=== PATIENT | male | born 1975 | race Caucasian/White ===

== ENCOUNTER → 2018-06-10 | Outpatient (CLI) | payer BC ==
[~2018-06-10] MED LIST: ACYC400T PO; CEPH500C; CITA10TA70 PO; DICL75TA2 PO; DOXY100T2 PO; DULA1.5P2 SQ; FAMO20TA5 PO; FLUO40CA PO; GLIP5TAB13 PO; HYDR-34 PO; HYDR-3820 PO; HYDR12.570 PO; IOHEXOL 350 MG/ML 100 ML (OMNIPAQUE 350) VIAL IV ONE; LIRA0.6P SQ; MELO-195 PO; METF-380 PO; METF-397 PO; METF100028 PO; NS 250 ML (IVPB) BAG IV ONE; PRD20T PO; SITA25TA PO; SULF-222; TEST200V21 IM; TRAM50TA2; TRAM50TA2 PO; VICTOZA
--- NOTE | 2018-06-10 08:26 | Diagnostic Imaging Report ---
PROCEDURE: CT neck soft tissue with contrast. TECHNIQUE: Multiple contiguous axial images were obtained through the neck after the administration of contrast. INDICATION: Swelling of the left salivary gland. No prior studies are available for comparison. There is fluid in both maxillary sinuses, greatest on the left suggestive of sinusitis. The posterior nasopharynx, oropharynx and larynx are unremarkable. No thyroid mass is seen. The parotid and submandibular glands are unremarkable. No discrete mass is seen. Posterior cervical chain is unremarkable apart from a left-sided node measuring 1.7 x 1.1 cm posterior to the left jugular vein at the level of the hyoid. Mildly prominent lymph node in the left jugulodigastric region is seen measuring 1.7 x 1.0 cm. A right jugulodigastric node measures 1.3 x 0.9 cm. There are some several small submandibular nodes bilaterally. Largest is on the right measuring 1.6 x 1.0 cm. IMPRESSION: 1. No evidence of salivary gland mass. 2. Findings suggestive of bilateral maxillary sinusitis, left greater. 3. Prominent lymph nodes in the neck bilaterally, as described and indeterminate. Followup could be obtained. Dictated by: Dictated on workstation # [id number]
== END ==
LOC: RAD 07:14
PROVIDERS: ATTEND Otolaryngology Otolaryngology/Facial Plastic Surgery
DX: R59.0 Localized enlarged lymph nodes (principal)
CPT/HCPCS: 70491

== ENCOUNTER 2018-06-22 05:38 | Outpatient (CLI) | payer BC ==
[~2018-06-22] VITALS: Ht 175.3 cm; Wt 105.2 kg
[~2018-06-22 05:38] MED LIST changes: -DULA1.5P2 SQ; -FLUO40CA PO; -GLIP5TAB13 PO; -HYDR-3820 PO; -IOHEXOL 350 MG/ML 100 ML (OMNIPAQUE 350) VIAL IV ONE; -NS 250 ML (IVPB) BAG IV ONE; -TEST200V21 IM
[2018-06-22] MEDS ORDERED: HYDR-3820 PO (15:22)
[2018-06-22] MEDS ORDERED: FLUO40CA PO (15:22)
[2018-06-22] MEDS ORDERED: DULA1.5P2 SQ (15:22)
[2018-06-22] MEDS ORDERED: GLIP5TAB13 PO (15:22)
[2018-06-22] MEDS ORDERED: TEST200V21 IM (15:22)
== END 2018-06-22 15:26 | disposition home or self-care (01) ==
LOC: PREOP 05:38
PROVIDERS: ATTEND Otolaryngology Otolaryngology/Facial Plastic Surgery
DX: Z01.818 Encounter for other preprocedural examination (principal)

== ENCOUNTER 2018-06-25 06:01 | Day surgery (SDC) | payer BC ==
[~2018-06-25] VITALS: Ht 175.3 cm; Wt 105.2 kg
[~2018-06-25 06:01] MED LIST changes: +DULA1.5P2 SQ; +FLUO40CA PO; +GLIP5TAB13 PO; +HYDR-3820 PO; +TEST200V21 IM
--- OUTSIDE RECORDS SUMMARY | 2018-06-25 06:06 | XMS REPORT ---
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 Active 276151584 Problem Controlled type 2 diabetes mellitus without complication, without long -term current use of insulin E11.9 Active 140733895 Problem Diabetes E11.9 Active 33698189 Problem Chronic osteoarthritis M19.90 Active 90311990 Problem Type 2 diabetes mellitus with complication, without long-term current use of insulin E11.8 Active 29923571 Problem Sialadenitis K11.20 Active 29952171 Problem Mood disorder F39 Active 29288451 Problem Chronic fatigue R53.82 Active 42625099 Problem Depressive disorder, not elsewhere classified F32.9 Active 13357440 Problem Hypogonadism in male E29.1 Active 18961660 ALLERGIES No Information ENCOUNTERS Encounter Location Date Diagnosis [facility] [id number], [place] [address] May, [facility] [address], [place] [address] 8052 May, [facility] [id number] [place] [address] 99105- 0756 May, Hypogonadism in male E29.1 [facility] [id number] [place] [address] 00487- 7565 18 May, 2018 Hypogonadism in male E29.1 [facility] [address], [place] [address] 5681 Apr, [facility] [id number] [place] [address] 79320- 1444 Apr, [place] [id number] [place] [address] 97678- 9380 Mar, Hypogonadism in male E29.1 [facility] [id number] [place] [address] 13571- 1166 Mar, Hypogonadism in male E29.1 [facility] [id number] [place] [address] 05127- 8111 Mar, Diabetes E11.9 and Anxiety F41.9 [facility] [id number] [place] [address] 26347- 1680 Mar, Type 2 diabetes mellitus with complication, without long- term current use of insulin E11.8 [facility] [id number] [place] [address] 66167- 9526 Feb, Insect bite (nonvenomous) of right upper arm, initial encounter S40.861A [facility] [id number] [place] [address] 85637- 1584 Feb, Insect bite (nonvenomous) of right upper arm, initial encounter S40.861A ; Local infection of the skin and subcutaneous tissue, unspecified L08.9 and Hypogonadism in male E29.1 [facility] [id number] [place] [address] 72433- 5543 January, Sialadenitis K11.20 [facility] [id number] [place] [address] 88960- 4616 January, Bronchitis J40 [facility] [id number] [place] [address] 54438- 1626 January, Hypogonadism in male E29.1 [facility] [id number] [place] [address] 28083- 3085 January, Hypogonadism in male E29.1 [facility] [id number] [place] [address] 57175- 9454 Dec, Bronchitis J40 [facility] [id number] [place] [address] 22578- 0147 28 Nov, 2017 Diabetes E11.9 and Anxiety F41.9 [facility] [address] [address]39- 2540 15 Nov, 2017 Bronchitis J40 [facility] [id number] [place] [address] 17014- 2810 14 Oct, 2017 Bronchitis J40 [facility] [address] 49302- 2905 Sep, Diabetes E11.9 ; Mood disorder F39 ; Hypogonadism in male E29.1 and Depressive disorder, not elsewhere classified F32.9 [facility] [address] 16020- 4724 Sep, Bronchitis J40 [facility] [address] 05953- 0640 Sep, Hypogonadism in male E29.1 [facility] [id number] [place] [address] 69348- 3165 Sep, [facility] [address] 94850- 9108 Sep, [facility] [id number] [place] [address] 66956- 3261 Aug, Bronchitis J40 [facility] [address] 37458- 2442 Aug, Uncontrolled type 2 diabetes mellitus without complication, without long-term current use of insulin E11.65 ; Diabetes type 2, controlled E11.9 ; Hypogonadism in male E29.1 ; Encounter for immunization Z23 and Spider bite wound, undetermined intent, initial encounter T63.304A [facility] [id number] [place] [address] 91502- 3805 Jul, Bronchitis J40 [facility] [address] 87959- 1122 Jun, Hypogonadism in male E29.1 [facility] [address] [facility] [id number], [place] [address] 9416 Jun, Hypogonadism in male E29.1 and Bronchitis J40 [facility] [address] [facility] [id number], [place] [address]- 1698 May, Bronchitis J40 [facility] [id number] [place] [address] 23427- 8352 May, Hypogonadism in male E29.1 [facility] [address] [facility] [id number], [place] [address]- 4419 May, Hypogonadism in male E29.1 [facility] [id number] [place] [address] 57253- 7296 Apr, Bronchitis J40 [facility] [id number] [place] [address] 51267- 9499 Apr, Controlled type 2 diabetes mellitus without complication, without long-term current use of insulin E11.9 [facility] [address], [place] [address]- 7547 Apr, Diabetes type 2, controlled E11.9 ; Hypogonadism in male E29.1 and Mood disorder F39 [facility] [address], [place] [address]- 8062 Apr, Hypogonadism in male E29.1 [facility] [address], [place] [address]- 7808 Apr, Bronchitis J40 [facility] [address] [facility] [id number], [place] [address]- 8290 Mar, Hypogonadism in male E29.1 [facility] [address], [place] [address]- 7802 Mar, Bronchitis J40 [facility] [address], [place] [address]- 7974 Mar, Bronchitis J40 [facility] [address] [place] [address] 00022- 7983 Feb, Spider bite, accidental or unintentional, initial encounter T63.301A [facility] [id number] [place] [address] 02845- 0276 Feb, Depressive disorder, not elsewhere classified F32.9 [facility] [id number] [place] [address] 09031- 4147 16 Feb, 2017 Diabetes E11.9 ; Mood disorder F39 and Hypogonadism in male E29.1 [facility] [id number] [place] [address] 56753- 8759 08 Feb, 2017 Bronchitis J40 [facility] [id number] [place] [address] 35626- 1663 Feb, Depressive disorder, not elsewhere classified F32.9 [facility] [id number] [place] [address] 83683- 0940 January, Depressive disorder, not elsewhere classified F32.9 [facility] [id number] [place] [address] 39507- 2187 January, Diabetes E11.9 and Mood disorder F39 [facility] [id number] [place] [address] 20052- 4723 January, Bronchitis J40 [facility] [id number] [place] [address] 46478- 6037 Dec, Bronchitis J40 [facility] [id number] [place] [address] 40159- 0008 Dec, Hypogonadism in male E29.1 [facility] [id number] [place] [address] 15395- 6966 Dec, [facility] [id number] [place] [address] 56862- 4576 Dec, Controlled type 2 diabetes mellitus without complication, without long-term current use of insulin E11.9 and Chronic fatigue R53.82 [facility] [address], [place] [address]- 5579 Nov, Bronchitis J40 [facility] [id number] [place] [address] 03674- 3302 16 Oct, 2016 Bronchitis J40 ; Controlled type 2 diabetes mellitus without complication, without long-term current use of insulin E11.9 ; Chronic fatigue R53.82 and Drug-induced erectile dysfunction N52.2 [facility] [facility] [id number] [place] [address] 62513- 0156 Oct, Diabetes E11.9 [facility] [facility] [id number] [place] [address] 95773- 0769 Sep, Pre-employment examination Z02.1 [facility] [id number] [place] [address] 77749- 6383 Sep, Diabetes E11.9 [place] [id number] [place] [address] 54254- 6672 Aug, Controlled type 2 diabetes mellitus without complication, without long-term current use of insulin E11.9 and Chronic osteoarthritis M19.90 [facility] [id number] [place] [address] 80215- 5348 Jul, [place] [id number] [place] [address] 40765- 9327 Jun, [place] [id number] [place] [address] 38924- 6858 Jun, 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 [facility] [id number] [place] [address] 20376- 6451 Jun, Encounter for immunization Z23 and Controlled type 2 diabetes mellitus without complication, without long-term current use of insulin E11.9 [facility] [id number] [place] [address] 17359- 3884 May, [facility] [id number] [place] [address] 50877- 4647 May, [facility] [address], [place] [address]- 1518 Apr, Gastritis without bleeding, unspecified chronicity, unspecified gastritis type K29.70 [facility] [address], [place] [address]- 1425 Apr, [facility] [id number] [place] [address] 06417- 4919 Mar, Diabetes type 2, controlled E11.9 [facility] [id number] [place] [address] 39339- 1550 Mar, [facility] [id number] [place] [address] 04216- 8817 Feb, [facility] [id number] [place] [address] 49104- 1002 Feb, [facility] [id number] [place] [address] 20289- 7328 January, [facility] [id number] [place] [address] 33264- 7875 Dec, Urethritis N34.2 [facility] [id number] [place] [address] 07007- 9667 Dec, [facility] [id number] [place] [address] 38454- 3470 Nov, Diabetes type 2, controlled E11.9 [facility] [address], [place] [address]- 6010 Nov, [facility] [id number] [place] [address] 32180- 1847 Nov, Diabetes type 2, controlled E11.9 [facility] [address] [place] [address] 66362- 7555 Oct, Hand pain M79.643 [facility] [address] [place] [address] 83433- 5836 Oct, Right hand pain M79.641 [facility] [id number], [place] [address]- 3755 Oct, [facility] [id number] [place] [address] 21894- 4946 Oct, [facility] [id number] [place] [address] 05449- 2245 Oct, Right carpal tunnel syndrome G56.01 [facility] [id number] [place] [address] 41860- 4903 Sep, Diabetes E11.9 [facility] [id number] [place] [address] 40637- 1651 Sep, Anxiety F41.9 ; Chronic osteoarthritis M19.90 and Health examination of defined subpopulation V70.5 [facility] [id number] [place] [address] 14533- 3045 Sep, Diabetes E11.9 [facility] [id number] [place] [address] 92242- 1453 Aug, Diabetes E11.9 ; Carpal tunnel syndrome, right G56.01 and Carpal tunnel syndrome, left upper limb G56.02 [facility] [address], [place] [address]- 4842 Jul, Diabetes mellitus 250.00 [facility] [id number] [place] [address] 81669- 9065 Jun, Diabetes mellitus 250.00 [facility] [id number] [place] [address] 60129- 4619 May, Diabetes mellitus 250.00 [facility] [id number] [place] [address] 80725- 9664 Apr, Diabetes mellitus 250.00 [facility] [id number] [place] [address] 82167- 6558 Mar, [facility] [id number] [place] [address] [place] [address]- 4993 Mar, Tooth abscess 522.5 [facility] [id number] [place] [address] 24256- 7701 Feb, [facility] [id number] [address]- 6586 January, [facility] [id number] [place] [address] 82536- 7235 January, [facility] [id number] [place] [address] 72981- 9127 January, Diabetes mellitus 250.00 [facility] [id number] [place] [address], [place] [address]- 1932 January, [facility] [id number] [place] [address] 18845- 7054 Dec, [facility] [id number] [place] [address] 53938- 2966 Dec, [facility] [address] 3786 Nov, [facility] [address] [place] [address] 05938- 1001 Nov, [facility] [address] 6377 Nov, [facility] [address] 4257 Nov, [facility] [address], [place] [address]- 7046 Oct, [facility] [address], [place] [address]- 4294 Oct, [facility] [address], [place] [address]- 3606 Sep, [facility] [address], [place] [address]- 6256 Sep, [facility] [place] [facility] [address] [id number] [place] [address]- 8797 Aug, [facility] [place] [facility] [address] [id number] [place] [address]- 0122 Aug, [facility] [place] [facility] [address] [id number] [place] [address]- 5556 Aug, [facility] [place] [facility] [address] [id number] [place] [address]- 0135 Aug, [facility] [place] [facility] [address] [id number] [place] [address]- 5481 Aug, [facility] [place] [facility] [address] [id number] [place] [address]- 7786 Aug, [facility] [place] [facility] [address] [id number] [place] [address]- 9641 Jul, [facility] [place] [facility] [address] [id number] [place] [address]- 2026 Jul, [facility] [place] [facility] [address] [id number] [place] [address]- 4523 Jun, [facility] [place] [facility] [address] [id number] [place] [address]- 7243 Jun, [facility] [place] [facility] [address] [id number] [place] [address]- 5735 May, [facility] [place] [facility] [address] [id number] [place] [address]- 3556 May, [facility] [place] [facility] [address] [id number] [place] [address]- 5557 Apr, [facility] [place] [facility] [address] [id number] [place] [address]- 2300 Apr, [facility] [place] [facility] [address] [id number] [place] [address]- 6934 Apr, [facility] [place] [facility] [address] [id number] [place] [address]- 0091 Apr, [facility] [address] [id number] [place] [address]- 7394 Apr, [facility] [place] [facility] [address] [id number] [place] [address]- 5793 Apr, [facility] [place] [facility] [address] [id number] [place] [address]- 0705 Mar, [facility] [place] [facility] [address] [id number] [place] [address]- 5362 Mar, [facility] [place] [facility] [address] [id number] [place] [address]- 9381 Feb, [facility] [place] [facility] [address] [id number] [place] [address]- 0299 Feb, [facility] [place] [facility] [address] [id number] [place] [address]- 5949 Feb, [facility] [place] [facility] [address] [id number] [place] [address]- 9468 Feb, [facility] [place] [facility] [address] [id number] [place] [address]- 6719 January, [facility] [place] [facility] [address] [id number] [place] [address]- 9760 January, [facility] [place] [facility] [address] [id number] [place] [address]- 4288 January, [facility] [place] [facility] [address] [id number] [place] [address]- 1923 January, [facility] [place] [facility] [address] [id number] [place] [address]- 9059 Dec, [facility] [place] [facility] [address] [id number] [place] [address]- 6492 Dec, [facility] [place] [facility] [address] [id number] [place] [address]- 1093 Nov, [facility] [place] [facility] [address] [id number] [place] [address]- 6271 Nov, [facility] [place] [facility] [address] [id number] [place] [address]- 5830 Oct, [facility] [place] [facility] [address] [id number] [place] [address]- 3503 Oct, [facility] [place] [facility] [address] [id number] [place] [address]- 0407 Sep, [facility] [place] [facility] [address] [id number] [place] [address]- 7980 Sep, [facility] [place] [facility] [address] [id number] [place] [address]- 6717 Aug, [facility] [place] [facility] [address] [id number] [place] [address]- 3705 Aug, [facility] [place] [facility] [address] [id number], [place] [address]- 1351 Jul, [facility] [place] [facility] [address] [id number] [place] [address]- 8056 Jul, [facility] [place] [facility] [address] [id number], [place] [address]- 6556 Jun, [facility] [place] [facility] [address] [id number], [place] [address]- 1619 Jun, [facility] [place] [facility] [address] [id number], [place] [address]- 0510 30 May, 2013 [facility] [place] [facility] [address] [id number] [place] [address]- 9764 May, [facility] [place] [facility] [address] [id number], [place] [address]- 4109 Apr, [facility] [place] [facility] [address] [id number], [place] [address]- 2546 Apr, [facility] [place] [facility] [address] [id number], [place] [address]- 1734 Feb, [facility] [address] [id number] [place] [address]- 9146 Feb, [facility] [place] [facility] [address] [id number] [place] [address]- 1386 January, [facility] [address] [id number] [place] [address]- 1672 January, [facility] [place] [facility] [address] [id number] [place] [address]- 9211 Dec, [facility] [address] [id number] [place] [address]- 7739 Nov, [facility] [place] [facility] [address] [id number] [place] [address]- 7669 Oct, [facility] [address] [id number] [place] [address]- 5704 Oct, [facility] [place] [facility] [address] [id number] [place] [address]- 2365 Sep, [facility] [address] [id number] [place] 8200 Aug, [facility] [address] [id number] [place] [address] Aug, [facility] [place] [facility] [address] [id number] [place] [address] Jul, [facility] [place] [facility] [address] [id number] [place] [address] Jul, [facility] [place] [facility] [address] [id number] [place] [address] Jun, [facility] [place] [facility] [address] [id number] [place] [address] 24 May, 2012 [facility] [place] [facility] [address] [id number] [address] 14 May, 2012 [facility] [place] [facility] [address] [id number] [place] [address] May, [facility] [place] [facility] [address] [id number] [place] [address] Apr, [facility] [place] [facility] [address] [id number] [place] [address] Apr, [facility] [place] [facility] [address] [id number] [place] [address] Apr, [facility] [place] [facility] [address] [id number] [place] [address] Mar, [facility] [place] [facility] [address] [id number] [place] [address] Mar, [facility] [place] [facility] [address] [id number] [place] [address] Feb, [facility] [place] [facility] [address] [id number] [place] [address] Feb, [facility] [place] [facility] [address] [id number] [place] [address] January, [facility] [place] [facility] [address] [id number] [place] [address] January, [facility] [place] [facility] [address] [id number] [place] [address] Dec, [facility] [place] [facility] [address] [id number] [place] [address] Dec, [facility] [place] [facility] [address] [id number] [place] [address] Nov, [facility] [place] [facility] [address] [id number] [place] [address] Nov, [facility] [place] [facility] [address] [id number] [place] [address] Oct, [facility] [place] [facility] [address] [id number], [place] [address] Oct, [facility] [address] [id number] Sep, [facility] [address] [id number] [address] Sep, [facility] [id number], [place] [address] Sep, [facility] [id number], [place] [address] Aug, [facility] [id number] [address] Aug, [facility] [id number] [address] Aug, [facility] [id number] [address] [address] Aug, [facility] [id number], [place] [address] Aug, [facility] [id number] [address] [address] Jul, [facility] [id number], [place] [address] Jul, [facility] [address] [id number] [address] Jul, [facility] [address] [id number] [address] Dec, IMMUNIZATIONS No Known Immunizations SOCIAL HISTORY Never Assessed REASON FOR VISIT Controlled Med Refill 05/24/18 PLAN OF CARE VITAL SIGNS MEDICATIONS Medication Instructions Dosage Frequency Start Date End Date Duration Status [place] 10-325 MG Orally every 6 hrs 1 tablet as needed 6h May, 28 days Active RESULTS No Results PROCEDURES No Known procedures INSTRUCTIONS MEDICATIONS ADMINISTERED No Known Medications MEDICAL (GENERAL) HISTORY Type Description Date Medical History Type 2 diabetes Medical History anxiety Medical History chronic hip pain Medical History carpal tunnel bilateral Medical History [place] Palsy Surgical History carpel tunnel-right hand 2011 Surgical History carpel tunnel-left hand 2008 Surgical History carpal tunnel - right hand 11/2015 Surgical History Torn bicep repair 01/2018 Hospitalization History ER spider bite
--- OUTSIDE RECORDS SUMMARY | 2018-06-25 06:07 | XMS REPORT ---
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 Active 749013423 Problem Controlled type 2 diabetes mellitus without complication, without long -term current use of insulin E11.9 Active 576901696 Problem Diabetes E11.9 Active 82920826 Problem Chronic osteoarthritis M19.90 Active 25983415 Problem Type 2 diabetes mellitus with complication, without long-term current use of insulin E11.8 Active 98934493 Problem Sialadenitis K11.20 Active 07408370 Problem Mood disorder F39 Active 66716315 Problem Chronic fatigue R53.82 Active 72796736 Problem Depressive disorder, not elsewhere classified F32.9 Active 59659010 Problem Hypogonadism in male E29.1 Active 20001570 ALLERGIES No Information ENCOUNTERS Encounter Location Date Diagnosis [facility] [id number] [place] [address] 50162- 4965 Apr, [facility] [id number] [place] [address] 19887- 3763 Apr, [facility] [id number] [place] [address] 36099- 1141 Mar, Hypogonadism in male E29.1 [facility] [id number] [place] [address] 89672- 3374 Mar, Hypogonadism in male E29.1 [facility] [id number] [place] [address] 08462- 7536 Mar, Diabetes E11.9 and Anxiety F41.9 [facility] [id number] [place] [address] 50232- 7760 Mar, Type 2 diabetes mellitus with complication, without long- term current use of insulin E11.8 [facility] [id number] [place] [address] 66346- 3275 Feb, Insect bite (nonvenomous) of right upper arm, initial encounter S40.861A [facility] [address] 79439- 0348 Feb, Insect bite (nonvenomous) of right upper arm, initial encounter S40.861A ; Local infection of the skin and subcutaneous tissue, unspecified L08.9 and Hypogonadism in male E29.1 [facility] [address] 09997- 2284 January, Sialadenitis K11.20 [facility] [address] 99991- 1562 January, Bronchitis J40 [facility] [address] 92518- 7812 January, Hypogonadism in male E29.1 [facility] [address] 80597- 8657 January, Hypogonadism in male E29.1 [facility] [id number] [place] [address] 51547- 7925 Dec, Bronchitis J40 [facility] [id number] [place] [address] 63504- 2278 Nov, Diabetes E11.9 and Anxiety F41.9 [facility] [address] 56733- 0512 Nov, Bronchitis J40 [facility] [address] 30222- 7463 Oct, Bronchitis J40 [facility] [address] 63533- 9650 Sep, Diabetes E11.9 ; Mood disorder F39 ; Hypogonadism in male E29.1 and Depressive disorder, not elsewhere classified F32.9 [facility] [id number] [place] [address] 01378- 2743 Sep, Bronchitis J40 [facility] [id number] [place] [address] 07420- 2384 Sep, Hypogonadism in male E29.1 [facility] [address] 36343- 4138 Sep, [facility] [address] 27634- 2733 Sep, [facility] [address] 69387- 5914 Aug, Bronchitis J40 [facility] [address] 33817- 2403 Aug, Uncontrolled type 2 diabetes mellitus without complication, without long-term current use of insulin E11.65 ; Diabetes type 2, controlled E11.9 ; Hypogonadism in male E29.1 ; Encounter for immunization Z23 and Spider bite wound, undetermined intent, initial encounter T63.304A [facility] [id number] [place] [address] 30849- 8582 Jul, Bronchitis J40 [facility] [id number] [place] [address] 99731- 9049 Jun, Hypogonadism in male E29.1 [facility] [id number] [place] [address] 34565- 9499 Jun, Hypogonadism in male E29.1 and Bronchitis J40 [facility] [id number] [place] [address] 60428- 4408 May, Bronchitis J40 [facility] [id number] [place] [address] 10905- 2925 May, Hypogonadism in male E29.1 [facility] [address] [place] [address]- 6009 May, Hypogonadism in male E29.1 [facility] [id number] [place] [address] 36064- 7484 Apr, Bronchitis J40 [facility] [address] [place] [address] 47857- 2426 Apr, Controlled type 2 diabetes mellitus without complication, without long-term current use of insulin E11.9 [facility] [id number] [place] [address] 45003- 3184 Apr, Diabetes type 2, controlled E11.9 ; Hypogonadism in male E29.1 and Mood disorder F39 [facility] [id number] [place] [address] 09569- 6858 Apr, Hypogonadism in male E29.1 [facility] [id number] [place] [address] 94999- 0148 Apr, Bronchitis J40 [facility] [id number] [place] [address] 72838- 7579 Mar, Hypogonadism in male E29.1 [facility] [id number] [place] [address] 63467- 9659 Mar, Bronchitis J40 [facility] [address] [place] [address] 31828- 0959 Mar, Bronchitis J40 [facility] [id number] [place] [address] 22365- 3570 Feb, Spider bite, accidental or unintentional, initial encounter T63.301A [facility] [id number] [place] [address] 47205- 0953 Feb, Depressive disorder, not elsewhere classified F32.9 [facility] [address] [place] [address] 81658- 4014 16 Feb, 2017 Diabetes E11.9 ; Mood disorder F39 and Hypogonadism in male E29.1 [facility] [id number] [place] [address] 93866- 1930 Feb, Bronchitis J40 [facility] [id number] [place] [address] 43963- 7445 Feb, Depressive disorder, not elsewhere classified F32.9 [facility] [id number] [place] [address] 39315- 3072 January, Depressive disorder, not elsewhere classified F32.9 [facility] [id number] [place] [address] 86969- 1780 January, Diabetes E11.9 and Mood disorder F39 [facility] [address] 94580- 1220 January, Bronchitis J40 [facility] [id number] [place] [address] 53725- 7924 Dec, Bronchitis J40 [facility] [address] 16549- 7452 Dec, Hypogonadism in male E29.1 [facility] [id number] [place] [address] 51042- 9989 Dec, [facility] [id number] [place] [address] 73496- 6175 Dec, Controlled type 2 diabetes mellitus without complication, without long-term current use of insulin E11.9 and Chronic fatigue R53.82 [facility] [id number] [place] [address] 84639- 2814 Nov, Bronchitis J40 [facility] [id number] [place] [address] 20122- 7729 Oct, Bronchitis J40 ; Controlled type 2 diabetes mellitus without complication, without long-term current use of insulin E11.9 ; Chronic fatigue R53.82 and Drug-induced erectile dysfunction N52.2 [facility] [id number] [place] [address] 66199- 4729 Oct, Diabetes E11.9 [facility] [address] [address]- 9656 Sep, Pre-employment examination Z02.1 [facility] [id number] [place] [address] 78203- 9442 Sep, Diabetes E11.9 [facility] [id number] [place] [address] 58636- 6494 Aug, Controlled type 2 diabetes mellitus without complication, without long-term current use of insulin E11.9 and Chronic osteoarthritis M19.90 [facility] [id number] [place] [address] 72023- 4191 Jul, [facility] [id number] [place] [address] 59117- 3218 Jun, [facility] [id number] [place] [address] 36469- 5722 Jun, 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 [facility] [id number] [place] [address] 65007- 9026 Jun, Encounter for immunization Z23 and Controlled type 2 diabetes mellitus without complication, without long-term current use of insulin E11.9 [facility] [address] [place] [address] 70542- 0363 May, [facility] [id number] [place] [address] 32483- 7775 May, [facility] [id number] [place] [address] 93470- 3344 Apr, Gastritis without bleeding, unspecified chronicity, unspecified gastritis type K29.70 [facility] [id number] [place] [address] 78665- 3231 Apr, [facility] [id number] [place] [address] 79753- 0019 Mar, Diabetes type 2, controlled E11.9 [facility] [address] [place] [address] 64731- 4153 Mar, [facility] [address] [address]- 1202 Feb, [facility] [id number] [place] [address] 60179- 1516 Feb, [facility] [id number] [place] [address] 93822- 1986 January, [facility] [id number] [place] [address] 14988- 5376 Dec, Urethritis N34.2 [facility] [id number] [place] [address] 25913- 6106 Dec, [facility] [id number] [place] [address] 40109- 5251 Nov, Diabetes type 2, controlled E11.9 [facility] [id number] [place] [address] 35784- 8596 Nov, [facility] [id number] [place] [address] 15967- 4021 Nov, Diabetes type 2, controlled E11.9 [facility] [address] [place] [address] 38643- 2672 Oct, Hand pain M79.643 [facility] [address] [place] [address] 58334- 7296 Oct, Right hand pain M79.641 [facility] [address] [address]- 8906 Oct, [facility] [address] [place] [address] 53435- 4404 Oct, [facility] [id number] [address]- 9938 Oct, Right carpal tunnel syndrome G56.01 [facility] [address] [place] [address] 32983- 8340 Sep, Diabetes E11.9 [facility] [id number] [place] [address] 594265- 8931 Sep, Anxiety F41.9 ; Chronic osteoarthritis M19.90 and Health examination of defined subpopulation V70.5 [facility] [id number] [place] [address] 15707- 2750 Sep, Diabetes E11.9 [facility] [id number] [place] [address] 027666- 3277 Aug, Diabetes E11.9 ; Carpal tunnel syndrome, right G56.01 and Carpal tunnel syndrome, left upper limb G56.02 [facility] [id number] [place] [address] 976239- 3956 Jul, Diabetes mellitus 250.00 [facility] [id number] [place] [address] 73783344- 4416 Jun, Diabetes mellitus 250.00 [facility] [id number] [place] [address] 77613312- 8235 May, Diabetes mellitus 250.00 [facility] [id number] [place] [address] 663119- 8892 Apr, Diabetes mellitus 250.00 [facility] [id number] [place] [address] 50291- 1216 Mar, [facility] [id number] [place] [address] 20015- 8366 Mar, Tooth abscess 522.5 [facility] [id number] [place] [address] 00096- 6736 Feb, [facility] [id number] [place] [address] 69136- 3386 January, [facility] [id number] [place] [address] 90491- 6466 January, [facility] [id number] [place] [address] 21786- 1844 January, Diabetes mellitus 250.00 [facility] [address] [id number] [place] [address]- 0556 January, [facility] [address] [id number] [place] [address]- 5325 Dec, [facility] [address] [id number] [place] [address]- 3411 Dec, [facility] [place] [facility] [address] [id number] [place] [address]- 9498 Nov, [facility] [place] [facility] [address] [id number] [place] [address]- 5503 Nov, [facility] [place] [facility] [address] [id number] [place] [address]- 6960 Nov, [facility] [address] [id number] [place] [address]- 0316 Nov, [facility] [address] [id number] [place] [address]- 8782 Oct, [facility] [address] [id number] [place] [address]- 7644 Oct, [facility] [address] [facility] [id number] [place] [address]- 6156 Sep, [facility] [address] [id number] [place] [address]- 4625 Sep, [facility] [place] [facility] [address] [facility] [id number] [place] [address]- 4408 Aug, [facility] [place] [facility] [address] [id number] [place] [address]- 2914 Aug, [facility] [place] [facility] [address] [id number] [place] [address]- 3452 Aug, [facility] [place] [facility] [address] [facility] [id number] [place] [address]- 6399 Aug, [facility] [place] [facility] [address] [id number] [place] [address]- 6044 Aug, [facility] [place] [facility] [address] [id number] [place] [address]- 1567 Aug, [facility] [place] [facility] [address] [id number] [place] [address]- 6671 Jul, [facility] [place] [facility] [address] [id number] [place] [address]- 2834 Jul, [facility] [place] [facility] [address] [id number] [place] [address]- 2258 Jun, [facility] [place] [facility] [address] [id number] [place] [address]- 8833 Jun, [facility] [place] [facility] [address] [id number] [place] [address]- 8122 May, [facility] [place] [facility] [address] [id number] [place] [address]- 3922 May, [facility] [place] [facility] [address] [id number] [place] [address]- 0867 Apr, [facility] [place] [facility] [address] [id number] [place] [address]- 0014 Apr, [facility] [place] [facility] [address] [id number] [place] [address]- 9143 Apr, [facility] [place] [facility] [address] [id number] [place] [address]- 4961 Apr, [facility] [place] [facility] [address] [id number] [place] [address]- 2019 Apr, [facility] [place] [facility] [address] [id number] [place] [address]- 7037 Apr, [facility] [place] [facility] [address] [id number] [place] [address]- 5516 Mar, [facility] [place] [facility] [address] [id number] [place] [address]- 6043 Mar, [facility] [place] [facility] [address] [id number] [place] [address]- 9644 Feb, [facility] [place] [facility] [address] [id number] [place] [address]- 8231 Feb, [facility] [place] [facility] [address] [id number] [place] [address]- 5232 Feb, [facility] [place] [facility] [address] [id number] [place] [address]- 7544 Feb, [facility] [place] [facility] [address] [id number] [place] [address]- 1333 January, [facility] [place] [facility] [address] [id number] [place] [address]- 0687 January, [facility] [place] [facility] [address] [id number] [place] [address]- 2424 January, [facility] [place] [facility] [address] [id number] [place] [address]- 0472 January, [facility] [place] [facility] [address] [id number] [place] [address]- 2375 Dec, [facility] [place] [facility] [address] [id number] [place] [address]- 9524 Dec, [facility] [place] [facility] [address] [id number] [place] [address]- 8482 Nov, [facility] [place] [facility] [address] [id number] [place] [address]- 9208 Nov, [facility] [place] [facility] [address] [id number] [place] [address]- 2453 Oct, [facility] [place] [facility] [address] [id number] [place] [address]- 9208 Oct, [facility] [place] [facility] [address] [id number] [place] [address]- 4516 Sep, [facility] [place] [facility] [address] [id number] [place] [address]- 8243 Sep, [facility] [address] [id number] [place] [address]- 5248 Aug, [facility] [place] [facility] [address] [id number] [place] [address]- 1469 Aug, [facility] [address] [id number] [place] [address]- 6638 Jul, [facility] [place] [facility] [address] [id number] [place] [address]- 7770 Jul, [facility] [place] [facility] [address] [id number] [place] [address]- 5726 Jun, [facility] [place] [facility] [address] [id number] [place] [address]- 1322 Jun, [facility] [address] [id number] [place] [address]- 9225 May, [facility] [place] [facility] [address] [id number] [place] [address]- 5889 May, [facility] [place] [facility] [address] [id number] [place] [address]- 9706 Apr, [facility] [place] [facility] [address] [id number] [place] [address]- 1960 Apr, [facility] [place] [facility] [address] [id number] [place] [address]- 1679 Feb, [facility] [place] [facility] [address] [id number] [place] [address]- 1926 Feb, [facility] [place] [facility] [address] [id number] [place] [address]- 9498 January, [facility] [place] [facility] [address] [id number] [place] [address]- 8709 January, [facility] [place] [facility] [address] [id number] [place] [address]- 1912 Dec, [facility] [place] [facility] [address] [id number] [place] [address]- 2393 Nov, [facility] [place] [facility] [address] [id number] [place] 9973 Oct, [facility] [place] [facility] [address] [id number] [place] 4489 Oct, [facility] [place] [facility] [address] [id number] [place] [address]- 4273 Sep, [facility] [place] [facility] [address] [id number] [place] 3838 Aug, [facility] [place] [facility] [address] [id number] [place] [address]- 2626 Aug, [facility] [place] [facility] [address] [id number] [place] [address]- 4672 Jul, [facility] [place] [facility] [address] [id number] [place] [address]- 0139 Jul, [facility] [place] [facility] [address] [id number] [place] [address]- 7928 Jun, [facility] [place] [facility] [address] [id number] [place] [address]- 0071 24 May, 2012 [facility] [place] [facility] [address] [id number] [place] [address]- 2082 14 May, 2012 [facility] [place] [facility] [address] [id number] [place] [address] 13 May, 2012 [facility] [place] [facility] [address] [id number] [place] [address] 28 Apr, 2012 [facility] [place] [facility] [address] [id number] [place] [address] Apr, [facility] [place] [facility] [address] [id number] [place] [address] Apr, [facility] [place] [facility] [address] [id number] [address] Mar, [facility] [address] [id number] [place] [address] Mar, [facility] [place] [facility] [address] [id number] [place] [address] Feb, [facility] [place] [facility] [address] [id number] [place] [address] Feb, [facility] [place] [facility] [address] [id number] [place] [address] January, [facility] [place] [facility] [address] [id number] [place] [address] January, [facility] [place] [facility] [address] [id number] [place] [address] Dec, [facility] [address] [facility] [id number] [place] [address] Dec, [facility] [place] [facility] [address] [id number] [place] [address] Nov, [facility] [address] [id number] [place] [address] Nov, [facility] [place] [facility] [address] [id number] [place] [address] Oct, [facility] [place] [facility] [address] [id number] [place] [address] Oct, [facility] [place] [facility] [address] [id number] [place] [address] Sep, [facility] [place] [facility] [address] [id number] [place] [address] Sep, [facility] [place] [facility] [address] [id number] [place] [address] Sep, [facility] [place] [facility] [address] [id number] [place] [address] Aug, [facility] [place] [facility] [address] [id number] [address] Aug, [facility] [address] [id number] [address] Aug, [facility] [id number] [address] Aug, [facility] [id number] [address] Aug, [facility] [id number] [address] Jul, [facility] [id number] [address] Jul, [facility] [id number] [address] Jul, [facility] [id number] [address] Dec, IMMUNIZATIONS No Known Immunizations SOCIAL HISTORY Never Assessed REASON FOR VISIT lab PLAN OF CARE VITAL SIGNS MEDICATIONS Unknown Medications RESULTS No Results PROCEDURES No Known procedures INSTRUCTIONS MEDICATIONS ADMINISTERED No Known Medications MEDICAL (GENERAL) HISTORY Type Description Date Medical History Type 2 diabetes Medical History anxiety Medical History chronic hip pain Medical History carpal tunnel bilateral Medical History [place] Palsy Surgical History carpel tunnel-right hand 2011 Surgical History carpel tunnel-left hand 2008 Surgical History carpal tunnel - right hand 11/2015 Surgical History Torn bicep repair 01/2018 Hospitalization History [facility] spider bite
--- OUTSIDE RECORDS SUMMARY | 2018-06-25 06:07 | XMS REPORT ---
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 Active 177295259 Problem Controlled type 2 diabetes mellitus without complication, without long -term current use of insulin E11.9 Active 096349958 Problem Diabetes E11.9 Active 20042146 Problem Chronic osteoarthritis M19.90 Active 74119165 Problem Type 2 diabetes mellitus with complication, without long-term current use of insulin E11.8 Active 05697257 Problem Sialadenitis K11.20 Active 57537061 Problem Mood disorder F39 Active 73400440 Problem Chronic fatigue R53.82 Active 19801744 Problem Depressive disorder, not elsewhere classified F32.9 Active 33655997 Problem Hypogonadism in male E29.1 Active 41452809 ALLERGIES No Information ENCOUNTERS Encounter Location Date Diagnosis [facility] [id number] [place] [address] 07680- 1560 Apr, [facility] [id number] [place] [address] 54189- 8212 Apr, [facility] [id number] [place] [address] 48433- 1450 Mar, Hypogonadism in male E29.1 [facility] [id number] [place] [address] 96560- 8812 Mar, Hypogonadism in male E29.1 [facility] [address] [place] [address] 61107- 5686 Mar, Diabetes E11.9 and Anxiety F41.9 [facility] [id number] [place] [address] 18016- 2506 Mar, Type 2 diabetes mellitus with complication, without long- term current use of insulin E11.8 [facility] [id number] [place] [address] 58106- 7258 Feb, Insect bite (nonvenomous) of right upper arm, initial encounter S40.861A [facility] [address] 71671- 6291 Feb, Insect bite (nonvenomous) of right upper arm, initial encounter S40.861A ; Local infection of the skin and subcutaneous tissue, unspecified L08.9 and Hypogonadism in male E29.1 [facility] [address] 31141- 3056 January, Sialadenitis K11.20 [facility] [address] 05488- 7674 January, Bronchitis J40 [facility] [address] 97847- 9186 January, Hypogonadism in male E29.1 [facility] [address] 14532- 7095 January, Hypogonadism in male E29.1 [facility] [id number] [place] [address] 48187- 1747 Dec, Bronchitis J40 [facility] [id number] [place] [address] 77244- 9076 Nov, Diabetes E11.9 and Anxiety F41.9 [facility] [address] 66456- 3087 Nov, Bronchitis J40 [facility] [address] 90422- 9011 Oct, Bronchitis J40 [facility] [address] 80975- 5346 Sep, Diabetes E11.9 ; Mood disorder F39 ; Hypogonadism in male E29.1 and Depressive disorder, not elsewhere classified F32.9 [facility] [id number] [place] [address] 23587- 6031 Sep, Bronchitis J40 [facility] [id number] [place] [address] 49317- 7407 Sep, Hypogonadism in male E29.1 [facility] [address] 53634- 4182 Sep, [facility] [address] 99916- 5923 Sep, [facility] [address] 30208- 5003 Aug, Bronchitis J40 [facility] [address] 31141- 4845 Aug, Uncontrolled type 2 diabetes mellitus without complication, without long-term current use of insulin E11.65 ; Diabetes type 2, controlled E11.9 ; Hypogonadism in male E29.1 ; Encounter for immunization Z23 and Spider bite wound, undetermined intent, initial encounter T63.304A [facility] [id number] [place] [address] 63082- 5959 Jul, Bronchitis J40 [facility] [id number] [place] [address] 04046- 2460 Jun, Hypogonadism in male E29.1 [facility] [id number] [place] [address] 99317- 7807 Jun, Hypogonadism in male E29.1 and Bronchitis J40 [facility] [id number] [place] [address] 88045- 9846 May, Bronchitis J40 [facility] [id number] [place] [address] 78717- 4186 May, Hypogonadism in male E29.1 [facility] [address] [place] [address]- 7523 May, Hypogonadism in male E29.1 [facility] [id number] [place] [address] 44271- 3459 Apr, Bronchitis J40 [facility] [address] [place] [address] 72759- 7670 Apr, Controlled type 2 diabetes mellitus without complication, without long-term current use of insulin E11.9 [facility] [id number] [place] [address] 47184- 0237 Apr, Diabetes type 2, controlled E11.9 ; Hypogonadism in male E29.1 and Mood disorder F39 [facility] [id number] [place] [address] 40380- 8611 Apr, Hypogonadism in male E29.1 [facility] [id number] [place] [address] 31400- 9894 Apr, Bronchitis J40 [facility] [id number] [place] [address] 96364- 8481 Mar, Hypogonadism in male E29.1 [facility] [id number] [place] [address] 87394- 5687 Mar, Bronchitis J40 [facility] [address] [place] [address] 89122- 1265 Mar, Bronchitis J40 [facility] [id number] [place] [address] 85051- 1252 Feb, Spider bite, accidental or unintentional, initial encounter T63.301A [facility] [id number] [place] [address] 03154- 1278 Feb, Depressive disorder, not elsewhere classified F32.9 [facility] [address] [place] [address] 81189- 7876 16 Feb, 2017 Diabetes E11.9 ; Mood disorder F39 and Hypogonadism in male E29.1 [facility] [id number] [place] [address] 87851- 9767 Feb, Bronchitis J40 [facility] [id number] [place] [address] 21145- 1238 Feb, Depressive disorder, not elsewhere classified F32.9 [facility] [id number] [place] [address] 80041- 7214 January, Depressive disorder, not elsewhere classified F32.9 [facility] [id number] [place] [address] 47620- 5919 January, Diabetes E11.9 and Mood disorder F39 [facility] [address] 22211- 3900 January, Bronchitis J40 [facility] [id number] [place] [address] 08957- 9173 Dec, Bronchitis J40 [facility] [address] 82681- 1970 Dec, Hypogonadism in male E29.1 [facility] [id number] [place] [address] 53229- 2406 Dec, [facility] [id number] [place] [address] 81433- 2835 Dec, Controlled type 2 diabetes mellitus without complication, without long-term current use of insulin E11.9 and Chronic fatigue R53.82 [facility] [id number] [place] [address] 28016- 8558 Nov, Bronchitis J40 [facility] [id number] [place] [address] 09550- 8085 Oct, Bronchitis J40 ; Controlled type 2 diabetes mellitus without complication, without long-term current use of insulin E11.9 ; Chronic fatigue R53.82 and Drug-induced erectile dysfunction N52.2 [facility] [id number] [place] [address] 50158- 0180 Oct, Diabetes E11.9 [facility] [address] [address]- 5364 Sep, Pre-employment examination Z02.1 [facility] [id number] [place] [address] 79496- 1248 Sep, Diabetes E11.9 [facility] [id number] [place] [address] 94952- 0126 Aug, Controlled type 2 diabetes mellitus without complication, without long-term current use of insulin E11.9 and Chronic osteoarthritis M19.90 [facility] [id number] [place] [address] 30202- 9765 Jul, [facility] [id number] [place] [address] 42780- 6104 Jun, [facility] [id number] [place] [address] 58926- 5578 Jun, 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 [facility] [id number] [place] [address] 38837- 0670 Jun, Encounter for immunization Z23 and Controlled type 2 diabetes mellitus without complication, without long-term current use of insulin E11.9 [facility] [address] [place] [address] 36737- 8480 May, [facility] [id number] [place] [address] 52182- 4043 May, [facility] [id number] [place] [address] 13988- 1395 Apr, Gastritis without bleeding, unspecified chronicity, unspecified gastritis type K29.70 [facility] [id number] [place] [address] 02964- 0802 Apr, [facility] [id number] [place] [address] 40085- 7280 Mar, Diabetes type 2, controlled E11.9 [facility] [address] [place] [address] 19222- 8109 Mar, [facility] [address] [address]- 4495 Feb, [facility] [id number] [place] [address] 96748- 3276 Feb, [facility] [id number] [place] [address] 54298- 8006 January, [facility] [id number] [place] [address] 58507- 3893 Dec, Urethritis N34.2 [facility] [id number] [place] [address] 80262- 4940 Dec, [facility] [id number] [place] [address] 92409- 6005 Nov, Diabetes type 2, controlled E11.9 [facility] [id number] [place] [address] 54157- 2982 Nov, [facility] [id number] [place] [address] 33668- 5772 Nov, Diabetes type 2, controlled E11.9 [facility] [address] [place] [address] 47297- 8907 Oct, Hand pain M79.643 [facility] [address] [place] [address] 55666- 6216 Oct, Right hand pain M79.641 [facility] [address] [address]- 3346 Oct, [facility] [address] [place] [address] 57508- 0494 Oct, [facility] [id number] [address]- 6307 Oct, Right carpal tunnel syndrome G56.01 [facility] [address] [place] [address] 56570- 4188 Sep, Diabetes E11.9 [facility] [id number] [place] [address] 976140- 0922 Sep, Anxiety F41.9 ; Chronic osteoarthritis M19.90 and Health examination of defined subpopulation V70.5 [facility] [id number] [place] [address] 86101- 3523 Sep, Diabetes E11.9 [facility] [id number] [place] [address] 467730- 2356 Aug, Diabetes E11.9 ; Carpal tunnel syndrome, right G56.01 and Carpal tunnel syndrome, left upper limb G56.02 [facility] [id number] [place] [address] 773998- 1756 Jul, Diabetes mellitus 250.00 [facility] [id number] [place] [address] 71419259- 8146 Jun, Diabetes mellitus 250.00 [facility] [id number] [place] [address] 80039604- 7006 May, Diabetes mellitus 250.00 [facility] [id number] [place] [address] 186334- 3240 Apr, Diabetes mellitus 250.00 [facility] [id number] [place] [address] 87764- 4376 Mar, [facility] [id number] [place] [address] 13555- 3556 Mar, Tooth abscess 522.5 [facility] [id number] [place] [address] 72408- 0796 Feb, [facility] [id number] [place] [address] 13060- 0596 January, [facility] [id number] [place] [address] 13827- 6316 January, [facility] [id number] [place] [address] 75879- 8275 January, Diabetes mellitus 250.00 [facility] [address] [id number] [place] [address]- 5644 January, [facility] [address] [id number] [place] [address]- 8442 Dec, [facility] [address] [id number] [place] [address]- 3293 Dec, [facility] [place] [facility] [address] [id number] [place] [address]- 7009 Nov, [facility] [place] [facility] [address] [id number] [place] [address]- 1514 Nov, [facility] [place] [facility] [address] [id number] [place] [address]- 9488 Nov, [facility] [address] [id number] [place] [address]- 8290 Nov, [facility] [address] [id number] [place] [address]- 3402 Oct, [facility] [address] [id number] [place] [address]- 2574 Oct, [facility] [address] [facility] [id number] [place] [address]- 5852 Sep, [facility] [address] [id number] [place] [address]- 4593 Sep, [facility] [place] [facility] [address] [facility] [id number] [place] [address]- 1865 Aug, [facility] [place] [facility] [address] [id number] [place] [address]- 4392 Aug, [facility] [place] [facility] [address] [id number] [place] [address]- 1162 Aug, [facility] [place] [facility] [address] [facility] [id number] [place] [address]- 4381 Aug, [facility] [place] [facility] [address] [id number] [place] [address]- 3799 Aug, [facility] [place] [facility] [address] [id number] [place] [address]- 3834 Aug, [facility] [place] [facility] [address] [id number] [place] [address]- 3441 Jul, [facility] [place] [facility] [address] [id number] [place] [address]- 0697 Jul, [facility] [place] [facility] [address] [id number] [place] [address]- 2654 Jun, [facility] [place] [facility] [address] [id number] [place] [address]- 5334 Jun, [facility] [place] [facility] [address] [id number] [place] [address]- 1819 May, [facility] [place] [facility] [address] [id number] [place] [address]- 3983 May, [facility] [place] [facility] [address] [id number] [place] [address]- 5760 Apr, [facility] [place] [facility] [address] [id number] [place] [address]- 2332 Apr, [facility] [place] [facility] [address] [id number] [place] [address]- 1077 Apr, [facility] [place] [facility] [address] [id number] [place] [address]- 0784 Apr, [facility] [place] [facility] [address] [id number] [place] [address]- 0633 Apr, [facility] [place] [facility] [address] [id number] [place] [address]- 8466 Apr, [facility] [place] [facility] [address] [id number] [place] [address]- 6455 Mar, [facility] [place] [facility] [address] [id number] [place] [address]- 6923 Mar, [facility] [place] [facility] [address] [id number] [place] [address]- 7721 Feb, [facility] [place] [facility] [address] [id number] [place] [address]- 6711 Feb, [facility] [place] [facility] [address] [id number] [place] [address]- 4049 Feb, [facility] [place] [facility] [address] [id number] [place] [address]- 7410 Feb, [facility] [place] [facility] [address] [id number] [place] [address]- 8564 January, [facility] [place] [facility] [address] [id number] [place] [address]- 4941 January, [facility] [place] [facility] [address] [id number] [place] [address]- 0931 January, [facility] [place] [facility] [address] [id number] [place] [address]- 7605 January, [facility] [place] [facility] [address] [id number] [place] [address]- 1483 Dec, [facility] [place] [facility] [address] [id number] [place] [address]- 0890 Dec, [facility] [place] [facility] [address] [id number] [place] [address]- 6791 Nov, [facility] [place] [facility] [address] [id number] [place] [address]- 4545 Nov, [facility] [place] [facility] [address] [id number] [place] [address]- 4808 Oct, [facility] [place] [facility] [address] [id number] [place] [address]- 6012 Oct, [facility] [place] [facility] [address] [id number] [place] [address]- 0951 Sep, [facility] [place] [facility] [address] [id number] [place] [address]- 3069 Sep, [facility] [address] [id number] [place] [address]- 4066 Aug, [facility] [place] [facility] [address] [id number] [place] [address]- 2340 Aug, [facility] [address] [id number] [place] [address]- 1596 Jul, [facility] [place] [facility] [address] [id number] [place] [address]- 8974 Jul, [facility] [place] [facility] [address] [id number] [place] [address]- 3153 Jun, [facility] [place] [facility] [address] [id number] [place] [address]- 7919 Jun, [facility] [address] [id number] [place] [address]- 0653 May, [facility] [place] [facility] [address] [id number] [place] [address]- 6023 May, [facility] [place] [facility] [address] [id number] [place] [address]- 3813 Apr, [facility] [place] [facility] [address] [id number] [place] [address]- 1144 Apr, [facility] [place] [facility] [address] [id number] [place] [address]- 2087 Feb, [facility] [place] [facility] [address] [id number] [place] [address]- 9732 Feb, [facility] [place] [facility] [address] [id number] [place] [address]- 8268 January, [facility] [place] [facility] [address] [id number] [place] [address]- 2792 January, [facility] [place] [facility] [address] [id number] [place] [address]- 7378 Dec, [facility] [place] [facility] [address] [id number] [place] [address]- 0739 Nov, [facility] [place] [facility] [address] [id number] [place] 5145 Oct, [facility] [place] [facility] [address] [id number] [place] 5953 Oct, [facility] [place] [facility] [address] [id number] [place] [address]- 5112 Sep, [facility] [place] [facility] [address] [id number] [place] 8078 Aug, [facility] [place] [facility] [address] [id number] [place] [address]- 1716 Aug, [facility] [place] [facility] [address] [id number] [place] [address]- 0054 Jul, [facility] [place] [facility] [address] [id number] [place] [address]- 8731 Jul, [facility] [place] [facility] [address] [id number] [place] [address]- 8676 Jun, [facility] [place] [facility] [address] [id number] [place] [address]- 5629 24 May, 2012 [facility] [place] [facility] [address] [id number] [place] [address]- 3199 14 May, 2012 [facility] [place] [facility] [address] [id number] [place] [address]- 3554 13 May, 2012 [facility] [place] [facility] [address] [id number] [place] [address]- 2359 28 Apr, 2012 [facility] [place] [facility] [address] [id number] [place] [address]- 7460 Apr, [facility] [place] [facility] [address] [id number] [place] [address]- 3907 Apr, [facility] [place] [facility] [address] [id number], [place] [address]- 8712 Mar, [facility] [address] [id number] [place] [address] Mar, [facility] [place] [facility] [address] [id number] [place] [address] Feb, [facility] [place] [facility] [address] [id number] [place] [address] Feb, [facility] [place] [facility] [address] [id number] [place] [address] January, [facility] [place] [facility] [address] [id number] [place] [address] January, [facility] [place] [facility] [address] [id number] [place] [address] Dec, [facility] [address] [facility] [id number] [place] [address] Dec, [facility] [place] [facility] [address] [id number] [place] [address] Nov, [facility] [address] [id number] [place] [address] Nov, [facility] [place] [facility] [address] [id number] [place] [address] Oct, [facility] [place] [facility] [address] [id number] [place] [address] Oct, [facility] [place] [facility] [address] [id number] [place] [address] Sep, [facility] [place] [facility] [address] [id number] [place] [address] Sep, [facility] [place] [facility] [address] [id number] [place] [address] Sep, [facility] [place] [facility] [address] [id number] [place] [address] Aug, [facility] [place] [facility] [address] [id number], [place] [address] Aug, [facility] [address] [id number], [place] [address] Aug, [facility] [id number], [place] [address] Aug, [facility] [id number] [address] Aug, [facility] [id number], [place] [address] Jul, [facility] [id number], [place] [address] Jul, [facility] [id number], [place] [address] Jul, [facility] [address] [id number], [place] [address] Dec, IMMUNIZATIONS No Known Immunizations SOCIAL HISTORY Never Assessed REASON FOR VISIT Controlled Med Refill 04/26 PLAN OF CARE VITAL SIGNS MEDICATIONS Medication Instructions Dosage Frequency Start Date End Date Duration Status Hollis 10-325 MG Orally every 6 hrs 1 tablet as needed 6h Apr, Active RESULTS No Results PROCEDURES No Known procedures INSTRUCTIONS MEDICATIONS ADMINISTERED No Known Medications MEDICAL (GENERAL) HISTORY Type Description Date Medical History Type 2 diabetes Medical History anxiety Medical History chronic hip pain Medical History carpal tunnel bilateral Medical History [place] Palsy Surgical History carpel tunnel-right hand 2011 Surgical History carpel tunnel-left hand 2008 Surgical History carpal tunnel - right hand 11/2015 Surgical History Torn bicep repair 01/2018 Hospitalization History ER spider bite
--- OUTSIDE RECORDS SUMMARY | 2018-06-25 06:08 | XMS REPORT ---
Author Author KASI BLANCHARD Organization [facility] Address [address] [place] [address] Care Team Providers Care Rate Clerk Passenger Name Role Phone KASI BLANCHARD Unavailable PROBLEMS Type Condition ICD9-CM Code GFN21-FE Code Onset Dates Condition Status SNOMED Code Problem Anxiety F41.9 Active 30291391 Problem Drug-induced erectile dysfunction N52.2 Active 001949250 Problem Controlled type 2 diabetes mellitus without complication, without long -term current use of insulin E11.9 Active 664220928 Problem Diabetes E11.9 Active 42795688 Problem Chronic osteoarthritis M19.90 Active 60794353 Problem Type 2 diabetes mellitus with complication, without long-term current use of insulin E11.8 Active 33845489 Problem Sialadenitis K11.20 Active 37157990 Problem Mood disorder F39 Active 16953983 Problem Chronic fatigue R53.82 Active 59441723 Problem Depressive disorder, not elsewhere classified F32.9 Active 44433587 Problem Hypogonadism in male E29.1 Active 39041512 ALLERGIES No Known Allergies ENCOUNTERS Encounter Location Date Diagnosis [place] [address], [place] [address] Apr, [facility] [address], [place] [address] Apr, [facility] [id number] [place] [address] 78455- 7008 Mar, Hypogonadism in male E29.1 [facility] [id number] [place] [address] 61033- 5522 Mar, Hypogonadism in male E29.1 [facility] [address], [place] [address] 2[address] Mar, Diabetes E11.9 and Anxiety F41.9 [facility] [id number] [place] [address] 02786- 9363 Mar, Type 2 diabetes mellitus with complication, without long- term current use of insulin E11.8 [place] [address] [id number] [place] [address] 05102- 5932 Feb, Insect bite (nonvenomous) of right upper arm, initial encounter S40.861A [place] [address] [address]- [address]67 Feb, Insect bite (nonvenomous) of right upper arm, initial encounter S40.861A ; Local infection of the skin and subcutaneous tissue, unspecified L08.9 and Hypogonadism in male E29.1 [place] [address] [address]- 3978 January, Sialadenitis K11.20 [place] [address] 64073- 2353 January, Bronchitis J40 [place] [address] [id number] [place] [address] 99931- 6044 January, Hypogonadism in male E29.1 [place] [address] [address] [id number] [place] [address] 19037- 3648 January, Hypogonadism in male E29.1 [place] [address] [place] [id number] [place] [address] 57289- 4597 Dec, Bronchitis J40 [place] [address] [address] [id number] [place] [address] 62828- 6336 Nov, Diabetes E11.9 and Anxiety F41.9 [place] [address] 51792- 7650 Nov, Bronchitis J40 [place] [address] [id number] [place] [address] 09658- 6342 Oct, Bronchitis J40 [place] [address] 15154- 9139 Sep, Diabetes E11.9 ; Mood disorder F39 ; Hypogonadism in male E29.1 and Depressive disorder, not elsewhere classified F32.9 [facility] [id number] [place] [address] 98047- 6034 Sep, Bronchitis J40 [facility] [id number] [place] [address] 30301- 6628 Sep, Hypogonadism in male E29.1 [facility] [address] 91195- 2161 Sep, [facility] [address] 23171- 1816 Sep, [facility] [address] [id number] [place] [address] 30328- 2277 Aug, Bronchitis J40 [facility] [address] 57412- 0667 Aug, Uncontrolled type 2 diabetes mellitus without complication, without long-term current use of insulin E11.65 ; Diabetes type 2, controlled E11.9 ; Hypogonadism in male E29.1 ; Encounter for immunization Z23 and Spider bite wound, undetermined intent, initial encounter T63.304A [facility] [address] [id number] [place] [address] 69795- 1459 Jul, Bronchitis J40 [facility] [address] [id number] [place] [address] 50923- 4945 Jun, Hypogonadism in male E29.1 [facility] [id number] [place] [address] 65373- 3039 Jun, Hypogonadism in male E29.1 and Bronchitis J40 [facility] [address] [id number] [place] [address] 12961- 0972 May, Bronchitis J40 [facility] [id number] [place] [address] 52404- 7643 May, Hypogonadism in male E29.1 [facility] [address] [place] [address]- 9126 May, Hypogonadism in male E29.1 [facility] [id number] [place] [address] 66834- 5059 Apr, Bronchitis J40 [facility] [id number] [place] [address] 72627- 4034 Apr, Controlled type 2 diabetes mellitus without complication, without long-term current use of insulin E11.9 [facility] [id number] [place] [address] 55846- 7039 Apr, Diabetes type 2, controlled E11.9 ; Hypogonadism in male E29.1 and Mood disorder F39 [facility] [id number] [place] [address] 14202- 1642 Apr, Hypogonadism in male E29.1 [facility] [id number] [place] [address] 36931- 9736 Apr, Bronchitis J40 [facility] [id number] [place] [address] 42235- 4474 Mar, Hypogonadism in male E29.1 [facility] [id number] [place] [address] 41041- 2690 Mar, Bronchitis J40 [facility] [id number] [place] [address] 54884- 4515 Mar, Bronchitis J40 [facility] [id number] [place] [address] 91193- 4531 Feb, Spider bite, accidental or unintentional, initial encounter T63.301A [facility] [id number] [place] [address] 06799- 4029 Feb, Depressive disorder, not elsewhere classified F32.9 [facility] [id number] [place] [address] 74888- 5695 Feb, Diabetes E11.9 ; Mood disorder F39 and Hypogonadism in male E29.1 [facility] [id number] [place] [address] 06109- 9285 Feb, Bronchitis J40 [facility] [id number] [place] [address] 39072- 6043 Feb, Depressive disorder, not elsewhere classified F32.9 [facility] [id number] [place] [address] 69384- 1068 January, Depressive disorder, not elsewhere classified F32.9 [facility] [address] [address] [id number] [place] [address] 61431- 5236 January, Diabetes E11.9 and Mood disorder F39 [place] [address] 48006- 0639 January, Bronchitis J40 [facility] [address] [place] [id number] [place] [address] 88773- 9578 Dec, Bronchitis J40 [facility] [address] 00880- 4075 Dec, Hypogonadism in male E29.1 [facility] [id number] [place] [address] 60956- 9632 Dec, [facility] [address] [place] [id number] [place] [address] 60276- 7789 Dec, Controlled type 2 diabetes mellitus without complication, without long-term current use of insulin E11.9 and Chronic fatigue R53.82 [place] [address] [place] [id number] [place] [address] 72802- 3051 Nov, Bronchitis J40 [facility] [address] [address] [id number] [place] [address] 70412- 3780 Oct, Bronchitis J40 ; Controlled type 2 diabetes mellitus without complication, without long-term current use of insulin E11.9 ; Chronic fatigue R53.82 and Drug-induced erectile dysfunction N52.2 [facility] [address] [place] [id number] [place] [address] 49281- 1358 Oct, Diabetes E11.9 [place] [address], [place] [address]- 7876 Sep, Pre-employment examination Z02.1 [place] [address] [place] [id number] [place] [address] 87887- 7352 Sep, Diabetes E11.9 [place] [address] [place] [id number] [place] [address] 00470- 9000 Aug, Controlled type 2 diabetes mellitus without complication, without long-term current use of insulin E11.9 and Chronic osteoarthritis M19.90 [place] [address] [place] [id number] [place] [address] 81695- 4671 Jul, [place] [address] [place] [id number] [place] [address] 92617- 3687 Jun, [place] [address] [place] [id number] [place] [address] 54063- 0631 Jun, 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 [place] [address] [place] [id number] [place] [address] 43093- 6863 Jun, Encounter for immunization Z23 and Controlled type 2 diabetes mellitus without complication, without long-term current use of insulin E11.9 [place] [id number] [place] [address] 73215- 9333 May, [place] [address] [place] [id number] [place] [address] 89291- 7363 May, [place] [address] [place] [id number] [place] [address] 79001- 2718 Apr, Gastritis without bleeding, unspecified chronicity, unspecified gastritis type K29.70 [place] [address] [place] [id number] [place] [address] 47904- 1986 Apr, [place] [address] [place] [id number] [place] [address] 72278- 9719 Mar, Diabetes type 2, controlled E11.9 [facility] [address] [place] [id number] [place] [address] 31189- 5717 Mar, [facility] [address], [place] [address]- 8654 Feb, [facility] [id number] [place] [address] 39117- 0175 Feb, [facility] [id number] [place] [address] 50354- 9034 January, [facility] [id number] [place] [address] 84733- 4326 Dec, Urethritis N34.2 [facility] [id number] [place] [address] 16350- 9256 Dec, [facility] [id number] [place] [address] 99313- 8605 Nov, Diabetes type 2, controlled E11.9 [facility] [id number] [place] [address] 35782- 3941 Nov, [facility] [id number] [place] [address] 01851- 0644 Nov, Diabetes type 2, controlled E11.9 [facility] [address] [place] [address] 14808- 8014 Oct, Hand pain M79.643 [facility] [address] [place] [address] 99650- 7012 Oct, Right hand pain M79.641 [facility] [address], [place] [address]- 2948 Oct, [facility] [address] [place] [address] 01978- 6600 Oct, [facility] [address], [place] [address]- 9844 Oct, Right carpal tunnel syndrome G56.01 [facility] [address] [place] [address] 84777- 9986 Sep, Diabetes E11.9 [facility] [id number] [place] [address] 49271- 5055 Sep, Anxiety F41.9 ; Chronic osteoarthritis M19.90 and Health examination of defined subpopulation V70.5 [facility] [id number] [place] [address] 69042- 2640 Sep, Diabetes E11.9 [facility] [id number] [place] [address] 74654- 0959 Aug, Diabetes E11.9 ; Carpal tunnel syndrome, right G56.01 and Carpal tunnel syndrome, left upper limb G56.02 [facility] [id number] [place] [address] 46638- 2992 Jul, Diabetes mellitus 250.00 [facility] [id number] [place] [address] 13718- 0186 Jun, Diabetes mellitus 250.00 [facility] [id number] [place] [address] 28449- 8453 May, Diabetes mellitus 250.00 [facility] [id number] [place] [address] 516796- 0023 Apr, Diabetes mellitus 250.00 [facility] [id number] [place] [address] 795758- 9023 Mar, [facility] [id number] [place] [address] 26639083- 9523 Mar, Tooth abscess 522.5 [facility] [id number] [place] [address] [id number]- 9505 Feb, [facility] [id number] [place] [address] 746609- 7624 January, [facility] [id number] [place] [address] 814215- 6576 January, [facility] [id number] [place] [address] 79312- 6422 January, Diabetes mellitus 250.00 [facility] [address] [facility] [id number] [place] [address]- 3658 January, [facility] [address] [facility] [id number] [place] [address]- 4363 Dec, [facility] [address] [facility] [id number] [place] [address]- 5902 Dec, [facility] [address] [facility] [id number] [place] [address]- 0066 Nov, [facility] [address] [id number] [place] [address]- 0534 Nov, [facility] [address] [facility] [id number] [place] [address]- 4391 Nov, [facility] [address] [place] [id number] [address]- 7829 Nov, [facility] [address] [facility] [id number] [place] [address]- 3629 Oct, [facility] [address] [facility] [id number] [place] [address]- 1687 Oct, [facility] [address] [facility] [id number] [place] [address]- 1119 Sep, [facility] [address] [facility] [id number] [place] [address]- 0390 Sep, [facility] [place] [facility] [address] [facility] [id number] [place] [address]- 7861 Aug, [facility] [place] [facility] [address] [facility] [id number] [place] [address]- 4363 Aug, [facility] [place] [facility] [address] [facility] [id number] [place] [address]- 4330 Aug, [facility] [place] [facility] [address] [facility] [id number] [place] [address]- 2757 Aug, [facility] [place] [facility] [address] [id number] [place] [address]- 7625 Aug, [facility] [place] [facility] [address] [id number] [place] [address]- 6337 Aug, [facility] [place] [facility] [address] [id number] [place] [address]- 9784 Jul, [facility] [place] [facility] [address] [id number] [place] [address]- 2566 Jul, [facility] [place] [facility] [address] [id number] [place] [address]- 5217 Jun, [facility] [place] [facility] [address] [id number] [place] [address]- 8860 Jun, [facility] [place] [facility] [address] [id number] [place] [address]- 6393 May, [facility] [place] [facility] [address] [id number] [place] [address]- 1897 May, [facility] [place] [facility] [address] [id number] [place] [address]- 6976 Apr, [facility] [place] [facility] [address] [id number] [place] [address]- 3044 Apr, [facility] [place] [facility] [address] [id number] [place] [address]- 1766 Apr, [facility] [place] [facility] [address] [id number] [place] [address]- 2032 Apr, [facility] [place] [facility] [address] [id number] [place] [address]- 3030 Apr, [facility] [place] [facility] [address] [id number] [place] [address]- 5959 Apr, [facility] [place] [facility] [address] [id number] [place] [address]- 1613 Mar, [facility] [place] [facility] [address] [id number] [place] [address]- 8550 Mar, [facility] [place] [facility] [address] [id number] [place] [address]- 9863 Feb, [facility] [place] [facility] [address] [id number] [place] [address]- 1488 Feb, [facility] [place] [facility] [address] [id number] [place] [address]- 2327 Feb, [facility] [place] [facility] [address] [id number] [place] [address]- 4596 Feb, [facility] [place] [facility] [address] [id number] [place] [address]- 7975 January, [facility] [place] [facility] [address] [id number] [place] [address]- 1212 January, [facility] [place] [facility] [address] [id number] [place] [address]- 2403 January, [facility] [place] [facility] [address] [id number] [place] [address]- 7524 January, [facility] [place] [facility] [address] [id number] [place] [address]- 6379 Dec, [facility] [place] [facility] [address] [id number] [place] [address]- 4967 Dec, [facility] [place] [facility] [address] [id number] [place] [address]- 0530 Nov, [facility] [place] [facility] [address] [id number] [place] [address]- 6185 Nov, [facility] [place] [facility] [address] [id number] [place] [address]- 4544 Oct, [facility] [place] [facility] [address] [id number] [place] [address]- 2287 Oct, [facility] [place] [facility] [address] [id number] [place] [address]- 7409 Sep, [facility] [place] [facility] [address] [id number] [place] [address]- 7857 Sep, [facility] [address] [id number] [place] [address]- 5738 Aug, [facility] [place] [facility] [address] [id number] [place] 7519 Aug, [facility] [address] [id number] [place] [address]- 6608 Jul, [facility] [place] [facility] [address] [id number] [place] [address]- 8909 Jul, [facility] [address] [id number] [place] [address]- 4781 Jun, [facility] [place] [facility] [address] [id number] [place] [address]- 3808 Jun, [facility] [address] [id number] [place] [address]- 4331 May, [facility] [address] [id number] [place] [address]- 4107 May, [facility] [place] [facility] [address] [id number] [place] [address]- 8687 Apr, [facility] [place] [facility] [address] [id number] [place] [address]- 8123 Apr, [facility] [place] [facility] [address] [id number] [place] [address]- 7444 Feb, [facility] [place] [facility] [address] [id number] [place] [address]- 4376 Feb, [facility] [place] [facility] [address] [id number] [place] [address]- 8120 January, [facility] [place] [facility] [address] [id number] [place] [address]- 2578 January, [facility] [place] [facility] [address] [id number] [place] [address]- 8372 Dec, [facility] [place] [facility] [address] [id number] [place] [address]- 2879 Nov, [facility] [place] [facility] [address] [id number] [place] [address]- 7085 Oct, [facility] [place] [facility] [address] [id number] [place] [address]- 5895 Oct, [facility] [place] [facility] [address] [id number] [place] [address]- 7824 Sep, [facility] [place] [facility] [address] [id number] [place] [address]- 0965 Aug, [facility] [place] [facility] [address] [id number] [place] [address]- 8760 Aug, [facility] [place] [facility] [address] [id number] [place] [address]- 8044 Jul, [facility] [place] [facility] [address] [id number] [place] [address]- 8995 Jul, [facility] [place] [facility] [address] [id number] [place] [address] Jun, [facility] [place] [facility] [address] [id number] [place] [address] 24 May, 2012 [facility] [place] [facility] [address] [id number] [place] [address] 14 May, 2012 [facility] [place] [facility] [address] [id number], [place] [address] 13 May, 2012 [facility] [place] [facility] [address] [id number] [place] [address] 28 Apr, 2012 [facility] [place] [facility] [address] [id number] [place] [address] Apr, [facility] [place] [facility] [address] [id number], [place] [address] Apr, [facility] [place] [facility] [address] [id number], [place] [address] Mar, [facility] [address] [id number] [place] [address] Mar, [facility] [address] [id number] [place] [address] Feb, [facility] [address] [id number] [place] [address] Feb, [facility] [address] [id number] [place] [address] January, [facility] [address] [id number] [place] [address] January, [facility] [address] [id number] [place] [address] Dec, [facility] [id number] [address] Dec, [facility] [address] [id number] [place] [address] Nov, [facility] [address] [id number] [place] [address] Nov, [facility] [address] [id number] [place] [address] Oct, [facility] [address] [id number] [place] [address] Oct, [facility] [place] [facility] [address] [id number] [place] [address] Sep, [facility] [place] [facility] [address] [id number] [place] [address] Sep, [facility] [place] [facility] [address] [id number] [place] [address] Sep, [facility] [address] [facility] [id number] [place] [address] Aug, [facility] [place] [facility] [address] [id number], [place] [address] Aug, [facility] [id number], [place] [address] Aug, [facility] [id number], [place] [address] Aug, [facility] [id number], [place] [address] Aug, [facility] [id number], [place] [address] Jul, [facility] [id number] [place] [address] Jul, [facility] [id number], [place] [address] Jul, [facility] [id number], [place] [address] Dec, IMMUNIZATIONS No Known Immunizations SOCIAL HISTORY Never Assessed REASON FOR VISIT Diabetes WB-MA, No major concerns PLAN OF CARE Activity Details Follow Up 4 Months Reason:dm2 3mo. chkup VITAL SIGNS Height 66 in 2018-03-29 Weight 230 lbs 2018-03-29 Temperature 98.1 degrees Fahrenheit 2018-03-29 Heart Rate 80 bpm 2018-03-29 Respiratory Rate 20 2018-03-29 BMI 37.12 kg/m2 2018-03-29 Blood pressure systolic 130 mmHg 2018-03-29 Blood pressure diastolic 84 mmHg 2018-03-29 MEDICATIONS Medication Instructions Dosage Frequency Start Date End Date Duration Status [place] 10-325 MG Orally every 6 hrs 1 tablet as needed 6h Mar, Active MetFORMIN HCl ER 500 mg Orally 2 times a day 2 tablets 12h Apr, Not-Taking Depo-Testosterone 100 MG/ML Intramuscular once monthly 1 ml Dec, Active Diclofenac Sodium 75 mg Orally 2 times a day 1 tablet as needed 12h 11 Nov Active GlipiZIDE 5 mg 1 tablet 12h Active Trulicity 1.5 MG/0.5ML Subcutaneous once weekly Inject 0.5mL Sep, Active Fluoxetine HCl 40 mg Orally Once a day, voucher 1st fill 1 capsule in the morning January, 30 day(s) Active Pen [place] 316" 31G X 5 MM as directed 24h January, Active Terbinafine HCl 1 % Externally Twice a day 1 application to affected area 12h Feb, Active Glucometer 1 as directed 12h Jun, Active Pepcid 20 mg Orally 2 times a day 1 tablet at bedtime 12h Apr, 30 day(s) Active RESULTS Name Result Date Reference Range A1C (IN HOUSE) 2018-03-29 A1C IN HOUSE 8.2 4.3 - 5.6 % Previous A1c 8.2 Lot [id number] Exp date 11/2019 MICROALBUMIN, URINE (IN HOUSE) 2018-03-29 MICROALBUMIN Normal Lot # [id number] Exp date 02/2019 Clarity clear Color Yellow ALB 10 CRE 200 A:C (IN HOUSE) <30 Control + Control Lot # Exp A1C (IN HOUSE) 2018-03-29 A1C IN HOUSE 8.2 4.3 - 5.6 % Previous A1c 8.2 Lot [id number] Exp date 11/2019 MICROALBUMIN, URINE (IN HOUSE) 2018-03-29 MICROALBUMIN Normal Lot # [id number] Exp date 02/2019 Clarity clear Color Yellow ALB 10 CRE 200 A:C (IN HOUSE) <30 Control + Control Lot # Exp PROCEDURES Procedure Date Ordered Result Body Site MICROALBUMIN, SEMIQUANT March 29, 2018 GLYCATED HEMOGLOBIN TEST March 29, 2018 INSTRUCTIONS MEDICATIONS ADMINISTERED No Known Medications MEDICAL (GENERAL) HISTORY Type Description Date Medical History Type 2 diabetes Medical History anxiety Medical History chronic hip pain Medical History carpal tunnel bilateral Medical History Alligator Palsy Surgical History carpel tunnel-right hand 2011 Surgical History carpel tunnel-left hand 2008 Surgical History carpal tunnel - right hand 11/2015 Surgical History Torn bicep repair 01/2018 Hospitalization History ER spider bite
--- OUTSIDE RECORDS SUMMARY | 2018-06-25 06:08 | XMS REPORT ---
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 Active 235345395 Problem Controlled type 2 diabetes mellitus without complication, without long -term current use of insulin E11.9 Active 244390362 Problem Diabetes E11.9 Active 37735929 Problem Chronic osteoarthritis M19.90 Active 09087224 Problem Type 2 diabetes mellitus with complication, without long-term current use of insulin E11.8 Active 35392316 Problem Sialadenitis K11.20 Active 83346409 Problem Mood disorder F39 Active 28407742 Problem Chronic fatigue R53.82 Active 75848826 Problem Depressive disorder, not elsewhere classified F32.9 Active 67969426 Problem Hypogonadism in male E29.1 Active 38689255 ALLERGIES No Information ENCOUNTERS Encounter Location Date Diagnosis [facility] [id number] [place] [address] 51753- 5957 Apr, [facility] [id number] [place] [address] 01350- 6061 Apr, [facility] [id number] [place] [address] 96603- 7584 Mar, Hypogonadism in male E29.1 [facility] [id number] [place] [address] 56641- 3064 Mar, Hypogonadism in male E29.1 [facility] [id number] [place] [address] 24631- 9941 Mar, Diabetes E11.9 and Anxiety F41.9 [facility] [id number] [place] [address] 40565- 0780 Mar, Type 2 diabetes mellitus with complication, without long- term current use of insulin E11.8 [facility] [id number] [place] [address] 83412- 4499 Feb, Insect bite (nonvenomous) of right upper arm, initial encounter S40.861A [facility] [address] 35241- 8274 Feb, Insect bite (nonvenomous) of right upper arm, initial encounter S40.861A ; Local infection of the skin and subcutaneous tissue, unspecified L08.9 and Hypogonadism in male E29.1 [facility] [facility] [address] 70154- 2807 January, Sialadenitis K11.20 [place] [address] 77023- 4842 January, Bronchitis J40 [place] [address] 00228- 7478 January, Hypogonadism in male E29.1 [facility] [facility] [address] 04318- 7001 January, Hypogonadism in male E29.1 [facility] [id number] [place] [address] 65051- 0708 Dec, Bronchitis J40 [facility] [id number] [place] [address] 84054- 0658 Nov, Diabetes E11.9 and Anxiety F41.9 [place] [facility] [address] 34026- 1243 Nov, Bronchitis J40 [place] [address] 03636- 2512 Oct, Bronchitis J40 [place] [address] 12240- 9801 Sep, Diabetes E11.9 ; Mood disorder F39 ; Hypogonadism in male E29.1 and Depressive disorder, not elsewhere classified F32.9 [facility] [id number] [place] [address] 03442- 9822 Sep, Bronchitis J40 [facility] [id number] [place] [address] 75650- 7614 Sep, Hypogonadism in male E29.1 [facility] [address] 40739- 6918 Sep, [facility] [address] 86707- 4508 Sep, [facility] [address] 59940- 1601 Aug, Bronchitis J40 [facility] [address] 87380- 9481 Aug, Uncontrolled type 2 diabetes mellitus without complication, without long-term current use of insulin E11.65 ; Diabetes type 2, controlled E11.9 ; Hypogonadism in male E29.1 ; Encounter for immunization Z23 and Spider bite wound, undetermined intent, initial encounter T63.304A [facility] [id number] [place] [address] 32525- 1863 Jul, Bronchitis J40 [facility] [id number] [place] [address] 03925- 2327 Jun, Hypogonadism in male E29.1 [facility] [id number] [place] [address] 87088- 0947 Jun, Hypogonadism in male E29.1 and Bronchitis J40 [facility] [id number] [place] [address] 78798- 7013 May, Bronchitis J40 [facility] [id number] [place] [address] 85617- 6128 May, Hypogonadism in male E29.1 [facility] [address] [place] [address]- 7981 May, Hypogonadism in male E29.1 [facility] [id number] [place] [address] 11077- 5499 Apr, Bronchitis J40 [facility] [id number] [place] [address] 19626- 4194 Apr, Controlled type 2 diabetes mellitus without complication, without long-term current use of insulin E11.9 [facility] [id number] [place] [address] 01849- 5749 Apr, Diabetes type 2, controlled E11.9 ; Hypogonadism in male E29.1 and Mood disorder F39 [facility] [id number] [place] [address] 28333- 7624 Apr, Hypogonadism in male E29.1 [facility] [id number] [place] [address] 64079- 8398 Apr, Bronchitis J40 [facility] [id number] [place] [address] 36959- 2275 Mar, Hypogonadism in male E29.1 [facility] [id number] [place] [address] 25662- 2658 Mar, Bronchitis J40 [facility] [id number] [place] [address] 50696- 8472 Mar, Bronchitis J40 [facility] [id number] [place] [address] 30824- 8382 Feb, Spider bite, accidental or unintentional, initial encounter T63.301A [facility] [id number] [place] [address] 66047- 5348 Feb, Depressive disorder, not elsewhere classified F32.9 [facility] [id number] [place] [address] 22630- 5483 16 Feb, 2017 Diabetes E11.9 ; Mood disorder F39 and Hypogonadism in male E29.1 [facility] [id number] [place] [address] 33113- 7883 Feb, Bronchitis J40 [facility] [id number] [place] [address] 73260- 1850 Feb, Depressive disorder, not elsewhere classified F32.9 [facility] [id number] [place] [address] 22247- 4100 January, Depressive disorder, not elsewhere classified F32.9 [facility] [id number] [place] [address] 24759- 4858 January, Diabetes E11.9 and Mood disorder F39 [facility] [facility] [address] 47097- 8423 January, Bronchitis J40 [place] [facility] [id number] [place] [address] 34288- 7309 Dec, Bronchitis J40 [facility] [address] 44436- 8216 Dec, Hypogonadism in male E29.1 [facility] [id number] [place] [address] 93512- 2337 Dec, [place] [facility] [id number] [place] [address] 66589- 7077 Dec, Controlled type 2 diabetes mellitus without complication, without long-term current use of insulin E11.9 and Chronic fatigue R53.82 [place] [id number] [place] [address] 08533- 9062 Nov, Bronchitis J40 [facility] [id number] [place] [address] 06153- 3958 Oct, Bronchitis J40 ; Controlled type 2 diabetes mellitus without complication, without long-term current use of insulin E11.9 ; Chronic fatigue R53.82 and Drug-induced erectile dysfunction N52.2 [facility] [id number] [place] [address] 68740- 2188 Oct, Diabetes E11.9 [facility] [address] [address]- 4719 Sep, Pre-employment examination Z02.1 [facility] [id number] [place] [address] 43472- 9644 Sep, Diabetes E11.9 [facility] [id number] [place] [address] 35543- 3571 Aug, Controlled type 2 diabetes mellitus without complication, without long-term current use of insulin E11.9 and Chronic osteoarthritis M19.90 [place] [facility] [id number] [place] [address] 52947- 1044 Jul, [place] [facility] [id number] [place] [address] 23370- 7422 Jun, [place] [facility] [id number] [place] [address] 04272- 3322 Jun, 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 [place] [facility] [id number] [place] [address] 86665- 5401 Jun, Encounter for immunization Z23 and Controlled type 2 diabetes mellitus without complication, without long-term current use of insulin E11.9 [place] [id number] [place] [address] 51146- 3640 May, [place] [facility] [id number] [place] [address] 17704- 7061 May, [place] [id number] [place] [address] 87293- 3152 Apr, Gastritis without bleeding, unspecified chronicity, unspecified gastritis type K29.70 [place] [facility] [id number] [place] [address] 70108- 9868 Apr, [place] [facility] [id number] [place] [address] 11469- 5317 Mar, Diabetes type 2, controlled E11.9 [facility] [id number] [place] [address] 70345- 0561 Mar, [facility] [address] [address]- 2380 Feb, [facility] [id number] [place] [address] 88029- 1216 Feb, [facility] [id number] [place] [address] 51850- 3076 January, [facility] [id number] [place] [address] 86996- 3772 Dec, Urethritis N34.2 [facility] [id number] [place] [address] 96227- 8493 Dec, [facility] [id number] [place] [address] 62456- 3405 Nov, Diabetes type 2, controlled E11.9 [facility] [id number] [place] [address] 57701- 2082 Nov, [facility] [id number] [place] [address] 36692- 0486 Nov, Diabetes type 2, controlled E11.9 [facility] [id number] [place] [address] 65310- 6442 Oct, Hand pain M79.643 [facility] [id number] [place] [address] 72923- 5436 Oct, Right hand pain M79.641 [facility] [address] [address]- 6746 Oct, [facility] [id number] [place] [address] 64865- 0740 Oct, [facility] [id number] [address]- 0447 Oct, Right carpal tunnel syndrome G56.01 [facility] [id number] [place] [address] 36810- 8367 Sep, Diabetes E11.9 [facility] [id number] [place] [address] 386642- 6492 Sep, Anxiety F41.9 ; Chronic osteoarthritis M19.90 and Health examination of defined subpopulation V70.5 [facility] [id number] [place] [address] 72244- 5503 Sep, Diabetes E11.9 [facility] [id number] [place] [address] 690212- 5194 Aug, Diabetes E11.9 ; Carpal tunnel syndrome, right G56.01 and Carpal tunnel syndrome, left upper limb G56.02 [facility] [id number] [place] [address] 327869- 5016 Jul, Diabetes mellitus 250.00 [facility] [id number] [place] [address] [id number]- 1586 Jun, Diabetes mellitus 250.00 [facility] [id number] [place] [address] 97922733- 2415 May, Diabetes mellitus 250.00 [facility] [id number] [place] [address] 355947- 2072 Apr, Diabetes mellitus 250.00 [facility] [id number] [place] [address] 83714- 4006 Mar, [facility] [id number] [place] [address] 18515- 4616 Mar, Tooth abscess 522.5 [facility] [id number] [place] [address] 39720- 7646 Feb, [facility] [id number] [place] [address] 63574- 5106 January, [facility] [id number] [place] [address] 62142- 7756 January, [facility] [id number] [place] [address] 56729- 5854 January, Diabetes mellitus 250.00 [facility] [address] [id number] [place] [address]- 0047 January, [facility] [address] [id number] [place] [address]- 2105 Dec, [facility] [address] [id number] [place] [address]- 4296 Dec, [facility] [place] [facility] [address] [id number] [place] [address]- 0216 Nov, [facility] [place] [facility] [address] [id number] [place] [address]- 9843 Nov, [facility] [place] [facility] [address] [id number] [place] [address]- 3256 Nov, [facility] [address] [id number] [place] [address]- 2362 Nov, [facility] [address] [id number] [place] [address]- 8239 Oct, [facility] [address] [id number] [place] [address]- 5061 Oct, [facility] [address] [facility] [id number] [place] [address]- 5711 Sep, [facility] [address] [id number] [place] [address]- 0897 Sep, [facility] [place] [facility] [address] [facility] [id number] [place] [address]- 4693 Aug, [facility] [place] [facility] [address] [id number] [place] [address]- 3375 Aug, [facility] [place] [facility] [address] [id number] [place] [address]- 1321 Aug, [facility] [place] [facility] [address] [facility] [id number] [place] [address]- 8866 Aug, [facility] [place] [facility] [address] [id number] [place] [address]- 7757 Aug, [facility] [place] [facility] [address] [id number] [place] [address]- 8903 Aug, [facility] [place] [facility] [address] [id number] [place] [address]- 5346 Jul, [facility] [place] [facility] [address] [id number] [place] [address]- 6672 Jul, [facility] [place] [facility] [address] [id number] [place] [address]- 4070 Jun, [facility] [place] [facility] [address] [id number] [place] [address]- 2495 Jun, [facility] [place] [facility] [address] [id number] [place] [address]- 2233 May, [facility] [place] [facility] [address] [id number] [place] [address]- 9947 May, [facility] [place] [facility] [address] [id number] [place] [address]- 4865 Apr, [facility] [place] [facility] [address] [id number] [place] [address]- 2688 Apr, [facility] [place] [facility] [address] [id number] [place] [address]- 6311 Apr, [facility] [place] [facility] [address] [id number] [place] [address]- 9469 Apr, [facility] [place] [facility] [address] [id number] [place] [address]- 9428 Apr, [facility] [place] [facility] [address] [id number] [place] [address]- 3018 Apr, [facility] [place] [facility] [address] [id number] [place] [address]- 4536 Mar, [facility] [place] [facility] [address] [id number] [place] [address]- 9032 Mar, [facility] [place] [facility] [address] [id number] [place] [address]- 5146 Feb, [facility] [place] [facility] [address] [id number] [place] [address]- 0471 Feb, [facility] [place] [facility] [address] [id number] [place] [address]- 9879 Feb, [facility] [place] [facility] [address] [id number] [place] [address]- 0814 Feb, [facility] [place] [facility] [address] [id number] [place] [address]- 2847 January, [facility] [place] [facility] [address] [id number] [place] [address]- 4117 January, [facility] [place] [facility] [address] [id number] [place] [address]- 8967 January, [facility] [place] [facility] [address] [id number] [place] [address]- 7740 January, [facility] [place] [facility] [address] [id number] [place] [address]- 8012 Dec, [facility] [place] [facility] [address] [id number] [place] [address]- 2344 Dec, [facility] [place] [facility] [address] [id number] [place] [address]- 6438 Nov, [facility] [place] [facility] [address] [id number] [place] [address]- 4039 Nov, [facility] [place] [facility] [address] [id number] [place] [address]- 8854 Oct, [facility] [place] [facility] [address] [id number] [place] [address]- 2034 Oct, [facility] [place] [facility] [address] [id number] [place] [address]- 3122 Sep, [facility] [place] [facility] [address] [id number] [place] [address]- 0712 Sep, [facility] [address] [id number] [place] [address]- 3758 Aug, [facility] [place] [facility] [address] [id number] [place] [address]- 7153 Aug, [facility] [address] [id number] [place] [address]- 7605 Jul, [facility] [place] [facility] [address] [id number] [place] [address]- 5734 Jul, [facility] [place] [facility] [address] [id number] [place] [address]- 9829 Jun, [facility] [place] [facility] [address] [id number] [place] [address]- 4695 Jun, [facility] [address] [id number] [place] [address]- 2549 May, [facility] [place] [facility] [address] [id number] [place] [address]- 6401 May, [facility] [place] [facility] [address] [id number] [place] [address]- 2909 Apr, [facility] [place] [facility] [address] [id number] [place] [address]- 5057 Apr, [facility] [place] [facility] [address] [id number] [place] [address]- 5106 Feb, [facility] [place] [facility] [address] [id number] [place] [address]- 8352 Feb, [facility] [place] [facility] [address] [id number] [place] [address]- 0569 January, [facility] [place] [facility] [address] [id number] [place] [address]- 7383 January, [facility] [place] [facility] [address] [id number] [place] [address]- 2564 Dec, [facility] [place] [facility] [address] [id number] [place] [address]- 2636 Nov, [facility] [place] [facility] [address] [id number] [place] 4531 Oct, [facility] [place] [facility] [address] [id number] [place] 3712 Oct, [facility] [place] [facility] [address] [id number] [place] [address]- 9857 Sep, [facility] [place] [facility] [address] [id number] [place] 5034 Aug, [facility] [place] [facility] [address] [id number] [place] [address]- 7975 Aug, [facility] [place] [facility] [address] [id number] [place] [address] Jul, [facility] [place] [facility] [address] [id number] [place] [address] Jul, [facility] [place] [facility] [address] [id number] [place] [address] Jun, [facility] [place] [facility] [address] [id number] [place] [address] 24 May, 2012 [facility] [place] [facility] [address] [id number] [place] [address] 14 May, 2012 [facility] [place] [facility] [address] [id number] [place] [address] 13 May, 2012 [facility] [place] [facility] [address] [id number] [place] [address] 28 Apr, 2012 [facility] [place] [facility] [address] [id number] [place] [address] Apr, [facility] [place] [facility] [address] [id number] [place] [address] Apr, [facility] [place] [facility] [address] [id number], [place] [address] Mar, [facility] [address] [id number] [place] [address] Mar, [facility] [place] [facility] [address] [id number] [place] [address] Feb, [facility] [place] [facility] [address] [id number] [place] [address] Feb, [facility] [place] [facility] [address] [id number] [place] [address] January, [facility] [place] [facility] [address] [id number] [place] [address] January, [facility] [place] [facility] [address] [id number] [place] [address] Dec, [facility] [address] [facility] [id number] [place] [address] Dec, [facility] [place] [facility] [address] [id number] [place] [address] Nov, [facility] [address] [id number] [place] [address] Nov, [facility] [place] [facility] [address] [id number] [place] [address] Oct, [facility] [place] [facility] [address] [id number] [place] [address] Oct, [facility] [place] [facility] [address] [id number] [place] [address] Sep, [facility] [place] [facility] [address] [id number] [place] [address] Sep, [facility] [place] [facility] [address] [id number] [place] [address] Sep, [facility] [place] [facility] [address] [id number] [place] [address] Aug, [facility] [place] [facility] [address] [id number], [place] [address] Aug, [facility] [address] [id number], [place] [address] Aug, [facility] [id number], [place] [address] Aug, [facility] [id number], [place] [address] Aug, [facility] [address] [id number], [place] [address] Jul, [facility] [id number], [place] [address] Jul, [facility] [id number] [place] [address] Jul, [facility] [address] [id number], [place] [address] Dec, IMMUNIZATIONS Vaccine Route Administration Date Status TESTOSTERONE (PT'S OWN) IM Intramuscular March 30, 2018 Administered SOCIAL HISTORY Never Assessed REASON FOR VISIT Testosterone injection PLAN OF CARE Activity Details Follow Up 4 Weeks Reason: VITAL SIGNS MEDICATIONS Unknown Medications RESULTS No Results PROCEDURES Procedure Date Ordered Result Body Site TESTOSTERONE (PT'S OWN) March 30, 2018 THER/PROPH/DIAG INJ, SC/IM March 30, 2018 INSTRUCTIONS MEDICATIONS ADMINISTERED No Known Medications MEDICAL (GENERAL) HISTORY Type Description Date Medical History Type 2 diabetes Medical History anxiety Medical History chronic hip pain Medical History carpal tunnel bilateral Medical History [place] Palsy Surgical History carpel tunnel-right hand 2011 Surgical History carpel tunnel-left hand 2008 Surgical History carpal tunnel - right hand 11/2015 Surgical History Torn bicep repair 01/2018 Hospitalization History ER spider bite
--- OUTSIDE RECORDS SUMMARY | 2018-06-25 06:08 | XMS REPORT ---
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 Active 085452500 Problem Controlled type 2 diabetes mellitus without complication, without long -term current use of insulin E11.9 Active 214892654 Problem Diabetes E11.9 Active 63041258 Problem Chronic osteoarthritis M19.90 Active 35528556 Problem Type 2 diabetes mellitus with complication, without long-term current use of insulin E11.8 Active 76016551 Problem Sialadenitis K11.20 Active 38498835 Problem Mood disorder F39 Active 83674966 Problem Chronic fatigue R53.82 Active 03733681 Problem Depressive disorder, not elsewhere classified F32.9 Active 22198097 Problem Hypogonadism in male E29.1 Active 53952686 ALLERGIES No Information ENCOUNTERS Encounter Location Date Diagnosis [facility] [id number] [place] [address] 18686- 7687 Apr, [facility] [id number] [place] [address] 64730- 4784 Apr, [facility] [id number] [place] [address] 91184- 5624 Mar, Hypogonadism in male E29.1 [facility] [id number] [place] [address] 30459- 1747 Mar, Hypogonadism in male E29.1 [facility] [id number] [place] [address] 90307- 5519 Mar, Diabetes E11.9 and Anxiety F41.9 [facility] [id number] [place] [address] 17579- 5302 Mar, Type 2 diabetes mellitus with complication, without long- term current use of insulin E11.8 [facility] [id number] [place] [address] 89942- 5262 Feb, Insect bite (nonvenomous) of right upper arm, initial encounter S40.861A [facility] [address] 23107- 6550 Feb, Insect bite (nonvenomous) of right upper arm, initial encounter S40.861A ; Local infection of the skin and subcutaneous tissue, unspecified L08.9 and Hypogonadism in male E29.1 [facility] [address] 48415- 8580 January, Sialadenitis K11.20 [facility] [address] 62648- 4598 January, Bronchitis J40 [place] [address] 87198- 0935 January, Hypogonadism in male E29.1 [facility] [address] 71199- 8898 January, Hypogonadism in male E29.1 [facility] [id number] [place] [address] 53491- 5691 Dec, Bronchitis J40 [facility] [id number] [place] [address] 05754- 4019 Nov, Diabetes E11.9 and Anxiety F41.9 [facility] [address] 35353- 6887 Nov, Bronchitis J40 [place] [address] 75421- 1322 Oct, Bronchitis J40 [place] [address] 85607- 5183 Sep, Diabetes E11.9 ; Mood disorder F39 ; Hypogonadism in male E29.1 and Depressive disorder, not elsewhere classified F32.9 [facility] [id number] [place] [address] 68866- 7503 Sep, Bronchitis J40 [facility] [id number] [place] [address] 10927- 1371 Sep, Hypogonadism in male E29.1 [facility] [address] 28318- 0035 Sep, [facility] [address] 08813- 5572 Sep, [facility] [address] 93103- 4835 Aug, Bronchitis J40 [facility] [address] 24641- 9549 Aug, Uncontrolled type 2 diabetes mellitus without complication, without long-term current use of insulin E11.65 ; Diabetes type 2, controlled E11.9 ; Hypogonadism in male E29.1 ; Encounter for immunization Z23 and Spider bite wound, undetermined intent, initial encounter T63.304A [facility] [id number] [place] [address] 87436- 8598 Jul, Bronchitis J40 [facility] [id number] [place] [address] 82285- 4621 Jun, Hypogonadism in male E29.1 [facility] [id number] [place] [address] 23162- 7558 Jun, Hypogonadism in male E29.1 and Bronchitis J40 [facility] [id number] [place] [address] 15210- 1337 May, Bronchitis J40 [facility] [id number] [place] [address] 09400- 0417 May, Hypogonadism in male E29.1 [facility] [address] [place] [address]- 6188 May, Hypogonadism in male E29.1 [facility] [id number] [place] [address] 42527- 6228 Apr, Bronchitis J40 [facility] [id number] [place] [address] 12890- 3093 Apr, Controlled type 2 diabetes mellitus without complication, without long-term current use of insulin E11.9 [facility] [id number] [place] [address] 39770- 4453 Apr, Diabetes type 2, controlled E11.9 ; Hypogonadism in male E29.1 and Mood disorder F39 [facility] [id number] [place] [address] 84921- 4437 Apr, Hypogonadism in male E29.1 [facility] [id number] [place] [address] 63461- 3701 Apr, Bronchitis J40 [facility] [id number] [place] [address] 33275- 3132 Mar, Hypogonadism in male E29.1 [facility] [id number] [place] [address] 22347- 7412 Mar, Bronchitis J40 [facility] [id number] [place] [address] 27038- 6605 Mar, Bronchitis J40 [facility] [id number] [place] [address] 86396- 3592 Feb, Spider bite, accidental or unintentional, initial encounter T63.301A [facility] [id number] [place] [address] 94268- 7495 Feb, Depressive disorder, not elsewhere classified F32.9 [facility] [id number] [place] [address] 33456- 3641 16 Feb, 2017 Diabetes E11.9 ; Mood disorder F39 and Hypogonadism in male E29.1 [facility] [id number] [place] [address] 24197- 0580 Feb, Bronchitis J40 [facility] [id number] [place] [address] 20458- 0088 Feb, Depressive disorder, not elsewhere classified F32.9 [facility] [id number] [place] [address] 85525- 1079 January, Depressive disorder, not elsewhere classified F32.9 [facility] [id number] [place] [address] 83087- 1615 January, Diabetes E11.9 and Mood disorder F39 [facility] [address] 92518- 9708 January, Bronchitis J40 [facility] [id number] [place] [address] 32483- 7548 Dec, Bronchitis J40 [facility] [address] 07096- 5040 Dec, Hypogonadism in male E29.1 [facility] [id number] [place] [address] 39021- 6355 Dec, [facility] [facility] [id number] [place] [address] 33827- 5419 Dec, Controlled type 2 diabetes mellitus without complication, without long-term current use of insulin E11.9 and Chronic fatigue R53.82 [facility] [place] [id number] [place] [address] 70881- 5841 Nov, Bronchitis J40 [facility] [id number] [place] [address] 38873- 6075 Oct, Bronchitis J40 ; Controlled type 2 diabetes mellitus without complication, without long-term current use of insulin E11.9 ; Chronic fatigue R53.82 and Drug-induced erectile dysfunction N52.2 [facility] [id number] [place] [address] 11219- 5634 Oct, Diabetes E11.9 [facility] [address] [address]- 9084 Sep, Pre-employment examination Z02.1 [facility] [id number] [place] [address] 81275- 3028 Sep, Diabetes E11.9 [facility] [id number] [place] [address] 64697- 3317 Aug, Controlled type 2 diabetes mellitus without complication, without long-term current use of insulin E11.9 and Chronic osteoarthritis M19.90 [facility] [id number] [place] [address] 25407- 0845 Jul, [place] [id number] [place] [address] 76555- 8092 Jun, [facility] [id number] [place] [address] 53561- 8763 Jun, 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 [facility] [id number] [place] [address] 67419- 2415 Jun, Encounter for immunization Z23 and Controlled type 2 diabetes mellitus without complication, without long-term current use of insulin E11.9 [facility] [id number] [place] [address] 65180- 5724 May, [facility] [id number] [place] [address] 42371- 2847 May, [facility] [id number] [place] [address] 55151- 8911 Apr, Gastritis without bleeding, unspecified chronicity, unspecified gastritis type K29.70 [facility] [id number] [place] [address] 70981- 1503 Apr, [facility] [id number] [place] [address] 51087- 2190 Mar, Diabetes type 2, controlled E11.9 [facility] [id number] [place] [address] 86109- 8407 Mar, [facility] [address] [address]- 7948 Feb, [facility] [id number] [place] [address] 88432- 2186 Feb, [facility] [id number] [place] [address] 12008- 2346 January, [facility] [id number] [place] [address] 65148- 2950 Dec, Urethritis N34.2 [facility] [id number] [place] [address] 07150- 3203 Dec, [facility] [id number] [place] [address] 22268- 7152 Nov, Diabetes type 2, controlled E11.9 [facility] [id number] [place] [address] 79150- 2822 Nov, [facility] [id number] [place] [address] 31731- 4526 Nov, Diabetes type 2, controlled E11.9 [facility] [id number] [place] [address] 97967- 0143 Oct, Hand pain M79.643 [facility] [id number] [place] [address] 68288- 6456 Oct, Right hand pain M79.641 [facility] [address] [address]- 0826 Oct, [facility] [id number] [place] [address] 71689- 1772 Oct, [facility] [id number] [address]- 9981 Oct, Right carpal tunnel syndrome G56.01 [facility] [id number] [place] [address] 71016- 6506 Sep, Diabetes E11.9 [facility] [id number] [place] [address] 989986- 3435 Sep, Anxiety F41.9 ; Chronic osteoarthritis M19.90 and Health examination of defined subpopulation V70.5 [facility] [id number] [place] [address] 06882- 4226 Sep, Diabetes E11.9 [facility] [id number] [place] [address] 998205- 9783 Aug, Diabetes E11.9 ; Carpal tunnel syndrome, right G56.01 and Carpal tunnel syndrome, left upper limb G56.02 [facility] [id number] [place] [address] 744066- 8446 Jul, Diabetes mellitus 250.00 [facility] [id number] [place] [address] 77150377- 3186 Jun, Diabetes mellitus 250.00 [facility] [id number] [place] [address] 00247602- 0363 May, Diabetes mellitus 250.00 [facility] [id number] [place] [address] 202407- 0959 Apr, Diabetes mellitus 250.00 [facility] [id number] [place] [address] 53759- 9636 Mar, [facility] [id number] [place] [address] 30311- 4146 Mar, Tooth abscess 522.5 [facility] [id number] [place] [address] 74443- 5156 Feb, [facility] [id number] [place] [address] 59435- 4886 January, [facility] [id number] [place] [address] 42842- 8366 January, [facility] [id number] [place] [address] 60444- 6808 January, Diabetes mellitus 250.00 [facility] [address] [id number] [place] [address]- 3573 January, [facility] [address] [id number] [place] [address]- 3769 Dec, [facility] [address] [id number] [place] [address]- 4201 Dec, [facility] [place] [facility] [address] [id number] [place] [address]- 7100 Nov, [facility] [place] [facility] [address] [id number] [place] [address]- 0493 Nov, [facility] [place] [facility] [address] [id number] [place] [address]- 1358 Nov, [facility] [address] [id number] [place] [address]- 9102 Nov, [facility] [address] [id number] [place] [address]- 2274 Oct, [facility] [address] [id number] [place] [address]- 4258 Oct, [facility] [address] [facility] [id number] [place] [address]- 6116 Sep, [facility] [address] [id number] [place] [address]- 8551 Sep, [facility] [place] [facility] [address] [facility] [id number] [place] [address]- 9557 Aug, [facility] [place] [facility] [address] [id number] [place] [address]- 3360 Aug, [facility] [place] [facility] [address] [id number] [place] [address]- 7026 Aug, [facility] [place] [facility] [address] [facility] [id number] [place] [address]- 7491 Aug, [facility] [place] [facility] [address] [id number] [place] [address]- 0958 Aug, [facility] [place] [facility] [address] [id number] [place] [address]- 2160 Aug, [facility] [place] [facility] [address] [id number] [place] [address]- 2530 Jul, [facility] [place] [facility] [address] [id number] [place] [address]- 9799 Jul, [facility] [place] [facility] [address] [id number] [place] [address]- 6434 Jun, [facility] [place] [facility] [address] [id number] [place] [address]- 5156 Jun, [facility] [place] [facility] [address] [id number] [place] [address]- 8848 May, [facility] [place] [facility] [address] [id number] [place] [address]- 8002 May, [facility] [place] [facility] [address] [id number] [place] [address]- 1610 Apr, [facility] [place] [facility] [address] [id number] [place] [address]- 9129 Apr, [facility] [place] [facility] [address] [id number] [place] [address]- 8532 Apr, [facility] [place] [facility] [address] [id number] [place] [address]- 7712 Apr, [facility] [place] [facility] [address] [id number] [place] [address]- 0349 Apr, [facility] [place] [facility] [address] [id number] [place] [address]- 2486 Apr, [facility] [place] [facility] [address] [id number] [place] [address]- 9104 Mar, [facility] [place] [facility] [address] [id number] [place] [address]- 2793 Mar, [facility] [place] [facility] [address] [id number] [place] [address]- 8088 Feb, [facility] [place] [facility] [address] [id number] [place] [address]- 0960 Feb, [facility] [place] [facility] [address] [id number] [place] [address]- 4819 Feb, [facility] [place] [facility] [address] [id number] [place] [address]- 8475 Feb, [facility] [place] [facility] [address] [id number] [place] [address]- 7377 January, [facility] [place] [facility] [address] [id number] [place] [address]- 8881 January, [facility] [place] [facility] [address] [id number] [place] [address]- 0101 January, [facility] [place] [facility] [address] [id number] [place] [address]- 1894 January, [facility] [place] [facility] [address] [id number] [place] [address]- 0245 Dec, [facility] [place] [facility] [address] [id number] [place] [address]- 3504 Dec, [facility] [place] [facility] [address] [id number] [place] [address]- 0127 Nov, [facility] [place] [facility] [address] [id number] [place] [address]- 6919 Nov, [facility] [place] [facility] [address] [id number] [place] [address]- 2500 Oct, [facility] [place] [facility] [address] [id number] [place] [address]- 9264 Oct, [facility] [place] [facility] [address] [id number] [place] [address]- 3153 Sep, [facility] [place] [facility] [address] [id number] [place] [address]- 6860 Sep, [facility] [address] [id number] [place] [address]- 6341 Aug, [facility] [place] [facility] [address] [id number] [place] [address]- 7321 Aug, [facility] [address] [id number] [place] [address]- 1178 Jul, [facility] [place] [facility] [address] [id number] [place] [address]- 8444 Jul, [facility] [place] [facility] [address] [id number] [place] [address]- 4161 Jun, [facility] [place] [facility] [address] [id number] [place] [address]- 3170 Jun, [facility] [address] [id number] [place] [address]- 2131 May, [facility] [place] [facility] [address] [id number] [place] [address]- 5744 May, [facility] [place] [facility] [address] [id number] [place] [address]- 5959 Apr, [facility] [place] [facility] [address] [id number] [place] [address]- 0923 Apr, [facility] [place] [facility] [address] [id number] [place] [address]- 0203 Feb, [facility] [place] [facility] [address] [id number] [place] [address]- 6337 Feb, [facility] [place] [facility] [address] [id number] [place] [address]- 0045 January, [facility] [place] [facility] [address] [id number] [place] [address]- 9489 January, [facility] [place] [facility] [address] [id number] [place] [address]- 4202 Dec, [facility] [place] [facility] [address] [id number] [place] [address]- 2761 Nov, [facility] [place] [facility] [address] [id number] [place] 2792 Oct, [facility] [place] [facility] [address] [id number] [place] 0403 Oct, [facility] [place] [facility] [address] [id number] [place] [address]- 6724 Sep, [facility] [place] [facility] [address] [id number] [place] 1170 Aug, [facility] [place] [facility] [address] [id number] [place] [address]- 8296 Aug, [facility] [place] [facility] [address] [id number] [place] [address]- 5352 Jul, [facility] [place] [facility] [address] [id number] [place] [address]- 9740 Jul, [facility] [place] [facility] [address] [id number] [place] [address]- 8721 Jun, [facility] [place] [facility] [address] [id number] [place] [address]- 6842 24 May, 2012 [facility] [place] [facility] [address] [id number] [place] [address]- 0095 14 May, 2012 [facility] [place] [facility] [address] [id number] [place] [address]- 8668 13 May, 2012 [facility] [place] [facility] [address] [id number] [place] [address]- 3791 28 Apr, 2012 [facility] [place] [facility] [address] [id number] [place] [address]- 1395 Apr, [facility] [place] [facility] [address] [id number] [place] [address]- 8927 Apr, [facility] [place] [facility] [address] [id number] [address]- 4229 Mar, [facility] [address] [id number] [place] [address]- 9556 Mar, [facility] [place] [facility] [address] [id number] [place] [address]- 6828 Feb, [facility] [place] [facility] [address] [id number] [place] [address]- 9071 Feb, [facility] [place] [facility] [address] [id number] [place] [address]- 2261 January, [facility] [place] [facility] [address] [id number] [place] [address]- 6732 January, [facility] [place] [facility] [address] [id number] [place] [address] Dec, [facility] [address] [facility] [id number] [place] [address] Dec, [facility] [place] [facility] [address] [id number] [place] [address] Nov, [facility] [address] [id number] [place] [address] Nov, [facility] [place] [facility] [address] [id number] [place] [address] Oct, [facility] [place] [facility] [address] [id number] [place] [address] Oct, [facility] [place] [facility] [address] [id number] [place] [address] Sep, [facility] [place] [facility] [address] [id number] [place] [address] Sep, [facility] [place] [facility] [address] [id number] [place] [address] Sep, [facility] [place] [facility] [address] [id number] [place] [address] Aug, [facility] [place] [facility] [address] [id number] [address] Aug, [facility] [address] [id number] [address] Aug, [facility] [id number] [address] Aug, [facility] [id number] [address] Aug, [facility] [address] [id number] [address] Jul, [facility] [id number] [address] Jul, [facility] [id number] [address] Jul, [facility] [address] [id number] [address] Dec, IMMUNIZATIONS No Known Immunizations SOCIAL HISTORY Never Assessed REASON FOR VISIT Lab (walk-in)--ERICA Wagner PLAN OF CARE VITAL SIGNS MEDICATIONS Unknown Medications RESULTS No Results PROCEDURES Procedure Date Ordered Result Body Site LIPID PANEL March 30, 2018 COMPREHEN METABOLIC PANEL March 30, 2018 ASSAY THYROID STIM HORMONE March 30, 2018 COMPLETE CBC W/AUTO DIFF WBC March 30, 2018 VENIPUNCT, ROUTINE* March 30, 2018 INSTRUCTIONS MEDICATIONS ADMINISTERED No Known Medications MEDICAL (GENERAL) HISTORY Type Description Date Medical History Type 2 diabetes Medical History anxiety Medical History chronic hip pain Medical History carpal tunnel bilateral Medical History [place] Palsy Surgical History carpel tunnel-right hand 2011 Surgical History carpel tunnel-left hand 2008 Surgical History carpal tunnel - right hand 11/2015 Surgical History Torn bicep repair 01/2018 Hospitalization History ER spider bite
--- OUTSIDE RECORDS SUMMARY | 2018-06-25 06:09 | XMS REPORT ---
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 Active 241254889 Problem Controlled type 2 diabetes mellitus without complication, without long -term current use of insulin E11.9 Active 444353697 Problem Diabetes E11.9 Active 33290525 Problem Chronic osteoarthritis M19.90 Active 54157088 Problem Type 2 diabetes mellitus with complication, without long-term current use of insulin E11.8 Active 26325287 Problem Sialadenitis K11.20 Active 84231803 Problem Mood disorder F39 Active 48554695 Problem Chronic fatigue R53.82 Active 77697287 Problem Depressive disorder, not elsewhere classified F32.9 Active 17646519 Problem Hypogonadism in male E29.1 Active 62898874 ALLERGIES No Known Allergies ENCOUNTERS Encounter Location Date Diagnosis [place] [id number] [place] [address] 91337- 2664 Apr, [place] [address] [place] [id number] [place] [address] 96198- 4852 Mar, Hypogonadism in male E29.1 [place] [address] [place] [id number] [place] [address] 78449- 8388 Mar, Hypogonadism in male E29.1 [place] [address] [place] [id number] [place] [address] 48511- 0590 Mar, Diabetes E11.9 and Anxiety F41.9 [place] [address] [place] [id number] [place] [address] 11506- 3654 Mar, Type 2 diabetes mellitus with complication, without long- term current use of insulin E11.8 [facility] [address] [address] 6293 22 Feb, 2018 Insect bite (nonvenomous) of right upper arm, initial encounter S40.861A [facility] [address] [place] [id number] [place] [address] 51546- 0890 07 Feb, 2018 Insect bite (nonvenomous) of right upper arm, initial encounter S40.861A ; Local infection of the skin and subcutaneous tissue, unspecified L08.9 and Hypogonadism in male E29.1 [place] [address] [place] [id number] [place] [address] 52220- 4091 January, Sialadenitis K11.20 [place] [address] [place] [id number] [place] [address] 85010- 6592 January, Bronchitis J40 [place] [address] [place] [id number] [place] [address] 81651- 4095 January, Hypogonadism in male E29.1 [place] [address] [place] [id number] [place] [address] 72641- 1380 January, Hypogonadism in male E29.1 [place] [address] [place] [id number] [place] [address] 25524- 9255 Dec, Bronchitis J40 [place] [address] [place] [id number] [place] [address] 84291- 6863 Nov, Diabetes E11.9 and Anxiety F41.9 [facility] [address] [place] [id number] [place] [address] 78591- 8103 15 Nov, 2017 Bronchitis J40 [facility] [address] [place] [id number] [place] [address] 95126- 1897 14 Oct, 2017 Bronchitis J40 [facility] [address] [place] [id number] [place] [address] 56264- 1751 Sep, Diabetes E11.9 ; Mood disorder F39 ; Hypogonadism in male E29.1 and Depressive disorder, not elsewhere classified F32.9 [place] [address] [place] [id number] [place] [address] 64928- 5631 Sep, Bronchitis J40 [facility] [address] 33946- 6882 Sep, Hypogonadism in male E29.1 [facility] [address] 49076- 0466 Sep, [facility] [address] 48545- 4018 Sep, [facility] [address] 81628- 4965 Aug, Bronchitis J40 [facility] [address] 79179- 5572 Aug, Uncontrolled type 2 diabetes mellitus without complication, without long-term current use of insulin E11.65 ; Diabetes type 2, controlled E11.9 ; Hypogonadism in male E29.1 ; Encounter for immunization Z23 and Spider bite wound, undetermined intent, initial encounter T63.304A [facility] [address] 08045- 7987 Jul, Bronchitis J40 [facility] [address] 65601- 0184 Jun, Hypogonadism in male E29.1 [facility] [address] [place] [id number] [place] [address] 94254- 0169 Jun, Hypogonadism in male E29.1 and Bronchitis J40 [facility] [address] [place] [id number] [place] [address] 26499- 9787 May, Bronchitis J40 [facility] [address] [place] [id number] [place] [address] 68008- 6555 May, Hypogonadism in male E29.1 [facility] [address] [place] [id number] [place] [address] 48090- 0633 May, Hypogonadism in male E29.1 [facility] [address] [place] [id number] [place] [address] 87893- 8419 Apr, Bronchitis J40 [facility] [address] [place] [id number] [place] [address] 82627- 8787 Apr, Controlled type 2 diabetes mellitus without complication, without long-term current use of insulin E11.9 [facility] [address] [place] [id number] [place] [address] 81126- 4989 Apr, Diabetes type 2, controlled E11.9 ; Hypogonadism in male E29.1 and Mood disorder F39 [facility] [address] [place] [id number] [place] [address] 32746- 1877 Apr, Hypogonadism in male E29.1 [facility] [address] [place] [id number] [place] [address] 60961- 7147 Apr, Bronchitis J40 [facility] [address] 67103- 1240 Mar, Hypogonadism in male E29.1 [facility] [address] [place] [id number] [place] [address] 24325- 3639 Mar, Bronchitis J40 [facility] [address] [place] [id number] [place] [address] 51733- 4702 Mar, Bronchitis J40 [facility] [address] [place] [id number] [place] [address] 34005- 7600 Feb, Spider bite, accidental or unintentional, initial encounter T63.301A [facility] [address] [place] [id number] [place] [address] 39611- 3885 Feb, Depressive disorder, not elsewhere classified F32.9 [facility] [address] [place] [id number] [place] [address] 74565- 0010 Feb, Diabetes E11.9 ; Mood disorder F39 and Hypogonadism in male E29.1 [facility] [address] [place] [id number] [place] [address] 10744- 3540 Feb, Bronchitis J40 [facility] [address] [place] [id number] [place] [address] 35452- 8730 Feb, Depressive disorder, not elsewhere classified F32.9 [facility] [address] [place] [id number] [place] [address] 62251- 7190 January, Depressive disorder, not elsewhere classified F32.9 [facility] [address] [place] [id number] [place] [address] 12424- 8424 January, Diabetes E11.9 and Mood disorder F39 [facility] [address] [place] [id number] [place] [address] 47959- 2691 January, Bronchitis J40 [place] [address] 45985- 0012 Dec, Bronchitis J40 [place] [address] [place] [id number] [place] [address] 42164- 2051 Dec, Hypogonadism in male E29.1 [place] [address] [place] [id number] [place] [address] 50842- 7561 Dec, [facility] [address] [place] [id number] [place] [address] 36342- 0652 Dec, Controlled type 2 diabetes mellitus without complication, without long-term current use of insulin E11.9 and Chronic fatigue R53.82 [place] [address] [place] [id number] [place] [address] 06925- 0987 Nov, Bronchitis J40 [place] [address] [place] [id number] [place] [address] 07313- 0784 Oct, Bronchitis J40 ; Controlled type 2 diabetes mellitus without complication, without long-term current use of insulin E11.9 ; Chronic fatigue R53.82 and Drug-induced erectile dysfunction N52.2 [place] [address] [place] [id number] [place] [address] 07476- 5570 Oct, Diabetes E11.9 [place] [address] [place] [id number] [place] [address] 49350- 0028 Sep, Pre-employment examination Z02.1 [facility] [address], [place] [address]- 6729 Sep, Diabetes E11.9 [facility] [address] [place] [id number] [place] [address] 05953- 7558 Aug, Controlled type 2 diabetes mellitus without complication, without long-term current use of insulin E11.9 and Chronic osteoarthritis M19.90 [facility] [address] [place] [id number] [place] [address] 58566- 5023 Jul, [facility] [address] [place] [id number] [place] [address] 35173- 8350 Jun, [place] [address] [place] [id number] [place] [address] 18148- 0932 Jun, 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 [place] [address] [place] [id number] [place] [address] 48732- 9239 Jun, Encounter for immunization Z23 and Controlled type 2 diabetes mellitus without complication, without long-term current use of insulin E11.9 [facility] [address] [place] [address] 76639- 3329 May, [place] [address] [place] [id number] [place] [address] 33421- 5541 May, [facility] [address] [place] [address] 99529- 5107 Apr, Gastritis without bleeding, unspecified chronicity, unspecified gastritis type K29.70 [facility] [address] [place] [id number] [address]- 6716 Apr, [facility] [address] [place] [id number] [place] [address] 68582- 5598 Mar, Diabetes type 2, controlled E11.9 [facility] [address] [place] [address] 34233- 9165 Mar, [facility] [address] [place] [id number] [place] [address] 53381- 2746 Feb, [facility] [address] [address]- 1296 Feb, [facility] [address] [place] [id number] [place] [address] 80031- 9342 January, [facility] [address] [place] [id number] [place] [address] 28068- 0837 Dec, Urethritis N34.2 [facility] [address] [place] [id number] [place] [address] 30415- 7358 15 Dec, 2015 [facility] [address] [place] [id number] [place] [address] 14839- 6428 Nov, Diabetes type 2, controlled E11.9 [facility] [address] [place] [id number] [place] [address] 78089- 0351 Nov, [facility] [address] [place] [id number] [place] [address] 26557- 9031 Nov, Diabetes type 2, controlled E11.9 [facility] [address] [place] [id number] [place] [address] 13875- 1044 Oct, Hand pain M79.643 [facility] [address] [place] [id number] [place] [address] 77978- 0438 Oct, Right hand pain M79.641 [facility] [address] [place] [address] 17381- 3244 Oct, [facility] [address] [place] [address] 46575- 4420 Oct, [facility] [address] [place] [id number] [place] [address] 02053- 5743 04 Oct, 2015 Right carpal tunnel syndrome G56.01 [facility] [address] [place] [address] 46375- 8800 Sep, Diabetes E11.9 [facility] [address] [place] [id number] [place] [address] 33398- 3609 Sep, Anxiety F41.9 ; Chronic osteoarthritis M19.90 and Health examination of defined subpopulation V70.5 [facility] [address] [place] [id number] [place] [address] 77973- 5130 Sep, Diabetes E11.9 [facility] [address] [place] [id number] [place] [address] 48263- 6605 Aug, Diabetes E11.9 ; Carpal tunnel syndrome, right G56.01 and Carpal tunnel syndrome, left upper limb G56.02 [facility] [address] [place] [id number] [place] [address] 00940- 8361 Jul, Diabetes mellitus 250.00 [facility] [address] [place] [id number] [place] [address] 651328- 9815 Jun, Diabetes mellitus 250.00 [facility] [address] [place] [id number] [place] [address] 11931- 5860 May, Diabetes mellitus 250.00 [facility] [address] [place] [id number] [place] [address] 96946- 0841 Apr, Diabetes mellitus 250.00 [facility] [address] [place] [id number] [place] [address] 02117- 4719 Mar, [facility] [address] [place] [id number] [place] [address] 43434883- 3945 Mar, Tooth abscess 522.5 [facility] [address] [place] [id number] [place] [address] 59108- 6890 Feb, [facility] [address] [place] [id number] [place] [address] 34351- 3112 January, [facility] [address] [place] [id number] [place] [address] 704671- 8223 January, [facility] [address] [place] [id number] [place] [address] 890593- 9893 January, Diabetes mellitus 250.00 [facility] [address] [place] [id number] [place] [address] 80776- 7479 January, [facility] [place] [facility] [address] [id number] [place] [address]- 6390 Dec, [facility] [place] [facility] [address] [id number] [place] [address]- 4782 Dec, [facility] [place] [facility] [address] [id number] [place] [address]- 1681 Nov, [facility] [place] [facility] [address] [id number] [place] [address]- 2139 Nov, [facility] [place] [facility] [address] [id number] [place] [address]- 8718 Nov, [facility] [place] [facility] [address] [id number] [place] [address]- 3832 Nov, [facility] [place] [facility] [address] [facility] [id number] [place] [address]- 2883 Oct, [facility] [place] [facility] [address] [id number] [place] [address]- 1040 Oct, [facility] [place] [facility] [address] [id number] [place] [address]- 5781 Sep, [facility] [place] [facility] [address] [facility] [id number] [place] [address]- 4514 Sep, [facility] [place] [facility] [address] [id number] [place] [address]- 1400 Aug, [facility] [place] [facility] [address] [id number] [place] [address]- 2960 Aug, [facility] [place] [facility] [address] [id number] [place] [address]- 0585 Aug, [facility] [place] [facility] [address] [id number] [place] [address]- 7587 Aug, [facility] [place] [facility] [address] [facility] [id number] [place] [address]- 7464 Aug, [facility] [place] [facility] [address] [id number] [place] [address]- 3225 Aug, [facility] [place] [facility] [address] [id number] [place] [address]- 0898 Jul, [facility] [place] [facility] [address] [id number] [place] [address]- 7966 Jul, [facility] [place] [facility] [address] [id number] [place] [address]- 8768 Jun, [facility] [place] [facility] [address] [id number] [place] [address]- 8836 Jun, [facility] [place] [facility] [address] [id number] [place] [address]- 8824 May, [facility] [place] [facility] [address] [id number] [place] [address]- 9505 May, [facility] [place] [facility] [address] [id number] [place] [address]- 0790 Apr, [facility] [place] [facility] [address] [id number] [place] [address]- 4276 Apr, [facility] [place] [facility] [address] [id number] [place] [address]- 4321 Apr, [facility] [place] [facility] [address] [id number] [place] [address]- 1024 Apr, [facility] [place] [facility] [address] [id number] [place] [address]- 6201 Apr, [facility] [place] [facility] [address] [id number] [place] [address]- 7259 Apr, [facility] [place] [facility] [address] [id number] [place] [address]- 9445 Mar, [facility] [place] [facility] [address] [id number] [place] 1451 Mar, [facility] [place] [facility] [address] [id number] [place] [address]- 6821 Feb, [facility] [place] [facility] [address] [id number] [place] [address]- 9230 Feb, [facility] [place] [facility] [address] [id number] [place] [address]- 4842 Feb, [facility] [place] [facility] [address] [id number] [place] [address]- 8298 Feb, [facility] [place] [facility] [address] [id number] [place] [address]- 2265 January, [facility] [place] [facility] [address] [id number] [place] [address]- 1841 January, [facility] [place] [facility] [address] [id number] [place] [address]- 7728 January, [facility] [place] [facility] [address] [id number] [place] [address]- 1985 January, [facility] [place] [facility] [address] [id number] [place] [address]- 7740 Dec, [facility] [place] [facility] [address] [id number] [place] [address]- 6608 Dec, [facility] [place] [facility] [address] [id number] [place] [address]- 1589 Nov, [facility] [place] [facility] [address] [id number] [place] [address]- 4434 Nov, [facility] [place] [facility] [address] [id number], [place] [address]- 3812 Oct, [facility] [place] [facility] [address] [id number] [place] [address]- 4964 Oct, [facility] [place] [facility] [address] [id number] [place] [address]- 2049 Sep, [facility] [place] [facility] [address] [id number] [place] [address]- 8697 Sep, [facility] [place] [facility] [address] [id number] [place] [address]- 6281 Aug, [facility] [address] [id number] [place] [address]- 0798 Aug, [facility] [place] [facility] [address] [id number] [place] [address]- 6398 Jul, [facility] [address] [id number] [place] [address]- 5241 Jul, [facility] [place] [facility] [address] [id number] [place] [address]- 4582 Jun, [facility] [address] [id number] [place] [address]- 6400 Jun, [facility] [place] [facility] [address] [id number] [place] [address]- 5724 May, [facility] [address] [id number] [place] [address]- 0243 May, [facility] [address] [id number] [place] [address]- 3062 Apr, [facility] [place] [facility] [address] [id number] [place] [address]- 9696 Apr, [facility] [address] [id number] [place] [address]- 2207 Feb, [facility] [place] [facility] [address] [id number] [place] [address]- 2293 Feb, [facility] [place] [facility] [address] [id number] [place] [address]- 2620 January, [facility] [place] [facility] [address] [id number] [place] [address]- 7657 January, [facility] [place] [facility] [address] [id number] [place] [address]- 2282 Dec, [facility] [place] [facility] [address] [id number] [place] [address]- 1991 Nov, [facility] [place] [facility] [address] [id number] [place] [address]- 9779 Oct, [facility] [place] [facility] [address] [id number] [place] [address]- 9665 Oct, [facility] [place] [facility] [address] [id number] [place] [address]- 8326 Sep, [facility] [place] [facility] [address] [id number] [place] [address]- 5817 Aug, [facility] [place] [facility] [address] [id number] [place] [address]- 4059 Aug, [facility] [place] [facility] [address] [id number] [place] [address]- 4333 Jul, [facility] [place] [facility] [address] [id number] [place] [address]- 1910 Jul, [facility] [place] [facility] [address] [id number] [place] [address]- 4248 Jun, [facility] [place] [facility] [address] [id number] [place] [address]- 2998 24 May, 2012 [facility] [place] [facility] [address] [id number] [place] [address]- 2531 14 May, 2012 [facility] [place] [facility] [address] [id number] [place] [address]- 5755 May, [facility] [place] [facility] [address] [id number], [place] [address]- 7894 Apr, [facility] [place] [facility] [address] [id number] [place] [address] Apr, [facility] [place] [facility] [address] [id number] [place] [address] [address] Apr, [facility] [place] [facility] [address] [id number], [place] [address] Mar, [facility] [place] [facility] [address] [id number], [place] [address] Mar, [facility] [address] [id number] [place] [address] Feb, [facility] [place] [facility] [address] [id number] [place] [address] Feb, [facility] [address] [id number] [place] [address] January, [facility] [address] [id number] [place] [address] January, [facility] [address] [id number] [place] [address] Dec, [facility] [address] [id number] [place] [address] Dec, [facility] [address] [id number] [address] Nov, [facility] [place] [facility] [address] [id number] [place] [address] Nov, [facility] [address] [facility] [id number] [place] [address] Oct, [facility] [address] [facility] [id number] [place] [address] Oct, [facility] [address] [facility] [id number] [place] [address] Sep, [facility] [place] [facility] [address] [id number] [place] [address] Sep, [facility] [place] [facility] [address] [id number] [place] [address] Sep, [facility] [place] [facility] [address] [id number] [place] [address] Aug, [facility] [place] [facility] [address] [facility] [id number] [place] [address] Aug, [facility] [place] [facility] [address] [id number] [address] Aug, [facility] [address] [id number] [address] Aug, [facility] [id number], [place] [address] Aug, [facility] [address] [id number], [place] [address] Jul, [facility] [address] [facility] [id number], [place] [address] Jul, [facility] [id number] [address] Jul, [facility] [address] [id number], [place] [address] Dec, IMMUNIZATIONS Vaccine Route Administration Date Status TESTOSTERONE (PT'S OWN) IM Intramuscular February 25, 2018 Administered SOCIAL HISTORY Never Assessed REASON FOR VISIT Bite(spider) located on the right forearm since yesterday 02/24/18 WB-MA, PT wants his testosterone inj PLAN OF CARE VITAL SIGNS Height 66 in 2018-02-25 Weight 230 lbs 2018-02-25 Temperature 99 degrees Fahrenheit 2018-02-25 Heart Rate 88 bpm 2018-02-25 Respiratory Rate 20 2018-02-25 BMI 37.12 kg/m2 2018-02-25 Blood pressure systolic 128 mmHg 2018-02-25 Blood pressure diastolic 78 mmHg 2018-02-25 MEDICATIONS Medication Instructions Dosage Frequency Start Date End Date Duration Status Terbinafine HCl 1 % Externally Twice a day 1 application to affected area Feb, Active Enloe 10-325 MG Orally every 6 hrs 1 tablet as needed Feb, Feb, 14 days Active Pepcid 20 mg Orally 2 times a day 1 tablet at bedtime 12h Apr, 30 day(s) Active Glucometer 1 as directed h Jun, Active Depo-Testosterone 100 MG/ML Intramuscular once monthly 1 ml Dec, Active Augmentin 875-125 MG Orally every 12 hrs 1 tablet Feb,Feb 10 day(s) Active Diclofenac Sodium 75 mg Orally 2 times a day 1 tablet as needed 12h 11 Nov Active GlipiZIDE 5 mg 1 tablet 12h Active Fluoxetine HCl 40 mg Orally Once a day, voucher 1st fill 1 capsule in the morning January, 30 day(s) Active Pen Hernshaw 3/16" 31G X 5 MM as directed 24h January, Active Trulicity 1.5 MG/0.5ML Subcutaneous once weekly Inject 0.5mL Sep, Active MetFORMIN HCl ER 500 mg Orally 2 times a day 2 tablets 12h 15 Apr, 2016 Not-Taking RESULTS No Results PROCEDURES Procedure Date Ordered Result Body Site TESTOSTERONE (PT'S OWN) February 25, 2018 THER/PROPH/DIAG INJ, SC/IM February 25, 2018 INSTRUCTIONS MEDICATIONS ADMINISTERED No Known Medications MEDICAL (GENERAL) HISTORY Type Description Date Medical History Type 2 diabetes Medical History anxiety Medical History chronic hip pain Medical History carpal tunnel bilateral Medical History Universal Palsy Surgical History carpel tunnel-right hand 2011 Surgical History carpel tunnel-left hand 2008 Surgical History carpal tunnel - right hand 11/2015 Surgical History Torn bicep repair 01/2018 Hospitalization History ER spider bite
--- OUTSIDE RECORDS SUMMARY | 2018-06-25 06:09 | XMS REPORT ---
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 Active 925404462 Problem Controlled type 2 diabetes mellitus without complication, without long -term current use of insulin E11.9 Active 247697001 Problem Diabetes E11.9 Active 92511379 Problem Chronic osteoarthritis M19.90 Active 44773494 Problem Type 2 diabetes mellitus with complication, without long-term current use of insulin E11.8 Active 05669675 Problem Sialadenitis K11.20 Active 61256698 Problem Mood disorder F39 Active 49412357 Problem Chronic fatigue R53.82 Active 07348127 Problem Depressive disorder, not elsewhere classified F32.9 Active 45872290 Problem Hypogonadism in male E29.1 Active 93845766 ALLERGIES No Information ENCOUNTERS Encounter Location Date Diagnosis [place] [id number] [place] [address] 20302- 7847 Apr, [place] [address] [place] [id number] [place] [address] 06184- 5095 Mar, Hypogonadism in male E29.1 [facility] [address] [place] [id number] [place] [address] 34322- 3510 Mar, Hypogonadism in male E29.1 [place] [address] [place] [id number] [place] [address] 08681- 9429 Mar, Diabetes E11.9 and Anxiety F41.9 [place] [address], [place] [address] 7861 Mar, Type 2 diabetes mellitus with complication, without long- term current use of insulin E11.8 [facility] [address] [address] 9993 Feb, Insect bite (nonvenomous) of right upper arm, initial encounter S40.861A [facility] [address] [place] [address] [id number] [place] [address] 27861- 0313 07 Feb, 2018 Insect bite (nonvenomous) of right upper arm, initial encounter S40.861A ; Local infection of the skin and subcutaneous tissue, unspecified L08.9 and Hypogonadism in male E29.1 [place] [address] [place] [id number] [place] [address] 60189- 0114 January, Sialadenitis K11.20 [place] [address] [place] [id number] [place] [address] 13389- 7592 January, Bronchitis J40 [place] [address] [place] [id number] [place] [address] 84686- 6775 January, Hypogonadism in male E29.1 [place] [address] [place] [id number] [place] [address] 27793- 2730 January, Hypogonadism in male E29.1 [place] [address] [place] [id number] [place] [address] 52724- 4422 Dec, Bronchitis J40 [place] [address] [place] [id number] [place] [address] 39919- 3017 Nov, Diabetes E11.9 and Anxiety F41.9 [facility] [address] [place] [id number] [place] [address] 97930- 8550 15 Nov, 2017 Bronchitis J40 [facility] [address] [place] [id number] [place] [address] 80100- 4889 14 Oct, 2017 Bronchitis J40 [facility] [address] [place] [id number] [place] [address] 43726- 4478 Sep, Diabetes E11.9 ; Mood disorder F39 ; Hypogonadism in male E29.1 and Depressive disorder, not elsewhere classified F32.9 [place] [address] [place] [id number] [place] [address] 16927- 1535 Sep, Bronchitis J40 [facility] [address] 56261- 6866 Sep, Hypogonadism in male E29.1 [facility] [address] 89144- 5293 Sep, [facility] [address] 24301- 6088 Sep, [facility] [address] 97758- 8182 Aug, Bronchitis J40 [facility] [address] 32017- 1201 Aug, Uncontrolled type 2 diabetes mellitus without complication, without long-term current use of insulin E11.65 ; Diabetes type 2, controlled E11.9 ; Hypogonadism in male E29.1 ; Encounter for immunization Z23 and Spider bite wound, undetermined intent, initial encounter T63.304A [facility] [address] 30776- 0222 Jul, Bronchitis J40 [facility] [address] 14760- 2472 Jun, Hypogonadism in male E29.1 [facility] [address] 87979- 4365 Jun, Hypogonadism in male E29.1 and Bronchitis J40 [facility] [address] [place] [id number] [place] [address] 91617- 5795 May, Bronchitis J40 [facility] [address] [place] [id number] [place] [address] 70432- 5197 May, Hypogonadism in male E29.1 [facility] [address] [place] [id number] [place] [address] 09944- 6875 May, Hypogonadism in male E29.1 [facility] [address] [place] [id number] [place] [address] 20785- 0585 Apr, Bronchitis J40 [facility] [address] [place] [address] [id number] [place] [address] 64409- 0635 Apr, Controlled type 2 diabetes mellitus without complication, without long-term current use of insulin E11.9 [facility] [address] [place] [id number] [place] [address] 44589- 1275 Apr, Diabetes type 2, controlled E11.9 ; Hypogonadism in male E29.1 and Mood disorder F39 [facility] [address] [place] [id number] [place] [address] 26055- 6437 Apr, Hypogonadism in male E29.1 [facility] [address] [place] [id number] [place] [address] 31827- 4200 Apr, Bronchitis J40 [facility] [address] [place] [id number] [place] [address] 08996- 5238 Mar, Hypogonadism in male E29.1 [facility] [address] [place] [id number] [place] [address] 04537- 6598 Mar, Bronchitis J40 [facility] [address] [place] [id number] [place] [address] 69448- 6699 Mar, Bronchitis J40 [facility] [address] [place] [address] [id number] [place] [address] 94102- 5698 Feb, Spider bite, accidental or unintentional, initial encounter T63.301A [facility] [address] [place] [id number] [place] [address] 87251- 7899 Feb, Depressive disorder, not elsewhere classified F32.9 [facility] [address] [place] [id number] [place] [address] 19198- 3814 Feb, Diabetes E11.9 ; Mood disorder F39 and Hypogonadism in male E29.1 [facility] [address] [place] [id number] [place] [address] 54716- 7732 Feb, Bronchitis J40 [facility] [address] [place] [id number] [place] [address] 77596- 6265 Feb, Depressive disorder, not elsewhere classified F32.9 [facility] [address] [place] [id number] [place] [address] 71177- 5139 January, Depressive disorder, not elsewhere classified F32.9 [facility] [address] [place] [id number] [place] [address] 30557- 2009 January, Diabetes E11.9 and Mood disorder F39 [place] [address] [place] [id number] [place] [address] 63130- 5519 January, Bronchitis J40 [place] [address] 46678- 4474 Dec, Bronchitis J40 [place] [address] [place] [id number] [place] [address] 03318- 9181 Dec, Hypogonadism in male E29.1 [place] [address] [place] [id number] [place] [address] 75487- 1615 Dec, [facility] [address] [place] [id number] [place] [address] 62870- 3313 Dec, Controlled type 2 diabetes mellitus without complication, without long-term current use of insulin E11.9 and Chronic fatigue R53.82 [place] [address] [place] [id number] [place] [address] 97190- 2745 Nov, Bronchitis J40 [place] [address] [place] [id number] [place] [address] 70432- 5840 Oct, Bronchitis J40 ; Controlled type 2 diabetes mellitus without complication, without long-term current use of insulin E11.9 ; Chronic fatigue R53.82 and Drug-induced erectile dysfunction N52.2 [place] [address] [place] [id number] [place] [address] 99752- 5032 Oct, Diabetes E11.9 [place] [address] [place] [id number] [place] [address] 07265- 0837 Sep, Pre-employment examination Z02.1 [facility] [address], [place] [address]- 7177 Sep, Diabetes E11.9 [facility] [address] [place] [id number] [place] [address] 57126- 7406 Aug, Controlled type 2 diabetes mellitus without complication, without long-term current use of insulin E11.9 and Chronic osteoarthritis M19.90 [facility] [address] [place] [id number] [place] [address] 66865- 7923 Jul, [facility] [address] [place] [id number] [place] [address] 23638- 6115 Jun, [place] [address] [place] [id number] [place] [address] 39332- 5175 Jun, 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 [place] [address] [place] [id number] [place] [address] 83010- 6454 Jun, Encounter for immunization Z23 and Controlled type 2 diabetes mellitus without complication, without long-term current use of insulin E11.9 [facility] [address], [place] [address]- 0113 May, [place] [address] [place] [id number] [place] [address] 74214- 8786 May, [facility] [address], [place] [address]- 1563 Apr, Gastritis without bleeding, unspecified chronicity, unspecified gastritis type K29.70 [facility] [address], [place] [address]- 5853 Apr, [facility] [address] [place] [id number] [place] [address] 12560- 4364 Mar, Diabetes type 2, controlled E11.9 [facility] [address], [place] [address]- 3851 Mar, [facility] [address] [place] [id number] [place] [address] 26063- 9913 Feb, [facility] [address], [place] [address]- 5877 Feb, [facility] [address] [place] [id number] [place] [address] 33444- 8080 January, [facility] [address] [place] [id number] [place] [address] 71311- 6792 Dec, Urethritis N34.2 [facility] [address] [place] [id number] [place] [address] 01274- 3775 Dec, [facility] [address] [place] [id number] [place] [address] 70301- 1324 Nov, Diabetes type 2, controlled E11.9 [facility] [address] [place] [id number] [place] [address] 09751- 8246 Nov, [facility] [address] [place] [id number] [place] [address] 88077- 0258 Nov, Diabetes type 2, controlled E11.9 [facility] [address] [place] [address] 25753- 1579 Oct, Hand pain M79.643 [facility] [address] [place] [id number] [place] [address] 39087- 4487 Oct, Right hand pain M79.641 [facility] [address] [place] [address] 39945- 8080 Oct, [facility] [address], [place] [address]- 2815 Oct, [facility] [address] [place] [address] 58676- 0464 Oct, Right carpal tunnel syndrome G56.01 [facility] [address], [place] [address]- 6902 Sep, Diabetes E11.9 [facility] [address] [place] [id number] [place] [address] 32432- 6095 Sep, Anxiety F41.9 ; Chronic osteoarthritis M19.90 and Health examination of defined subpopulation V70.5 [facility] [address] [place] [id number] [place] [address] 16769- 0292 Sep, Diabetes E11.9 [facility] [address] [place] [id number] [place] [address] 51067- 3796 Aug, Diabetes E11.9 ; Carpal tunnel syndrome, right G56.01 and Carpal tunnel syndrome, left upper limb G56.02 [facility] [address] [place] [id number] [place] [address] 64733- 9224 Jul, Diabetes mellitus 250.00 [facility] [address] [place] [id number] [place] [address] 41054- 7897 Jun, Diabetes mellitus 250.00 [facility] [address] [place] [id number] [place] [address] 10492- 4272 May, Diabetes mellitus 250.00 [facility] [address] [place] [id number] [place] [address] 30480- 3505 Apr, Diabetes mellitus 250.00 [facility] [address] [place] [id number] [place] [address] 10133- 9495 Mar, [facility] [address] [place] [id number] [place] [address] 69306- 0765 Mar, Tooth abscess 522.5 [facility] [address] [place] [id number] [place] [address] 11444- 7668 Feb, [facility] [address] [place] [id number] [place] [address] 22098- 3687 January, [facility] [address] [place] [id number] [place] [address] 901029- 6004 January, [facility] [address] [place] [id number] [place] [address] 233395- 7403 January, Diabetes mellitus 250.00 [facility] [address] [place] [id number] [place] [address] 08022- 0130 January, [facility] [place] [facility] [address] [id number] [place] [address]- 9924 Dec, [facility] [place] [facility] [address] [id number] [place] [address]- 8650 Dec, [facility] [place] [facility] [address] [id number] [place] [address]- 9488 Nov, [facility] [place] [facility] [address] [id number] [place] [address]- 7316 Nov, [facility] [place] [facility] [address] [id number] [place] [address]- 6046 Nov, [facility] [place] [facility] [address] [id number] [place] [address]- 7943 Nov, [facility] [place] [facility] [address] [id number] [place] [address]- 0892 Oct, [facility] [place] [facility] [address] [id number] [place] [address]- 0557 Oct, [facility] [place] [facility] [address] [id number] [place] [address]- 2712 Sep, [facility] [place] [facility] [address] [id number] [place] [address]- 5997 Sep, [facility] [place] [facility] [address] [id number] [place] [address]- 9130 Aug, [facility] [place] [facility] [address] [id number] [place] [address]- 3074 Aug, [facility] [place] [facility] [address] [id number] [place] 1330 Aug, [facility] [place] [facility] [address] [id number] [place] 9715 Aug, [facility] [place] [facility] [address] [id number] [place] [address]- 7247 Aug, [facility] [place] [facility] [address] [id number] [place] [address]- 3821 Aug, [facility] [place] [facility] [address] [id number] [place] [address]- 3145 Jul, [facility] [place] [facility] [address] [id number] [place] [address]- 1707 Jul, [facility] [place] [facility] [address] [id number] [place] [address]- 6611 Jun, [facility] [place] [facility] [address] [id number] [place] [address]- 9651 Jun, [facility] [place] [facility] [address] [id number] [place] [address]- 0367 May, [facility] [place] [facility] [address] [id number] [place] [address]- 5280 May, [facility] [place] [facility] [address] [id number] [place] [address]- 5327 Apr, [facility] [place] [facility] [address] [id number] [place] [address]- 0914 Apr, [facility] [place] [facility] [address] [id number] [place] [address]- 3980 Apr, [facility] [place] [facility] [address] [id number] [place] [address]- 4539 Apr, [facility] [place] [facility] [address] [id number] [place] [address]- 0110 Apr, [facility] [place] [facility] [address] [id number] [place] [address]- 5270 Apr, [facility] [place] [facility] [address] [id number] [place] 9548 Mar, [facility] [place] [facility] [address] [id number] [place] 4072 Mar, [facility] [place] [facility] [address] [id number] [place] [address]- 4414 Feb, [facility] [place] [facility] [address] [id number] [place] [address]- 3238 Feb, [facility] [place] [facility] [address] [id number] [place] [address]- 6834 Feb, [facility] [place] [facility] [address] [id number] [place] [address]- 2107 Feb, [facility] [place] [facility] [address] [id number] [place] [address]- 0959 January, [facility] [place] [facility] [address] [id number] [place] [address]- 9441 January, [facility] [place] [facility] [address] [id number] [place] [address]- 3913 January, [facility] [place] [facility] [address] [id number] [place] [address]- 8416 January, [facility] [place] [facility] [address] [id number] [place] [address]- 7157 Dec, [facility] [place] [facility] [address] [id number] [place] [address]- 9833 Dec, [facility] [place] [facility] [address] [id number] [place] [address]- 5803 Nov, [facility] [place] [facility] [address] [id number] [place] [address]- 2965 Nov, [facility] [place] [facility] [address] [id number] [place] [address]- 4639 Oct, [facility] [place] [facility] [address] [id number] [place] [address]- 8901 Oct, [facility] [place] [facility] [address] [id number] [place] [address]- 2824 Sep, [facility] [place] [facility] [address] [id number] [place] [address]- 3921 Sep, [facility] [place] [facility] [address] [id number] [place] [address]- 0109 Aug, [facility] [address] [id number] [place] [address]- 6662 Aug, [facility] [place] [facility] [address] [id number] [place] [address]- 5556 Jul, [facility] [address] [id number] [place] [address]- 4419 Jul, [facility] [place] [facility] [address] [id number] [place] [address]- 5495 Jun, [facility] [address] [id number] [place] [address]- 2965 Jun, [facility] [place] [facility] [address] [id number] [place] [address]- 3010 May, [facility] [address] [id number] [place] [address]- 6325 May, [facility] [place] [facility] [address] [id number] [place] [address]- 1504 Apr, [facility] [place] [facility] [address] [id number] [place] [address]- 4781 Apr, [facility] [place] [facility] [address] [facility] [id number] [place] [address]- 5388 Feb, [facility] [place] [facility] [address] [id number] [place] [address]- 6211 Feb, [facility] [place] [facility] [address] [id number] [place] [address] 2544 January, [facility] [place] [facility] [address] [id number] [place] [address]- 8482 January, [facility] [place] [facility] [address] [id number] [place] [address]- 9065 Dec, [facility] [place] [facility] [address] [id number] [address]- 4817 Nov, [facility] [place] [facility] [address] [id number] [place] [address]- 9407 Oct, [facility] [place] [facility] [address] [id number] [place] 5294 Oct, [facility] [place] [facility] [address] [id number] [place] [address]- 1813 Sep, [facility] [place] [facility] [address] [id number] [place] [address]- 7522 Aug, [facility] [place] [facility] [address] [id number] [place] 9727 Aug, [facility] [place] [facility] [address] [id number] [place] [address]- 3462 Jul, [facility] [place] [facility] [address] [id number] [place] [address]- 8252 Jul, [facility] [place] [facility] [address] [id number] [place] [address]- 6071 Jun, [facility] [place] [facility] [address] [id number] [place] [address]- 8462 24 May, 2012 [facility] [place] [facility] [address] [id number] [place] [address]- 3603 May, [facility] [place] [facility] [address] [id number] [place] [address]- 6528 May, [facility] [place] [facility] [address] [id number] [place] [address] Apr, [facility] [place] [facility] [address] [id number] [place] [address] Apr, [facility] [place] [facility] [address] [id number] [place] [address] Apr, [facility] [place] [facility] [address] [id number] [place] [address] Mar, [facility] [place] [facility] [address] [id number], [place] [address] Mar, [facility] [address] [id number] [place] [address] Feb, [facility] [place] [facility] [address] [id number] [place] [address] Feb, [facility] [address] [facility] [id number] [place] [address] January, [facility] [address] [id number] [place] [address] January, [facility] [address] [id number] [place] [address] Dec, [facility] [address] [id number] [place] [address] Dec, [facility] [address] [id number] [place] [address] Nov, [facility] [place] [facility] [address] [id number] [place] [address] Nov, [facility] [address] [id number] [place] [address] Oct, [facility] [address] [facility] [id number] [place] [address] Oct, [facility] [address] [facility] [id number] [place] [address] Sep, [facility] [place] [facility] [address] [id number] [place] [address] Sep, [facility] [place] [facility] [address] [id number] [place] [address] Sep, [facility] [place] [facility] [address] [id number] [place] [address] [address] Aug, [facility] [place] [facility] [address] [facility] [id number] [place] [address] Aug, [facility] [place] [facility] [address] [facility] [id number], [place] [address] Aug, [facility] [address] [id number], [place] [address] Aug, [facility] [address] [id number], [place] [address] Aug, [facility] [address] [id number], [place] [address] Jul, [facility] [address] [id number], [place] [address] Jul, [facility] [address] [id number], [place] [address] Jul, [facility] [address] [facility] [id number], [place] [address] Dec, IMMUNIZATIONS No Known Immunizations SOCIAL HISTORY Never Assessed REASON FOR VISIT Medication refill request PLAN OF CARE VITAL SIGNS MEDICATIONS Medication Instructions Dosage Frequency Start Date End Date Duration Status [place] 10-325 MG Orally every 6 hrs 1 tablet as needed 6h Feb, 14 days Active RESULTS No Results PROCEDURES No Known procedures INSTRUCTIONS MEDICATIONS ADMINISTERED No Known Medications MEDICAL (GENERAL) HISTORY Type Description Date Medical History Type 2 diabetes Medical History anxiety Medical History chronic hip pain Medical History carpal tunnel bilateral Medical History [place] Palsy Surgical History carpel tunnel-right hand 2011 Surgical History carpel tunnel-left hand 2008 Surgical History carpal tunnel - right hand 11/2015 Surgical History Torn bicep repair 01/2018 Hospitalization History ER spider bite
--- OUTSIDE RECORDS SUMMARY | 2018-06-25 06:10 | XMS REPORT ---
Author Author PUNEET MCGEE [facility] Address [address] [place] [address] Care Team Providers Care Systems Integration Analyst Name Role Phone PUNEET MCGEE Unavailable PROBLEMS Type Condition ICD9-CM Code CBA11-YG Code Onset Dates Condition Status SNOMED Code Problem Anxiety F41.9 Active 00655269 Problem Drug-induced erectile dysfunction N52.2 Active 582319865 Problem Controlled type 2 diabetes mellitus without complication, without long -term current use of insulin E11.9 Active 822202022 Problem Diabetes E11.9 Active 97975322 Problem Chronic osteoarthritis M19.90 Active 35079912 Problem Type 2 diabetes mellitus with complication, without long-term current use of insulin E11.8 Active 51469118 Problem Sialadenitis K11.20 Active 67653198 Problem Mood disorder F39 Active 01830737 Problem Chronic fatigue R53.82 Active 87237273 Problem Depressive disorder, not elsewhere classified F32.9 Active 52928443 Problem Hypogonadism in male E29.1 Active 27947946 ALLERGIES No Known Allergies ENCOUNTERS Encounter Location Date Diagnosis [place] [id number], [place] [address] Apr, [place] [id number] [place] [address] 54635- 1213 Mar, Hypogonadism in male E29.1 [facility] [place] [address], [place] [address] Mar, Hypogonadism in male E29.1 [place] [id number], [place] [address] Mar, Diabetes E11.9 and Anxiety F41.9 [facility] [place] [address], [place] [address] Mar, Type 2 diabetes mellitus with complication, without long- term current use of insulin E11.8 [facility] [place] [address], [place] [address] Feb, Insect bite (nonvenomous) of right upper arm, initial encounter S40.861A [facility] [place] [address] [place] [id number] [place] [address] 40602- 2038 07 Feb, 2018 Insect bite (nonvenomous) of right upper arm, initial encounter S40.861A ; Local infection of the skin and subcutaneous tissue, unspecified L08.9 and Hypogonadism in male E29.1 [place] [address] [place] [id number] [place] [address] 14878- 8512 January, Sialadenitis K11.20 [place] [address] [place] [id number] [place] [address] 38043- 1634 January, Bronchitis J40 [place] [address] [place] [id number] [place] [address] 20553- 1553 January, Hypogonadism in male E29.1 [place] [address] [place] [id number] [place] [address] 30773- 6414 January, Hypogonadism in male E29.1 [place] [address] [place] [id number] [place] [address] 10843- 5229 Dec, Bronchitis J40 [facility] [place] [id number] [place] [address] 32361- 6559 Nov, Diabetes E11.9 and Anxiety F41.9 [facility] [place] [address] [id number] [place] [address] 68039- 254 Nov, Bronchitis J40 [facility] [place] [address] [place] [id number] [place] [address] 43396- 2352 14 Oct, 2017 Bronchitis J40 [facility] [place] [address] [id number] [place] [address] 51775- 0425 Sep, Diabetes E11.9 ; Mood disorder F39 ; Hypogonadism in male E29.1 and Depressive disorder, not elsewhere classified F32.9 [facility] [place] [address], [place] [address] 52[address] Sep, Bronchitis J40 [facility] [place] [address] [id number] [place] [address] 81545- 7615 Sep, Hypogonadism in male E29.1 [facility] [place] [address] [id number] [place] [address] 77910- 0638 Sep, [facility] [place] [address] [id number] [place] [address] 90172- 1145 Sep, [facility] [place] [id number] [place] [address] 80939- 4352 Aug, Bronchitis J40 [facility] [place] [address] [place] [address] [id number] [place] [address] 97518- 0056 Aug, Uncontrolled type 2 diabetes mellitus without complication, without long-term current use of insulin E11.65 ; Diabetes type 2, controlled E11.9 ; Hypogonadism in male E29.1 ; Encounter for immunization Z23 and Spider bite wound, undetermined intent, initial encounter T63.304A [facility] [place] [address] [id number] [place] [address] 82434- 8004 Jul, Bronchitis J40 [facility] [place] [address] [id number] [place] [address] 98797- 9512 Jun, Hypogonadism in male E29.1 [facility] [place] [id number] [place] [address] 26257- 6900 Jun, Hypogonadism in male E29.1 and Bronchitis J40 [facility] [place] [id number] [place] [address] 09545- 4283 May, Bronchitis J40 [facility] [place] [id number] [place] [address] 69364- 7206 May, Hypogonadism in male E29.1 [facility] [place] [address], [place] [address]- 0260 May, Hypogonadism in male E29.1 [facility] [place] [id number] [place] [address] 85630- 0861 Apr, Bronchitis J40 [facility] [place] [address] [place] [address] [id number] [place] [address] 50877- 7326 Apr, Controlled type 2 diabetes mellitus without complication, without long-term current use of insulin E11.9 [facility] [place] [address] [place] [id number] [place] [address] 81589- 3528 Apr, Diabetes type 2, controlled E11.9 ; Hypogonadism in male E29.1 and Mood disorder F39 [facility] [place] [address] [place] [address] [id number] [place] [address] 55965- 2936 Apr, Hypogonadism in male E29.1 [facility] [place] [id number] [place] [address] 59958- 9859 Apr, Bronchitis J40 [facility] [place] [id number] [place] [address] 64304- 7292 Mar, Hypogonadism in male E29.1 [facility] [place] [address] [id number] [place] [address] 16036- 5704 Mar, Bronchitis J40 [facility] [place] [address] [id number] [place] [address] 44765- 7675 Mar, Bronchitis J40 [facility] [place] [address] [place] [address] [id number] [place] [address] 87664- 1780 Feb, Spider bite, accidental or unintentional, initial encounter T63.301A [facility] [place] [address] [place] [id number] [place] [address] 01686- 1278 Feb, Depressive disorder, not elsewhere classified F32.9 [facility] [place] [address] [place] [id number] [place] [address] 97151- 7281 Feb, Diabetes E11.9 ; Mood disorder F39 and Hypogonadism in male E29.1 [facility] [place] [address] [place] [address] [id number] [place] [address] 40446- 1094 Feb, Bronchitis J40 [facility] [place] [id number] [place] [address] 67562- 1388 Feb, Depressive disorder, not elsewhere classified F32.9 [facility] [place] [address] [place] [id number] [place] [address] 64668- 7202 January, Depressive disorder, not elsewhere classified F32.9 [facility] [place] [address] [place] [id number] [place] [address] 15899- 1846 January, Diabetes E11.9 and Mood disorder F39 [facility] [place] [address] [place] [id number] [place] [address] 30475- 0621 January, Bronchitis J40 [facility] [place] [address] 89969- 9984 Dec, Bronchitis J40 [facility] [place] [address] [place] [id number] [place] [address] 83929- 4756 Dec, Hypogonadism in male E29.1 [facility] [place] [address] [place] [address] [id number] [place] [address] 12867- 5700 Dec, [facility] [place] [address] [place] [address] [id number] [place] [address] 01079- 0164 Dec, Controlled type 2 diabetes mellitus without complication, without long-term current use of insulin E11.9 and Chronic fatigue R53.82 [place] [address] [place] [id number] [place] [address] 17126- 0254 Nov, Bronchitis J40 [facility] [place] [address] [place] [id number] [place] [address] 22065- 1378 Oct, Bronchitis J40 ; Controlled type 2 diabetes mellitus without complication, without long-term current use of insulin E11.9 ; Chronic fatigue R53.82 and Drug-induced erectile dysfunction N52.2 [facility] [place] [address] [place] [id number] [place] [address] 47625- 4457 Oct, Diabetes E11.9 [place] [address] [place] [id number] [place] [address] 42085- 3119 Sep, Pre-employment examination Z02.1 [facility] [place] [address] [place] [address] [id number] [place] [address] 35904- 2557 Sep, Diabetes E11.9 [facility] [place] [address] [place] [address] [id number] [place] [address] 54025- 0556 Aug, Controlled type 2 diabetes mellitus without complication, without long-term current use of insulin E11.9 and Chronic osteoarthritis M19.90 [facility] [place] [address] [place] [address] [id number] [place] [address] 25088- 5525 Jul, [facility] [place] [address] [place] [address] [id number] [place] [address] 95478- 5401 Jun, [place] [address] [place] [id number] [place] [address] 18909- 2489 Jun, 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 [place] [address] [place] [id number] [place] [address] 74654- 4174 Jun, Encounter for immunization Z23 and Controlled type 2 diabetes mellitus without complication, without long-term current use of insulin E11.9 [facility] [place] [address] [place] [address] [id number] [place] [address] 05278- 2815 May, [facility] [place] [address] [place] [id number] [place] [address] 78790- 3347 May, [facility] [place] [address] [place] [id number] [place] [address] 76589- 2024 Apr, Gastritis without bleeding, unspecified chronicity, unspecified gastritis type K29.70 [facility] [place] [address] [place] [id number] [place] [address] 97786- 3967 Apr, [facility] [place] [address] [place] [id number] [place] [address] 93892- 7049 Mar, Diabetes type 2, controlled E11.9 [facility] [place] [address] [place] [address] [id number] [place] [address] 61016- 9636 Mar, [facility] [place] [address] [place] [id number] [place] [address] 91513- 8536 Feb, [facility] [place] [address], [place] [address]- 8510 Feb, [facility] [place] [address], [place] [address]- 8561 January, [facility] [place] [address], [place] [address]- 9497 Dec, Urethritis N34.2 [facility] [place] [address] [place] [address] [id number] [place] [address] 04471- 0002 Dec, [facility] [place] [address] [place] [address] 43763- 3036 Nov, Diabetes type 2, controlled E11.9 [facility] [place] [address] [place] [address] 92821- 9959 Nov, [facility] [place] [address] [id number] [place] [address] 90349- 5030 Nov, Diabetes type 2, controlled E11.9 [facility] [place] [address] [place] [address] 60540- 0763 Oct, Hand pain M79.643 [facility] [place] [address], [place] [address]- 2099 Oct, Right hand pain M79.641 [facility] [place] [address], [place] [address]- 7829 Oct, [facility] [place] [address], [place] [address]- 3416 18 Oct, 2015 [facility] [place] [address] [place] [address] 51815- 9000 Oct, Right carpal tunnel syndrome G56.01 [facility] [place] [address], [place] [address]- 1492 Sep, Diabetes E11.9 [facility] [place] [address] [place] [address] 56560- 2291 Sep, Anxiety F41.9 ; Chronic osteoarthritis M19.90 and Health examination of defined subpopulation V70.5 [facility] [place] [address] [place] [id number] [place] [address] 64130- 7327 Sep, Diabetes E11.9 [facility] [place] [address] [place] [address] [id number] [place] [address] 090640- 8514 Aug, Diabetes E11.9 ; Carpal tunnel syndrome, right G56.01 and Carpal tunnel syndrome, left upper limb G56.02 [facility] [place] [address] [id number] [place] [address] 75619- 0555 Jul, Diabetes mellitus 250.00 [facility] [place] [address] [place] [address] [id number] [place] [address] 20934- 7445 Jun, Diabetes mellitus 250.00 [facility] [place] [id number] [place] [address] 30838- 0864 May, Diabetes mellitus 250.00 [facility] [place] [address] [id number] [place] [address] 85672- 5014 Apr, Diabetes mellitus 250.00 [facility] [place] [id number] [place] [address] 64253- 2121 Mar, [facility] [place] [id number] [place] [address] 42543- 7730 Mar, Tooth abscess 522.5 [facility] [place] [address] [id number] [place] [address] 86781- 5473 Feb, [facility] [place] [id number] [place] [address] 718917- 1832 January, [facility] [place] [id number] [place] [address] [id number]- 1467 January, [facility] [place] [id number] [place] [address] 348324- 4942 January, Diabetes mellitus 250.00 [facility] [place] [id number] [place] [address] [place] [address]- 1171 January, [facility] [place] [facility] [address] [id number] [place] [address]- 0091 14 Dec, 2014 [facility] [place] [facility] [address] [id number] [place] [address]- 2683 Dec, [facility] [place] [facility] [address] [id number] [place] [address]- 5131 30 Nov, 2014 [facility] [place] [facility] [address] [id number] [place] [address]- 4241 Nov, [facility] [place] [facility] [address] [id number] [place] [address]- 3007 Nov, [facility] [place] [facility] [address] [id number] [place] [address]- 6324 Nov, [facility] [place] [facility] [address] [id number] [place] [address]- 2005 Oct, [facility] [place] [facility] [address] [id number] [place] [address]- 8962 Oct, [facility] [place] [facility] [address] [id number] [place] [address]- 4193 Sep, [facility] [place] [facility] [address] [id number] [place] [address]- 4644 Sep, [facility] [place] [facility] [address] [id number] [place] [address]- 8442 Aug, [facility] [place] [facility] [address] [id number] [place] [address]- 3018 Aug, [facility] [place] [facility] [address] [id number] [place] 1565 Aug, [facility] [place] [facility] [address] [id number] [place] [address]- 9273 Aug, [facility] [place] [facility] [address] [id number] [place] [address]- 6520 Aug, [facility] [place] [facility] [address] [id number] [place] [address]- 3999 Aug, [facility] [place] [facility] [address] [id number] [place] [address]- 3276 Jul, [facility] [place] [facility] [address] [id number] [place] [address]- 3118 Jul, [facility] [place] [facility] [address] [id number] [place] [address]- 4180 Jun, [facility] [place] [facility] [address] [id number] [place] [address]- 5918 Jun, [facility] [place] [facility] [address] [id number] [place] [address]- 8415 May, [facility] [place] [facility] [address] [id number] [place] [address]- 2070 May, [facility] [place] [facility] [address] [id number] [place] [address]- 8124 Apr, [facility] [place] [facility] [address] [id number] [place] [address]- 2882 Apr, [facility] [place] [facility] [address] [id number] [place] [address]- 3508 Apr, [facility] [place] [facility] [address] [id number] [place] [address]- 8098 Apr, [facility] [place] [facility] [address] [id number] [place] [address]- 9035 Apr, [facility] [place] [facility] [address] [id number] [place] [address]- 0231 Apr, [facility] [place] [facility] [address] [id number] [place] [address]- 5885 Mar, [facility] [place] [facility] [address] [id number] [place] [address]- 4063 Mar, [facility] [place] [facility] [address] [id number] [place] [address]- 2123 Feb, [facility] [place] [facility] [address] [id number] [place] [address]- 3671 Feb, [facility] [place] [facility] [address] [id number] [place] [address]- 4935 Feb, [facility] [place] [facility] [address] [id number] [place] [address]- 3377 Feb, [facility] [place] [facility] [address] [id number] [place] [address]- 3431 January, [facility] [place] [facility] [address] [id number] [place] [address]- 4518 January, [facility] [place] [facility] [address] [id number] [place] [address]- 7620 January, [facility] [place] [facility] [address] [id number] [place] [address]- 0981 January, [facility] [place] [facility] [address] [id number] [place] [address]- 1072 Dec, [facility] [place] [facility] [address] [id number] [place] [address] Dec, [facility] [place] [facility] [address] [id number] [place] [address] Nov, [facility] [place] [facility] [address] [id number] [place] [address] Nov, [facility] [place] [facility] [address] [id number] [place] [address] Oct, [facility] [place] [facility] [address] [id number] [place] [address] Oct, [facility] [place] [facility] [address] [id number] [place] [address] Sep, [facility] [place] [facility] [address] [id number] [place] [address] Sep, [facility] [place] [facility] [address] [id number] [place] [address] Aug, [facility] [address] [id number] [place] [address] Aug, [facility] [address] [id number] [place] [address] Jul, [facility] [address] [id number] [place] [address] Jul, [facility] [address] [id number] [place] [address] Jun, [facility] [address] [id number] [place] [address] Jun, [facility] [address] [id number] [place] [address] May, [facility] [address] [id number] [place] [address] May, [facility] [address] [id number] [place] [address] Apr, [facility] [address] [id number] [place] [address] Apr, [facility] [address] [id number] [place] [address] Feb, [facility] [address] [id number] [place] [address] Feb, [facility] [address] [id number] [place] [address] January, [facility] [place] [facility] [address] [id number] [place] [address] January, [facility] [address] [id number] [place] [address] Dec, [facility] [address] [id number] [place] [address] Nov, [facility] [address] [id number] [place] [address] Oct, [facility] [place] [facility] [address] [id number] [place] [address] Oct, [facility] [place] [facility] [address] [id number] [place] [address] Sep, [facility] [place] [facility] [address] [id number] [place] [address] Aug, [facility] [place] [facility] [address] [id number] [place] [address] Aug, [facility] [place] [facility] [address] [id number] [place] [address] Jul, [facility] [place] [facility] [address] [id number] [place] [address] Jul, [facility] [place] [facility] [address] [id number] [place] [address] Jun, [facility] [place] [facility] [address] [id number] [place] [address] 24 May, 2012 [facility] [place] [facility] [address] [id number] [place] [address] 14 May, 2012 [facility] [place] [facility] [address] [id number], [place] [address] May, [facility] [place] [facility] [address] [id number], [place] [address] Apr, [facility] [place] [facility] [address] [id number] [place] [address] Apr, [facility] [place] [facility] [address] [id number] [place] [address] Apr, [facility] [place] [facility] [address] [id number] [place] [address] Mar, [facility] [place] [facility] [address] [id number] [place] [address] Mar, [facility] [address] [id number] [place] [address] Feb, [facility] [place] [facility] [address] [id number] [place] [address] Feb, [facility] [place] [facility] [address] [id number] [place] [address] January, [facility] [place] [facility] [address] [id number] [place] [address] January, [facility] [place] [facility] [address] [id number] [place] [address] Dec, [facility] [place] [facility] [address] [id number] [place] [address] Dec, [facility] [address] [id number] [place] [address] Nov, [facility] [place] [facility] [address] [id number] [place] [address] Nov, [facility] [place] [facility] [address] [id number] [place] [address] Oct, [facility] [address] [id number] [place] [address] Oct, [facility] [place] [facility] [address] [id number] [place] [address] Sep, [facility] [place] [facility] [address] [id number] [place] [address] Sep, [facility] [place] [facility] [address] [id number] [place] [address] Sep, [facility] [place] [facility] [address] [id number] [place] [address] Aug, [facility] [place] [facility] [address] [id number] [place] [address] Aug, [facility] [place] [address] [facility] [id number] [address] Aug, [facility] [place] [id number] [address] Aug, [facility] [place] [id number], [place] [address] Aug, [facility] [place] [id number], [place] [address] Jul, [facility] [place] [id number], [place] [address] Jul, [facility] [place] [id number], [place] [address] Jul, [facility] [place] [id number] [address] Dec, IMMUNIZATIONS No Known Immunizations SOCIAL HISTORY Never Assessed REASON FOR VISIT Pain (acute), left swollen salivary gland for the past couple of days [facility] PLAN OF CARE Activity Details Follow Up prn Reason: VITAL SIGNS Height 66 in 2018-02-02 Weight 233 lbs 2018-02-02 Temperature 97.9 degrees Fahrenheit 2018-02-02 Heart Rate 90 bpm 2018-02-02 Respiratory Rate 20 2018-02-02 BMI 37.60 kg/m2 2018-02-02 Blood pressure systolic 142 mmHg 2018-02-02 Blood pressure diastolic 78 mmHg 2018-02-02 MEDICATIONS Medication Instructions Dosage Frequency Start Date End Date Duration Status Fluoxetine HCl 40 mg Orally Once a day, voucher 1st fill 1 capsule in the morning January, 30 day(s) Active MetFORMIN HCl ER 500 mg Orally 2 times a day 2 tablets 12h Apr, Not-Taking [place] 12/04" 31G X 5 MM as directed 24h January, Active Amoxicillin 500 mg Orally 3 times a day 1 capsule 8h January, January, 07 days Active Glucometer 1 as directed 12h Jun, Active Pepcid 20 mg Orally 2 times a day 1 tablet at bedtime 12h Apr, 30 day(s) Active GlipiZIDE 5 mg 1 tablet 12h Active Trulicity 1.5 MG/0.5ML Subcutaneous once weekly Inject 0.5mL Sep, Active Diclofenac Sodium 75 mg Orally 2 times a day 1 tablet as needed 12h Nov Active Depo-Testosterone 200 MG/ML Intramuscular once monthly 0.5 ml Dec, Active [place] 10-325 MG Orally every 6 hrs 1 tablet as needed 6h January, 28 days Active RESULTS No Results PROCEDURES No Known procedures INSTRUCTIONS MEDICATIONS ADMINISTERED No Known Medications MEDICAL (GENERAL) HISTORY Type Description Date Medical History Type 2 diabetes Medical History anxiety Medical History chronic hip pain Medical History carpal tunnel bilateral Medical History [place] Palsy Surgical History carpel tunnel-right hand 2011 Surgical History carpel tunnel-left hand 2008 Surgical History carpal tunnel - right hand 11/2015 Surgical History Torn bicep repair 01/2018 Hospitalization History ER spider bite
--- OUTSIDE RECORDS SUMMARY | 2018-06-25 06:10 | XMS REPORT ---
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 Active 102280214 Problem Controlled type 2 diabetes mellitus without complication, without long -term current use of insulin E11.9 Active 968980712 Problem Diabetes E11.9 Active 03179485 Problem Chronic osteoarthritis M19.90 Active 98382376 Problem Type 2 diabetes mellitus with complication, without long-term current use of insulin E11.8 Active 46280052 Problem Sialadenitis K11.20 Active 90914346 Problem Mood disorder F39 Active 56886847 Problem Chronic fatigue R53.82 Active 97134053 Problem Depressive disorder, not elsewhere classified F32.9 Active 12195359 Problem Hypogonadism in male E29.1 Active 10896761 ALLERGIES No Information ENCOUNTERS Encounter Location Date Diagnosis [place] [id number] [place] [address] 83347- 2778 Apr, [place] [id number] [place] [address] 39784- 2271 Mar, Hypogonadism in male E29.1 [facility] [id number] [place] [address] 11315- 4062 Mar, Hypogonadism in male E29.1 [place] [id number] [place] [address] 95390- 3724 Mar, Diabetes E11.9 and Anxiety F41.9 [facility] [address], [place] [address] 3107 Mar, Type 2 diabetes mellitus with complication, without long- term current use of insulin E11.8 [facility] [address] [address] 4887 Feb, Insect bite (nonvenomous) of right upper arm, initial encounter S40.861A [facility] [id number] [place] [address] 51209- 1998 07 Feb, 2018 Insect bite (nonvenomous) of right upper arm, initial encounter S40.861A ; Local infection of the skin and subcutaneous tissue, unspecified L08.9 and Hypogonadism in male E29.1 [place] [id number] [place] [address] 25989- 4470 January, Sialadenitis K11.20 [place] [id number] [place] [address] 91350- 3724 January, Bronchitis J40 [place] [id number] [place] [address] 63672- 8331 January, Hypogonadism in male E29.1 [place] [id number] [place] [address] 23196- 1802 January, Hypogonadism in male E29.1 [place] [id number] [place] [address] 50454- 6235 Dec, Bronchitis J40 [place] [id number] [place] [address] 26851- 6045 Nov, Diabetes E11.9 and Anxiety F41.9 [facility] [id number] [place] [address] 95598- 3653 15 Nov, 2017 Bronchitis J40 [facility] [id number] [place] [address] 92257- 9620 14 Oct, 2017 Bronchitis J40 [facility] [id number] [place] [address] 59197- 1624 Sep, Diabetes E11.9 ; Mood disorder F39 ; Hypogonadism in male E29.1 and Depressive disorder, not elsewhere classified F32.9 [place] [id number] [place] [address] 85484- 6721 Sep, Bronchitis J40 [facility] [address] 71204- 3417 Sep, Hypogonadism in male E29.1 [facility] [address] 04735- 3876 Sep, [facility] [address] 65621- 4951 Sep, [facility] [address] 21409- 0432 Aug, Bronchitis J40 [facility] [address] 60910- 8084 Aug, Uncontrolled type 2 diabetes mellitus without complication, without long-term current use of insulin E11.65 ; Diabetes type 2, controlled E11.9 ; Hypogonadism in male E29.1 ; Encounter for immunization Z23 and Spider bite wound, undetermined intent, initial encounter T63.304A [facility] [address] 29315- 3881 Jul, Bronchitis J40 [facility] [address] 03532- 3131 Jun, Hypogonadism in male E29.1 [facility] [address] 66446- 2811 Jun, Hypogonadism in male E29.1 and Bronchitis J40 [facility] [id number] [place] [address] 76230- 5134 May, Bronchitis J40 [facility] [id number] [place] [address] 27100- 9775 May, Hypogonadism in male E29.1 [facility] [id number] [place] [address] 05686- 9538 May, Hypogonadism in male E29.1 [facility] [id number] [place] [address] 55725- 5665 Apr, Bronchitis J40 [facility] [id number] [place] [address] 17287- 4992 Apr, Controlled type 2 diabetes mellitus without complication, without long-term current use of insulin E11.9 [facility] [id number] [place] [address] 13105- 1621 Apr, Diabetes type 2, controlled E11.9 ; Hypogonadism in male E29.1 and Mood disorder F39 [facility] [id number] [place] [address] 45439- 8042 Apr, Hypogonadism in male E29.1 [facility] [id number] [place] [address] 56507- 8922 Apr, Bronchitis J40 [facility] [id number] [place] [address] 27894- 2498 Mar, Hypogonadism in male E29.1 [facility] [id number] [place] [address] 90673- 6249 Mar, Bronchitis J40 [facility] [id number] [place] [address] 67557- 0597 Mar, Bronchitis J40 [facility] [id number] [place] [address] 49108- 7766 Feb, Spider bite, accidental or unintentional, initial encounter T63.301A [facility] [id number] [place] [address] 93850- 0610 Feb, Depressive disorder, not elsewhere classified F32.9 [facility] [id number] [place] [address] 85796- 9302 Feb, Diabetes E11.9 ; Mood disorder F39 and Hypogonadism in male E29.1 [facility] [id number] [place] [address] 40097- 6144 Feb, Bronchitis J40 [facility] [id number] [place] [address] 56650- 6599 Feb, Depressive disorder, not elsewhere classified F32.9 [facility] [id number] [place] [address] 92443- 2594 January, Depressive disorder, not elsewhere classified F32.9 [facility] [id number] [place] [address] 56085- 7773 January, Diabetes E11.9 and Mood disorder F39 [place] [id number] [place] [address] 50035- 9480 January, Bronchitis J40 [place] [address] 89213- 3257 Dec, Bronchitis J40 [place] [id number] [place] [address] 37488- 8006 Dec, Hypogonadism in male E29.1 [place] [id number] [place] [address] 28689- 3665 Dec, [facility] [id number] [place] [address] 10822- 5314 Dec, Controlled type 2 diabetes mellitus without complication, without long-term current use of insulin E11.9 and Chronic fatigue R53.82 [place] [id number] [place] [address] 85806- 5242 Nov, Bronchitis J40 [place] [id number] [place] [address] 85645- 9542 Oct, Bronchitis J40 ; Controlled type 2 diabetes mellitus without complication, without long-term current use of insulin E11.9 ; Chronic fatigue R53.82 and Drug-induced erectile dysfunction N52.2 [place] [id number] [place] [address] 69999- 6918 Oct, Diabetes E11.9 [place] [id number] [place] [address] 37835- 4649 Sep, Pre-employment examination Z02.1 [facility] [address] [address]- 0115 Sep, Diabetes E11.9 [facility] [id number] [place] [address] 63503- 2706 Aug, Controlled type 2 diabetes mellitus without complication, without long-term current use of insulin E11.9 and Chronic osteoarthritis M19.90 [facility] [id number] [place] [address] 66587- 2518 Jul, [facility] [id number] [place] [address] 41758- 5709 Jun, [place] [id number] [place] [address] 42673- 7872 Jun, 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 [place] [id number] [place] [address] 65163- 0696 Jun, Encounter for immunization Z23 and Controlled type 2 diabetes mellitus without complication, without long-term current use of insulin E11.9 [facility] [address] [address]- 4792 May, [place] [id number] [place] [address] 43139- 4412 May, [facility] [address], [place] [address]- 3199 Apr, Gastritis without bleeding, unspecified chronicity, unspecified gastritis type K29.70 [facility] [address], [place] [address]- 5162 Apr, [facility] [id number] [place] [address] 08182- 2658 Mar, Diabetes type 2, controlled E11.9 [facility] [address], [place] [address]- 3203 Mar, [facility] [id number] [place] [address] 58114- 5348 Feb, [facility] [address] [address]- 5772 Feb, [facility] [id number] [place] [address] 06932- 0666 January, [facility] [id number] [place] [address] 70359- 9614 Dec, Urethritis N34.2 [facility] [id number] [place] [address] 11916- 1071 Dec, [facility] [id number] [place] [address] 10864- 8666 Nov, Diabetes type 2, controlled E11.9 [facility] [id number] [place] [address] 46797- 4548 Nov, [facility] [id number] [place] [address] 97891- 6938 Nov, Diabetes type 2, controlled E11.9 [facility] [address] [place] [address] 19175- 5189 Oct, Hand pain M79.643 [facility] [id number] [place] [address] 27992- 6096 Oct, Right hand pain M79.641 [facility] [address] [place] [address] 47174- 0756 Oct, [facility] [address] [address]- 7025 Oct, [facility] [id number] [place] [address] 57051- 2953 Oct, Right carpal tunnel syndrome G56.01 [facility] [address] [address]- 9620 Sep, Diabetes E11.9 [facility] [id number] [place] [address] 94877- 8577 Sep, Anxiety F41.9 ; Chronic osteoarthritis M19.90 and Health examination of defined subpopulation V70.5 [facility] [id number] [place] [address] 63198- 0417 Sep, Diabetes E11.9 [facility] [id number] [place] [address] 78702- 1798 Aug, Diabetes E11.9 ; Carpal tunnel syndrome, right G56.01 and Carpal tunnel syndrome, left upper limb G56.02 [facility] [address] [id number] [place] [address] 27323- 9184 Jul, Diabetes mellitus 250.00 [facility] [id number] [place] [address] 49967- 9561 Jun, Diabetes mellitus 250.00 [facility] [id number] [place] [address] 62212- 5606 May, Diabetes mellitus 250.00 [facility] [id number] [place] [address] 96085- 0675 Apr, Diabetes mellitus 250.00 [facility] [id number] [place] [address] 70577- 2058 Mar, [facility] [id number] [place] [address] 27768- 4937 Mar, Tooth abscess 522.5 [facility] [id number] [place] [address] 11539- 3844 Feb, [facility] [id number] [place] [address] 97577- 3467 January, [facility] [id number] [place] [address] 947249- 3292 January, [facility] [id number] [place] [address] 707503- 8349 January, Diabetes mellitus 250.00 [facility] [id number] [place] [address] 92673- 0103 January, [facility] [place] [facility] [address] [id number] [place] [address]- 4283 Dec, [facility] [place] [facility] [address] [id number] [place] [address]- 0014 Dec, [facility] [place] [facility] [address] [id number] [place] [address]- 6904 Nov, [facility] [place] [facility] [address] [id number] [place] [address]- 7621 Nov, [facility] [place] [facility] [address] [id number] [place] [address]- 5103 Nov, [facility] [place] [facility] [address] [id number] [place] [address]- 7042 Nov, [facility] [place] [facility] [address] [id number] [place] [address]- 3806 Oct, [facility] [place] [facility] [address] [id number] [place] [address]- 6396 Oct, [facility] [place] [facility] [address] [id number] [place] [address]- 3295 Sep, [facility] [place] [facility] [address] [id number] [place] [address]- 2847 Sep, [facility] [place] [facility] [address] [id number] [place] [address]- 1535 Aug, [facility] [place] [facility] [address] [id number] [place] [address]- 6342 Aug, [facility] [place] [facility] [address] [id number] [place] 7506 Aug, [facility] [place] [facility] [address] [id number] [place] 9314 Aug, [facility] [place] [facility] [address] [id number] [place] [address]- 4610 Aug, [facility] [place] [facility] [address] [id number] [place] [address]- 1666 Aug, [facility] [place] [facility] [address] [id number] [place] [address]- 0240 Jul, [facility] [place] [facility] [address] [id number] [place] [address]- 7663 Jul, [facility] [place] [facility] [address] [id number] [place] [address]- 5147 Jun, [facility] [place] [facility] [address] [id number] [place] [address]- 6391 Jun, [facility] [place] [facility] [address] [id number] [place] [address]- 5086 May, [facility] [place] [facility] [address] [id number] [place] [address]- 0895 May, [facility] [place] [facility] [address] [id number] [place] [address]- 7489 Apr, [facility] [place] [facility] [address] [id number] [place] [address]- 1472 Apr, [facility] [place] [facility] [address] [id number] [place] [address]- 1667 Apr, [facility] [place] [facility] [address] [id number] [place] [address]- 2018 Apr, [facility] [place] [facility] [address] [id number] [place] [address]- 2380 Apr, [facility] [place] [facility] [address] [id number] [place] [address]- 8728 Apr, [facility] [place] [facility] [address] [id number] [place] 0492 Mar, [facility] [place] [facility] [address] [id number] [place] 3625 Mar, [facility] [place] [facility] [address] [id number] [place] [address]- 0022 Feb, [facility] [place] [facility] [address] [id number] [place] [address]- 6542 Feb, [facility] [place] [facility] [address] [id number] [place] [address]- 6896 Feb, [facility] [place] [facility] [address] [id number] [place] [address]- 8447 Feb, [facility] [place] [facility] [address] [id number] [place] [address]- 3455 January, [facility] [place] [facility] [address] [id number] [place] [address]- 9644 January, [facility] [place] [facility] [address] [id number] [place] [address]- 3996 January, [facility] [place] [facility] [address] [id number] [place] [address]- 8837 January, [facility] [place] [facility] [address] [id number] [place] [address]- 5391 Dec, [facility] [place] [facility] [address] [id number] [place] [address]- 0916 Dec, [facility] [place] [facility] [address] [id number] [place] [address]- 9422 Nov, [facility] [place] [facility] [address] [id number] [place] [address]- 1097 Nov, [facility] [place] [facility] [address] [id number] [place] [address]- 4443 Oct, [facility] [place] [facility] [address] [id number] [place] [address]- 8515 Oct, [facility] [place] [facility] [address] [id number] [place] [address]- 3525 Sep, [facility] [place] [facility] [address] [id number] [place] [address]- 5422 Sep, [facility] [place] [facility] [address] [id number] [place] [address]- 5110 Aug, [facility] [address] [id number] [place] [address]- 8828 Aug, [facility] [place] [facility] [address] [id number] [place] [address]- 1003 Jul, [facility] [address] [id number] [place] [address]- 9581 Jul, [facility] [place] [facility] [address] [id number] [place] [address]- 9140 Jun, [facility] [address] [id number] [place] [address]- 9594 Jun, [facility] [place] [facility] [address] [id number] [place] [address]- 0308 May, [facility] [address] [id number] [place] [address]- 3294 May, [facility] [place] [facility] [address] [id number] [place] [address]- 5030 Apr, [facility] [place] [facility] [address] [id number] [place] [address]- 7595 Apr, [facility] [place] [facility] [address] [facility] [id number] [place] [address]- 2285 Feb, [facility] [place] [facility] [address] [id number] [place] [address]- 7206 Feb, [facility] [place] [facility] [address] [id number] [place] [address] 2540 January, [facility] [place] [facility] [address] [id number] [place] [address]- 1647 January, [facility] [place] [facility] [address] [id number] [place] [address]- 8303 Dec, [facility] [place] [facility] [address] [id number] [address]- 8432 Nov, [facility] [place] [facility] [address] [id number] [place] [address]- 2292 Oct, [facility] [place] [facility] [address] [id number] [place] 7272 Oct, [facility] [place] [facility] [address] [id number] [place] [address]- 9268 Sep, [facility] [place] [facility] [address] [id number] [place] [address]- 7806 Aug, [facility] [place] [facility] [address] [id number] [place] 4349 Aug, [facility] [place] [facility] [address] [id number] [place] [address]- 1996 Jul, [facility] [place] [facility] [address] [id number] [place] [address]- 2262 Jul, [facility] [place] [facility] [address] [id number] [place] [address]- 3155 Jun, [facility] [place] [facility] [address] [id number] [place] [address]- 5418 24 May, 2012 [facility] [place] [facility] [address] [id number] [place] [address]- 8919 May, [facility] [place] [facility] [address] [id number] [place] [address]- 1179 May, [facility] [place] [facility] [address] [id number] [place] [address]- 7498 Apr, [facility] [place] [facility] [address] [id number] [place] [address] Apr, [facility] [place] [facility] [address] [id number] [place] [address] Apr, [facility] [place] [facility] [address] [id number] [place] [address] Mar, [facility] [place] [facility] [address] [id number] [address] Mar, [facility] [address] [id number] [place] [address] Feb, [facility] [place] [facility] [address] [id number] [place] [address] Feb, [facility] [address] [facility] [id number] [place] [address] January, [facility] [address] [id number] [place] [address] January, [facility] [address] [id number] [place] [address] Dec, [facility] [address] [id number] [place] [address] Dec, [facility] [address] [id number] [place] [address] Nov, [facility] [place] [facility] [address] [id number] [place] [address] Nov, [facility] [address] [id number] [place] [address] Oct, [facility] [address] [facility] [id number] [place] [address] Oct, [facility] [address] [facility] [id number] [place] [address] Sep, [facility] [place] [facility] [address] [id number] [place] [address] Sep, [facility] [place] [facility] [address] [id number] [place] [address] Sep, [facility] [place] [facility] [address] [id number] [id number] [address] Aug, [facility] [place] [facility] [address] [facility] [id number] [place] [address] Aug, [facility] [place] [facility] [address] [facility] [id number] [address] Aug, [facility] [address] [id number] [address] Aug, [facility] [address] [id number] [address] Aug, [facility] [address] [id number] [address] Jul, [facility] [address] [id number] [address] Jul, [facility] [address] [id number], [place] [address] Jul, [facility] [address] [facility] [id number], [place] [address] Dec, IMMUNIZATIONS Vaccine Route Administration Date Status TESTOSTERONE 200 MG/1 ML (UP TO 100 MG) IM Intramuscular January 20, 2018 Administered SOCIAL HISTORY Never Assessed REASON FOR VISIT Testosterone injection WB-MA PLAN OF CARE Activity Details Follow Up 4 Weeks Reason: VITAL SIGNS MEDICATIONS Unknown Medications RESULTS No Results PROCEDURES Procedure Date Ordered Result Body Site INJ TESTOSTERONE CYPIONATE 1 MG 100 units January 20, 2018 THER/PROPH/DIAG INJ, SC/IM January 20, 2018 INSTRUCTIONS MEDICATIONS ADMINISTERED No Known Medications MEDICAL (GENERAL) HISTORY Type Description Date Medical History Type 2 diabetes Medical History anxiety Medical History chronic hip pain Medical History carpal tunnel bilateral Medical History [place] Palsy Surgical History carpel tunnel-right hand 2011 Surgical History carpel tunnel-left hand 2008 Surgical History carpal tunnel - right hand 11/2015 Surgical History Torn bicep repair 01/2018 Hospitalization History ER spider bite
--- OUTSIDE RECORDS SUMMARY | 2018-06-25 06:11 | XMS REPORT ---
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 Active 828325984 Problem Controlled type 2 diabetes mellitus without complication, without long -term current use of insulin E11.9 Active 028789570 Problem Diabetes E11.9 Active 59722840 Problem Chronic osteoarthritis M19.90 Active 42006138 Problem Type 2 diabetes mellitus with complication, without long-term current use of insulin E11.8 Active 33765544 Problem Sialadenitis K11.20 Active 82477064 Problem Mood disorder F39 Active 25689635 Problem Chronic fatigue R53.82 Active 85266770 Problem Depressive disorder, not elsewhere classified F32.9 Active 49286636 Problem Hypogonadism in male E29.1 Active 94276613 ALLERGIES No Information ENCOUNTERS Encounter Location Date Diagnosis [place] [id number] [place] [address] 61037- 8430 Apr, [place] [address] [place] [id number] [place] [address] 83160- 0942 Mar, Hypogonadism in male E29.1 [place] [id number] [place] [id number] [place] [address] 83015- 7848 Mar, Hypogonadism in male E29.1 [place] [address] [place] [id number] [place] [address] 25959- 1330 Mar, Diabetes E11.9 and Anxiety F41.9 [facility] [address] [address] 3979 Mar, Type 2 diabetes mellitus with complication, without long- term current use of insulin E11.8 [facility] [address] [address] 6016 Feb, Insect bite (nonvenomous) of right upper arm, initial encounter S40.861A [facility] [address] [place] [id number] [place] [address] 58290- 7807 07 Feb, 2018 Insect bite (nonvenomous) of right upper arm, initial encounter S40.861A ; Local infection of the skin and subcutaneous tissue, unspecified L08.9 and Hypogonadism in male E29.1 [place] [address] [place] [id number] [place] [address] 14047- 9983 January, Sialadenitis K11.20 [place] [address] [place] [id number] [place] [address] 05245- 2411 January, Bronchitis J40 [place] [address] [place] [id number] [place] [address] 64863- 9120 January, Hypogonadism in male E29.1 [place] [address] [place] [id number] [place] [address] 66997- 7580 January, Hypogonadism in male E29.1 [place] [address] [place] [id number] [place] [address] 04154- 3204 Dec, Bronchitis J40 [place] [address] [place] [id number] [place] [address] 32661- 9960 Nov, Diabetes E11.9 and Anxiety F41.9 [facility] [address] [place] [id number] [place] [address] 99519- 3985 15 Nov, 2017 Bronchitis J40 [facility] [address] [place] [id number] [place] [address] 10890- 5669 14 Oct, 2017 Bronchitis J40 [facility] [address] [place] [id number] [place] [address] 85371- 8033 Sep, Diabetes E11.9 ; Mood disorder F39 ; Hypogonadism in male E29.1 and Depressive disorder, not elsewhere classified F32.9 [place] [address] [place] [id number] [place] [address] 74645- 4684 Sep, Bronchitis J40 [facility] [address] 03643- 2561 Sep, Hypogonadism in male E29.1 [facility] [address] 00842- 5475 Sep, [facility] [address] 77175- 2107 Sep, [facility] [address] 71835- 3336 Aug, Bronchitis J40 [facility] [address] 52895- 9052 Aug, Uncontrolled type 2 diabetes mellitus without complication, without long-term current use of insulin E11.65 ; Diabetes type 2, controlled E11.9 ; Hypogonadism in male E29.1 ; Encounter for immunization Z23 and Spider bite wound, undetermined intent, initial encounter T63.304A [facility] [address] 66421- 9566 Jul, Bronchitis J40 [facility] [address] 71670- 7790 Jun, Hypogonadism in male E29.1 [facility] [address] 03193- 1170 Jun, Hypogonadism in male E29.1 and Bronchitis J40 [facility] [address] [place] [id number] [place] [address] 60821- 4341 May, Bronchitis J40 [facility] [address] [place] [id number] [place] [address] 32284- 1177 May, Hypogonadism in male E29.1 [facility] [address] [place] [id number] [place] [address] 95805- 4067 May, Hypogonadism in male E29.1 [facility] [address] [place] [id number] [place] [address] 38540- 8859 Apr, Bronchitis J40 [facility] [address] [place] [id number] [place] [address] 28203- 2576 Apr, Controlled type 2 diabetes mellitus without complication, without long-term current use of insulin E11.9 [facility] [address] [place] [id number] [place] [address] 18547- 8291 Apr, Diabetes type 2, controlled E11.9 ; Hypogonadism in male E29.1 and Mood disorder F39 [facility] [address] [place] [id number] [place] [address] 51246- 1732 Apr, Hypogonadism in male E29.1 [facility] [address] [place] [id number] [place] [address] 51643- 1182 Apr, Bronchitis J40 [facility] [address] [place] [id number] [place] [address] 14165- 7534 Mar, Hypogonadism in male E29.1 [facility] [address] [place] [id number] [place] [address] 46471- 3534 Mar, Bronchitis J40 [facility] [address] [place] [id number] [place] [address] 60080- 2551 Mar, Bronchitis J40 [facility] [address] [place] [id number] [place] [address] 18912- 1748 Feb, Spider bite, accidental or unintentional, initial encounter T63.301A [facility] [address] [place] [id number] [place] [address] 03969- 9085 Feb, Depressive disorder, not elsewhere classified F32.9 [facility] [address] [place] [id number] [place] [address] 89193- 0827 Feb, Diabetes E11.9 ; Mood disorder F39 and Hypogonadism in male E29.1 [facility] [address] [place] [id number] [place] [address] 79379- 1061 Feb, Bronchitis J40 [facility] [address] [place] [id number] [place] [address] 17854- 4605 Feb, Depressive disorder, not elsewhere classified F32.9 [facility] [address] [place] [id number] [place] [address] 49252- 5094 January, Depressive disorder, not elsewhere classified F32.9 [facility] [address] [place] [id number] [place] [address] 73224- 1568 January, Diabetes E11.9 and Mood disorder F39 [place] [address] [place] [id number] [place] [address] 25934- 7994 January, Bronchitis J40 [place] [address] 55564- 7694 Dec, Bronchitis J40 [place] [address] [place] [id number] [place] [address] 76388- 8065 Dec, Hypogonadism in male E29.1 [place] [address] [place] [id number] [place] [address] 05782- 2344 Dec, [facility] [address] [place] [id number] [place] [address] 49684- 0998 Dec, Controlled type 2 diabetes mellitus without complication, without long-term current use of insulin E11.9 and Chronic fatigue R53.82 [place] [address] [place] [id number] [place] [address] 28202- 2201 Nov, Bronchitis J40 [place] [address] [place] [id number] [place] [address] 02644- 8079 Oct, Bronchitis J40 ; Controlled type 2 diabetes mellitus without complication, without long-term current use of insulin E11.9 ; Chronic fatigue R53.82 and Drug-induced erectile dysfunction N52.2 [place] [address] [place] [id number] [place] [address] 67493- 5412 Oct, Diabetes E11.9 [place] [address] [place] [id number] [place] [address] 76839- 5405 Sep, Pre-employment examination Z02.1 [facility] [address] [address]- 5093 Sep, Diabetes E11.9 [facility] [address] [place] [id number] [place] [address] 51262- 6516 Aug, Controlled type 2 diabetes mellitus without complication, without long-term current use of insulin E11.9 and Chronic osteoarthritis M19.90 [facility] [address] [place] [id number] [place] [address] 41289- 5764 Jul, [facility] [address] [place] [id number] [place] [address] 55309- 3205 Jun, [place] [address] [place] [id number] [place] [address] 77414- 6349 Jun, 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 [place] [address] [place] [id number] [place] [address] 15731- 0263 Jun, Encounter for immunization Z23 and Controlled type 2 diabetes mellitus without complication, without long-term current use of insulin E11.9 [facility] [address] [address]- 6429 May, [place] [address] [place] [id number] [place] [address] 31994- 9874 May, [facility] [address], [place] [address]- 9821 Apr, Gastritis without bleeding, unspecified chronicity, unspecified gastritis type K29.70 [facility] [address] [address]- 1740 Apr, [facility] [address] [place] [id number] [place] [address] 04920- 0244 Mar, Diabetes type 2, controlled E11.9 [facility] [address], [place] [address]- 4077 Mar, [facility] [address] [place] [id number] [place] [address] 27174- 1593 Feb, [facility] [address], [place] [address]- 9034 Feb, [facility] [address] [place] [id number] [place] [address] 89133- 4559 January, [facility] [address] [place] [id number] [place] [address] 48883- 7870 Dec, Urethritis N34.2 [facility] [address] [place] [id number] [place] [address] 80377- 7273 Dec, [facility] [address] [place] [id number] [place] [address] 67020- 1840 Nov, Diabetes type 2, controlled E11.9 [facility] [address] [place] [id number] [place] [address] 28928- 8206 Nov, [facility] [address] [place] [id number] [place] [address] 85764- 8416 Nov, Diabetes type 2, controlled E11.9 [facility] [id number] [place] [address] 44451- 7660 Oct, Hand pain M79.643 [facility] [address] [place] [id number] [place] [address] 33856- 6162 Oct, Right hand pain M79.641 [facility] [id number] [place] [address] 34233- 3501 Oct, [facility] [address] [address]- 5175 Oct, [facility] [id number] [place] [address] 69623- 2117 Oct, Right carpal tunnel syndrome G56.01 [facility] [address] [address]- 8127 Sep, Diabetes E11.9 [facility] [address] [place] [id number] [place] [address] 64654- 9643 Sep, Anxiety F41.9 ; Chronic osteoarthritis M19.90 and Health examination of defined subpopulation V70.5 [facility] [address] [place] [id number] [place] [address] 65552- 7322 Sep, Diabetes E11.9 [facility] [address] [place] [id number] [place] [address] 58522- 4430 Aug, Diabetes E11.9 ; Carpal tunnel syndrome, right G56.01 and Carpal tunnel syndrome, left upper limb G56.02 [facility] [address] [place] [id number] [place] [address] 33551- 9006 Jul, Diabetes mellitus 250.00 [facility] [address] [place] [id number] [place] [address] 66501- 9193 Jun, Diabetes mellitus 250.00 [facility] [address] [place] [id number] [place] [address] 87505- 6838 May, Diabetes mellitus 250.00 [facility] [address] [place] [id number] [place] [address] 90826- 1973 Apr, Diabetes mellitus 250.00 [facility] [address] [place] [id number] [place] [address] 97685- 9490 Mar, [facility] [address] [place] [id number] [place] [address] 80116- 5183 Mar, Tooth abscess 522.5 [facility] [address] [place] [id number] [place] [address] 10240- 7542 Feb, [facility] [address] [place] [id number] [place] [address] 73898- 5648 January, [facility] [address] [place] [id number] [place] [address] 469563- 7227 January, [facility] [address] [place] [id number] [place] [address] 984260- 7812 January, Diabetes mellitus 250.00 [facility] [address] [place] [id number] [place] [address] 07596- 4996 January, [facility] [place] [facility] [address] [id number] [place] [address]- 2806 Dec, [facility] [place] [facility] [address] [id number] [place] [address]- 4638 Dec, [facility] [place] [facility] [address] [id number] [place] [address]- 9422 Nov, [facility] [place] [facility] [address] [id number] [place] [address]- 7650 Nov, [facility] [place] [facility] [address] [id number] [place] [address]- 5760 Nov, [facility] [place] [facility] [address] [id number] [place] [address]- 3692 Nov, [facility] [place] [facility] [address] [id number] [place] [address]- 8266 Oct, [facility] [place] [facility] [address] [id number] [place] [address]- 5544 Oct, [facility] [place] [facility] [address] [id number] [place] [address]- 8080 Sep, [facility] [place] [facility] [address] [id number] [place] [address]- 9664 Sep, [facility] [place] [facility] [address] [id number] [place] [address]- 4883 Aug, [facility] [place] [facility] [address] [id number] [place] [address]- 4589 Aug, [facility] [place] [facility] [address] [id number] [place] 7925 Aug, [facility] [place] [facility] [address] [id number] [place] 3475 Aug, [facility] [place] [facility] [address] [id number] [place] [address]- 6698 Aug, [facility] [place] [facility] [address] [id number] [place] [address]- 6997 Aug, [facility] [place] [facility] [address] [id number] [place] [address]- 3178 Jul, [facility] [place] [facility] [address] [id number] [place] [address]- 7960 Jul, [facility] [place] [facility] [address] [id number] [place] [address]- 9248 Jun, [facility] [place] [facility] [address] [id number] [place] [address]- 5442 Jun, [facility] [place] [facility] [address] [id number] [place] [address]- 0289 May, [facility] [place] [facility] [address] [id number] [place] [address]- 8705 May, [facility] [place] [facility] [address] [id number] [place] [address]- 5287 Apr, [facility] [place] [facility] [address] [id number] [place] [address]- 0305 Apr, [facility] [place] [facility] [address] [id number] [place] [address]- 6127 Apr, [facility] [place] [facility] [address] [id number] [place] [address]- 9666 Apr, [facility] [place] [facility] [address] [id number] [place] [address]- 5156 Apr, [facility] [place] [facility] [address] [id number] [place] [address]- 3810 Apr, [facility] [place] [facility] [address] [id number] [place] 8145 Mar, [facility] [place] [facility] [address] [id number] [place] 0683 Mar, [facility] [place] [facility] [address] [id number] [place] [address]- 6307 Feb, [facility] [place] [facility] [address] [id number] [place] [address]- 9125 Feb, [facility] [place] [facility] [address] [id number] [place] [address]- 6753 Feb, [facility] [place] [facility] [address] [id number] [place] [address]- 6908 Feb, [facility] [place] [facility] [address] [id number] [place] [address]- 6944 January, [facility] [place] [facility] [address] [id number] [place] [address]- 8315 January, [facility] [place] [facility] [address] [id number] [place] [address]- 1009 January, [facility] [place] [facility] [address] [id number] [place] [address]- 0140 January, [facility] [place] [facility] [address] [id number] [place] [address]- 7399 Dec, [facility] [place] [facility] [address] [id number] [place] [address]- 7352 Dec, [facility] [place] [facility] [address] [id number] [place] [address]- 3372 Nov, [facility] [place] [facility] [address] [id number] [place] [address]- 0928 Nov, [facility] [place] [facility] [address] [id number] [place] [address]- 4550 Oct, [facility] [place] [facility] [address] [id number] [place] [address]- 6310 Oct, [facility] [place] [facility] [address] [id number] [place] [address]- 0622 Sep, [facility] [place] [facility] [address] [id number] [place] [address]- 5923 Sep, [facility] [place] [facility] [address] [id number] [place] [address]- 3829 Aug, [facility] [address] [id number] [place] [address]- 2836 Aug, [facility] [place] [facility] [address] [id number] [place] [address]- 7921 Jul, [facility] [address] [id number] [place] [address]- 3441 Jul, [facility] [place] [facility] [address] [id number] [place] [address]- 0565 Jun, [facility] [address] [id number] [place] [address]- 6251 Jun, [facility] [place] [facility] [address] [id number] [place] [address]- 2782 May, [facility] [address] [id number] [place] [address]- 4308 May, [facility] [place] [facility] [address] [id number] [place] [address]- 1209 Apr, [facility] [place] [facility] [address] [id number] [place] [address]- 3605 Apr, [facility] [place] [facility] [address] [facility] [id number] [place] [address]- 1695 Feb, [facility] [place] [facility] [address] [id number] [place] [address]- 5610 Feb, [facility] [place] [facility] [address] [id number] [place] [address] 2548 January, [facility] [place] [facility] [address] [id number] [place] [address]- 6870 January, [facility] [place] [facility] [address] [id number] [place] [address]- 8319 Dec, [facility] [place] [facility] [address] [id number], [place] [address]- 4346 Nov, [facility] [place] [facility] [address] [id number] [place] [address]- 7126 Oct, [facility] [place] [facility] [address] [id number] [place] 2262 Oct, [facility] [place] [facility] [address] [id number] [place] [address]- 7286 Sep, [facility] [place] [facility] [address] [id number] [place] [address]- 5513 Aug, [facility] [place] [facility] [address] [id number] [place] 3754 Aug, [facility] [place] [facility] [address] [id number] [place] [address]- 3849 Jul, [facility] [place] [facility] [address] [id number] [place] [address]- 9292 Jul, [facility] [place] [facility] [address] [id number] [place] [address]- 9322 Jun, [facility] [place] [facility] [address] [id number] [place] [address]- 0796 24 May, 2012 [facility] [place] [facility] [address] [id number] [place] [address]- 6048 May, [facility] [place] [facility] [address] [id number] [place] [address]- 0753 May, [facility] [place] [facility] [address] [id number] [place] [address]- 8128 Apr, [facility] [place] [facility] [address] [id number] [place] [address]- 9494 Apr, [facility] [place] [facility] [address] [id number] [place] [address]- 0886 Apr, [facility] [place] [facility] [address] [id number] [place] [address]- 1556 Mar, [facility] [place] [facility] [address] [id number], [place] [address]- 0236 Mar, [facility] [address] [id number] [place] [address]- 0062 Feb, [facility] [place] [facility] [address] [id number] [place] [address]- 2348 Feb, [facility] [address] [facility] [id number] [place] [address] January, [facility] [address] [id number] [place] [address] January, [facility] [address] [id number] [place] [address] Dec, [facility] [address] [id number] [place] [address] Dec, [facility] [address] [id number] [place] [address] Nov, [facility] [place] [facility] [address] [id number] [place] [address] Nov, [facility] [address] [id number] [place] [address] Oct, [facility] [address] [facility] [id number] [place] [address] Oct, [facility] [address] [facility] [id number] [place] [address] Sep, [facility] [place] [facility] [address] [id number] [place] [address] Sep, [facility] [place] [facility] [address] [id number] [place] [address] Sep, [facility] [place] [facility] [address] [id number] [id number] [address] Aug, [facility] [place] [facility] [address] [facility] [id number] [place] [address] Aug, [facility] [place] [facility] [address] [facility] [id number], [place] [address] Aug, [facility] [address] [id number], [place] [address] Aug, [facility] [address] [facility] [id number], [place] [address] Aug, [facility] [address] [id number], [place] [address] Jul, [facility] [address] [id number], [place] [address] Jul, [facility] [address] [id number], [place] [address] Jul, [facility] [address] [facility] [id number], [place] [address] Dec, IMMUNIZATIONS No Known Immunizations SOCIAL HISTORY Never Assessed REASON FOR VISIT Controlled Med Refill PLAN OF CARE VITAL SIGNS MEDICATIONS Medication Instructions Dosage Frequency Start Date End Date Duration Status Depo-Testosterone 200 MG/ML Intramuscular once monthly 0.5 ml Dec, Active RESULTS No Results PROCEDURES No Known procedures INSTRUCTIONS MEDICATIONS ADMINISTERED No Known Medications MEDICAL (GENERAL) HISTORY Type Description Date Medical History Type 2 diabetes Medical History anxiety Medical History chronic hip pain Medical History carpal tunnel bilateral Medical History Criders Palsy Surgical History carpel tunnel-right hand 2011 Surgical History carpel tunnel-left hand 2008 Surgical History carpal tunnel - right hand 11/2015 Surgical History Torn bicep repair 01/2018 Hospitalization History ER spider bite
--- OUTSIDE RECORDS SUMMARY | 2018-06-25 06:11 | XMS REPORT ---
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 Active 541421057 Problem Controlled type 2 diabetes mellitus without complication, without long -term current use of insulin E11.9 Active 727775200 Problem Diabetes E11.9 Active 68240320 Problem Chronic osteoarthritis M19.90 Active 86710973 Problem Type 2 diabetes mellitus with complication, without long-term current use of insulin E11.8 Active 80147890 Problem Sialadenitis K11.20 Active 00259431 Problem Mood disorder F39 Active 63618949 Problem Chronic fatigue R53.82 Active 16542254 Problem Depressive disorder, not elsewhere classified F32.9 Active 50186532 Problem Hypogonadism in male E29.1 Active 91010039 ALLERGIES No Information ENCOUNTERS Encounter Location Date Diagnosis [place] [id number] [place] [address] 95787- 1656 Apr, [place] [address] [place] [id number] [place] [address] 69603- 4129 Mar, Hypogonadism in male E29.1 [facility] [address] [place] [id number] [place] [address] 97209- 4613 Mar, Hypogonadism in male E29.1 [place] [address] [place] [id number] [place] [address] 67614- 7196 Mar, Diabetes E11.9 and Anxiety F41.9 [place] [address] [address] 0670 Mar, Type 2 diabetes mellitus with complication, without long- term current use of insulin E11.8 [facility] [address] [address] 9657 Feb, Insect bite (nonvenomous) of right upper arm, initial encounter S40.861A [facility] [address] [place] [place] [id number] [place] [address] 69246- 3108 07 Feb, 2018 Insect bite (nonvenomous) of right upper arm, initial encounter S40.861A ; Local infection of the skin and subcutaneous tissue, unspecified L08.9 and Hypogonadism in male E29.1 [place] [address] [place] [id number] [place] [address] 12273- 8728 January, Sialadenitis K11.20 [place] [address] [place] [id number] [place] [address] 81730- 7667 January, Bronchitis J40 [place] [address] [place] [id number] [place] [address] 26142- 9040 January, Hypogonadism in male E29.1 [place] [address] [place] [id number] [place] [address] 40010- 8150 January, Hypogonadism in male E29.1 [place] [address] [place] [id number] [place] [address] 01412- 0062 Dec, Bronchitis J40 [place] [address] [place] [id number] [place] [address] 07194- 1943 Nov, Diabetes E11.9 and Anxiety F41.9 [facility] [address] [place] [id number] [place] [address] 89344- 8762 15 Nov, 2017 Bronchitis J40 [facility] [address] [place] [id number] [place] [address] 83394- 6916 14 Oct, 2017 Bronchitis J40 [facility] [address] [place] [id number] [place] [address] 15453- 0477 Sep, Diabetes E11.9 ; Mood disorder F39 ; Hypogonadism in male E29.1 and Depressive disorder, not elsewhere classified F32.9 [place] [address] [place] [id number] [place] [address] 25735- 2920 Sep, Bronchitis J40 [facility] [address] 89983- 4583 Sep, Hypogonadism in male E29.1 [facility] [address] 56259- 6996 Sep, [facility] [address] 59843- 3178 Sep, [facility] [address] 51628- 0609 Aug, Bronchitis J40 [facility] [address] 69099- 6819 Aug, Uncontrolled type 2 diabetes mellitus without complication, without long-term current use of insulin E11.65 ; Diabetes type 2, controlled E11.9 ; Hypogonadism in male E29.1 ; Encounter for immunization Z23 and Spider bite wound, undetermined intent, initial encounter T63.304A [facility] [address] 09019- 4847 Jul, Bronchitis J40 [facility] [address] 86596- 6446 Jun, Hypogonadism in male E29.1 [facility] [address] 72105- 3522 Jun, Hypogonadism in male E29.1 and Bronchitis J40 [facility] [address] [place] [id number] [place] [address] 98798- 0326 May, Bronchitis J40 [facility] [address] [id number] [place] [address] 18553- 9575 May, Hypogonadism in male E29.1 [facility] [address] [id number] [place] [address] 28008- 9767 May, Hypogonadism in male E29.1 [facility] [address] [place] [place] [id number] [place] [address] 00396- 8742 Apr, Bronchitis J40 [facility] [address] [id number] [place] [address] 48363- 6600 Apr, Controlled type 2 diabetes mellitus without complication, without long-term current use of insulin E11.9 [facility] [address] [place] [id number] [place] [address] 75192- 9805 Apr, Diabetes type 2, controlled E11.9 ; Hypogonadism in male E29.1 and Mood disorder F39 [facility] [address] [place] [id number] [place] [address] 35626- 8523 Apr, Hypogonadism in male E29.1 [facility] [address] [place] [id number] [place] [address] 57461- 2675 Apr, Bronchitis J40 [facility] [address] [place] [id number] [place] [address] 07713- 0932 Mar, Hypogonadism in male E29.1 [facility] [address] [place] [id number] [place] [address] 78182- 9140 Mar, Bronchitis J40 [facility] [address] [place] [id number] [place] [address] 26560- 7656 Mar, Bronchitis J40 [facility] [address] [place] [id number] [place] [address] 44917- 4827 Feb, Spider bite, accidental or unintentional, initial encounter T63.301A [facility] [address] [place] [id number] [place] [address] 96986- 0712 Feb, Depressive disorder, not elsewhere classified F32.9 [facility] [address] [place] [id number] [place] [address] 71075- 3841 Feb, Diabetes E11.9 ; Mood disorder F39 and Hypogonadism in male E29.1 [facility] [address] [place] [id number] [place] [address] 87457- 9648 Feb, Bronchitis J40 [facility] [address] [id number] [place] [address] 65074- 0561 Feb, Depressive disorder, not elsewhere classified F32.9 [facility] [address] [place] [id number] [place] [address] 39610- 2515 January, Depressive disorder, not elsewhere classified F32.9 [facility] [address] [place] [id number] [place] [address] 09716- 7613 January, Diabetes E11.9 and Mood disorder F39 [place] [address] [place] [id number] [place] [address] 13832- 0623 January, Bronchitis J40 [place] [address] 75086- 4056 Dec, Bronchitis J40 [place] [address] [place] [id number] [place] [address] 91470- 4485 Dec, Hypogonadism in male E29.1 [place] [address] [place] [id number] [place] [address] 85620- 1435 Dec, [facility] [address] [place] [id number] [place] [address] 81558- 4292 Dec, Controlled type 2 diabetes mellitus without complication, without long-term current use of insulin E11.9 and Chronic fatigue R53.82 [place] [address] [place] [id number] [place] [address] 13518- 2142 Nov, Bronchitis J40 [place] [address] [place] [id number] [place] [address] 73893- 6268 Oct, Bronchitis J40 ; Controlled type 2 diabetes mellitus without complication, without long-term current use of insulin E11.9 ; Chronic fatigue R53.82 and Drug-induced erectile dysfunction N52.2 [place] [address] [place] [id number] [place] [address] 20053- 0573 Oct, Diabetes E11.9 [place] [address] [place] [id number] [place] [address] 71210- 9317 Sep, Pre-employment examination Z02.1 [facility] [address] [address]- 7962 Sep, Diabetes E11.9 [facility] [address] [place] [id number] [place] [address] 24235- 6396 Aug, Controlled type 2 diabetes mellitus without complication, without long-term current use of insulin E11.9 and Chronic osteoarthritis M19.90 [facility] [address] [place] [id number] [place] [address] 86245- 9409 Jul, [facility] [address] [place] [id number] [place] [address] 56395- 9857 Jun, [place] [address] [place] [id number] [place] [address] 74038- 2018 Jun, 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 [place] [address] [place] [id number] [place] [address] 52324- 8596 Jun, Encounter for immunization Z23 and Controlled type 2 diabetes mellitus without complication, without long-term current use of insulin E11.9 [facility] [address] [address]- 2232 May, [place] [address] [place] [id number] [place] [address] 03177- 5559 May, [facility] [address] [address]- 0844 Apr, Gastritis without bleeding, unspecified chronicity, unspecified gastritis type K29.70 [facility] [address] [address]- 4012 Apr, [facility] [address] [place] [id number] [place] [address] 98773- 1534 Mar, Diabetes type 2, controlled E11.9 [facility] [address] [address]- 0022 Mar, [facility] [address] [place] [id number] [place] [address] 60896- 9867 Feb, [facility] [address] [address]- 8588 Feb, [facility] [address] [place] [id number] [place] [address] 63028- 4638 January, [facility] [address] [place] [id number] [place] [address] 44935- 5638 Dec, Urethritis N34.2 [facility] [address] [place] [id number] [place] [address] 99906- 7423 Dec, [facility] [address] [place] [id number] [place] [address] 72252- 0725 Nov, Diabetes type 2, controlled E11.9 [facility] [address] [place] [id number] [place] [address] 31105- 7434 Nov, [facility] [address] [place] [id number] [place] [address] 96905- 4361 Nov, Diabetes type 2, controlled E11.9 [facility] [address] [place] [address] 81178- 1640 Oct, Hand pain M79.643 [facility] [address] [place] [id number] [place] [address] 18469- 2440 Oct, Right hand pain M79.641 [facility] [address] [place] [address] 43134- 2078 Oct, [facility] [address] [address]- 9937 Oct, [facility] [address] [place] [address] 07678- 8354 Oct, Right carpal tunnel syndrome G56.01 [facility] [address] [address]- 0271 Sep, Diabetes E11.9 [facility] [address] [place] [id number] [place] [address] 02174- 9875 Sep, Anxiety F41.9 ; Chronic osteoarthritis M19.90 and Health examination of defined subpopulation V70.5 [facility] [address] [place] [id number] [place] [address] 92275- 0979 Sep, Diabetes E11.9 [facility] [address] [place] [id number] [place] [address] 95121- 3513 Aug, Diabetes E11.9 ; Carpal tunnel syndrome, right G56.01 and Carpal tunnel syndrome, left upper limb G56.02 [facility] [address] [place] [id number] [place] [address] 60410- 6598 Jul, Diabetes mellitus 250.00 [facility] [address] [place] [id number] [place] [address] 06783- 3170 Jun, Diabetes mellitus 250.00 [facility] [address] [place] [id number] [place] [address] 75936- 6507 May, Diabetes mellitus 250.00 [facility] [address] [place] [id number] [place] [address] 92347- 4949 Apr, Diabetes mellitus 250.00 [facility] [address] [place] [id number] [place] [address] 20544- 7669 Mar, [facility] [address] [place] [id number] [place] [address] 78720- 0865 Mar, Tooth abscess 522.5 [facility] [address] [place] [id number] [place] [address] 24098- 7145 Feb, [facility] [address] [place] [id number] [place] [address] 66658- 1849 January, [facility] [address] [place] [id number] [place] [address] 461482- 0893 January, [facility] [address] [place] [id number] [place] [address] 529054- 2834 January, Diabetes mellitus 250.00 [facility] [address] [place] [id number] [place] [address] 77585- 4437 January, [facility] [place] [facility] [address] [id number] [place] [address]- 1750 Dec, [facility] [place] [facility] [address] [id number] [place] [address]- 8220 Dec, [facility] [place] [facility] [address] [id number] [place] [address]- 0391 Nov, [facility] [place] [facility] [address] [id number] [place] [address]- 1664 Nov, [facility] [place] [facility] [address] [id number] [place] [address]- 0298 Nov, [facility] [place] [facility] [address] [id number] [place] [address]- 9832 Nov, [facility] [place] [facility] [address] [id number] [place] [address]- 8563 Oct, [facility] [place] [facility] [address] [id number] [place] [address]- 4425 Oct, [facility] [place] [facility] [address] [id number] [place] [address]- 3561 Sep, [facility] [place] [facility] [address] [id number] [place] [address]- 6130 Sep, [facility] [place] [facility] [address] [id number] [place] [address]- 1466 Aug, [facility] [place] [facility] [address] [id number] [place] [address]- 0667 Aug, [facility] [place] [facility] [address] [id number] [place] 4229 Aug, [facility] [place] [facility] [address] [id number] [place] 1386 Aug, [facility] [place] [facility] [address] [id number] [place] [address]- 7866 Aug, [facility] [place] [facility] [address] [id number] [place] [address]- 7943 Aug, [facility] [place] [facility] [address] [id number] [place] [address]- 9341 Jul, [facility] [place] [facility] [address] [id number] [place] [address]- 2423 Jul, [facility] [place] [facility] [address] [id number] [place] [address]- 8417 Jun, [facility] [place] [facility] [address] [id number] [place] [address]- 3073 Jun, [facility] [place] [facility] [address] [id number] [place] [address]- 1215 May, [facility] [place] [facility] [address] [id number] [place] [address]- 6556 May, [facility] [place] [facility] [address] [id number] [place] [address]- 7692 Apr, [facility] [place] [facility] [address] [id number] [place] [address]- 9984 Apr, [facility] [place] [facility] [address] [id number] [place] [address]- 7561 Apr, [facility] [place] [facility] [address] [id number] [place] [address]- 8139 Apr, [facility] [place] [facility] [address] [id number] [place] [address]- 5138 Apr, [facility] [place] [facility] [address] [id number] [place] [address]- 7767 Apr, [facility] [place] [facility] [address] [id number] [place] 5966 Mar, [facility] [place] [facility] [address] [id number] [place] 2577 Mar, [facility] [place] [facility] [address] [id number] [place] [address]- 8489 Feb, [facility] [place] [facility] [address] [id number] [place] [address]- 2932 Feb, [facility] [place] [facility] [address] [id number] [place] [address]- 2067 Feb, [facility] [place] [facility] [address] [id number] [place] [address]- 8055 Feb, [facility] [place] [facility] [address] [id number] [place] [address]- 8961 January, [facility] [place] [facility] [address] [id number] [place] [address]- 1207 January, [facility] [place] [facility] [address] [id number] [place] [address]- 8779 January, [facility] [place] [facility] [address] [id number] [place] [address]- 9568 January, [facility] [place] [facility] [address] [id number] [place] [address]- 4034 Dec, [facility] [place] [facility] [address] [id number] [place] [address]- 0282 Dec, [facility] [place] [facility] [address] [id number] [place] [address]- 7111 Nov, [facility] [place] [facility] [address] [id number] [place] [address]- 5786 Nov, [facility] [place] [facility] [address] [id number] [place] [address]- 4097 Oct, [facility] [place] [facility] [address] [id number] [place] [address]- 9721 Oct, [facility] [place] [facility] [address] [id number] [place] [address]- 4792 Sep, [facility] [place] [facility] [address] [id number] [place] [address]- 9798 Sep, [facility] [place] [facility] [address] [id number] [place] [address]- 0518 Aug, [facility] [address] [id number] [place] [address]- 4251 Aug, [facility] [place] [facility] [address] [id number] [place] [address]- 6361 Jul, [facility] [address] [id number] [place] [address]- 0127 Jul, [facility] [place] [facility] [address] [id number] [place] [address]- 3817 Jun, [facility] [address] [id number] [place] [address]- 1434 Jun, [facility] [place] [facility] [address] [id number] [place] [address]- 9874 May, [facility] [address] [id number] [place] [address]- 6144 May, [facility] [place] [facility] [address] [id number] [place] [address]- 1993 Apr, [facility] [place] [facility] [address] [id number] [place] [address]- 1110 Apr, [facility] [place] [facility] [address] [facility] [id number] [place] [address]- 6867 Feb, [facility] [place] [facility] [address] [id number] [place] [address]- 6783 Feb, [facility] [place] [facility] [address] [id number] [place] [address] 2540 January, [facility] [place] [facility] [address] [id number] [place] [address]- 1746 January, [facility] [place] [facility] [address] [id number] [place] [address]- 7489 Dec, [facility] [place] [facility] [address] [id number] [address]- 3843 Nov, [facility] [place] [facility] [address] [id number] [place] [address]- 7866 Oct, [facility] [place] [facility] [address] [id number] [place] 9747 Oct, [facility] [place] [facility] [address] [id number] [place] [address]- 6157 Sep, [facility] [place] [facility] [address] [id number] [place] [address]- 4882 Aug, [facility] [place] [facility] [address] [id number] [place] 3288 Aug, [facility] [place] [facility] [address] [id number] [place] [address]- 5283 Jul, [facility] [place] [facility] [address] [id number] [place] [address]- 3645 Jul, [facility] [place] [facility] [address] [id number] [place] [address]- 9551 Jun, [facility] [place] [facility] [address] [id number] [place] [address]- 7819 24 May, 2012 [facility] [place] [facility] [address] [id number] [place] [address]- 9206 May, [facility] [place] [facility] [address] [id number] [place] [address]- 6832 May, [facility] [place] [facility] [address] [id number] [place] [address] Apr, [facility] [place] [facility] [address] [id number] [place] [address] Apr, [facility] [place] [facility] [address] [id number] [place] [address] Apr, [facility] [place] [facility] [address] [id number] [place] [address] Mar, [facility] [place] [facility] [address] [id number] [place] [address] Mar, [facility] [address] [id number] [place] [address] Feb, [facility] [place] [facility] [address] [id number] [place] [address] Feb, [facility] [address] [facility] [id number] [place] [address] January, [facility] [address] [id number] [place] [address] January, [facility] [address] [id number] [place] [address] Dec, [facility] [address] [id number] [place] [address] Dec, [facility] [address] [id number] [place] [address] Nov, [facility] [place] [facility] [address] [id number] [place] [address] Nov, [facility] [address] [id number] [place] [address] Oct, [facility] [address] [facility] [id number] [place] [address] Oct, [facility] [address] [facility] [id number] [place] [address] Sep, [facility] [place] [facility] [address] [id number] [place] [address] Sep, [facility] [place] [facility] [address] [id number] [place] [address] Sep, [facility] [place] [facility] [address] [id number] [place] Aug, [facility] [place] [facility] [address] [facility] [id number] [place] [address] Aug, [facility] [place] [facility] [address] [facility] [id number] [place] [address] Aug, [facility] [address] [id number] [address] Aug, [facility] [address] [id number] [address] Aug, [facility] [address] [id number] [address] Jul, [facility] [address] [id number] [address] Jul, [facility] [address] [id number] [address] Jul, [facility] [address] [facility] [id number] [place] [address] Dec, IMMUNIZATIONS No Known Immunizations SOCIAL HISTORY Never Assessed REASON FOR VISIT Controlled Med Refill 01/28/18 PLAN OF CARE VITAL SIGNS MEDICATIONS Medication Instructions Dosage Frequency Start Date End Date Duration Status [place] 10-325 MG Orally every 6 hrs 1 tablet as needed 6h January, 28 days Active RESULTS No Results PROCEDURES No Known procedures INSTRUCTIONS MEDICATIONS ADMINISTERED No Known Medications MEDICAL (GENERAL) HISTORY Type Description Date Medical History Type 2 diabetes Medical History anxiety Medical History chronic hip pain Medical History carpal tunnel bilateral Medical History [place] Palsy Surgical History carpel tunnel-right hand 2011 Surgical History carpel tunnel-left hand 2008 Surgical History carpal tunnel - right hand 11/2015 Surgical History Torn bicep repair 01/2018 Hospitalization History ER spider bite
--- OUTSIDE RECORDS SUMMARY | 2018-06-25 06:12 | XMS REPORT ---
Author Author KASI BLANCHARD Organization 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 Active 534998941 Problem Controlled type 2 diabetes mellitus without complication, without long -term current use of insulin E11.9 Active 522788465 Problem Diabetes E11.9 Active 72818778 Problem Chronic osteoarthritis M19.90 Active 67679681 Problem Type 2 diabetes mellitus with complication, without long-term current use of insulin E11.8 Active 10775503 Problem Sialadenitis K11.20 Active 62158378 Problem Mood disorder F39 Active 33172466 Problem Chronic fatigue R53.82 Active 80449032 Problem Depressive disorder, not elsewhere classified F32.9 Active 06238773 Problem Hypogonadism in male E29.1 Active 75982238 ALLERGIES No Information ENCOUNTERS Encounter Location Date Diagnosis [place] [id number] [place] [address] 61174- 7967 Mar, Hypogonadism in male E29.1 [place] [id number] [place] [address] 81322- 8835 Mar, Hypogonadism in male E29.1 [place] [address] [place] [address] 23586- 2752 Mar, Diabetes E11.9 and Anxiety F41.9 [place] [address] [place] [address] 40036- 1324 Mar, Type 2 diabetes mellitus with complication, without long- term current use of insulin E11.8 [place] [address] [place] [address] 03835- 1319 Feb, Insect bite (nonvenomous) of right upper arm, initial encounter S40.861A [place] [address] 63360- 4857 Feb, Insect bite (nonvenomous) of right upper arm, initial encounter S40.861A ; Local infection of the skin and subcutaneous tissue, unspecified L08.9 and Hypogonadism in male E29.1 [place] [address] 92884- 2996 January, Sialadenitis K11.20 [place] [address] 41194- 0491 January, Bronchitis J40 [place] [address] 49429- 3007 January, Hypogonadism in male E29.1 [place] [address] 75725- 3858 January, Hypogonadism in male E29.1 [place] [address] [place] [id number] [place] [address] 59677- 2296 Dec, Bronchitis J40 [place] [address] [place] [id number] [place] [address] 21467- 8136 Nov, Diabetes E11.9 and Anxiety F41.9 [place] [address] [place] [id number] [place] [address] 62658- 2730 Nov, Bronchitis J40 [facility] [address] [place] [id number] [place] [address] 31013- 3529 Oct, Bronchitis J40 [facility] [address] [place] [id number] [place] [address] 20584- 9737 Sep, Diabetes E11.9 ; Mood disorder F39 ; Hypogonadism in male E29.1 and Depressive disorder, not elsewhere classified F32.9 [facility] [address] [place] [id number] [place] [address] 35252- 9599 Sep, Bronchitis J40 [facility] [address] [place] [id number] [place] [address] 45773- 3591 Sep, Hypogonadism in male E29.1 [facility] [address] [place] [id number] [place] [address] 32252- 3533 Sep, [facility] [address] [place] [id number] [place] [address] 05077- 0511 Sep, [facility] [address] 31436- 9547 Aug, Bronchitis J40 [facility] [address] 26951- 1342 Aug, Uncontrolled type 2 diabetes mellitus without complication, without long-term current use of insulin E11.65 ; Diabetes type 2, controlled E11.9 ; Hypogonadism in male E29.1 ; Encounter for immunization Z23 and Spider bite wound, undetermined intent, initial encounter T63.304A [facility] [address] 02686- 9356 Jul, Bron[address] J40 [facility] [address] 85556- 1825 Jun, Hypogonadism in male E29.1 [facility] [address] [place] [id number] [place] [address] 74471- 8184 Jun, Hypogonadism in male E29.[address] [facility] [address] [place] [id number] [place] [address] 39275- 1421 May, Bronchitis J40 [facility] [address] [place] [id number] [place] [address] 11917- 0932 May, Hypogonadism in male E29.1 [facility] [address] 47522- 1473 May, Hypogonadism in male E29.1 [facility] [address] [place] [id number] [place] [address] 12672- 5876 Apr, Bronchitis J40 [place] [address] [address]- 1344 Apr, Controlled type 2 diabetes mellitus without complication, without long-term current use of insulin E11.9 [facility] [address] [place] [address] 62476- 6194 Apr, Diabetes type 2, controlled E11.9 ; Hypogonadism in male E29.1 and Mood disorder F39 [facility] [address] [place] [id number] [place] [address] 04539- 5860 Apr, Hypogonadism in male E29.1 [facility] [address] [place] [id number] [place] [address] 48896- 9863 Apr, Bronchitis J40 [facility] [address] [place] [id number] [place] [address] 01153- 9397 Mar, Hypogonadism in male E29.1 [facility] [address] [place] [id number] [place] [address] 00572- 0592 Mar, Bronchitis J40 [facility] [address] [place] [id number] [place] [address] 68560- 6409 Mar, Bronchitis J40 [facility] [address] [place] [id number] [place] [address] 25763- 2567 Feb, Spider bite, accidental or unintentional, initial encounter T63.301A [facility] [address] [place] [address] 72534- 7064 Feb, Depressive disorder, not elsewhere classified F32.9 [facility] [address] [place] [address] 60665- 9759 Feb, Diabetes E11.9 ; Mood disorder F39 and Hypogonadism in male E29.1 [facility] [address] [place] [id number] [place] [address] 12752- 7429 Feb, Bronchitis J40 [facility] [address] [place] [address] 01245- 8328 Feb, Depressive disorder, not elsewhere classified F32.9 [facility] [address] [place] [id number] [place] [address] 05570- 6358 January, Depressive disorder, not elsewhere classified F32.9 [facility] [address] [place] [id number] [place] [address] 32088- 6321 January, Diabetes E11.[address] Mood disorder [address]39 [facility] [address] [place] [id number] [place] [address] 18205- 3264 January, Bronchitis J40 [facility] [address] [place] [id number] [place] [address] 73997- 0645 Dec, Bronchitis J40 [facility] [address] 48600- 2098 Dec, Hypogonadism in male E29.1 [place] [address] [place] [id number] [place] [address] 46241- 5799 Dec, [place] [address] [place] [id number] [place] [address] 98862- 4555 Dec, Controlled type 2 diabetes mellitus without complication, without long-term current use of insulin E11.9 and Chronic fatigue R53.82 [place] [address] [place] [id number] [place] [address] 01046- 4785 Nov, Bronchitis J40 [facility] [address] [place] [id number] [place] [address] 54521- 7273 Oct, Bronchitis J40 ; Controlled type 2 diabetes mellitus without complication, without long-term current use of insulin E11.9 ; Chronic fatigue R53.82 and Drug-induced erectile dysfunction N52.2 [place] [address] [place] [id number] [place] [address] 57250- 0224 Oct, Diabetes E11.9 [place] [address] [place] [id number] [place] [address] 29096- 0401 Sep, Pre-employment examination Z02.1 [place] [address] [place] [id number] [place] [address] 14353- 8304 Sep, Diabetes E11.9 [facility] [address] [place] [address] 75025- 4452 Aug, Controlled type 2 diabetes mellitus without complication, without long-term current use of insulin E11.9 and Chronic osteoarthritis M19.90 [facility] [address] [place] [id number] [place] [address] 67264- 8404 Jul, [facility] [address] [place] [id number] [place] [address] 78510- 1191 Jun, 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 [address] [place] [id number] [place] [address] 76644- 6781 May, [place] [address] [place] [id number] [place] [address] 48373- 9445 Apr, Gastritis without bleeding, unspecified chronicity, unspecified gastritis type K29.70 [place] [address] [place] [id number] [place] [address] 35232- 8327 Apr, [place] [address] [place] [id number] [place] [address] 15473- 4978 Mar, Diabetes type 2, controlled E11.9 [facility] [address] [place] [id number] [place] [address] 303147- 1489 Mar, [facility] [address] [place] [id number] [place] [address] 36364- 8419 Feb, [place] [address] [place] [id number] [place] [address] 32309- 9294 Feb, [facility] [address] [place] [id number] [place] [address] 61360- 6817 January, [facility] [address] [place] [id number] [place] [address] 77899- 2382 Dec, Urethritis N34.2 [facility] [address] [place] [id number] [place] [address] 12302- 0639 Dec, [facility] [address] [place] [id number] [place] [address] 19348- 9249 Nov, Diabetes type 2, controlled E11.9 [facility] [address] [place] [id number] [place] [address] 10163- 4618 Nov, [facility] [address] [place] [id number] [place] [address] 32578- 8236 Nov, Diabetes type 2, controlled E11.9 [facility] [address] [place] [id number] [place] [address] 58898- 9978 Oct, Hand pain M79.643 [facility] [address] [place] [id number] [place] [address] 71838- 1402 Oct, Right hand pain M79.641 [facility] [address] [place] [id number] [place] [address] 41612- 6745 Oct, [facility] [address] [place] [id number] [place] [address] 70441- 3857 Oct, [facility] [address] [place] [id number] [place] [address] 66341- 9969 Oct, Right carpal tunnel syndrome G56.01 [facility] [address] [place] [id number] [place] [address] 10943- 2519 Sep, Diabetes E11.9 [facility] [address] [place] [id number] [place] [address] 23895- 3394 Sep, Anxiety F41.9 ; Chronic osteoarthritis M19.90 and Health examination of defined subpopulation V70.5 [facility] [address] [place] [id number] [place] [address] 44720- 3907 Sep, Diabetes E11.9 [facility] [address] [place] [id number] [place] [address] 313147- 8760 Aug, Diabetes E11.9 ; Carpal tunnel syndrome, right G56.01 and Carpal tunnel syndrome, left upper limb G56.02 [facility] [address] [place] [id number] [place] [address] 062761- 0015 Jul, Diabetes mellitus 250.00 [facility] [address] [place] [id number] [place] [address] 42464- 0819 Jun, Diabetes mellitus 250.00 [facility] [address] [place] [id number] [place] [address] 668008- 7860 May, Diabetes mellitus 250.00 [facility] [address] [place] [id number] [place] [address] 45946- 9031 Apr, Diabetes mellitus 250.00 [facility] [address] [place] [id number] [place] [address] 97327- 1211 Mar, [facility] [address] [place] [id number] [place] [address] [id number]- 0061 Mar, Tooth abscess 522.5 [facility] [address] [place] [id number] [place] [address] 12775- 4259 Feb, [facility] [address] [place] [id number] [place] [address] [phone]- 4655 January, [facility] [address] [place] [id number] [place] [address] 13002600- 8152 January, [facility] [address] [place] [id number] [place] [address] 098293- 7114 January, Diabetes mellitus 250.00 [facility] [address] [place] [id number] [place] [address] 927120- 1284 January, [facility] [address] [place] [id number] [place] [address] 35401- 2353 14 Dec, 2014 [facility] [place] [facility] [address] [id number] [place] [address]- 5968 Dec, [facility] [place] [facility] [address] [id number] [place] [address]- 9026 Nov, [facility] [place] [facility] [address] [id number] [place] [address]- 9146 Nov, [facility] [place] [facility] [address] [id number] [place] [address]- 8596 Nov, [facility] [place] [facility] [address] [id number] [place] [address]- 1245 Nov, [facility] [place] [facility] [address] [id number] [place] [address]- 5019 Oct, [facility] [place] [facility] [address] [id number] [place] [address]- 8761 Oct, [facility] [place] [facility] [address] [id number] [place] [address]- 7849 Sep, [facility] [place] [facility] [address] [id number] [place] [address]- 3652 Sep, [facility] [place] [facility] [address] [id number] [place] [address]- 5416 Aug, [facility] [place] [facility] [address] [id number] [place] [address]- 3346 Aug, [facility] [place] [facility] [address] [id number] [place] [address]- 4950 Aug, [facility] [place] [facility] [address] [id number] [place] [address]- 8920 Aug, [facility] [place] [facility] [address] [id number] [place] [address]- 4964 Aug, [facility] [place] [facility] [address] [id number] [place] [address]- 0636 Aug, [facility] [place] [facility] [address] [id number] [place] [address]- 7118 Jul, [facility] [place] [facility] [address] [id number] [place] [address]- 9386 Jul, [facility] [place] [facility] [address] [id number] [place] [address]- 4628 Jun, [facility] [place] [facility] [address] [id number] [place] [address]- 4455 Jun, [facility] [place] [facility] [address] [id number] [place] [address]- 2833 May, [facility] [place] [facility] [address] [id number] [place] [address]- 0322 May, [facility] [place] [facility] [address] [id number] [place] [address]- 8409 Apr, [facility] [place] [facility] [address] [id number] [place] [address]- 5868 Apr, [facility] [place] [facility] [address] [id number] [place] [address]- 7518 Apr, [facility] [place] [facility] [address] [id number] [place] [address]- 1893 Apr, [facility] [place] [facility] [address] [id number] [place] [address]- 5658 Apr, [facility] [place] [facility] [address] [id number] [place] [address]- 6006 Apr, [facility] [place] [facility] [address] [id number] [place] [address]- 7614 Mar, [facility] [place] [facility] [address] [id number] [place] [address]- 7923 Mar, [facility] [place] [facility] [address] [id number] [place] [address]- 9964 Feb, [facility] [place] [facility] [address] [id number] [place] [address]- 6585 Feb, [facility] [place] [facility] [address] [id number] [place] [address]- 6627 Feb, [facility] [place] [facility] [address] [id number] [place] [address]- 4641 Feb, [facility] [place] [facility] [address] [id number] [place] [address]- 0008 January, [facility] [place] [facility] [address] [id number] [place] [address]- 6929 January, [facility] [place] [facility] [address] [id number] [place] [address]- 4086 January, [facility] [place] [facility] [address] [id number] [place] [address]- 2020 January, [facility] [place] [facility] [address] [id number] [place] [address]- 4700 Dec, [facility] [place] [facility] [address] [id number] [place] [address]- 6249 Dec, [facility] [place] [facility] [address] [id number] [place] [address]- 7574 Nov, [facility] [place] [facility] [address] [id number] [place] [address]- 1745 Nov, [facility] [place] [facility] [address] [id number] [place] [address]- 7628 Oct, [facility] [place] [facility] [address] [id number] [place] [address]- 0227 Oct, [facility] [place] [facility] [address] [id number] [place] [address]- 9249 Sep, [facility] [place] [facility] [address] [id number] [place] [address]- 7700 Sep, [facility] [place] [facility] [address] [id number] [place] [address]- 2517 Aug, [facility] [place] [facility] [address] [id number] [place] [address]- 3133 Aug, [facility] [address] [id number] [place] [address]- 2247 Jul, [facility] [place] [facility] [address] [id number] [place] [address] 2546 Jul, [facility] [address] [id number] [place] [address] 2546 Jun, [facility] [place] [facility] [address] [id number] [place] [address]- 8396 Jun, [facility] [address] [id number] [place] [address]- 5518 May, [facility] [place] [facility] [address] [id number] [place] [address]- 2546 May, [facility] [address] [id number] [place] [address]- 2651 Apr, [facility] [place] [facility] [address] [id number] [place] [address]- 3698 Apr, [facility] [place] [facility] [address] [id number] [place] [address]- 8707 Feb, [facility] [place] [facility] [address] [facility] [id number] [place] [address]- 2130 Feb, [facility] [place] [facility] [address] [id number] [place] [address] 2546 January, [facility] [place] [facility] [address] [id number] [place] [address] January, [facility] [place] [facility] [address] [id number] [place] [address] Dec, [facility] [place] [facility] [address] [id number] [place] [address] Nov, [facility] [place] [facility] [address] [id number] [place] [address] Oct, [facility] [place] [facility] [address] [id number] [place] [address] Oct, [facility] [place] [facility] [address] [id number] [place] [address] Sep, [facility] [place] [facility] [address] [id number] [place] [address] Aug, [facility] [place] [facility] [address] [id number] [place] [address] Aug, [facility] [place] [facility] [address] [id number] [place] [address] Jul, [facility] [place] [facility] [address] [id number] [place] [address] Jul, [facility] [place] [facility] [address] [id number] [place] [address] Jun, [facility] [place] [facility] [address] [id number] [place] [address] May, [facility] [place] [facility] [address] [id number] [place] [address] May, [facility] [place] [facility] [address] [id number] [place] [address] May, [facility] [place] [facility] [address] [id number] [place] [address] Apr, [facility] [place] [facility] [address] [id number] [place] [address] Apr, [facility] [place] [facility] [address] [id number] [place] [address] Apr, [facility] [place] [facility] [address] [id number] [place] [address] Mar, [facility] [place] [facility] [address] [id number] [place] [address] Mar, [facility] [place] [facility] [address] [id number] [place] [address] Feb, [facility] [address] [id number] [place] [address] Feb, [facility] [place] [facility] [address] [id number] [place] [address] January, [facility] [address] [facility] [id number] [place] [address] January, [facility] [place] [facility] [address] [id number] [place] [address] Dec, [facility] [address] [id number] [place] [address] Dec, [facility] [address] [id number] [place] [address] Nov, [facility] [id number] [place] [address] Nov, [facility] [place] [facility] [address] [facility] [id number] [place] [address] Oct, [facility] [address] [id number] [place] [address] Oct, [facility] [address] [facility] [id number] [place] [address] Sep, [facility] [address] [facility] [id number] [place] [address] Sep, [facility] [place] [facility] [address] [facility] [id number] [place] [address] Sep, [facility] [place] [facility] [address] [id number] [place] [address] Aug, [facility] [place] [facility] [address] [facility] [id number] [place] [address] Aug, [facility] [place] [facility] [address] [id number] [place] [address] Aug, [facility] [place] [facility] [address] [facility] [id number] [place] [address] Aug, [facility] [address] [facility] [id number] [place] [address] Aug, [facility] [address] [id number] [address] Jul, [facility] [address] [facility] [id number] [place] [address] Jul, [facility] [address] [id number] [place] [address] Jul, [facility] [address] [facility] [id number] [place] [address] Dec, IMMUNIZATIONS No Known Immunizations SOCIAL HISTORY Never Assessed REASON FOR VISIT Controlled Med Refill PLAN OF CARE VITAL SIGNS MEDICATIONS Medication Instructions Dosage Frequency Start Date End Date Duration Status [place] 10-325 MG Orally every 6 hrs 1 tablet as needed 6h Nov, 28 days Active RESULTS No Results PROCEDURES No Known procedures INSTRUCTIONS MEDICATIONS ADMINISTERED No Known Medications MEDICAL (GENERAL) HISTORY Type Description Date Medical History Type 2 diabetes Medical History anxiety Medical History chronic hip pain Medical History carpal tunnel bilateral Medical History [place] Palsy Surgical History carpel tunnel-right hand 2011 Surgical History carpel tunnel-left hand 2008 Surgical History carpal tunnel - right hand 11/2015 Surgical History Torn bicep repair 01/2018 Hospitalization History ER spider bite
--- OUTSIDE RECORDS SUMMARY | 2018-06-25 06:12 | XMS REPORT ---
Author Author KASI BLANCHARD Organization [facility] Address [address] [place] [address] Care Team Providers Care Piercing Specialist Name Role Phone KASI BLANCHARD Unavailable PROBLEMS Type Condition ICD9-CM Code [id number] Code Onset Dates Condition Status SNOMED Code Problem Anxiety F41.9 Active 03739917 Problem Drug-induced erectile dysfunction N52.2 Active 597179208 Problem Controlled type 2 diabetes mellitus without complication, without long -term current use of insulin E11.9 Active 180431483 Problem Diabetes E11.9 Active 05563089 Problem Chronic osteoarthritis M19.90 Active 94505285 Problem Type 2 diabetes mellitus with complication, without long-term current use of insulin E11.8 Active 13275535 Problem Sialadenitis K11.20 Active 20360977 Problem Mood disorder F39 Active 68496595 Problem Chronic fatigue R53.82 Active 79034089 Problem Depressive disorder, not elsewhere classified F32.9 Active 15058625 Problem Hypogonadism in male E29.1 Active 77180447 ALLERGIES No Known Allergies ENCOUNTERS Encounter Location Date Diagnosis [place] [id number] [place] [address] 02825- 7144 Mar, Hypogonadism in male E29.1 [place] [id number] [place] [address] 58278- 4597 Mar, Hypogonadism in male E29.1 [place] [id number] [place] [address] 98337- 7570 Mar, Diabetes E11.9 and Anxiety F41.9 [place] [id number] [place] [address] 31867- 1152 Mar, Type 2 diabetes mellitus with complication, without long- term current use of insulin E11.8 [place] [id number] [place] [address] 33144- 2122 Feb, Insect bite (nonvenomous) of right upper arm, initial encounter S40.861A [place] [address] 53513- 1901 Feb, Insect bite (nonvenomous) of right upper arm, initial encounter S40.861A ; Local infection of the skin and subcutaneous tissue, unspecified L08.9 and Hypogonadism in male E29.1 [place] [address] 13924- 9267 January, Sialadenitis K11.20 [place] [address] 84121- 9591 January, Bronchitis J40 [place] [address] 71157- 5073 January, Hypogonadism in male E29.1 [place] [address] 93469- 3611 January, Hypogonadism in male E29.1 [place] [address] [place] [id number] [place] [address] 15625- 9781 Dec, Bronchitis J40 [place] [address] [place] [id number] [place] [address] 12020- 6836 Nov, Diabetes E11.9 and Anxiety F41.9 [place] [address] [place] [id number] [place] [address] 21948- 8762 Nov, Bronchitis J40 [place] [address] [place] [id number] [place] [address] 31119- 4101 Oct, Bronchitis J40 [facility] [address] 80507- 1768 Sep, Diabetes E11.9 ; Mood disorder F39 ; Hypogonadism in male E29.1 and Depressive disorder, not elsewhere classified F32.9 [facility] [address] [place] [id number] [place] [address] 09921- 3747 Sep, Bronchitis J40 [facility] [address] [place] [id number] [place] [address] 19658- 3240 Sep, Hypogonadism in male E29.1 [facility] [address] [place] [id number] [place] [address] 14098- 4368 Sep, [facility] [address] [place] [id number] [place] [address] 57331- 3535 Sep, [facility] [address] 78801- 1493 Aug, Bronchitis J40 [facility] [address] [place] [id number] [place] [address] 85868- 0871 Aug, Uncontrolled type 2 diabetes mellitus without complication, without long-term current use of insulin E11.65 ; Diabetes type 2, controlled E11.9 ; Hypogonadism in male E29.1 ; Encounter for immunization Z23 and Spider bite wound, undetermined intent, initial encounter T63.304A [facility] [address] [place] [id number] [place] [address] 46807- 1548 Jul, Bronchitis J40 [facility] [address] [place] [id number] [place] [address] 40163- 9515 Jun, Hypogonadism in male E29.1 [facility] [address] [place] [id number] [place] [address] 48588- 3040 Jun, Hypogonadism in male E29.1 and Bronchitis J40 [facility] [address] [place] [id number] [place] [address] 31078- 6389 May, Bronchitis J40 [facility] [address] [place] [id number] [place] [address] 53974- 2714 May, Hypogonadism in male E29.1 [facility] [address] [place] [id number] [place] [address] 89502- 4616 May, Hypogonadism in male E29.1 [facility] [address] [place] [id number] [place] [address] 35314- 5074 Apr, Bronchitis J40 [facility] [address] [place] [address] 93443- 2018 Apr, Controlled type 2 diabetes mellitus without complication, without long-term current use of insulin E11.9 [facility] [address] [place] [id number] [place] [address] 73818- 1918 Apr, Diabetes type 2, controlled E11.9 ; Hypogonadism in male E29.1 and Mood disorder F39 [facility] [address] [place] [id number] [place] [address] 94428- 9920 Apr, Hypogonadism in male E29.1 [facility] [address] [place] [id number] [place] [address] 18380- 1945 Apr, Bronchitis J40 [facility] [address] [place] [id number] [place] [address] 65426- 4570 Mar, Hypogonadism in male E29.1 [facility] [address] [place] [id number] [place] [address] 28230- 7240 Mar, Bronchitis J40 [facility] [address] [place] [id number] [place] [address] 33201- 3650 Mar, Bronchitis J40 [facility] [address] [place] [id number] [place] [address] 17415- 0379 Feb, Spider bite, accidental or unintentional, initial encounter T63.301A [facility] [address] [place] [id number] [place] [address] 32620- 4217 Feb, Depressive disorder, not elsewhere classified F32.9 [facility] [address] [place] [address] 23831- 4374 Feb, Diabetes E11.9 ; Mood disorder F39 and Hypogonadism in male E29.1 [facility] [address] [place] [id number] [place] [address] 82305- 9089 Feb, Bronchitis J40 [facility] [address] [place] [id number] [place] [address] 73025- 9915 Feb, Depressive disorder, not elsewhere classified F32.9 [facility] [address] [place] [id number] [place] [address] 52734- 6896 January, Depressive disorder, not elsewhere classified F32.9 [facility] [address] [place] [id number] [place] [address] 10051- 8078 January, Diabetes E11.9 and Mood disorder F39 [facility] [address] [place] [id number] [place] [address] 23764- 1633 January, Bronchitis J40 [facility] [address] [place] [id number] [place] [address] 78565- 8093 Dec, Bronchitis J40 [facility] [address] 89645- 0575 Dec, Hypogonadism in male E29.1 [place] [address] [place] [id number] [place] [address] 81134- 6192 Dec, [facility] [address] [place] [id number] [place] [address] 12342- 9224 Dec, Controlled type 2 diabetes mellitus without complication, without long-term current use of insulin E11.9 and Chronic fatigue R53.82 [place] [address] [place] [id number] [place] [address] 68084- 4730 Nov, Bronchitis J40 [facility] [address] [place] [id number] [place] [address] 69393- 4802 Oct, Bronchitis J40 ; Controlled type 2 diabetes mellitus without complication, without long-term current use of insulin E11.9 ; Chronic fatigue R53.82 and Drug-induced erectile dysfunction N52.2 [place] [address] [place] [id number] [place] [address] 13907- 9436 Oct, Diabetes E11.9 [place] [address] [place] [id number] [place] [address] 68415- 9495 Sep, Pre-employment examination Z02.1 [place] [address] [place] [id number] [place] [address] 54761- 7341 Sep, Diabetes E11.9 [facility] [address] [place] [address] 70907- 9936 Aug, Controlled type 2 diabetes mellitus without complication, without long-term current use of insulin E11.9 and Chronic osteoarthritis M19.90 [facility] [address] [place] [id number] [place] [address] 26274- 7701 Jul, [facility] [address] [place] [id number] [place] [address] 47500- 1682 Jun, [facility] [address] [place] [id number] [place] [address] 79646- 1032 Jun, 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 [place] [address] [place] [id number] [place] [address] 39522- 4023 Jun, Encounter for immunization Z23 and Controlled type 2 diabetes mellitus without complication, without long-term current use of insulin E11.9 [facility] [address] [place] [id number] [place] [address] 20550- 7057 May, [facility] [address] [place] [id number] [place] [address] 09560- 6434 May, [place] [address] [place] [id number] [place] [address] 14199- 9619 Apr, Gastritis without bleeding, unspecified chronicity, unspecified gastritis type K29.70 [place] [address] [place] [id number] [place] [address] 77091- 5245 Apr, [facility] [address] [place] [id number] [place] [address] 66607- 9363 Mar, Diabetes type 2, controlled E11.9 [facility] [address] [place] [id number] [place] [address] 11528- 9594 Mar, [facility] [address] [place] [id number] [place] [address] 12417- 1256 Feb, [facility] [address] [place] [id number] [place] [address] 03325- 8030 Feb, [facility] [address] [place] [id number] [place] [address] 84327- 1427 January, [facility] [address] [place] [id number] [place] [address] 92888- 0683 Dec, Urethritis N34.2 [facility] [address] [place] [id number] [place] [address] 96699- 0294 Dec, [facility] [address] [place] [id number] [place] [address] 60334- 6413 Nov, Diabetes type 2, controlled E11.9 [facility] [address] [place] [id number] [place] [address] 29162- 1638 Nov, [facility] [address] [place] [id number] [place] [address] 21964- 9956 Nov, Diabetes type 2, controlled E11.9 [facility] [address] [place] [id number] [place] [address] 68899- 6687 Oct, Hand pain M79.643 [facility] [address] [place] [id number] [place] [address] 81311- 8940 23 Oct, 2015 Right hand pain M79.641 [facility] [address] [place] [id number] [place] [address] 31840- 4807 Oct, [facility] [address] [place] [id number] [place] [address] 07180- 0609 Oct, [facility] [address] [place] [id number] [place] [address] 77086- 5244 Oct, Right carpal tunnel syndrome G56.01 [facility] [address] [place] [id number] [place] [address] 67303- 4420 Sep, Diabetes E11.9 [facility] [address] [place] [id number] [place] [address] 20773- 3401 Sep, Anxiety F41.9 ; Chronic osteoarthritis M19.90 and Health examination of defined subpopulation V70.5 [facility] [address] [place] [id number] [place] [address] 37849- 3166 Sep, Diabetes E11.9 [facility] [address] [place] [id number] [place] [address] 002841- 6704 Aug, Diabetes E11.9 ; Carpal tunnel syndrome, right G56.01 and Carpal tunnel syndrome, left upper limb G56.02 [facility] [address] [place] [id number] [place] [address] 27816- 9659 Jul, Diabetes mellitus 250.00 [facility] [address] [place] [id number] [place] [address] 391438- 3556 Jun, Diabetes mellitus 250.00 [facility] [address] [place] [id number] [place] [address] 235300- 7744 May, Diabetes mellitus 250.00 [facility] [address] [place] [id number] [place] [address] 03696- 3035 Apr, Diabetes mellitus 250.00 [facility] [address] [place] [id number] [place] [address] 74140- 1907 Mar, [facility] [address] [place] [id number] [place] [address] 33099- 8000 Mar, Tooth abscess 522.5 [facility] [address] [place] [id number] [place] [address] 66360- 2874 Feb, [facility] [address] [place] [id number] [place] [address] 51450- 1178 January, [facility] [address] [place] [id number] [place] [address] 84803- 3555 January, [facility] [address] [place] [id number] [place] [address] 812735- 8596 January, Diabetes mellitus 250.00 [facility] [address] [place] [id number] [place] [address] 985138- 7770 January, [facility] [address] [place] [id number] [place] [address] 64540- 5698 14 Dec, 2014 [facility] [place] [facility] [address] [id number] [place] [address]- 7755 Dec, [facility] [place] [facility] [address] [id number] [place] [address]- 3306 Nov, [facility] [place] [facility] [address] [facility] [id number] [place] [address]- 6841 Nov, [facility] [place] [facility] [address] [id number] [place] [address]- 3999 Nov, [facility] [place] [facility] [address] [id number] [place] [address]- 3649 Nov, [facility] [place] [facility] [address] [facility] [id number] [place] [address]- 3349 Oct, [facility] [place] [facility] [address] [facility] [id number] [place] [address]- 8242 Oct, [facility] [place] [facility] [address] [facility] [id number] [place] [address]- 4255 Sep, [facility] [place] [facility] [address] [facility] [id number] [place] [address]- 8330 Sep, [facility] [place] [facility] [address] [facility] [id number] [place] [address]- 1427 Aug, [facility] [place] [facility] [address] [id number] [place] [address]- 6769 Aug, [facility] [place] [facility] [address] [id number] [place] [address]- 3366 Aug, [facility] [place] [facility] [address] [id number] [place] 4370 Aug, [facility] [place] [facility] [address] [facility] [id number] [place] [address]- 4361 Aug, [facility] [place] [facility] [address] [facility] [id number] [place] [address]- 0120 Aug, [facility] [place] [facility] [address] [id number] [place] [address]- 8222 Jul, [facility] [place] [facility] [address] [id number] [place] [address]- 5662 Jul, [facility] [place] [facility] [address] [id number] [place] [address]- 8921 Jun, [facility] [place] [facility] [address] [id number] [place] [address]- 8346 Jun, [facility] [place] [facility] [address] [id number] [place] [address]- 0890 May, [facility] [place] [facility] [address] [id number] [place] [address]- 4260 May, [facility] [place] [facility] [address] [id number] [place] [address]- 8053 Apr, [facility] [place] [facility] [address] [id number] [place] [address]- 2806 Apr, [facility] [place] [facility] [address] [id number] [place] [address]- 9237 Apr, [facility] [place] [facility] [address] [id number] [place] [address]- 9951 Apr, [facility] [place] [facility] [address] [id number] [place] [address]- 6658 Apr, [facility] [place] [facility] [address] [id number] [place] [address]- 8186 Apr, [facility] [place] [facility] [address] [id number] [place] [address]- 3672 Mar, [facility] [place] [facility] [address] [id number] [place] [address]- 1310 Mar, [facility] [place] [facility] [address] [id number] [place] [address]- 0715 Feb, [facility] [place] [facility] [address] [id number] [place] [address]- 5600 Feb, [facility] [place] [facility] [address] [id number] [place] [address]- 1990 Feb, [facility] [place] [facility] [address] [id number] [place] [address]- 5373 Feb, [facility] [place] [facility] [address] [id number] [place] [address]- 2214 January, [facility] [place] [facility] [address] [id number] [place] [address]- 6200 January, [facility] [place] [facility] [address] [id number] [place] [address]- 8794 January, [facility] [place] [facility] [address] [id number] [place] [address]- 9969 January, [facility] [place] [facility] [address] [id number] [place] [address]- 5638 Dec, [facility] [place] [facility] [address] [id number] [place] [address]- 4189 Dec, [facility] [place] [facility] [address] [id number] [place] [address]- 1400 Nov, [facility] [place] [facility] [address] [id number] [place] [address]- 1363 Nov, [facility] [place] [facility] [address] [id number] [place] [address]- 4278 Oct, [facility] [place] [facility] [address] [id number] [place] [address]- 8933 Oct, [facility] [place] [facility] [address] [id number] [place] [address]- 0012 Sep, [facility] [place] [facility] [address] [id number] [place] [address]- 4952 Sep, [facility] [place] [facility] [address] [id number] [place] [address]- 6045 Aug, [facility] [place] [facility] [address] [id number] [place] [address]- 2059 Aug, [facility] [address] [id number] [place] [address]- 9439 Jul, [facility] [place] [facility] [address] [id number] [place] [address] 2549 Jul, [facility] [address] [id number] [place] [address]- 9556 Jun, [facility] [place] [facility] [address] [id number] [place] [address]- 9498 Jun, [facility] [address] [id number] [place] [address]- 2973 May, [facility] [place] [facility] [address] [id number] [place] [address] 2546 May, [facility] [address] [id number] [place] [address]- 4894 Apr, [facility] [address] [id number] [place] [address]- 7450 Apr, [facility] [place] [facility] [address] [id number] [place] [address]- 7014 Feb, [facility] [address] [id number] [place] [address]- 9725 Feb, [facility] [place] [facility] [address] [id number] [place] [address]- 4556 January, [facility] [place] [facility] [address] [id number] [place] [address] 2542 January, [facility] [place] [facility] [address] [id number] [place] [address]- 3795 Dec, [facility] [place] [facility] [address] [id number] [place] [address]- 2546 Nov, [facility] [place] [facility] [address] [id number] [place] [address]- 2624 Oct, [facility] [place] [facility] [address] [id number] [place] [address]- 6273 Oct, [facility] [place] [facility] [address] [id number] [place] [address]- 3414 Sep, [facility] [place] [facility] [address] [id number] [place] [address]- 0276 Aug, [facility] [place] [facility] [address] [id number] [place] [address]- 8206 Aug, [facility] [place] [facility] [address] [id number] [place] [address]- 1587 Jul, [facility] [place] [facility] [address] [id number] [place] [address] Jul, [facility] [place] [facility] [address] [id number] [place] [address] Jun, [facility] [place] [facility] [address] [id number] [place] [address] 24 May, 2012 [facility] [place] [facility] [address] [id number] [place] [address] 14 May, 2012 [facility] [place] [facility] [address] [id number] [place] [address] May, [facility] [place] [facility] [address] [id number] [place] [address] Apr, [facility] [place] [facility] [address] [id number] [place] [address] Apr, [facility] [place] [facility] [address] [id number] [place] [address] Apr, [facility] [place] [facility] [address] [id number] [place] [address] Mar, [facility] [place] [facility] [address] [id number] [place] [address] Mar, [facility] [place] [facility] [address] [id number] [place] [address] Feb, [facility] [address] [id number] [place] [address] Feb, [facility] [address] [id number] [place] [address] January, [facility] [address] [facility] [id number] [place] [address] January, [facility] [address] [id number] [place] [address] Dec, [facility] [address] [id number] [place] [address] Dec, [facility] [address] [id number] [place] [address] Nov, [facility] [address] [id number] [place] [address] Nov, [facility] [place] [facility] [address] [id number] [place] [address] Oct, [facility] [address] [facility] [id number] [place] [address] Oct, [facility] [address] [facility] [id number] [place] [address] Sep, [facility] [address] [facility] [id number] [place] [address] Sep, [facility] [place] [facility] [address] [facility] [id number] [place] [address] Sep, [facility] [address] [id number] [place] [address] Aug, [facility] [place] [facility] [address] [id number] [place] [address] Aug, [facility] [address] [id number] [place] [address] Aug, [facility] [place] [facility] [address] [facility] [id number] [place] [address] Aug, [facility] [address] [id number] [address] Aug, [facility] [id number] [address] Jul, [facility] [id number] [address] [address] Jul, [facility] [address] [id number] [address] Jul, [facility] [id number] [address] Dec, IMMUNIZATIONS No Known Immunizations SOCIAL HISTORY Never Assessed REASON FOR VISIT Pain Mgmt/DM----DBennettRN PLAN OF CARE VITAL SIGNS Height 66 in 2017-12-16 Weight 225 lbs 2017-12-16 Temperature 98.1 degrees Fahrenheit 2017-12-16 Heart Rate 80 bpm 2017-12-16 Respiratory Rate 20 2017-12-16 BMI 36.31 kg/m2 2017-12-16 Blood pressure systolic 134 mmHg 2017-12-16 Blood pressure diastolic 88 mmHg 2017-12-16 MEDICATIONS Medication Instructions Dosage Frequency Start Date End Date Duration Status MetFORMIN HCl ER 500 mg Orally 2 times a day 2 tablets 12h Apr, Active Pepcid 20 mg Orally 2 times a day 1 tablet at bedtime 12h Apr, 30 day(s) Active Glucometer 1 as directed 12h Jun, Active Depo-Testosterone 200 MG/ML Intramuscular once monthly 0.5 ml Dec, Active Diclofenac Sodium 75 mg Orally 2 times a day 1 tablet as needed 12h Nov Active Fluoxetine HCl 40 mg Orally Once a day, voucher 1st fill 1 capsule in the morning January, 30 day(s) Active GlipiZIDE 5 mg 1 tablet 12h Active Pen [place] 3/16" 31G X 5 MM as directed 24h 29 Jan, 2015 Active Trulicity 1.5 MG/0.5ML Subcutaneous once weekly Inject 0.5mL Sep, Active [place] 10-325 MG Orally every 6 hrs 1 tablet as needed 6h Nov, 28 days Active RESULTS Name Result Date Reference Range A1C (IN HOUSE) 2017-12-16 A1C IN HOUSE 8.2 4.3 - 5.6 % Previous A1c 11.0 Lot [id number] Exp date 08/09 PROCEDURES Procedure Date Ordered Result Body Site GLYCATED HEMOGLOBIN TEST December 16, 2017 INSTRUCTIONS MEDICATIONS ADMINISTERED No Known Medications MEDICAL (GENERAL) HISTORY Type Description Date Medical History Type 2 diabetes Medical History anxiety Medical History chronic hip pain Medical History carpal tunnel bilateral Medical History [place] Palsy Surgical History carpel tunnel-right hand 2011 Surgical History carpel tunnel-left hand 2008 Surgical History carpal tunnel - right hand 11/2015 Surgical History Torn bicep repair 01/2018 Hospitalization History ER spider bite
--- OUTSIDE RECORDS SUMMARY | 2018-06-25 06:13 | XMS REPORT ---
Author Author KASI BLANCHARD Organization [facility] Address [address] [place] [address] Care Team Providers Care Disbursement Clerk Name Role Phone KASI BLANCHARD Unavailable PROBLEMS Type Condition ICD9-CM Code WQF47-TC Code Onset Dates Condition Status SNOMED Code Problem Controlled type 2 diabetes mellitus without complication, without long -term current use of insulin E11.9 Active 683260378 Problem Chronic fatigue R53.82 Active 47506963 Problem Drug-induced erectile dysfunction N52.2 Active 136767222 Problem Diabetes E11.9 Active 13377230 Problem Anxiety F41.9 Active 88345688 Problem Chronic osteoarthritis M19.90 Active 57095922 Problem Sialadenitis K11.20 Active 31691231 Problem Uncontrolled type 2 diabetes mellitus without complication, without long-term current use of insulin E11.65 Active 239796025 Problem Hypogonadism in male E29.1 Active 46043206 Problem Mood disorder F39 Active 44037913 Problem Diabetes type 2, controlled E11.9 Active 441860718 Problem Depressive disorder, not elsewhere classified F32.9 Active 27874758 ALLERGIES No Information ENCOUNTERS Encounter Location Date Diagnosis [place] [id number] [place] [address] 32190- 8907 Mar, [facility] [id number] [place] [address] 30623- 1179 Feb, Insect bite (nonvenomous) of right upper arm, initial encounter S40.861A [facility] [id number] [place] [address] 38692- 0089 Feb, Insect bite (nonvenomous) of right upper arm, initial encounter S40.861A ; Local infection of the skin and subcutaneous tissue, unspecified L08.9 and Hypogonadism in male E29.1 [place] [address] [place] [id number] [place] [address] 56463- 8280 January, Sialadenitis K11.20 [facility] [id number] [place] [address] 70846- 5653 January, Bronchitis J40 [facility] [id number] [place] [address] 83722- 2336 January, Hypogonadism in male E29.1 [facility] [id number] [place] [address] 84731- 7917 January, Hypogonadism in male E29.1 [facility] [id number] [place] [address] 14654- 7126 Dec, Bronchitis J40 [facility] [id number] [place] [address] 14032- 2204 Nov, Diabetes E11.9 and Anxiety F41.9 [facility] [id number] [place] [address] 80851- 5150 Nov, Bronchitis J40 [facility] [id number] [place] [address] 43156- 8095 Oct, Bronchitis J40 [facility] [id number] [place] [address] 13346- 4816 Sep, Diabetes E11.9 ; Mood disorder F39 ; Hypogonadism in male E29.1 and Depressive disorder, not elsewhere classified F32.9 [facility] [id number] [place] [address] 46791- 9284 Sep, Bronchitis J40 [facility] [id number] [place] [address] 18095- 2176 Sep, Hypogonadism in male E29.1 [facility] [id number] [place] [address] 66809- 4272 Sep, [facility] [id number] [place] [address] 14649- 5391 Sep, [facility] [id number] [place] [address] 51432- 8088 Aug, Bronchitis J40 [facility] [id number] [place] [address] 84043- 4956 Aug, Uncontrolled type 2 diabetes mellitus without complication, without long-term current use of insulin E11.65 ; Diabetes type 2, controlled E11.9 ; Hypogonadism in male E29.1 ; Encounter for immunization Z23 and Spider bite wound, undetermined intent, initial encounter T63.304A [facility] [address] 50335- 8687 Jul, Bronchitis J40 [facility] [address] [place] [address] [id number] [place] [address] 61418- 7772 Jun, Hypogonadism in male E29.1 [place] [id number] [place] [address] 70230- 8342 Jun, Hypogonadism in male E29.1 and Bronchitis J40 [facility] [address] [address] [id number] [place] [address] 24938- 1934 May, Bronchitis J40 [facility] [id number] [place] [address] 97513- 5480 May, Hypogonadism in male E29.1 [facility] [id number] [place] [address] 65891- 9009 May, Hypogonadism in male E29.1 [facility] [address] [place] [address] [id number] [place] [address] 14990- 7359 Apr, Bronchitis J40 [facility] [address] [id number] [place] [address] 49283- 5294 Apr, Controlled type 2 diabetes mellitus without complication, without long-term current use of insulin E11.9 [facility] [address] [place] [id number] [place] [address] 12559- 9277 Apr, Diabetes type 2, controlled E11.9 ; Hypogonadism in male E29.1 and Mood disorder F39 [facility] [id number] [place] [address] 19992- 5233 Apr, Hypogonadism in male E29.1 [facility] [id number] [place] [address] 78344- 7980 Apr, Bronchitis J40 [facility] [id number] [place] [address] 75059- 3829 Mar, Hypogonadism in male E29.1 [facility] [address] 21374- 9628 Mar, Bronchitis J40 [facility] [address] 81791- 9653 Mar, Bronchitis J40 [facility] [address] [place] [address] [id number] [place] [address] 44458- 1501 Feb, Spider bite, accidental or unintentional, initial encounter T63.301A [facility] [address] 28764- 3898 Feb, Depressive disorder, not elsewhere classified F32.9 [facility] [address] [place] [address] [id number] [place] [address] 03267- 6958 Feb, Diabetes E11.9 ; Mood disorder F39 and Hypogonadism in male E29.1 [facility] [address] [place] [address] [id number] [place] [address] 04104- 6782 Feb, Bronchitis J40 [facility] [address] [id number] [place] [address] 13435- 9091 Feb, Depressive disorder, not elsewhere classified F32.9 [facility] [address] [place] [address] [id number] [place] [address] 46418- 3499 January, Depressive disorder, not elsewhere classified F32.9 [facility] [id number] [place] [address] 87315- 2440 January, Diabetes E11.9 and Mood disorder F39 [facility] [id number] [place] [address] 64070- 4960 January, Bronchitis J40 [facility] [id number] [place] [address] 45095- 1511 Dec, Bronchitis J40 [facility] [address] [id number] [place] [address] 93107- 3395 Dec, Hypogonadism in male E29.1 [facility] [address] [place] [id number] [place] [address] 88372- 3970 Dec, [facility] [address] [place] [address] [id number] [place] [address] 78444- 0164 Dec, Controlled type 2 diabetes mellitus without complication, without long-term current use of insulin E11.9 and Chronic fatigue R53.82 [facility] [address] [place] [id number] [place] [address] 43447- 3731 Nov, Bronchitis J40 [facility] [address] [place] [id number] [place] [address] 35328- 2791 Oct, Bronchitis J40 ; Controlled type 2 diabetes mellitus without complication, without long-term current use of insulin E11.9 ; Chronic fatigue R53.82 and Drug-induced erectile dysfunction N52.2 [place] [address] [place] [address] [id number] [place] [address] 23931- 1831 Oct, Diabetes E11.9 [facility] [address] [place] [id number] [place] [address] 07458- 1647 Sep, Pre-employment examination Z02.1 [facility] [address] [place] [id number] [place] [address] 90564- 5799 Sep, Diabetes E11.9 [facility] [address] [place] [address] [id number] [place] [address] 93195- 9146 Aug, Controlled type 2 diabetes mellitus without complication, without long-term current use of insulin E11.9 and Chronic osteoarthritis M19.90 [facility] [address] [place] [id number] [place] [address] 80671- 0181 Jul, [facility] [address] [place] [id number] [place] [address] 34330- 7911 Jun, [facility] [address] [place] [address] 61314- 2120 Jun, 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 [facility] [address] [place] [id number] [place] [address] 60570- 4167 07 Jun, 2016 Encounter for immunization Z23 and Controlled type 2 diabetes mellitus without complication, without long-term current use of insulin E11.9 [facility] [address] [place] [address] [id number] [place] [address] 93898- 6369 May, [facility] [address] [place] [id number] [place] [address] 75172- 4548 May, [facility] [address] [place] [id number] [place] [address] 49301- 3500 Apr, Gastritis without bleeding, unspecified chronicity, unspecified gastritis type K29.70 [facility] [address] [place] [id number] [place] [address] 87350- 3502 Apr, [facility] [address] [place] [id number] [place] [address] 20898- 7967 Mar, Diabetes type 2, controlled E11.9 [facility] [address] [place] [address] [id number] [place] [address] 15833- 4372 Mar, [facility] [address] [place] [address] [id number] [place] [address] 64460- 2540 Feb, [facility] [address] [place] [address] [id number] [place] [address] 93879- 3303 Feb, [facility] [address] [place] [address] [id number] [place] [address] 97902- 1610 January, [facility] [address] [place] [address] [id number] [place] [address] 26948- 2959 Dec, Urethritis N34.2 [facility] [address] [place] [id number] [place] [address] 73470- 0165 Dec, [facility] [address] [place] [address]- 7965 Nov, Diabetes type 2, controlled E11.9 [facility] [address] [place] [id number] [place] [address] 86720- 8787 Nov, [facility] [address] [address] [id number] [place] [address] 23312- 2305 Nov, Diabetes type 2, controlled E11.9 [facility] [address] [place] [address] [id number] [place] [address] 87341- 6555 Oct, Hand pain M79.643 [facility] [address] [place] [id number] [place] [address] 30340- 4220 Oct, Right hand pain M79.641 [facility] [address] [place] [id number] [place] [address] 11333- 0813 Oct, [facility] [address] [place] [id number] [place] [address] 56741- 8819 Oct, [facility] [address] [place] [id number] [place] [address] 84849- 0286 Oct, Right carpal tunnel syndrome G56.01 [facility] [address] [place] [id number] [place] [address] 52140- 9843 Sep, Diabetes E11.9 [facility] [address] [place] [id number] [place] [address] 83813- 5944 Sep, Anxiety F41.9 ; Chronic osteoarthritis M19.90 and Health examination of defined subpopulation V70.5 [facility] [address] [place] [address] 78116- 9943 Sep, Diabetes E11.9 [facility] [address] [place] [id number] [place] [address] 26626- 4824 Aug, Diabetes E11.9 ; Carpal tunnel syndrome, right G56.01 and Carpal tunnel syndrome, left upper limb G56.02 [facility] [address] [place] [id number] [place] [address] 01981- 7029 Jul, Diabetes mellitus 250.00 [facility] [address] [address]- 1695 Jun, Diabetes mellitus 250.00 [facility] [address] [place] [address] 89316- 6646 May, Diabetes mellitus 250.00 [facility] [address] [place] [address] 62332- 9916 Apr, Diabetes mellitus 250.00 [facility] [address] [place] [id number] [place] [address] 78435 2546 Mar, [facility] [address] [place] [address] [id number] [place] [address] 14239- 0236 Mar, Tooth abscess 522.5 [facility] [address] [place] [address] [id number] [place] [address] 01391- 5676 Feb, [facility] [address] [place] [id number] [place] [address] 98172- 0766 January, [facility] [address] [address]- 5383 January, [facility] [address] [place] [address] [id number] [place] [address] 26948- 6476 January, Diabetes mellitus 250.00 [facility] [address] [address]- 1226 January, [facility] [address] [address]- 5856 Dec, [facility] [address] [address]- 2546 Dec, [facility] [id number] [address]- 2546 Nov, [facility] [address] [address]- 1096 Nov, [facility] [id number] [place] [address] 77977- 7625 Nov, [facility] [place] [facility] [address] [id number] [place] [address]- 0647 Nov, [facility] [place] [facility] [address] [id number] [place] [address]- 4672 Oct, [facility] [place] [facility] [address] [facility] [id number] [place] [address]- 3106 Oct, [facility] [place] [facility] [address] [facility] [id number] [place] [address]- 8629 Sep, [facility] [place] [facility] [address] [id number] [place] 6357 Sep, [facility] [place] [facility] [address] [facility] [id number] [place] [address]- 0730 Aug, [facility] [place] [facility] [address] [facility] [id number] [place] [address]- 1316 Aug, [facility] [place] [facility] [address] [facility] [id number] [place] [address]- 9303 Aug, [facility] [place] [facility] [address] [facility] [id number] [place] [address]- 3927 Aug, [facility] [place] [facility] [address] [facility] [id number] [place] [address]- 4952 Aug, [facility] [place] [facility] [address] [facility] [id number] [place] [address]- 8615 Aug, [facility] [place] [facility] [address] [facility] [id number] [place] [address]- 8904 Jul, [facility] [place] [facility] [address] [id number] [place] [address]- 1321 Jul, [facility] [place] [facility] [address] [facility] [id number] [place] [address]- 7467 Jun, [facility] [place] [facility] [address] [facility] [id number] [place] 4810 Jun, [facility] [place] [facility] [address] [id number] [place] [address]- 9561 May, [facility] [place] [facility] [address] [id number] [place] [address]- 1136 May, [facility] [place] [facility] [address] [id number] [place] [address]- 9900 Apr, [facility] [place] [facility] [address] [id number] [place] [address]- 0277 Apr, [facility] [place] [facility] [address] [id number] [place] [address]- 5831 Apr, [facility] [place] [facility] [address] [id number] [place] [address]- 0220 Apr, [facility] [place] [facility] [address] [id number] [place] [address]- 5844 Apr, [facility] [place] [facility] [address] [id number] [place] [address]- 5140 Apr, [facility] [place] [facility] [address] [id number] [place] [address]- 0153 Mar, [facility] [place] [facility] [address] [id number] [place] [address]- 0867 Mar, [facility] [place] [facility] [address] [id number] [place] [address]- 5409 Feb, [facility] [place] [facility] [address] [id number] [place] [address]- 8522 Feb, [facility] [place] [facility] [address] [id number] [place] [address]- 1549 Feb, [facility] [place] [facility] [address] [id number] [place] [address]- 4334 Feb, [facility] [place] [facility] [address] [id number] [place] [address]- 5699 January, [facility] [place] [facility] [address] [id number] [place] [address]- 0074 January, [facility] [place] [facility] [address] [id number] [place] [address]- 1553 January, [facility] [place] [facility] [address] [id number] [place] [address]- 0452 January, [facility] [place] [facility] [address] [id number] [place] [address]- 5212 Dec, [facility] [place] [facility] [address] [id number] [place] [address]- 3983 Dec, [facility] [place] [facility] [address] [id number] [place] [address]- 8124 Nov, [facility] [place] [facility] [address] [id number] [place] [address]- 2187 Nov, [facility] [place] [facility] [address] [id number] [place] [address]- 1206 Oct, [facility] [place] [facility] [address] [id number] [place] [address]- 6675 Oct, [facility] [place] [facility] [address] [id number] [place] [address]- 6145 Sep, [facility] [place] [facility] [address] [id number] [place] [address]- 9896 Sep, [facility] [place] [facility] [address] [id number] [address]- 1454 Aug, [facility] [place] [facility] [address] [id number] [address]- 0789 Aug, [facility] [place] [facility] [address] [id number] [place] [address]- 1492 Jul, [facility] [place] [facility] [address] [id number] [place] [address]- 3530 Jul, [facility] [place] [facility] [address] [id number] [place] [address]- 9470 Jun, [facility] [place] [facility] [address] [id number] [place] [address] 2546 Jun, [facility] [address] [id number] [place] [address]- 8515 30 May, 2013 [facility] [address] [id number] [place] [address]- 2546 May, [facility] [address] [id number] [place] [address]- 3896 Apr, [facility] [address] [id number] [place] [address]- 2546 Apr, [facility] [address] [id number] [place] [address]- 6338 Feb, [facility] [address] [id number] [place] [address]- 3366 Feb, [facility] [address] [id number] [place] [address]- 3136 January, [facility] [address] [id number] [place] [address]- 7181 January, [facility] [address] [id number] [place] [address]- 0985 Dec, [facility] [address] [id number] [place] [address] 2546 Nov, [facility] [address] [id number] [place] [address]- 2546 Oct, [facility] [address] [id number] [place] [address]- 3359 Oct, [facility] [address] [id number] [place] [address]- 2546 Sep, [facility] [address] [id number] [place] [address]- 2546 Aug, [facility] [address] [id number] [place] [address]- 4315 Aug, [facility] [place] [facility] [address] [id number] [place] [address]- 8060 Jul, [facility] [place] [facility] [address] [id number] [place] [address]- 7287 Jul, [facility] [place] [facility] [address] [id number] [place] [address]- 6497 Jun, [facility] [place] [facility] [address] [id number] [place] [address]- 8373 24 May, 2012 [facility] [place] [facility] [address] [id number] [place] [address]- 9392 14 May, 2012 [facility] [place] [facility] [address] [id number] [place] [address]- 2724 May, [facility] [place] [facility] [address] [id number] [place] [address]- 4597 Apr, [facility] [place] [facility] [address] [id number] [place] [address]- 2610 Apr, [facility] [place] [facility] [address] [id number] [place] [address]- 9788 Apr, [facility] [place] [facility] [address] [id number] [place] [address] Mar, [facility] [place] [facility] [address] [id number] [place] [address] Mar, [facility] [place] [facility] [address] [id number] [address] Feb, [facility] [place] [facility] [address] [id number] [place] [address] Feb, [facility] [place] [facility] [address] [id number] [place] [address] January, [facility] [place] [facility] [address] [id number] [place] [address] January, [facility] [place] [facility] [address] [id number] [place] [address] Dec, [facility] [place] [facility] [address] [id number] [place] [address] Dec, [facility] [place] [facility] [address] [id number] [place] [address] Nov, [facility] [place] [facility] [address] [id number] [place] [address] Nov, [facility] [place] [facility] [address] [id number] [place] [address] Oct, [facility] [place] [facility] [address] [id number] [place] [address] Oct, [facility] [place] [facility] [address] [id number] [place] [address] Sep, [facility] [place] [facility] [address] [id number] [place] [address] Sep, [facility] [place] [facility] [address] [id number] [place] [address] Sep, [facility] [place] [facility] [address] [id number] [place] [address] Aug, [facility] [place] [facility] [address] [id number] [place] [address] Aug, [facility] [place] [facility] [address] [id number] [place] [address] Aug, [facility] [place] [facility] [address] [id number] [place] [address] Aug, [facility] [place] [facility] [address] [id number] [place] [address] 09 Aug, 2011 [facility] [place] [facility] [address] [id number] [place] [address] 30 Jul, 2011 [facility] [place] [facility] [address] [id number] [place] [address] Jul, [facility] [address] [facility] [id number] [place] [id number] Jul, [facility] [address] [facility] [id number] [place] [id number] Dec, IMMUNIZATIONS No Known Immunizations SOCIAL HISTORY Never Assessed REASON FOR VISIT Controlled Med Refill 11/05/17 PLAN OF CARE VITAL SIGNS MEDICATIONS Medication Instructions Dosage Frequency Start Date End Date Duration Status Latimer 10-325 MG Orally every 6 hrs 1 tablet as needed 6h Oct, 28 days Active RESULTS No Results PROCEDURES No Known procedures INSTRUCTIONS MEDICATIONS ADMINISTERED No Known Medications MEDICAL (GENERAL) HISTORY Type Description Date Medical History Type 2 diabetes Medical History anxiety Medical History chronic hip pain Medical History carpal tunnel bilateral Medical History [place] Palsy Surgical History carpel tunnel-right hand 2011 Surgical History carpel tunnel-left hand 2008 Surgical History carpal tunnel - right hand 11/2015 Surgical History Torn bicep repair 01/2018 Hospitalization History ER spider bite
--- OUTSIDE RECORDS SUMMARY | 2018-06-25 06:13 | XMS REPORT ---
Author Author KASI BLANCHARD [facility] Address [address] [place] [address] Care Team Providers Care Artist Suspect Name Role Phone KASI BLANCHARD Unavailable PROBLEMS Type Condition ICD9-CM Code ATA30-AZ Code Onset Dates Condition Status SNOMED Code Problem Chronic osteoarthritis M19.90 Active 18795650 Problem Controlled type 2 diabetes mellitus without complication, without long -term current use of insulin E11.9 Active 449077407 Problem Anxiety F41.9 Active 54340818 Problem Diabetes E11.9 Active 97370893 Problem Diabetes type 2, controlled E11.9 Active 033105817 Problem Depressive disorder, not elsewhere classified F32.9 Active 38711019 Problem Chronic fatigue R53.82 Active 09726869 Problem Drug-induced erectile dysfunction N52.2 Active 980512462 Problem Hypogonadism in male E29.1 Active 81658051 Problem Mood disorder F39 Active [id number] ALLERGIES No Information SOCIAL HISTORY Never Assessed PLAN OF CARE VITAL SIGNS MEDICATIONS Medication Instructions Dosage Frequency Start Date End Date Duration Status [place] 10-325 MG Orally every 6 hrs 1 tablet as needed 6h January, 28 days Active RESULTS No Results PROCEDURES No Known procedures IMMUNIZATIONS No Known Immunizations MEDICAL (GENERAL) HISTORY Type Description Date Medical History Type 2 diabetes Medical History anxiety Medical History chronic hip pain Medical History carpal tunnel bilateral Medical History [place] Palsy Surgical History carpel tunnel-right hand 2011 Surgical History carpel tunnel-left hand 2008 Surgical History carpal tunnel - right hand 11/2015 Hospitalization History [facility] spider bite
--- OUTSIDE RECORDS SUMMARY | 2018-06-25 06:13 | XMS REPORT ---
Author Author KASI BLANCHARD Organization [facility] Address [address] [place] [address] Care Team Providers Care Lay Ups Assembler Name Role Phone KASI BLANCHARD Unavailable PROBLEMS Type Condition ICD9-CM Code XIL39-OP Code Onset Dates Condition Status SNOMED Code Problem Anxiety F41.9 Active 03718186 Problem Drug-induced erectile dysfunction N52.2 Active [id number] Problem Controlled type 2 diabetes mellitus without complication, without long -term current use of insulin E11.9 Active 108923989 Problem Diabetes E11.9 Active 10445329 Problem Chronic osteoarthritis M19.90 Active 23477304 Problem Uncontrolled type 2 diabetes mellitus without complication, without long-term current use of insulin E11.65 Active 576819019 Problem Diabetes type 2, controlled E11.9 Active 814405247 Problem Mood disorder F39 Active 51503339 Problem Chronic fatigue R53.82 Active 88699425 Problem Depressive disorder, not elsewhere classified F32.9 Active 52753110 Problem Hypogonadism in male E29.1 Active 86161627 ALLERGIES No Known Allergies ENCOUNTERS Encounter Location Date Diagnosis [place] [id number] [place] [address] 97009- 1831 12 Dec, 2017 Bronchitis J40 [facility] [address] [place] [id number] [place] [address] 87797- 2734 28 Nov, 2017 Diabetes E11.9 and Anxiety F41.9 [facility] [id number] [place] [address] 96200- 1557 15 Nov, 2017 Bronchitis J40 [facility] [id number] [place] [address] 86712- 5402 14 Oct, 2017 Bronchitis J40 [facility] [id number] [place] [address] 58494- 3723 Sep, Diabetes E11.9 ; Mood disorder F39 ; Hypogonadism in male E29.1 and Depressive disorder, not elsewhere classified F32.9 [facility] [id number] [place] [address] 65871- 4101 Sep, Bronchitis J40 [facility] [id number] [place] [address] 22146- 5063 Sep, Hypogonadism in male E29.1 [facility] [address] 32417- 2719 Sep, [facility] [id number] [place] [address] 16954- 4250 Sep, [facility] [address] 36628- 2570 Aug, Bronchitis J40 [facility] [address] 89954- 9869 Aug, Uncontrolled type 2 diabetes mellitus without complication, without long-term current use of insulin E11.65 ; Diabetes type 2, controlled E11.9 ; Hypogonadism in male E29.1 ; Encounter for immunization Z23 and Spider bite wound, undetermined intent, initial encounter T63.304A [facility] [address] 08188- 2912 Jul, Bronchitis J40 [facility] [id number] [place] [address] 91139- 9827 Jun, Hypogonadism in male E29.1 [facility] [address] [place] [id number] [place] [address] 10108- 7946 Jun, Hypogonadism in male E29.1 and Bronchitis J40 [facility] [id number] [place] [address] 52188- 7161 May, Bronchitis J40 [facility] [id number] [place] [address] 63023- 6041 May, Hypogonadism in male E29.1 [facility] [id number] [place] [address] 23956- 9482 May, Hypogonadism in male E29.1 [facility] [id number] [address]- 7652 Apr, Bronchitis J40 [facility] [id number] [place] [address] 05819- 6201 Apr, Controlled type 2 diabetes mellitus without complication, without long-term current use of insulin E11.9 [facility] [id number] [place] [address] 18963- 8391 Apr, Diabetes type 2, controlled E11.9 ; Hypogonadism in male E29.1 and Mood disorder F39 [facility] [address] [id number] [place] [address] 55138- 0547 Apr, Hypogonadism in male E29.1 [facility] [id number] [place] [address] 17994- 8546 Apr, Bronchitis J40 [facility] [id number] [place] [address] 27144- 1545 Mar, Hypogonadism in male E29.1 [facility] [id number] [place] [address] 74897- 8870 Mar, Bronchitis J40 [facility] [id number] [place] [address] 77112- 3559 Mar, Bronchitis J40 [facility] [id number] [place] [address] 11671- 7348 Feb, Spider bite, accidental or unintentional, initial encounter T63.301A [facility] [id number] [place] [address] 06945- 9801 Feb, Depressive disorder, not elsewhere classified F32.9 [facility] [address] [id number] [place] [address] 84770- 2555 Feb, Diabetes E11.9 ; Mood disorder F39 and Hypogonadism in male E29.1 [facility] [id number] [place] [address] 82955- 4652 Feb, Bronchitis J40 [facility] [id number] [place] [address] 30477- 7195 Feb, Depressive disorder, not elsewhere classified F32.9 [facility] [id number] [place] [address] 63088- 9312 January, Depressive disorder, not elsewhere classified F32.9 [facility] [id number] [place] [address] 21577- 6808 January, Diabetes E11.9 and Mood disorder F39 [facility] [address] [place] [id number] [place] [address] 60254- 4369 January, Bronchitis J40 [facility] [address] [place] [id number] [place] [address] 92312- 0608 Dec, Bronchitis J40 [facility] [address] [place] [id number] [place] [address] 21598- 1600 Dec, Hypogonadism in male E29.1 [facility] [id number] [place] [address] 76041- 1355 Dec, [facility] [address] [place] [id number] [place] [address] 05761- 5439 Dec, Controlled type 2 diabetes mellitus without complication, without long-term current use of insulin E11.9 and Chronic fatigue R53.82 [facility] [address] [place] [id number] [place] [address] 00016- 6982 Nov, Bronchitis J40 [facility] [id number] [place] [address] 65557- 9478 Oct, Bronchitis J40 ; Controlled type 2 diabetes mellitus without complication, without long-term current use of insulin E11.9 ; Chronic fatigue R53.82 and Drug-induced erectile dysfunction N52.2 [facility] [address] [place] [id number] [place] [address] 01088- 5505 Oct, Diabetes E11.9 [facility] [id number] [place] [address] 99034- 5208 Sep, Pre-employment examination Z02.1 [facility] [address] [place] [id number] [place] [address] 75767- 5152 Sep, Diabetes E11.9 [facility] [address] [place] [id number] [place] [address] 47677- 5081 Aug, Controlled type 2 diabetes mellitus without complication, without long-term current use of insulin E11.9 and Chronic osteoarthritis M19.90 [facility] [address] [place] [id number] [place] [address] 49311- 8796 Jul, [place] [address] [place] [id number] [place] [address] 12882- 3085 Jun, [place] [address] [place] [id number] [place] [address] 28455- 9619 Jun, 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 [place] [address] [place] [id number] [place] [address] 39416- 5576 Jun, Encounter for immunization Z23 and Controlled type 2 diabetes mellitus without complication, without long-term current use of insulin E11.9 [place] [address] [place] [id number] [place] [address] 99180- 1166 May, [place] [address] [place] [id number] [place] [address] 43425- 7719 May, [facility] [address] [place] [id number] [place] [address] 03145- 5461 Apr, Gastritis without bleeding, unspecified chronicity, unspecified gastritis type K29.70 [facility] [address] [address]- 7634 Apr, [place] [address] [place] [id number] [place] [address] 25571- 8903 Mar, Diabetes type 2, controlled E11.9 [facility] [address] [address]- 2541 Mar, [facility] [address] [address]- 1891 10 Feb, 2016 [facility] [address] [place] [id number] [place] [address] 89622- 5747 Feb, [facility] [address] [place] [id number] [place] [address] 66035- 3741 January, [facility] [address] [place] [id number] [place] [address] 27933- 9928 Dec, Urethritis N34.2 [facility] [address] [place] [id number] [place] [address] 39692- 1212 Dec, [facility] [address] [place] [id number] [place] [address] 80192- 9538 Nov, Diabetes type 2, controlled E11.9 [facility] [address] [place] [id number] [place] [address] 72351- 9132 Nov, [facility] [address] [place] [id number] [place] [address] 40178- 7440 Nov, Diabetes type 2, controlled E11.9 [facility] [address] [place] [id number] [place] [address] 70992- 9477 Oct, Hand pain M79.643 [facility] [address] [place] [address] 31471- 4356 Oct, Right hand pain M79.641 [facility] [address] [place] [address] 99625- 4571 Oct, [facility] [address] [place] [address] 38700- 1714 Oct, [facility] [address] [place] [address] 33600- 4082 Oct, Right carpal tunnel syndrome G56.01 [facility] [address] [address]- 3901 Sep, Diabetes E11.9 [facility] [address] [id number] [place] [address] 65374- 5495 Sep, Anxiety F41.9 ; Chronic osteoarthritis M19.90 and Health examination of defined subpopulation V70.5 [facility] [address] [id number] [place] [address] 29750- 9151 Sep, Diabetes E11.9 [facility] [id number] [place] [address] 56325- 9614 Aug, Diabetes E11.9 ; Carpal tunnel syndrome, right G56.01 and Carpal tunnel syndrome, left upper limb G56.02 [facility] [address] [place] [id number] [place] [address] 36985- 1270 Jul, Diabetes mellitus 250.00 [facility] [address] [place] [id number] [place] [address] 45781- 0960 Jun, Diabetes mellitus 250.00 [facility] [address] [place] [id number] [place] [address] 57551- 3855 May, Diabetes mellitus 250.00 [facility] [address] [id number] [place] [address] 97090- 1245 Apr, Diabetes mellitus 250.00 [facility] [address] [id number] [place] [address] 34712- 8435 Mar, [facility] [address] [id number] [place] [address] 47927- 1356 Mar, Tooth abscess 522.5 [facility] [id number] [place] [address] 86699- 9638 Feb, [facility] [address] [id number] [place] [address] 641144- 3027 January, [facility] [id number] [place] [address] 335499- 4941 January, [facility] [id number] [address] 6783 January, Diabetes mellitus 250.00 [facility] [place] [facility] [address] [id number] [place] [address]- 6935 January, [facility] [place] [facility] [address] [id number] [place] [address]- 6826 14 Dec, 2014 [facility] [place] [facility] [address] [id number] [place] [address]- 1533 Dec, [facility] [place] [facility] [address] [id number] [place] [address]- 3835 Nov, [facility] [place] [facility] [address] [id number] [place] [address]- 5228 Nov, [facility] [place] [facility] [address] [id number] [place] [address]- 0685 Nov, [facility] [place] [facility] [address] [id number] [place] [address]- 4948 Nov, [facility] [place] [facility] [address] [id number] [place] [address]- 5847 Oct, [facility] [place] [facility] [address] [id number] [place] [address]- 3047 Oct, [facility] [place] [facility] [address] [id number] [place] [address]- 7974 Sep, [facility] [place] [facility] [address] [id number] [place] [address]- 8926 Sep, [facility] [place] [facility] [address] [id number] [place] [address]- 3018 Aug, [facility] [place] [facility] [address] [id number] [place] [address]- 5185 Aug, [facility] [place] [facility] [address] [id number] [place] [address]- 6447 Aug, [facility] [place] [facility] [address] [id number] [place] [address]- 4538 Aug, [facility] [place] [facility] [address] [id number] [place] [address]- 7486 Aug, [facility] [place] [facility] [address] [id number] [place] 4118 Aug, [facility] [place] [facility] [address] [id number] [place] [address]- 6150 Jul, [facility] [place] [facility] [address] [id number] [place] [address]- 0544 Jul, [facility] [place] [facility] [address] [id number] [place] [address]- 1762 Jun, [facility] [place] [facility] [address] [id number] [place] [address]- 9438 Jun, [facility] [place] [facility] [address] [id number] [place] [address]- 5961 May, [facility] [place] [facility] [address] [id number] [place] [address]- 6717 May, [facility] [place] [facility] [address] [id number] [place] [address]- 9921 Apr, [facility] [place] [facility] [address] [id number] [place] [address]- 1443 Apr, [facility] [place] [facility] [address] [id number] [place] [address]- 2894 Apr, [facility] [place] [facility] [address] [id number] [place] [address]- 7023 Apr, [facility] [place] [facility] [address] [id number] [place] [address]- 6686 Apr, [facility] [place] [facility] [address] [id number] [place] [address]- 3879 Apr, [facility] [place] [facility] [address] [id number] [place] [address]- 1948 Mar, [facility] [place] [facility] [address] [id number] [place] [address]- 2850 Mar, [facility] [place] [facility] [address] [id number] [place] [address]- 0069 Feb, [facility] [address] [id number] [place] [address]- 2799 Feb, [facility] [place] [facility] [address] [id number] [place] [address]- 7566 Feb, [facility] [place] [facility] [address] [id number] [place] [address]- 3171 Feb, [facility] [place] [facility] [address] [id number] [place] [address]- 3186 January, [facility] [place] [facility] [address] [id number] [place] [address]- 3423 January, [facility] [place] [facility] [address] [id number] [place] [address]- 2314 January, [facility] [place] [facility] [address] [id number] [place] [address]- 1486 January, [facility] [address] [id number] [place] [address]- 0409 Dec, [facility] [place] [facility] [address] [id number] [place] [address]- 4458 Dec, [facility] [address] [id number] [place] [address]- 7034 Nov, [facility] [place] [facility] [address] [id number] [place] [address]- 7833 Nov, [facility] [place] [facility] [address] [id number] [place] [address]- 9919 Oct, [facility] [place] [facility] [address] [id number] [place] [address]- 2372 Oct, [facility] [place] [facility] [address] [id number] [place] [address]- 3044 Sep, [facility] [place] [facility] [address] [id number] [place] [address]- 7665 Sep, [facility] [address] [id number] [place] [address]- 7285 Aug, [facility] [place] [facility] [address] [id number] [place] [address]- 3554 Aug, [facility] [place] [facility] [address] [id number] [place] [address]- 6148 Jul, [facility] [place] [facility] [address] [id number] [place] [address]- 8511 Jul, [facility] [place] [facility] [address] [id number] [place] [address]- 0238 Jun, [facility] [place] [facility] [address] [id number] [place] [address]- 4624 Jun, [facility] [place] [facility] [address] [id number] [place] [address]- 5284 May, [facility] [place] [facility] [address] [id number] [place] [address]- 1387 May, [facility] [place] [facility] [address] [id number] [place] [address]- 0870 Apr, [facility] [place] [facility] [address] [id number] [address]- 5600 Apr, [facility] [place] [facility] [address] [id number] [place] [address]- 5243 Feb, [facility] [place] [facility] [address] [id number], [place] [address]- 9493 Feb, [facility] [place] [facility] [address] [id number] [place] [address]- 8233 January, [facility] [place] [facility] [address] [id number], [place] [address]- 8306 January, [facility] [place] [facility] [address] [id number] [place] [address]- 0078 Dec, [facility] [place] [facility] [address] [id number] [place] [address]- 5579 Nov, [facility] [place] [facility] [address] [id number] [place] [address]- 7521 Oct, [facility] [place] [facility] [address] [id number] [place] [address]- 7296 Oct, [facility] [place] [facility] [address] [id number] [place] [address]- 9806 Sep, [facility] [place] [facility] [address] [id number] [place] [address]- 0406 Aug, [facility] [place] [facility] [address] [id number] [place] [address]- 4328 Aug, [facility] [place] [facility] [address] [id number] [place] [address]- 0330 Jul, [facility] [place] [facility] [address] [id number] [place] [address]- 2535 Jul, [facility] [place] [facility] [address] [id number] [place] [address]- 8372 Jun, [facility] [place] [facility] [address] [id number] [place] [address]- 7295 24 May, 2012 [facility] [place] [facility] [address] [id number] [place] [address]- 7890 14 May, 2012 [facility] [place] [facility] [address] [id number] [place] [address]- 3750 13 May, 2012 [facility] [place] [facility] [address] [id number] [place] [address]- 2788 28 Apr, 2012 [facility] [place] [facility] [address] [id number] [place] [address]- 9725 Apr, [facility] [place] [facility] [address] [id number] [place] [address]- 1726 Apr, [facility] [place] [facility] [address] [id number] [place] [address]- 7431 Mar, [facility] [place] [facility] [address] [id number] [place] [address]- 6276 Mar, [facility] [address] [id number] [place] [address]- 3747 Feb, [facility] [place] [facility] [address] [id number] [place] [address]- 5362 Feb, [facility] [address] [id number] [place] [address]- 8544 January, [facility] [address] [id number] [place] [address]- 1522 January, [facility] [address] [id number] [place] [address]- 1186 Dec, [facility] [address] [id number] [place] [address]- 1727 Dec, [facility] [address] [id number] [place] [address]- 1571 Nov, [facility] [address] [id number] [place] [address]- 6948 Nov, [facility] [address] [id number] [place] [address]- 4432 Oct, [facility] [address] [id number] [place] [address]- 3410 Oct, [facility] [address] [id number] [place] [address]- 4388 Sep, [facility] [place] [facility] [address] [id number] [place] [address] Sep, [facility] [place] [facility] [address] [id number] [place] [address] Sep, [facility] [place] [facility] [address] [id number] [place] [address] Aug, [facility] [place] [facility] [address] [id number] [address] Aug, [facility] [address] [id number] [address] Aug, [facility] [address] [id number] [address] Aug, [facility] [address] [id number] [address] Aug, [facility] [address] [id number] [address] Jul, [facility] [address] [id number], [place] [address] Jul, [facility] [id number], [place] [address] Jul, [facility] [address] [id number] [address] Dec, IMMUNIZATIONS No Known Immunizations SOCIAL HISTORY Never Assessed REASON FOR VISIT Diabetes - Here for DM check no problems to report today. - Ayleen MALDONADO PLAN OF CARE VITAL SIGNS Height 66 in 2017-05-18 Weight 232.2 lbs 2017-05-18 Temperature 98.0 degrees Fahrenheit 2017-05-18 Heart Rate 80 bpm 2017-05-18 Respiratory Rate 16 2017-05-18 BMI 37.47 kg/m2 2017-05-18 Blood pressure systolic 155 mmHg 2017-05-18 Blood pressure diastolic 96 mmHg 2017-05-18 MEDICATIONS Medication Instructions Dosage Frequency Start Date End Date Duration Status Fluoxetine HCl 40 MG Orally Once a day, voucher 1st fill 1 capsule in the morning January, 30 day(s) Active Depo-Testosterone 100 MG/ML Intramuscular once monthly 1 ml Dec, Active Cyclobenzaprine HCl 10 mg Orally Three times a day 1 tablet as needed 8h 16 Feb, 2017 Active Glucometer 1 as directed 12h Jun, Active GlipiZIDE 5 mg Orally 2 times a day 1 tablet 12h Aug, 30 day(s ) Active Diclofenac Sodium 75 MG Orally 2 times a day 1 tablet as needed 12h Nov Active Victoza 18 mg/3ml Subcutaneous Once a day 1.8 mg by Subcutaneous route 1 time per day 24h January, Active [place] 10-325 MG Orally every 6 hrs 1 tablet as needed 6h Apr, 28 days Active Pen [place] 3/16" 31G X 5 MM as directed 24h January, Active BusPIRone HCl 10 mg Orally Twice a day 1 tablet 12h 28 Dec, 2015 Active MetFORMIN HCl ER 500 mg Orally 2 times a day 2 tablets 12h Apr, Active Pepcid 20 mg Orally 2 times a day 1 tablet at bedtime 12h Apr, 30 day(s) Active HydrOXYzine HCl 25 MG 1 tablet 12h Nov, Active RESULTS Name Result Date Reference Range A1C (IN HOUSE) 2017-05-18 A1C IN HOUSE 10.8 4.3 - 5.6 % Previous A1c 9.6 Lot [id number] Exp date PROCEDURES Procedure Date Ordered Result Body Site GLYCATED HEMOGLOBIN TEST May 18, 2017 VENIPUNCT, ROUTINE* May 18, 2017 ASSAY OF TOTAL TESTOSTERONE May 18, 2017 INSTRUCTIONS MEDICATIONS ADMINISTERED No Known Medications MEDICAL (GENERAL) HISTORY Type Description Date Medical History Type 2 diabetes Medical History anxiety Medical History chronic hip pain Medical History carpal tunnel bilateral Medical History [facility] Surgical History carpel tunnel-right hand 2011 Surgical History carpel tunnel-left hand 2008 Surgical History carpal tunnel - right hand 11/2015 Hospitalization History ER spider bite
--- OUTSIDE RECORDS SUMMARY | 2018-06-25 06:14 | XMS REPORT ---
Author Author KASI BLANCHARD Organization [facility] Address [address] [place] [address] Care Team Providers Care Tunnel Drier Operator Name Role Phone KASI BLANCHARD Unavailable PROBLEMS Type Condition ICD9-CM Code NRN41-HM Code Onset Dates Condition Status SNOMED Code Problem Controlled type 2 diabetes mellitus without complication, without long -term current use of insulin E11.9 Active 353620952 Problem Chronic fatigue R53.82 Active 62377605 Problem Drug-induced erectile dysfunction N52.2 Active 092932810 Problem Diabetes E11.9 Active 64082593 Problem Anxiety F41.9 Active 88901500 Problem Chronic osteoarthritis M19.90 Active 52027830 Problem Sialadenitis K11.20 Active 94301936 Problem Uncontrolled type 2 diabetes mellitus without complication, without long-term current use of insulin E11.65 Active 163176780 Problem Hypogonadism in male E29.1 Active 20441726 Problem Mood disorder F39 Active 05321615 Problem Diabetes type 2, controlled E11.9 Active 206384184 Problem Depressive disorder, not elsewhere classified F32.9 Active 92435093 ALLERGIES No Information ENCOUNTERS Encounter Location Date Diagnosis [place] [id number] [place] [address] 42176- 0483 January, Sialadenitis K11.20 [facility] [address] [id number] [place] [address] 63641- 2892 January, Bronchitis J40 [facility] [address], [place] [address]- 9162 January, Hypogonadism in male E29.1 [facility] [id number] [place] [address] 53276- 2797 January, Hypogonadism in male E29.1 [place] [address] [id number] [place] [address] 59534- 6015 Dec, Bronchitis J40 [facility] [id number] [place] [address] 41906- 6465 28 Nov, 2017 Diabetes E11.9 and Anxiety F41.9 [facility] [id number] [place] [address] 27193- 6333 15 Nov, 2017 Bronchitis J40 [facility] [id number] [place] [address] 09713- 1954 14 Oct, 2017 Bronchitis J40 [facility] [address] 48949- 4251 Sep, Diabetes E11.9 ; Mood disorder F39 ; Hypogonadism in male E29.1 and Depressive disorder, not elsewhere classified F32.9 [facility] [id number] [place] [address] 46535- 9070 Sep, Bronchitis J40 [facility] [address] 75401- 1332 Sep, Hypogonadism in male E29.1 [facility] [address] 06211- 3671 Sep, [facility] [address] 91340- 4108 Sep, [facility] [id number] [place] [address] 81252- 6293 Aug, Bronchitis J40 [facility] [address] 46436- 8430 Aug, Uncontrolled type 2 diabetes mellitus without complication, without long-term current use of insulin E11.65 ; Diabetes type 2, controlled E11.9 ; Hypogonadism in male E29.1 ; Encounter for immunization Z23 and Spider bite wound, undetermined intent, initial encounter T63.304A [facility] [id number] [place] [address] 85418- 4734 Jul, Bronchitis J40 [facility] [address] 21995- 4076 Jun, Hypogonadism in male E29.1 [facility] [address] [facility] [id number] [address] 2546 Jun, Hypogonadism in male E29.1 and Bronchitis J40 [facility] [address] [facility] [id number] [place] [address] 45190 2546 May, Bronchitis J40 [facility] [address] [facility] [id number] [place] [address] 84871 2546 May, Hypogonadism in male E29.1 [facility] [address] [facility] [id number] [place] [address] 75477 2546 May, Hypogonadism in male E29.1 [facility] [address] [place] [id number] [place] [address] 34954- 7036 Apr, Bronchitis J40 [facility] [id number] [place] [address] 21440- 1768 Apr, Controlled type 2 diabetes mellitus without complication, without long-term current use of insulin E11.9 [facility] [address] [facility] [id number] [place] [address] 93839- 0204 Apr, Diabetes type 2, controlled E11.9 ; Hypogonadism in male E29.1 and Mood disorder F39 [facility] [address] [address]- 6042 Apr, Hypogonadism in male E29.1 [facility] [address] [facility] [id number] [place] [address] 21955 2546 Apr, Bronchitis J40 [facility] [address] [facility] [id number] [address] 2546 Mar, Hypogonadism in male E29.1 [facility] [address] [facility] [id number] [place] [address] 36882 2542 Mar, Bronchitis J40 [facility] [address] [facility] [id number] [place] [address] 91189 2541 Mar, Bronchitis J40 [facility] [address] [place] [address] 26659- 7059 Feb, Spider bite, accidental or unintentional, initial encounter T63.301A [facility] [id number] [place] [address] 35026- 5816 Feb, Depressive disorder, not elsewhere classified F32.9 [facility] [id number] [place] [address] 48254- 5682 Feb, Diabetes E11.9 ; Mood disorder F39 and Hypogonadism in male E29.1 [facility] [address] [id number] [place] [address] 58508- 4776 Feb, Bronchitis J40 [facility] [address] [id number] [place] [address] 13724- 4563 Feb, Depressive disorder, not elsewhere classified F32.9 [facility] [address] [id number] [place] [address] 12462- 8430 January, Depressive disorder, not elsewhere classified F32.9 [facility] [id number] [place] [address] 34430- 8935 January, Diabetes E11.9 and Mood disorder F39 [facility] [id number] [place] [address] 44396- 3317 January, Bronchitis J40 [facility] [id number] [place] [address] 45170- 1311 Dec, Bronchitis J40 [facility] [id number] [place] [address] 36915- 6273 Dec, Hypogonadism in male E29.1 [facility] [id number] [place] [address] 43154- 0167 Dec, [facility] [address] [place] [address] 98897- 1915 Dec, Controlled type 2 diabetes mellitus without complication, without long-term current use of insulin E11.9 and Chronic fatigue R53.82 [place] [address] [id number] [place] [address] 45380- 2017 Nov, Bronchitis J40 [facility] [address] [address] [id number] [place] [address] 20685- 9056 16 Oct, 2016 Bronchitis J40 ; Controlled type 2 diabetes mellitus without complication, without long-term current use of insulin E11.9 ; Chronic fatigue R53.82 and Drug-induced erectile dysfunction N52.2 [place] [address] [id number] [place] [address] 34623- 8424 06 Oct, 2016 Diabetes E11.9 [place] [address] [address] [id number] [place] [address] 17313- 7442 Sep, Pre-employment examination Z02.1 [place] [address] [address] [id number] [place] [address] 60417- 5957 Sep, Diabetes E11.9 [place] [address] [address] [id number] [place] [address] 15608- 1674 Aug, Controlled type 2 diabetes mellitus without complication, without long-term current use of insulin E11.9 and Chronic osteoarthritis M19.90 [place] [address] [id number] [place] [address] 77808- 6426 Jul, [place] [address] [id number] [place] [address] 05443- 9661 Jun, [place] [address] [id number] [place] [address] 66939- 9148 Jun, 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70 [facility] [address] [address]- 1666 Apr, [facility] [address] [place] [address] 00297- 0484 Mar, Diabetes type 2, controlled E11.9 [facility] [address] [address]- 3244 Mar, [facility] [address] [id number] [place] [address] 69793- 3936 Feb, [facility] [id number] [address]- 7520 Feb, [facility] [address] [id number] [place] [address] 95033- 1827 January, [facility] [address], [place] [address]- 1412 Dec, Urethritis N34.2 [facility] [address] [address]- 8178 Dec, [facility] [address] [address]- 3768 Nov, Diabetes type 2, controlled E11.9 [facility] [address] [address] 2546 Nov, [facility] [address] [address]- 8566 Nov, Diabetes type 2, controlled E11.9 [facility] [address], [place] [address] 2546 Oct, Hand pain M79.643 [facility] [address] [place] [address] 12277- 1002 Oct, Right hand pain M79.641 [facility] [address] [id number] [place] [address] 56674- 9695 Oct, [facility] [id number] [place] [address] 44063- 5440 Oct, [facility] [id number] [place] [address] 18972- 3497 Oct, Right carpal tunnel syndrome G56.01 [facility] [id number] [place] [address] 64571- 9839 Sep, Diabetes E11.9 [facility] [address] [id number] [place] [address] 18993- 4223 Sep, Anxiety F41.9 ; Chronic osteoarthritis M19.90 and Health examination of defined subpopulation V70.5 [facility] [address] [place] [id number] [place] [address] 51193- 0996 Sep, Diabetes E11.9 [facility] [address] [place] [id number] [place] [address] 67609- 1453 Aug, Diabetes E11.9 ; Carpal tunnel syndrome, right G56.01 and Carpal tunnel syndrome, left upper limb G56.02 [facility] [address] [place] [id number] [place] [address] 57255- 3167 Jul, Diabetes mellitus 250.00 [facility] [id number] [place] [address] 23572- 3664 Jun, Diabetes mellitus 250.00 [facility] [address] [place] [address] 41840- 6528 May, Diabetes mellitus 250.00 [facility] [address] [id number] [place] [address] 34576- 2819 Apr, Diabetes mellitus 250.00 [facility] [id number] [place] [address] 31681- 4994 Mar, [facility] [address] [address]- 6231 Mar, Tooth abscess 522.5 [facility] [id number] [address]- 8936 Feb, [facility] [address] [address] 2546 January, [facility] [id number] [place] [address], [place] [address]- 8544 January, [facility] [address] [place] [id number] [address]- 4497 January, Diabetes mellitus 250.00 [facility] [id number] [place] [address], [place] [address]- 9876 January, [facility] [address] [address]- 1831 Dec, [facility] [address] [address]- 3771 Dec, [facility] [address] [address]- 7065 Nov, [facility] [address] [address]- 0299 Nov, [facility] [address] [address]- 1825 Nov, [facility] [address] [address]- 3194 Nov, [facility] [address] [id number] [address] 2545 Oct, [facility] [address] [address]- 9836 Oct, [facility] [id number] [address]- 6196 Sep, [facility] [address] [place] [address]- 5432 Sep, [facility] [place] [facility] [address] [id number] [place] [address]- 5401 Aug, [facility] [place] [facility] [address] [id number] [place] [address]- 9955 Aug, [facility] [place] [facility] [address] [id number] [place] [address]- 4594 Aug, [facility] [place] [facility] [address] [id number] [place] [address]- 9560 Aug, [facility] [place] [facility] [address] [id number] [place] [address]- 8855 Aug, [facility] [place] [facility] [address] [id number] [place] [address]- 2472 Aug, [facility] [place] [facility] [address] [id number] [place] [address]- 6266 Jul, [facility] [place] [facility] [address] [id number] [place] [address]- 7767 Jul, [facility] [place] [facility] [address] [id number] [place] [address]- 3768 Jun, [facility] [place] [facility] [address] [id number] [place] [address]- 5222 Jun, [facility] [place] [facility] [address] [id number] [place] [address]- 1757 May, [facility] [place] [facility] [address] [id number] [place] [address]- 9650 May, [facility] [place] [facility] [address] [id number] [place] [address]- 7422 Apr, [facility] [place] [facility] [address] [id number] [place] [address]- 5300 Apr, [facility] [place] [facility] [address] [id number] [place] [address]- 4628 Apr, [facility] [place] [facility] [address] [id number] [place] [address]- 0336 Apr, [facility] [place] [facility] [address] [id number] [place] [address]- 3226 Apr, [facility] [place] [facility] [address] [id number] [place] [address]- 8047 Apr, [facility] [place] [facility] [address] [id number] [place] [address]- 1813 Mar, [facility] [place] [facility] [address] [id number] [place] [address]- 9378 Mar, [facility] [place] [facility] [address] [id number] [place] [address]- 1758 Feb, [facility] [place] [facility] [address] [id number] [place] [address]- 3113 Feb, [facility] [place] [facility] [address] [id number] [place] [address]- 1392 Feb, [facility] [place] [facility] [address] [id number] [place] [address]- 7480 Feb, [facility] [place] [facility] [address] [id number] [place] [address]- 6110 January, [facility] [place] [facility] [address] [id number] [place] [address]- 1120 January, [facility] [place] [facility] [address] [id number] [place] [address]- 6295 January, [facility] [place] [facility] [address] [id number] [place] [address]- 5530 January, [facility] [place] [facility] [address] [id number] [place] [address]- 2641 Dec, [facility] [place] [facility] [address] [id number] [place] [address]- 9960 Dec, [facility] [place] [facility] [address] [id number] [place] [address]- 7075 Nov, [facility] [place] [facility] [address] [id number] [place] [address]- 7729 Nov, [facility] [place] [facility] [address] [id number] [place] [address]- 5934 Oct, [facility] [place] [facility] [address] [id number] [place] [address]- 7144 Oct, [facility] [place] [facility] [address] [id number] [place] [address]- 7201 Sep, [facility] [place] [facility] [address] [id number] [place] [address]- 8402 Sep, [facility] [place] [facility] [address] [id number] [place] 5240 Aug, [facility] [place] [facility] [address] [id number] [place] [address]- 3381 Aug, [facility] [place] [facility] [address] [id number] [place] [address]- 2841 Jul, [facility] [place] [facility] [address] [id number] [place] [address]- 1126 Jul, [facility] [place] [facility] [address] [id number] [place] [address]- 4387 Jun, [facility] [place] [facility] [address] [id number] [address]- 0162 Jun, [facility] [place] [facility] [address] [id number], [place] [address] 2547 30 May, 2013 [facility] [place] [facility] [address] [id number] [place] [address]- 9412 May, [facility] [place] [facility] [address] [id number] [place] [address]- 6555 Apr, [facility] [place] [facility] [address] [id number] [place] [address]- 2546 Apr, [facility] [place] [facility] [address] [id number] [place] [address]- 4149 Feb, [facility] [address] [id number] [place] [address]- 8365 Feb, [facility] [address] [id number] [place] [address]- 5343 January, [facility] [address] [id number] [place] [address]- 3544 January, [facility] [address] [id number] [place] [address]- 7064 Dec, [facility] [address] [id number] [place] [address]- 9089 Nov, [facility] [address] [id number] [place] [address]- 6659 Oct, [facility] [address] [id number] [place] [address]- 1648 Oct, [facility] [address] [id number] [place] [address]- 1703 Sep, [facility] [address] [id number] [place] [address]- 9547 Aug, [facility] [address] [id number] [place] [address]- 6403 Aug, [facility] [address] [id number] [place] [address]- 5751 Jul, [facility] [address] [id number] [place] [address]- 5888 Jul, [facility] [place] [facility] [address] [id number] [place] [address]- 1181 Jun, [facility] [address] [id number] [place] [address]- 7556 24 May, 2012 [facility] [address] [id number] [place] [address]- 0095 14 May, 2012 [facility] [place] [facility] [address] [id number] [place] [address]- 7355 13 May, 2012 [facility] [place] [facility] [address] [id number] [place] [address]- 4529 28 Apr, 2012 [facility] [place] [facility] [address] [id number] [place] [address]- 2530 Apr, [facility] [place] [facility] [address] [id number] [place] [address]- 8379 Apr, [facility] [place] [facility] [address] [id number] [place] [address]- 5890 Mar, [facility] [place] [facility] [address] [id number] [place] [address]- 9226 Mar, [facility] [place] [facility] [address] [id number] [place] [address]- 0649 Feb, [facility] [place] [facility] [address] [id number] [place] [address]- 2769 Feb, [facility] [place] [facility] [address] [id number] [place] [address]- 2934 January, [facility] [place] [facility] [address] [id number] [place] [address] January, [facility] [place] [facility] [address] [id number] [place] [address] Dec, [facility] [place] [facility] [address] [id number] [place] [address] Dec, [facility] [place] [facility] [address] [id number] [place] [address] Nov, [facility] [place] [facility] [address] [id number] [place] [address] Nov, [facility] [place] [facility] [address] [id number] [place] [address] Oct, [facility] [place] [facility] [id number] [address] Oct, [facility] [id number] [address] Sep, [facility] [id number] [address] Sep, [facility] [id number] [address] Sep, [facility] [id number] [address] Aug, [facility] [id number] [place] [id number] Aug, [facility] [id number] [place] [address] Aug, [facility] [id number] [place] [address] Aug, [facility] [id number] [address] Aug, [facility] [id number] [address] Jul, [facility] [id number] [address] Jul, [facility] [id number] [address] Jul, [facility] [id number] [place] [address] Dec, IMMUNIZATIONS No Known Immunizations SOCIAL HISTORY Never Assessed REASON FOR VISIT Controlled Med Refill 07/16/17 PLAN OF CARE VITAL SIGNS MEDICATIONS Medication Instructions Dosage Frequency Start Date End Date Duration Status [place] 10-325 MG Orally every 6 hrs 1 tablet as needed 6h Jun, 28 days Active Depo-Testosterone 200 MG/ML Intramuscular once monthly 0.5 ml Dec, Active RESULTS No Results PROCEDURES No Known procedures INSTRUCTIONS MEDICATIONS ADMINISTERED No Known Medications MEDICAL (GENERAL) HISTORY Type Description Date Medical History Type 2 diabetes Medical History anxiety Medical History chronic hip pain Medical History carpal tunnel bilateral Medical History [place] Palsy Surgical History carpel tunnel-right hand 2011 Surgical History carpel tunnel-left hand 2008 Surgical History carpal tunnel - right hand 11/2015 Surgical History Torn bicep repair 01/2018 Hospitalization History ER spider bite
--- OUTSIDE RECORDS SUMMARY | 2018-06-25 06:14 | XMS REPORT ---
Author KASI Estrada [facility] eClinicalWorks Address Unknown Phone Unavailable Care Team Providers Care Nuclear Licensing Engineer Name Role Phone KASI BLANCHARD CP Unavailable Allergies, Adverse Reactions, Alerts Substance Reaction Event Type N.K.D.A. Info Not Available Non Drug Allergy Problems Problem Type Condition Code Onset Dates Condition Status Problem Chronic osteoarthritis M19.90 Active Problem Diabetes E11.9 Active Problem Anxiety F41.9 Active Assessment Diabetes type 2, controlled E11.9 Active Medications Medication Code System Code Instructions Start Date End Date Status Dosage Cyclobenzaprine HCl [facility] [address]-92 10 mg Orally 2 times a day January 17, 2016 Jul 15, 2016 1 tablet Victoza [facility] [address]-92 0.6 mg/0.1 mL (18 mg/3 mL) Subcutaneous Once a day January 20, 2012 1.8 mg by Subcutaneous route 1 time per day HydrOXYzine HCl [facility] [address]-73 25 MG 2 times a day November 29, 2014 1 tablet BusPIRone HCl [facility] [address]-36 10 mg Orally Twice a day January 17, 2016 1 tablet [place] 3/16" [facility] [address] 31G X 5 MM Once a day February 16, 2015 as directed Tramadol HCl [facility] [address]-16 50 mg Orally every 6 hrs May 11, 2015 1 tablet as needed Metformin HCl [facility] [address]-15 500 MG Orally Twice a day 1 tablet with meals Diclofenac Sodium [facility] [address]-42 75 MG Orally 2 times a day November 29, 2014 1 tablet as needed Procedures Procedure Coding System Code Date Office Visit, Est Pt., Level 3 CPT-4 77549 April 04, 2016 MICROALBUMIN, SEMIQUANT CPT-4 55679 April 04, 2016 GLYCATED HEMOGLOBIN TEST CPT-4 25495 April 04, 2016 Vital Signs Date/Time: April 04, 2016 Cardiac Monitoring Heart Rate 68 bpm Weight 235 lbs Height 66 in Blood Pressure Diastolic 96 mmHg Blood Pressure Systolic 130 mmHg Results No Known Results Summary Purpose eClinicalWorks Submission
--- OUTSIDE RECORDS SUMMARY | 2018-06-25 06:14 | XMS REPORT ---
Author Author KASI BLANCHARD [facility] Address [address] [place] [address] Care Team Providers Care General Assembler Name Role Phone KASI BLANCHARD Unavailable PROBLEMS Type Condition ICD9-CM Code [id number] Code Onset Dates Condition Status SNOMED Code Problem Chronic osteoarthritis M19.90 Active 01923534 Problem Controlled type 2 diabetes mellitus without complication, without long -term current use of insulin E11.9 Active 871171926 Problem Anxiety F41.9 Active 13646128 Problem Diabetes E11.9 Active 69520344 Problem Diabetes type 2, controlled E11.9 Active 617750098 Problem Depressive disorder, not elsewhere classified F32.9 Active 62580003 Problem Chronic fatigue R53.82 Active 48380231 Problem Drug-induced erectile dysfunction N52.2 Active 542504215 Problem Hypogonadism in male E29.1 Active 78889652 Problem Mood disorder F39 Active 29720995 ALLERGIES No Known Allergies SOCIAL HISTORY Never Assessed PLAN OF CARE VITAL SIGNS Height 66 in 2016-11-06 Weight 236.5 lbs 2016-11-06 Temperature 97.8 degrees Fahrenheit 2016-11-06 Heart Rate 82 bpm 2016-11-06 Respiratory Rate 20 2016-11-06 BMI 38.17 kg/m2 2016-11-06 Blood pressure systolic 130 mmHg 2016-11-06 Blood pressure diastolic 88 mmHg 2016-11-06 MEDICATIONS Medication Instructions Dosage Frequency Start Date End Date Duration Status HydrOXYzine HCl 25 MG 1 tablet 12h Nov, Active BusPIRone HCl 10 mg Orally Twice a day 1 tablet 12h Dec, Active Doxycycline Hyclate 100 mg Orally every 12 hrs 1 capsule 12h Oct, Oct, 10 days Active GlipiZIDE 5 mg Orally 2 times a day 1 tablet 12h Aug, 30 day(s ) Active [place] 10-325 MG Orally every 6 hrs 1 tablet as needed 6h Oct, Nov, 28 days Active Glucometer 1 as directed 12h Jun, Active Diclofenac Sodium 75 MG Orally 2 times a day 1 tablet as needed 12h 11 Nov Active Pepcid 20 mg Orally 2 times a day 1 tablet at bedtime 12h Apr, 30 day(s) Active MetFORMIN HCl ER 500 MG Orally 2 times a day 1 tablet with evening meal 12h Apr, 30 day(s) Active RESULTS No Results PROCEDURES No Known procedures IMMUNIZATIONS No Known Immunizations MEDICAL (GENERAL) HISTORY Type Description Date Medical History Type 2 diabetes Medical History anxiety Medical History chronic hip pain Medical History carpal tunnel bilateral Medical History [place] Palsy Surgical History carpel tunnel-right hand 2011 Surgical History carpel tunnel-left hand 2008 Surgical History carpal tunnel - right hand 11/2015 Hospitalization History ER spider bite
--- OUTSIDE RECORDS SUMMARY | 2018-06-25 06:14 | XMS REPORT ---
Author Author KASI BLANCHARD Organization eClinicalWorks Address Unknown Phone Unavailable Care Team Providers Care Field Service Manager Name Role Phone KASI BLANCHARD CP Unavailable Allergies No Known Allergies Problems Problem Type Condition Code Onset Dates Condition Status Assessment Diabetes E11.9 Active Problem Health examination of defined subpopulation V70.5 Active Problem Unspecified conjunctivitis 372.30 Active Problem Tooth abscess 522.5 Active Problem Unspecified episodic mood disorder 296.90 Active Problem Diabetes E11.9 Active Problem Other specified viral warts 078.19 Active Problem Influenza with other respiratory manifestations 487.1 Active Problem Acute sinusitis, unspecified 461.9 Active Problem Scabies 133.0 Active Medications Medication Code System Code Instructions Start Date End Date Status Dosage Tramadol HCl [facility] [address]-33 50 MG Orally every 6 hrs May 11, 2015 1 tablet as needed Results No Known Results Summary Purpose eClinicalWorks Submission
--- OUTSIDE RECORDS SUMMARY | 2018-06-25 06:14 | XMS REPORT ---
Author Author KASI BLANCHARD [facility] Address [address] [place] [address] Care Team Providers Care Rental Sales Associate Name Role Phone SANTOKASI Unavailable PROBLEMS Type Condition ICD9-CM Code [id number] Code Onset Dates Condition Status SNOMED Code Problem Controlled type 2 diabetes mellitus without complication, without long -term current use of insulin E11.9 Active 710933325 Problem Anxiety F41.9 Active 45829769 Assessment Controlled type 2 diabetes mellitus without complication, without long-term current use of insulin E11.9 Aug, Active 605968086 Problem Chronic osteoarthritis M19.90 Active 67597826 Problem Diabetes E11.9 Active 81585677 ALLERGIES Substance Reaction Event Type Date Status N.K.D.A. Unknown Non Drug Allergy Aug, Unknown SOCIAL HISTORY No smoking Hx information available PLAN OF CARE VITAL SIGNS Height 66 in 2016-08-29 Weight 230.9 lbs 2016-08-29 Heart Rate 84 bpm 2016-08-29 Respiratory Rate 18 2016-08-29 BMI 37.26 kg/m2 2016-08-29 Blood pressure systolic 128 mmHg 2016-08-29 Blood pressure diastolic 94 mmHg 2016-08-29 MEDICATIONS Medication Instructions Dosage Frequency Start Date End Date Duration Status MetFORMIN HCl ER 500 MG Orally 2 times a day 1 tablet with evening meal Apr, 30 day(s) Active GlipiZIDE 5 mg Orally 2 times a day 1 tablet Aug, 30 day(s ) Active HydrOXYzine HCl 25 MG 1 tablet 12h Nov, Active BusPIRone HCl 10 mg Orally Twice a day 1 tablet Dec, Active [place] 5-325 MG Orally every 6 hrs 1 tablet as needed Aug, Active Glucometer 1 as directed Jun, Active Diclofenac Sodium 75 MG Orally 2 times a day 1 tablet as needed h Nov Active Pepcid 20 mg Orally 2 times a day 1 tablet at bedtime Apr, 30 day(s) Active Pen [place] 316" 31G X 5 MM as directed 24h January, Active Victoza 0.6 mg/0.1 mL (18 mg/3 mL) Subcutaneous Once a day 1.8 mg by Subcutaneous route 1 time per day 24h January, Active RESULTS Name Result Date Reference Range A1C (IN HOUSE) 2016-08-29 A1C IN HOUSE 9.9% 4.3 - 5.6 % Previous A1c 7.8% Lot [id number] Exp date PROCEDURES Procedure Date Ordered Related Diagnosis Body Site GLYCATED HEMOGLOBIN TEST Aug 29, 2016 Office Visit, Est Pt., Level 3 Aug 29, 2016 IMMUNIZATIONS No Known Immunizations
--- OUTSIDE RECORDS SUMMARY | 2018-06-25 06:14 | XMS REPORT ---
Author Author KASI BLANCHARD Organization [facility] Address [address] [place] [address] Care Team Providers Care Computer Field Technician Name Role Phone KASI BLANCHARD Unavailable PROBLEMS Type Condition ICD9-CM Code WMZ34-AP Code Onset Dates Condition Status SNOMED Code Problem Controlled type 2 diabetes mellitus without complication, without long -term current use of insulin E11.9 Active 526661178 Problem Chronic fatigue R53.82 Active 75610071 Problem Drug-induced erectile dysfunction N52.2 Active 033258358 Problem Diabetes E11.9 Active 97751208 Problem Anxiety F41.9 Active 89010523 Problem Chronic osteoarthritis M19.90 Active 52004441 Problem Sialadenitis K11.20 Active 47981144 Problem Uncontrolled type 2 diabetes mellitus without complication, without long-term current use of insulin E11.65 Active 322115066 Problem Hypogonadism in male E29.1 Active 88556579 Problem Mood disorder F39 Active 28141297 Problem Diabetes type 2, controlled E11.9 Active 448874394 Problem Depressive disorder, not elsewhere classified F32.9 Active 56935316 ALLERGIES No Information ENCOUNTERS Encounter Location Date Diagnosis [place] [address] [place] [address] 12114- 5520 January, Sialadenitis K11.20 [facility] [address] [place] [id number] [place] [address] 04400- 5418 January, Bronchitis J40 [facility] [address] [address] 5173 January, Hypogonadism in male E29.1 [facility] [address] [id number] [place] [address] 45663- 4506 January, Hypogonadism in male E29.1 [place] [id number] [place] [id number] [place] [address] 73076- 7069 Dec, Bronchitis J40 [facility] [id number] [place] [address] 21689- 3045 28 Nov, 2017 Diabetes E11.9 and Anxiety F41.9 [facility] [id number] [place] [address] 81630- 0268 15 Nov, 2017 Bronchitis J40 [facility] [id number] [place] [address] 48346- 0274 14 Oct, 2017 Bronchitis J40 [facility] [address] 44616- 8683 Sep, Diabetes E11.9 ; Mood disorder F39 ; Hypogonadism in male E29.1 and Depressive disorder, not elsewhere classified F32.9 [facility] [address] [id number] [place] [address] 41125- 4799 Sep, Bronchitis J40 [facility] [address] 64898- 6213 Sep, Hypogonadism in male E29.1 [facility] [address] 77682- 4823 Sep, [facility] [address] 57506- 1301 Sep, [facility] [address] [id number] [place] [address] 94229- 0747 Aug, Bronchitis J40 [facility] [address] 45043- 2164 Aug, Uncontrolled type 2 diabetes mellitus without complication, without long-term current use of insulin E11.65 ; Diabetes type 2, controlled E11.9 ; Hypogonadism in male E29.1 ; Encounter for immunization Z23 and Spider bite wound, undetermined intent, initial encounter T63.304A [facility] [id number] [place] [address] 79638- 8979 Jul, Bronchitis J40 [facility] [address] 14106- 6036 Jun, Hypogonadism in male E29.1 [facility] [address] [facility] [id number] [address] 2546 Jun, Hypogonadism in male E29.1 and Bronchitis J40 [facility] [address] [facility] [id number] [place] [address] 52011 2546 May, Bronchitis J40 [facility] [address] [facility] [id number] [place] [address] 90154 2546 May, Hypogonadism in male E29.1 [facility] [address] [facility] [id number] [place] [address] 04283 2546 May, Hypogonadism in male E29.1 [facility] [address] [place] [id number] [place] [address] 30423- 4726 Apr, Bronchitis J40 [facility] [id number] [place] [address] 75481- 4660 Apr, Controlled type 2 diabetes mellitus without complication, without long-term current use of insulin E11.9 [facility] [address] [facility] [id number] [place] [address] 95787- 9647 Apr, Diabetes type 2, controlled E11.9 ; Hypogonadism in male E29.1 and Mood disorder F39 [facility] [address] [address]- 8830 Apr, Hypogonadism in male E29.1 [facility] [address] [facility] [id number] [place] [address] 33092 2546 Apr, Bronchitis J40 [facility] [address] [facility] [id number] [address] 2546 Mar, Hypogonadism in male E29.1 [facility] [address] [facility] [id number] [place] [address] 08623 2548 Mar, Bronchitis J40 [facility] [address] [facility] [id number] [place] [address] 07945 2547 Mar, Bronchitis J40 [facility] [address] [place] [address] 84352- 8691 Feb, Spider bite, accidental or unintentional, initial encounter T63.301A [facility] [address] [place] [address] [id number] [place] [address] 16873- 6866 Feb, Depressive disorder, not elsewhere classified F32.9 [facility] [address] [place] [address] [id number] [place] [address] 60451- 3294 Feb, Diabetes E11.9 ; Mood disorder F39 and Hypogonadism in male E29.1 [facility] [address] [place] [id number] [place] [address] 09919- 4696 Feb, Bronchitis J40 [facility] [address] [place] [id number] [place] [address] 11967- 0895 Feb, Depressive disorder, not elsewhere classified F32.9 [facility] [address] [place] [address] [id number] [place] [address] 69036- 6902 January, Depressive disorder, not elsewhere classified F32.9 [facility] [address] [place] [address] [id number] [place] [address] 08632- 1942 January, Diabetes E11.9 and Mood disorder F39 [facility] [address] [place] [id number] [place] [address] 69461- 0182 January, Bronchitis J40 [facility] [address] [place] [address] [id number] [place] [address] 31417- 5749 Dec, Bronchitis J40 [facility] [address] [place] [address] [id number] [place] [address] 62433- 1651 Dec, Hypogonadism in male E29.1 [facility] [address] [place] [address] [id number] [place] [address] 56583- 6880 Dec, [facility] [address] [place] [address] 13258- 0228 Dec, Controlled type 2 diabetes mellitus without complication, without long-term current use of insulin E11.9 and Chronic fatigue R53.82 [place] [address] [place] [id number] [place] [address] 06419- 6958 Nov, Bronchitis J40 [facility] [address] [place] [id number] [place] [address] 94896- 8258 16 Oct, 2016 Bronchitis J40 ; Controlled type 2 diabetes mellitus without complication, without long-term current use of insulin E11.9 ; Chronic fatigue R53.82 and Drug-induced erectile dysfunction N52.2 [place] [address] [place] [id number] [place] [address] 85027- 6476 06 Oct, 2016 Diabetes E11.9 [place] [address] [place] [id number] [place] [address] 88993- 0470 Sep, Pre-employment examination Z02.1 [place] [address] [place] [id number] [place] [address] 38339- 6000 Sep, Diabetes E11.9 [place] [address] [place] [id number] [place] [address] 96180- 6352 Aug, Controlled type 2 diabetes mellitus without complication, without long-term current use of insulin E11.9 and Chronic osteoarthritis M19.90 [place] [address] [place] [id number] [place] [address] 06690- 4049 Jul, [place] [address] [place] [id number] [place] [address] 90258- 9139 Jun, [place] [address] [place] [id number] [place] [address] 68468- 6529 Jun, 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 [place] [address] [place] [id number] [place] [address] 85659- 4615 Jun, Encounter for immunization Z23 and Controlled type 2 diabetes mellitus without complication, without long-term current use of insulin E11.9 [facility] [address] [place] [id number] [place] [address] 21288- 1329 May, [place] [address] [place] [id number] [place] [address] 14175- 4200 May, [facility] [address] [address]- 9268 Apr, Gastritis without bleeding, unspecified chronicity, unspecified gastritis type K29.70 [facility] [address] [address]- 3056 Apr, [facility] [address] [place] [address] 97183- 8445 Mar, Diabetes type 2, controlled E11.9 [facility] [address] [address]- 7245 Mar, [facility] [address] [place] [id number] [place] [address] 27930- 6356 Feb, [facility] [address] [address] [address]- 4057 Feb, [facility] [address] [place] [id number] [place] [address] 03933- 0161 January, [facility] [address] [address]- 9048 Dec, Urethritis N34.2 [facility] [address] [address]- 4212 Dec, [facility] [address] [address]- 8559 Nov, Diabetes type 2, controlled E11.9 [facility] [address] [address] 2546 Nov, [facility] [address] [address]- 1796 Nov, Diabetes type 2, controlled E11.9 [facility] [address] [address] 2546 Oct, Hand pain M79.643 [facility] [address] [place] [address] 18662- 1410 Oct, Right hand pain M79.641 [facility] [address] [place] [id number] [place] [address] 52376- 7219 Oct, [facility] [address] [place] [id number] [place] [address] 74826- 6237 Oct, [facility] [address] [place] [id number] [place] [address] 30489- 4432 Oct, Right carpal tunnel syndrome G56.01 [facility] [address] [place] [id number] [place] [address] 72746- 6635 Sep, Diabetes E11.9 [facility] [address] [place] [id number] [place] [address] 38246- 2615 Sep, Anxiety F41.9 ; Chronic osteoarthritis M19.90 and Health examination of defined subpopulation V70.5 [facility] [address] [place] [id number] [place] [address] 70191- 1404 Sep, Diabetes E11.9 [facility] [address] [place] [id number] [place] [address] 90141- 7185 Aug, Diabetes E11.9 ; Carpal tunnel syndrome, right G56.01 and Carpal tunnel syndrome, left upper limb G56.02 [facility] [address] [place] [id number] [place] [address] 60611- 6863 Jul, Diabetes mellitus 250.00 [facility] [address] [place] [id number] [place] [address] 86221- 6974 Jun, Diabetes mellitus 250.00 [facility] [address] [place] [address] 53234- 0143 May, Diabetes mellitus 250.00 [facility] [address] [place] [id number] [place] [address] 18616- 0093 Apr, Diabetes mellitus 250.00 [facility] [address] [place] [id number] [place] [address] 80063- 9502 Mar, [facility] [address] [place] [address]- 6534 Mar, Tooth abscess 522.5 [facility] [id number] [place] [address]- 6366 Feb, [facility] [address] [place] [address] 2546 January, [facility] [address] [place] [id number] [place] [address], [place] [address]- 4910 January, [facility] [address] [place] [id number] [address]- 3840 January, Diabetes mellitus 250.00 [facility] [address] [place] [id number] [place] [address], [place] [address]- 5596 January, [facility] [address] [place] [address]- 2384 Dec, [facility] [address] [address]- 4481 Dec, [facility] [address] [place] [address]- 4197 Nov, [facility] [address] [address]- 6807 Nov, [facility] [address] [address]- 8374 Nov, [facility] [address] [address]- 8745 Nov, [facility] [address] [id number] [place] [address] 2542 Oct, [facility] [address] [address]- 0086 Oct, [facility] [address] [place] [id number] [address]- 8726 Sep, [facility] [address] [place] [address]- 4380 Sep, [facility] [place] [facility] [address] [id number] [place] [address]- 5653 Aug, [facility] [place] [facility] [address] [id number] [place] [address]- 9299 Aug, [facility] [place] [facility] [address] [id number] [place] [address]- 5529 Aug, [facility] [place] [facility] [address] [id number] [place] [address]- 5090 Aug, [facility] [place] [facility] [address] [id number] [place] [address]- 9654 Aug, [facility] [place] [facility] [address] [id number] [place] [address]- 9985 Aug, [facility] [place] [facility] [address] [id number] [place] [address]- 0390 Jul, [facility] [place] [facility] [address] [id number] [place] [address]- 7092 Jul, [facility] [place] [facility] [address] [id number] [place] [address]- 7363 Jun, [facility] [place] [facility] [address] [id number] [place] [address]- 6611 Jun, [facility] [place] [facility] [address] [id number] [place] [address]- 7613 May, [facility] [place] [facility] [address] [id number] [place] [address]- 5878 May, [facility] [place] [facility] [address] [id number] [place] [address]- 6019 Apr, [facility] [place] [facility] [address] [id number] [place] [address]- 1982 Apr, [facility] [place] [facility] [address] [id number] [place] [address]- 5624 Apr, [facility] [place] [facility] [address] [id number] [place] [address]- 8828 Apr, [facility] [place] [facility] [address] [id number] [place] [address]- 1612 Apr, [facility] [place] [facility] [address] [id number] [place] [address]- 3295 Apr, [facility] [place] [facility] [address] [id number] [place] [address]- 5177 Mar, [facility] [place] [facility] [address] [id number] [place] [address]- 7716 Mar, [facility] [place] [facility] [address] [id number] [place] [address]- 8395 Feb, [facility] [place] [facility] [address] [id number] [place] [address]- 4794 Feb, [facility] [place] [facility] [address] [id number] [place] [address]- 7081 Feb, [facility] [place] [facility] [address] [id number] [place] [address]- 6396 Feb, [facility] [place] [facility] [address] [id number] [place] [address]- 3560 January, [facility] [place] [facility] [address] [id number] [place] [address]- 2716 January, [facility] [place] [facility] [address] [id number] [place] [address]- 7789 January, [facility] [place] [facility] [address] [id number] [place] [address]- 5467 January, [facility] [place] [facility] [address] [id number] [place] [address]- 4820 Dec, [facility] [place] [facility] [address] [id number] [place] [address]- 6702 Dec, [facility] [place] [facility] [address] [id number] [place] [address]- 7342 Nov, [facility] [place] [facility] [address] [id number] [place] [address]- 5195 Nov, [facility] [place] [facility] [address] [id number] [place] [address]- 2131 Oct, [facility] [place] [facility] [address] [id number] [place] [address]- 0683 Oct, [facility] [place] [facility] [address] [id number] [place] [address]- 3250 Sep, [facility] [place] [facility] [address] [id number] [place] [address]- 8841 Sep, [facility] [place] [facility] [address] [id number] [place] 9923 Aug, [facility] [place] [facility] [address] [id number] [place] [address]- 1902 Aug, [facility] [place] [facility] [address] [id number] [place] [address]- 8912 Jul, [facility] [place] [facility] [address] [id number] [place] [address]- 0722 Jul, [facility] [place] [facility] [address] [id number] [place] [address]- 2766 Jun, [facility] [place] [facility] [address] [id number] [address]- 9388 Jun, [facility] [place] [facility] [address] [id number] [address] 2545 30 May, 2013 [facility] [place] [facility] [address] [id number] [place] [address]- 0084 May, [facility] [place] [facility] [address] [id number] [place] [address]- 6201 Apr, [facility] [place] [facility] [address] [id number] [place] [address]- 2546 Apr, [facility] [place] [facility] [address] [id number] [place] [address]- 7499 Feb, [facility] [address] [id number] [place] [address]- 1675 Feb, [facility] [address] [id number] [place] [address]- 5011 January, [facility] [address] [id number] [place] [address]- 4718 January, [facility] [address] [id number] [place] [address]- 5944 Dec, [facility] [address] [id number] [place] [address]- 4086 Nov, [facility] [address] [id number] [place] [address]- 7645 Oct, [facility] [address] [id number] [place] [address]- 0798 Oct, [facility] [address] [id number] [place] [address]- 2712 Sep, [facility] [address] [id number] [place] [address]- 2978 Aug, [facility] [address] [id number] [place] [address]- 3813 Aug, [facility] [address] [id number] [place] [address]- 6638 Jul, [facility] [address] [id number] [place] [address]- 2424 Jul, [facility] [place] [facility] [address] [id number] [place] [address]- 8651 Jun, [facility] [address] [id number] [place] [address]- 4826 24 May, 2012 [facility] [address] [id number] [place] [address]- 4738 14 May, 2012 [facility] [place] [facility] [address] [id number] [place] [address]- 6460 13 May, 2012 [facility] [place] [facility] [address] [id number] [place] [address]- 5826 28 Apr, 2012 [facility] [place] [facility] [address] [id number] [place] [address]- 2358 Apr, [facility] [place] [facility] [address] [id number] [place] [address]- 1586 Apr, [facility] [place] [facility] [address] [id number] [place] [address]- 5470 Mar, [facility] [place] [facility] [address] [id number] [place] [address]- 9191 Mar, [facility] [place] [facility] [address] [id number] [place] [address]- 5960 Feb, [facility] [place] [facility] [address] [id number] [place] [address]- 8590 Feb, [facility] [place] [facility] [address] [id number] [place] [address] January, [facility] [place] [facility] [address] [id number] [place] [address] January, [facility] [place] [facility] [address] [id number] [place] [address] Dec, [facility] [place] [facility] [address] [id number] [place] [address] Dec, [facility] [place] [facility] [address] [id number] [place] [address] Nov, [facility] [place] [facility] [address] [id number] [place] [address] Nov, [facility] [place] [facility] [address] [id number] [place] [address] Oct, [facility] [place] [facility] [address] [address] Oct, [facility] [address] [address] Sep, [facility] [address] [address] Sep, [facility] [address] [address] Sep, [facility] [address] [address] Aug, [facility] [address] [place] [address] Aug, [facility] [address] [place] [address] Aug, [facility] [address] [place] [address] Aug, [facility] [address] [address] Aug, [facility] [address] [place] [address] Jul, [facility] [address] [address] Jul, [facility] [address] [address] Jul, [facility] [address] [address] Dec, IMMUNIZATIONS Vaccine Route Administration Date Status TESTOSTERONE (PT'S OWN) IM Intramuscular Jul 15, 2017 Administered SOCIAL HISTORY Never Assessed REASON FOR VISIT Injection-Lee MALDONADO PLAN OF CARE VITAL SIGNS MEDICATIONS Unknown Medications RESULTS No Results PROCEDURES Procedure Date Ordered Result Body Site TESTOSTERONE (PT'S OWN) Jul 15, 2017 THER/PROPH/DIAG INJ, SC/IM Jul 15, 2017 INSTRUCTIONS MEDICATIONS ADMINISTERED No Known Medications MEDICAL (GENERAL) HISTORY Type Description Date Medical History Type 2 diabetes Medical History anxiety Medical History chronic hip pain Medical History carpal tunnel bilateral Medical History [place] Palsy Surgical History carpel tunnel-right hand 2011 Surgical History carpel tunnel-left hand 2008 Surgical History carpal tunnel - right hand 11/2015 Surgical History Torn bicep repair 01/2018 Hospitalization History ER spider bite
--- OUTSIDE RECORDS SUMMARY | 2018-06-25 06:15 | XMS REPORT ---
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 Active 965813000 Problem Controlled type 2 diabetes mellitus without complication, without long -term current use of insulin E11.9 Active 959472335 Problem Diabetes E11.9 Active 25183611 Problem Chronic osteoarthritis M19.90 Active 65249854 Problem Uncontrolled type 2 diabetes mellitus without complication, without long-term current use of insulin E11.65 Active 271124949 Problem Diabetes type 2, controlled E11.9 Active 410684810 Problem Mood disorder F39 Active 09873704 Problem Chronic fatigue R53.82 Active 38083934 Problem Depressive disorder, not elsewhere classified F32.9 Active 96178471 Problem Hypogonadism in male E29.1 Active 38795298 ALLERGIES No Information ENCOUNTERS Encounter Location Date Diagnosis [place] [id number] [place] [address] 59577- 8026 12 Dec, 2017 Bronchitis J40 [facility] [id number] [place] [address] 94383- 6866 28 Nov, 2017 Diabetes E11.9 and Anxiety F41.9 [facility] [id number] [place] [address] 39394- 0719 15 Nov, 2017 Bronchitis J40 [facility] [id number] [place] [address] 72382- 4813 14 Oct, 2017 Bronchitis J40 [facility] [id number] [place] [address] 27898- 2627 Sep, Diabetes E11.9 ; Mood disorder F39 ; Hypogonadism in male E29.1 and Depressive disorder, not elsewhere classified F32.9 [facility] [id number] [place] [address] 74084- 1699 Sep, Bronchitis J40 [facility] [id number] [place] [address] 40299- 3355 Sep, Hypogonadism in male E29.1 [facility] [address] 20040- 9713 Sep, [facility] [id number] [place] [address] 32205- 5142 Sep, [facility] [id number] [place] [address] 39045- 6085 Aug, Bronchitis J40 [facility] [address] 75772- 6714 Aug, Uncontrolled type 2 diabetes mellitus without complication, without long-term current use of insulin E11.65 ; Diabetes type 2, controlled E11.9 ; Hypogonadism in male E29.1 ; Encounter for immunization Z23 and Spider bite wound, undetermined intent, initial encounter T63.304A [place] [id number] [place] [address] 97848- 0446 Jul, Bronchitis J40 [facility] [id number] [place] [address] 00599- 8960 Jun, Hypogonadism in male E29.1 [facility] [id number] [place] [address] 35394- 0867 Jun, Hypogonadism in male E29.1 and Bronchitis J40 [facility] [id number] [place] [address] 88675- 0277 May, Bronchitis J40 [facility] [id number] [place] [address] 28040- 5381 May, Hypogonadism in male E29.1 [facility] [address] 04528- 6113 May, Hypogonadism in male E29.1 [facility] [id number] [place] [address] 34799- 8708 Apr, Bronchitis J40 [facility] [id number] [place] [address] 29703- 1756 Apr, Controlled type 2 diabetes mellitus without complication, without long-term current use of insulin E11.9 [facility] [id number] [place] [address] 47495- 4809 Apr, Diabetes type 2, controlled E11.9 ; Hypogonadism in male E29.1 and Mood disorder F39 [facility] [id number] [place] [address] 15964- 8515 Apr, Hypogonadism in male E29.1 [facility] [id number] [place] [address] 52854- 6635 Apr, Bronchitis J40 [facility] [id number] [place] [address] 72898- 6222 Mar, Hypogonadism in male E29.1 [facility] [id number] [place] [address] 49959- 1127 Mar, Bronchitis J40 [facility] [id number] [place] [address] 13301- 1588 Mar, Bronchitis J40 [facility] [id number] [place] [address] 19032- 4379 Feb, Spider bite, accidental or unintentional, initial encounter T63.301A [facility] [id number] [place] [address] 47242- 2386 Feb, Depressive disorder, not elsewhere classified F32.9 [facility] [id number] [place] [address] 69147- 3990 16 Feb, 2017 Diabetes E11.9 ; Mood disorder F39 and Hypogonadism in male E29.1 [facility] [id number] [place] [address] 68307- 8363 Feb, Bronchitis J40 [facility] [id number] [place] [address] 233567- 4512 Feb, Depressive disorder, not elsewhere classified F32.9 [facility] [id number] [place] [address] 01062- 2876 January, Depressive disorder, not elsewhere classified F32.9 [facility] [id number] [place] [address] 49897- 8776 January, Diabetes E11.9 and Mood disorder F39 [facility] [id number] [place] [address] 15974- 7177 January, Bronchitis J40 [facility] [id number] [place] [address] 18982- 3281 Dec, Bronchitis J40 [facility] [id number] [place] [address] 89345- 0765 Dec, Hypogonadism in male E29.1 [facility] [id number] [place] [address] 34171- 7399 Dec, [facility] [id number] [place] [address] 84933- 9629 Dec, Controlled type 2 diabetes mellitus without complication, without long-term current use of insulin E11.9 and Chronic fatigue R53.82 [facility] [id number] [place] [address] 38784- 0386 Nov, Bronchitis J40 [facility] [id number] [place] [address] 45472- 3517 Oct, Bronchitis J40 ; Controlled type 2 diabetes mellitus without complication, without long-term current use of insulin E11.9 ; Chronic fatigue R53.82 and Drug-induced erectile dysfunction N52.2 [facility] [id number] [place] [address] 80509- 2449 Oct, Diabetes E11.9 [facility] [id number] [place] [address]- 1517 Sep, Pre-employment examination Z02.1 [facility] [id number] [place] [address] 41540- 5089 Sep, Diabetes E11.9 [facility] [id number] [place] [address] 91024- 0478 Aug, Controlled type 2 diabetes mellitus without complication, without long-term current use of insulin E11.9 and Chronic osteoarthritis M19.90 [facility] [id number] [place] [address] 53076- 2787 Jul, [facility] [id number] [place] [address] 86738- 8811 Jun, [place] [id number] [place] [address] 53734- 8279 Jun, 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 [place] [id number] [place] [address] 03091- 2996 Jun, Encounter for immunization Z23 and Controlled type 2 diabetes mellitus without complication, without long-term current use of insulin E11.9 [facility] [id number] [place] [address] 62644- 2455 May, [facility] [id number] [place] [address] 06148- 5600 May, [facility] [id number] [place] [address] 76698- 5897 Apr, Gastritis without bleeding, unspecified chronicity, unspecified gastritis type K29.70 [facility] [id number] [place] [address] 80931- 2689 Apr, [facility] [id number] [place] [address] 33848- 4694 Mar, Diabetes type 2, controlled E11.9 [facility] [id number] [place] [address] 49543- 0671 Mar, [facility] [address] [address]- 8510 Feb, [facility] [id number] [place] [address] 77230- 4221 Feb, [facility] [id number] [place] [address] 18953- 1612 January, [facility] [id number] [place] [address] 67577- 3609 Dec, Urethritis N34.2 [facility] [id number] [place] [address] 75207- 3502 Dec, [facility] [id number] [place] [address] 45986- 4957 Nov, Diabetes type 2, controlled E11.9 [facility] [id number] [place] [address] 81372- 2005 Nov, [facility] [id number] [place] [address] 56501- 6432 Nov, Diabetes type 2, controlled E11.9 [facility] [id number] [place] [address] 37445- 4097 Oct, Hand pain M79.643 [facility] [address] [place] [address] 26261- 7207 Oct, Right hand pain M79.641 [facility] [address] [place] [address] 69375- 7487 Oct, [facility] [address] [address]- 8787 Oct, [facility] [address] [place] [address] 36366- 4470 Oct, Right carpal tunnel syndrome G56.01 [facility] [address] [place] [address] 95393- 0462 Sep, Diabetes E11.9 [facility] [id number] [place] [address] 63296- 3595 Sep, Anxiety F41.9 ; Chronic osteoarthritis M19.90 and Health examination of defined subpopulation V70.5 [facility] [id number] [place] [address] 83124- 4772 Sep, Diabetes E11.9 [facility] [id number] [place] [address] 877268- 9832 Aug, Diabetes E11.9 ; Carpal tunnel syndrome, right G56.01 and Carpal tunnel syndrome, left upper limb G56.02 [facility] [id number] [place] [address] 950160- 6996 Jul, Diabetes mellitus 250.00 [facility] [id number] [place] [address] 65417- 0988 Jun, Diabetes mellitus 250.00 [facility] [id number] [place] [address] 48370- 8405 May, Diabetes mellitus 250.00 [facility] [id number] [place] [address] 76850- 2920 Apr, Diabetes mellitus 250.00 [facility] [id number] [place] [address] 57728138- 3430 Mar, [facility] [id number] [place] [address] 24981- 1014 Mar, Tooth abscess 522.5 [facility] [id number] [place] [address] 52010- 3363 Feb, [facility] [id number] [place] [address] 143840- 0321 January, [facility] [id number] [place] [address] [id number]- 3662 January, [facility] [id number] [place] [address] 210452- 8056 January, Diabetes mellitus 250.00 [facility] [address] [id number] [place] [address]- 4875 January, [facility] [address] [id number] [place] [address]- 5074 14 Dec, 2014 [facility] [address] [id number] [place] [address]- 3890 Dec, [facility] [place] [facility] [address] [id number] [place] [address]- 1712 Nov, [facility] [address] [id number] [place] [address]- 8973 Nov, [facility] [place] [facility] [address] [id number] [place] [address]- 8846 Nov, [facility] [place] [facility] [address] [id number] [place] [address]- 2704 Nov, [facility] [address] [id number] [place] [address]- 6612 Oct, [facility] [place] [facility] [address] [id number] [place] [address]- 6549 Oct, [facility] [address] [id number] [place] [address]- 9476 Sep, [facility] [place] [facility] [address] [id number] [place] [address]- 2615 Sep, [facility] [place] [facility] [address] [id number] [place] [address]- 6650 Aug, [facility] [place] [facility] [address] [id number] [place] [address]- 4541 Aug, [facility] [place] [facility] [address] [id number] [place] [address]- 7788 Aug, [facility] [place] [facility] [address] [id number] [place] [address]- 7427 Aug, [facility] [place] [facility] [address] [id number] [place] [address]- 6802 Aug, [facility] [place] [facility] [address] [id number] [place] [address]- 1555 Aug, [facility] [place] [facility] [address] [id number] [place] [address]- 5400 Jul, [facility] [place] [facility] [address] [id number] [place] [address]- 4667 Jul, [facility] [place] [facility] [address] [id number] [place] [address]- 1172 Jun, [facility] [place] [facility] [address] [id number] [place] [address]- 6484 Jun, [facility] [place] [facility] [address] [id number] [place] [address]- 3190 May, [facility] [place] [facility] [address] [id number] [place] [address]- 3384 May, [facility] [place] [facility] [address] [id number] [place] [address]- 5533 Apr, [facility] [place] [facility] [address] [id number] [place] [address]- 8726 Apr, [facility] [place] [facility] [address] [id number] [place] [address]- 7701 Apr, [facility] [place] [facility] [address] [id number] [place] [address]- 8554 Apr, [facility] [place] [facility] [address] [id number] [place] [address]- 7074 Apr, [facility] [place] [facility] [address] [id number] [place] [address]- 4373 Apr, [facility] [place] [facility] [address] [id number] [place] [address]- 6749 Mar, [facility] [place] [facility] [address] [id number] [place] [address]- 0216 Mar, [facility] [place] [facility] [address] [id number] [place] [address]- 8091 Feb, [facility] [place] [facility] [address] [id number] [place] [address]- 9958 Feb, [facility] [place] [facility] [address] [id number] [place] [address]- 4840 Feb, [facility] [place] [facility] [address] [id number] [place] [address]- 9297 Feb, [facility] [place] [facility] [address] [id number] [place] [address]- 3129 January, [facility] [place] [facility] [address] [id number] [place] [address]- 5020 January, [facility] [place] [facility] [address] [id number] [place] [address]- 7450 January, [facility] [place] [facility] [address] [id number] [place] [address]- 5326 January, [facility] [place] [facility] [address] [id number] [place] [address]- 5830 Dec, [facility] [place] [facility] [address] [id number] [place] [address]- 0478 Dec, [facility] [place] [facility] [address] [id number] [place] [address]- 0188 Nov, [facility] [place] [facility] [address] [id number] [place] [address]- 8999 Nov, [facility] [place] [facility] [address] [id number] [place] [address]- 2271 Oct, [facility] [place] [facility] [address] [id number] [place] [address]- 8915 Oct, [facility] [place] [facility] [address] [id number] [place] [address]- 1792 Sep, [facility] [place] [facility] [address] [id number] [address]- 8741 Sep, [facility] [address] [id number] [place] [address]- 5451 Aug, [facility] [place] [facility] [address] [id number] [place] [address]- 3071 Aug, [facility] [place] [facility] [address] [id number] [place] [address]- 9551 Jul, [facility] [place] [facility] [address] [id number] [place] [address]- 6415 Jul, [facility] [place] [facility] [address] [id number] [place] [address]- 4782 Jun, [facility] [place] [facility] [address] [id number] [place] 1328 Jun, [facility] [place] [facility] [address] [id number] [place] [address]- 0691 May, [facility] [place] [facility] [address] [id number] [place] [address]- 9961 May, [facility] [place] [facility] [address] [id number] [place] [address]- 1589 Apr, [facility] [place] [facility] [address] [id number] [place] [address]- 4526 Apr, [facility] [place] [facility] [address] [id number], [place] [address]- 0950 Feb, [facility] [place] [facility] [address] [id number], [place] [address]- 1586 Feb, [facility] [place] [facility] [address] [id number] [place] [address]- 4722 January, [facility] [place] [facility] [address] [id number] [place] [address]- 4896 January, [facility] [place] [facility] [address] [id number] [place] [address]- 6708 Dec, [facility] [place] [facility] [address] [id number] [place] [address] 2542 Nov, [facility] [address] [id number] [place] [address]- 0996 Oct, [facility] [place] [facility] [address] [id number] [place] [address]- 4096 Oct, [facility] [place] [facility] [address] [id number] [place] [address]- 1319 Sep, [facility] [place] [facility] [address] [id number] [place] [address]- 4100 Aug, [facility] [place] [facility] [address] [id number] [place] [address]- 3251 Aug, [facility] [place] [facility] [address] [id number] [place] [address]- 2140 Jul, [facility] [place] [facility] [address] [id number] [place] [address]- 2852 Jul, [facility] [place] [facility] [address] [id number] [place] 0034 Jun, [facility] [place] [facility] [address] [id number] [place] [address]- 7176 24 May, 2012 [facility] [place] [facility] [address] [id number] [place] [address]- 0742 14 May, 2012 [facility] [place] [facility] [address] [id number] [place] [address]- 8786 13 May, 2012 [facility] [place] [facility] [address] [id number] [place] [address]- 9787 28 Apr, 2012 [facility] [place] [facility] [address] [id number] [place] [address]- 4146 Apr, [facility] [place] [facility] [address] [id number] [place] [address]- 2546 Apr, [facility] [place] [facility] [address] [id number] [place] [address]- 5502 Mar, [facility] [address] [id number] [place] [address]- 1079 Mar, [facility] [place] [facility] [address] [id number] [place] [address]- 7036 Feb, [facility] [place] [facility] [address] [id number] [place] [address]- 3082 Feb, [facility] [place] [facility] [address] [id number] [place] [address]- 0165 January, [facility] [place] [facility] [address] [id number] [place] [address]- 3262 January, [facility] [place] [facility] [address] [id number] [place] [address]- [address] Dec, [facility] [place] [facility] [address] [id number] [place] [address] Dec, [facility] [place] [facility] [address] [id number] [place] [address] Nov, [facility] [place] [facility] [address] [id number] [place] [address] Nov, [facility] [place] [facility] [address] [id number] [place] [address] Oct, [facility] [place] [facility] [address] [id number] [place] [address] Oct, [facility] [place] [facility] [address] [id number], [place] [address] Sep, [facility] [place] [facility] [address] [id number] [place] [address] Sep, [facility] [place] [facility] [address] [id number] [place] [address] Sep, [facility] [place] [facility] [address] [id number] [place] [address] Aug, [facility] [place] [facility] [address] [id number] [address] Aug, [facility] [address] [id number] [address] Aug, [facility] [id number] [address] Aug, [facility] [address] [id number] [address] Aug, [facility] [address] [id number] [address] Jul, [facility] [id number] [address] Jul, [facility] [id number] [address] Jul, [facility] [address] [id number] [address] Dec, IMMUNIZATIONS No Known Immunizations SOCIAL HISTORY Never Assessed REASON FOR VISIT Controlled Med Refill 05/21/2017 PLAN OF CARE VITAL SIGNS MEDICATIONS Medication Instructions Dosage Frequency Start Date End Date Duration Status Nicollet 10-325 MG Orally every 6 hrs 1 tablet as needed 6h Apr, 28 days Active RESULTS No Results PROCEDURES No Known procedures INSTRUCTIONS MEDICATIONS ADMINISTERED No Known Medications MEDICAL (GENERAL) HISTORY Type Description Date Medical History Type 2 diabetes Medical History anxiety Medical History chronic hip pain Medical History carpal tunnel bilateral Medical History Dinosaur Palsy Surgical History carpel tunnel-right hand 2011 Surgical History carpel tunnel-left hand 2008 Surgical History carpal tunnel - right hand 11/2015 Hospitalization History ER spider bite
--- OUTSIDE RECORDS SUMMARY | 2018-06-25 06:15 | XMS REPORT ---
Author KASI Estrada Organization [employer] Address Unknown Phone Unavailable Care Team Providers Care Chief Analytics Officer Name Role Phone KASI BLANCHARD CP Unavailable Allergies No Known Allergies Problems Problem Type Condition Code Onset Dates Condition Status Problem Anxiety F41.9 Active Problem Chronic osteoarthritis M19.90 Active Problem Controlled type 2 diabetes mellitus without complication, without long -term current use of insulin E11.9 Active Problem Diabetes E11.9 Active Medications Medication Code System Code Instructions Start Date End Date Status Dosage Tramadol HCl [facility] [address]-35 50 mg Orally every 6 hrs May 11, 2015 1 tablet as needed Results No Known Results Summary Purpose [employer] Submission
--- OUTSIDE RECORDS SUMMARY | 2018-06-25 06:15 | XMS REPORT ---
Author Author KASI BLANCHARD Organization [facility] Address [address] [place] [address] Care Team Providers Care [place] Stitcher Name Role Phone KASI BLANCHARD Unavailable PROBLEMS Type Condition ICD9-CM Code VUN92-FF Code Onset Dates Condition Status SNOMED Code Problem Anxiety F41.9 Active 04857345 Problem Drug-induced erectile dysfunction N52.2 Active 873957501 Problem Controlled type 2 diabetes mellitus without complication, without long -term current use of insulin E11.9 Active 277195561 Problem Diabetes E11.9 Active 74288657 Problem Chronic osteoarthritis M19.90 Active 62251530 Problem Uncontrolled type 2 diabetes mellitus without complication, without long-term current use of insulin E11.65 Active 442837085 Problem Diabetes type 2, controlled E11.9 Active 928786030 Problem Mood disorder F39 Active 53156010 Problem Chronic fatigue R53.82 Active 89012887 Problem Depressive disorder, not elsewhere classified F32.9 Active 74123265 Problem Hypogonadism in male E29.1 Active [id number] ALLERGIES No Known Allergies ENCOUNTERS Encounter Location Date Diagnosis [facility] [id number] [place] [address] 61811- 4168 28 Nov, 2017 [facility] [id number] [place] [address] 27995- 4668 15 Nov, 2017 Bronchitis J40 [facility] [id number] [place] [address] 03774- 7301 14 Oct, 2017 Bronchitis J40 [facility] [id number] [place] [address] 19922- 3632 Sep, Diabetes E11.9 ; Mood disorder F39 ; Hypogonadism in male E29.1 and Depressive disorder, not elsewhere classified F32.9 [facility] [id number] [place] [address] 00550- 8707 Sep, Bronchitis J40 [facility] [id number] [place] [address] 59555- 7017 Sep, Hypogonadism in male E29.1 [facility] [id number] [place] [address] 95722- 8756 Sep, [facility] [id number] [place] [address] 18330- 2654 Sep, [facility] [id number] [place] [address] 67112- 2520 Aug, Bronchitis J40 [facility] [address] 48564- 1279 Aug, Uncontrolled type 2 diabetes mellitus without complication, without long-term current use of insulin E11.65 ; Diabetes type 2, controlled E11.9 ; Hypogonadism in male E29.1 ; Encounter for immunization Z23 and Spider bite wound, undetermined intent, initial encounter T63.304A [facility] [id number] [place] [address] 61676- 7785 Jul, Bronchitis J40 [facility] [id number] [place] [address] 30746- 3185 Jun, Hypogonadism in male E29.1 [facility] [id number] [place] [address] 59945- 0392 Jun, Hypogonadism in male E29.1 and Bronchitis J40 [facility] [id number] [place] [address] 99730- 6034 May, Bronchitis J40 [facility] [id number] [place] [address] 18795- 2778 May, Hypogonadism in male E29.1 [facility] [id number] [place] [address] 85179- 9490 May, Hypogonadism in male E29.1 [facility] [id number] [place] [address] 41806- 0822 Apr, Bronchitis J40 [facility] [address], [place] [address] 7827 Apr, Controlled type 2 diabetes mellitus without complication, without long-term current use of insulin E11.9 [facility] [address] [address]- 0490 Apr, Diabetes type 2, controlled E11.9 ; Hypogonadism in male E29.1 and Mood disorder F39 [facility] [id number] [place] [address] 54090- 5523 Apr, Hypogonadism in male E29.1 [facility] [id number] [place] [address] 11213- 3697 Apr, Bronchitis J40 [facility] [id number] [place] [address] 94887- 3930 Mar, Hypogonadism in male E29.1 [facility] [id number] [place] [address] 88017- 8200 Mar, Bronchitis J40 [facility] [id number] [place] [address] 45634- 0558 Mar, Bronchitis J40 [facility] [id number] [place] [address] 86771- 3101 Feb, Spider bite, accidental or unintentional, initial encounter T63.301A [facility] [id number] [place] [address] 03684- 0065 Feb, Depressive disorder, not elsewhere classified F32.9 [facility] [id number] [place] [address] 53281- 4026 Feb, Diabetes E11.9 ; Mood disorder F39 and Hypogonadism in male E29.1 [facility] [id number] [place] [address] 34708- 9253 Feb, Bronchitis J40 [facility] [id number] [place] [address] 88747- 4432 Feb, Depressive disorder, not elsewhere classified F32.9 [facility] [id number] [place] [address] 03987- 8597 January, Depressive disorder, not elsewhere classified F32.9 [facility] [id number] [place] [address] 48605- 5853 January, Diabetes E11.9 and Mood disorder F39 [facility] [id number] [place] [address] 40983- 3571 January, Bronchitis J40 [facility] [id number] [place] [address] 01542- 0040 Dec, Bronchitis J40 [facility] [id number] [place] [address] 62979- 9759 Dec, Hypogonadism in male E29.1 [facility] [id number] [place] [address] 06108- 1834 Dec, [facility] [id number] [place] [address] 24018- 3988 Dec, Controlled type 2 diabetes mellitus without complication, without long-term current use of insulin E11.9 and Chronic fatigue R53.82 [facility] [id number] [place] [address] 24405- 6726 Nov, Bronchitis J40 [facility] [id number] [place] [address] 58292- 1570 Oct, Bronchitis J40 ; Controlled type 2 diabetes mellitus without complication, without long-term current use of insulin E11.9 ; Chronic fatigue R53.82 and Drug-induced erectile dysfunction N52.2 [facility] [id number] [place] [address] 29261- 1924 Oct, Diabetes E11.9 [facility] [id number] [place] [address] 60769- 5948 Sep, Pre-employment examination Z02.1 [facility] [id number] [place] [address] 01677- 9589 Sep, Diabetes E11.9 [facility] [id number] [place] [address] 30519- 6645 Aug, Controlled type 2 diabetes mellitus without complication, without long-term current use of insulin E11.9 and Chronic osteoarthritis M19.90 [facility] [id number] [place] [address] 46617- 5554 Jul, [facility] [id number] [place] [address] 82515- 2408 Jun, [facility] [id number] [place] [address] 20689- 0266 Jun, 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 [facility] [id number] [place] [address] 81093- 9130 Jun, Encounter for immunization Z23 and Controlled type 2 diabetes mellitus without complication, without long-term current use of insulin E11.9 [facility] [id number] [place] [address] 78225- 0243 May, [facility] [id number] [place] [address] 36125- 7328 May, [facility] [id number] [place] [address] 07847- 2270 Apr, Gastritis without bleeding, unspecified chronicity, unspecified gastritis type K29.70 [facility] [id number] [place] [address] 89283- 1871 Apr, [facility] [id number] [place] [address] 31241- 1325 Mar, Diabetes type 2, controlled E11.9 [facility] [id number] [place] [address] 80459- 9301 Mar, [facility] [id number] [place] [address] 34545- 8558 Feb, [facility] [id number] [place] [address] 78638- 8840 Feb, [facility] [address] [address]- 7377 January, [facility] [id number] [place] [address] 94368- 1417 Dec, Urethritis N34.2 [facility] [id number] [place] [address] 46432- 1531 Dec, [facility] [id number] [place] [address] 12569- 8233 Nov, Diabetes type 2, controlled E11.9 [facility] [id number] [place] [address] 82119- 5522 Nov, [facility] [id number] [place] [address] 46213- 5716 Nov, Diabetes type 2, controlled E11.9 [facility] [id number] [place] [address] 18336- 5597 Oct, Hand pain M79.643 [facility] [id number] [place] [address] 55423- 3883 Oct, Right hand pain M79.641 [facility] [address] [address]- 2241 Oct, [facility] [id number] [place] [address] 95669- 3003 Oct, [facility] [address] [address]- 2869 Oct, Right carpal tunnel syndrome G56.01 [facility] [id number] [place] [address] 87176- 7395 Sep, Diabetes E11.9 [facility] [address] [address]- 6042 Sep, Anxiety F41.9 ; Chronic osteoarthritis M19.90 and Health examination of defined subpopulation V70.5 [facility] [address] [place] [address]- 5764 Sep, Diabetes E11.9 [facility] [id number] [place] [address] 110761- 6286 Aug, Diabetes E11.9 ; Carpal tunnel syndrome, right G56.01 and Carpal tunnel syndrome, left upper limb G56.02 [facility] [id number] [place] [address] 38458- 4306 Jul, Diabetes mellitus 250.00 [facility] [id number] [place] [address] 68653- 1043 Jun, Diabetes mellitus 250.00 [facility] [id number] [place] [address] 676957- 3301 May, Diabetes mellitus 250.00 [facility] [id number] [place] [address] 336710- 9476 Apr, Diabetes mellitus 250.00 [facility] [id number] [place] [address] 06439- 5080 Mar, [facility] [id number] [place] [address] 312626- 9984 Mar, Tooth abscess 522.5 [facility] [id number] [address]- 4455 Feb, [facility] [id number] [place] [address] 03936- 6826 January, [facility] [address] 7999 January, [facility] [id number] [place] [address] 797878- 3436 January, Diabetes mellitus 250.00 [facility] [address], [place] [address]- 2666 January, [facility] [id number] [place] [address] [place] [address]- 8642 14 Dec, 2014 [facility] [place] [facility] [address] [id number] [place] [address]- 0876 13 Dec, 2014 [facility] [place] [facility] [address] [id number] [place] [address]- 1856 30 Nov, 2014 [facility] [place] [facility] [address] [id number] [place] [address]- 4606 Nov, [facility] [place] [facility] [address] [id number] [place] [address]- 3663 Nov, [facility] [place] [facility] [address] [id number] [place] [address]- 8881 Nov, [facility] [place] [facility] [address] [id number] [place] [address]- 9179 Oct, [facility] [place] [facility] [address] [id number] [place] [address]- 6876 Oct, [facility] [place] [facility] [address] [id number] [place] [address]- 3731 Sep, [facility] [place] [facility] [address] [id number] [place] [address]- 9499 Sep, [facility] [place] [facility] [address] [id number] [place] [address]- 2861 Aug, [facility] [place] [facility] [address] [id number] [place] [address]- 1744 Aug, [facility] [place] [facility] [address] [id number] [place] [address]- 6030 Aug, [facility] [place] [facility] [address] [id number] [place] 2410 Aug, [facility] [place] [facility] [address] [id number] [place] [address]- 6512 Aug, [facility] [place] [facility] [address] [id number] [place] [address]- 3210 Aug, [facility] [place] [facility] [address] [id number] [place] [address]- 4750 Jul, [facility] [place] [facility] [address] [id number] [place] [address]- 4970 Jul, [facility] [place] [facility] [address] [id number] [place] [address]- 4283 Jun, [facility] [place] [facility] [address] [id number] [place] [address]- 1419 Jun, [facility] [place] [facility] [address] [id number] [place] [address]- 8998 May, [facility] [place] [facility] [address] [id number] [place] [address]- 2559 May, [facility] [place] [facility] [address] [id number] [place] [address]- 5122 Apr, [facility] [place] [facility] [address] [id number] [place] [address]- 6771 Apr, [facility] [place] [facility] [address] [id number] [place] [address]- 9736 Apr, [facility] [place] [facility] [address] [id number] [place] [address]- 8528 Apr, [facility] [place] [facility] [address] [id number] [place] [address]- 6189 Apr, [facility] [place] [facility] [address] [id number] [place] [address]- 3172 Apr, [facility] [place] [facility] [address] [id number] [place] [address]- 9450 Mar, [facility] [place] [facility] [address] [id number] [place] [address]- 7171 Mar, [facility] [place] [facility] [address] [id number] [place] [address]- 4970 Feb, [facility] [place] [facility] [address] [id number] [place] [address]- 0723 Feb, [facility] [place] [facility] [address] [id number] [place] [address]- 1330 Feb, [facility] [place] [facility] [address] [id number] [place] [address]- 5114 Feb, [facility] [place] [facility] [address] [id number] [place] [address]- 8573 January, [facility] [place] [facility] [address] [id number] [place] [address]- 7426 January, [facility] [place] [facility] [address] [id number] [place] [address]- 4608 January, [facility] [place] [facility] [address] [id number] [place] [address]- 7730 January, [facility] [place] [facility] [address] [id number] [place] [address]- 8753 Dec, [facility] [place] [facility] [address] [id number] [place] [address]- 5064 Dec, [facility] [place] [facility] [address] [id number] [place] [address]- 9717 Nov, [facility] [place] [facility] [address] [id number] [place] [address]- 9960 Nov, [facility] [place] [facility] [address] [id number] [place] [address]- 9393 Oct, [facility] [place] [facility] [address] [id number] [place] [address]- 0664 Oct, [facility] [place] [facility] [address] [id number] [place] [address]- 9952 Sep, [facility] [place] [facility] [address] [id number] [place] [address]- 9683 Sep, [facility] [place] [facility] [address] [id number] [place] [address]- 5219 Aug, [facility] [place] [facility] [address] [id number] [place] [address] 2546 Aug, [facility] [address] [id number] [place] [address] 2546 Jul, [facility] [address] [id number] [place] [address]- 2546 Jul, [facility] [address] [id number] [place] [address]- 2546 Jun, [facility] [address] [id number] [place] [address]- 2546 Jun, [facility] [address] [id number] [place] [address]- 2546 May, [facility] [address] [id number] [place] [address]- 2546 May, [facility] [address] [id number] [place] [address]- 9886 Apr, [facility] [address] [id number] [place] [address]- 3730 Apr, [facility] [address] [id number] [place] [address]- 6686 Feb, [facility] [address] [id number] [place] [address] 2546 Feb, [facility] [address] [id number] [place] [address]- 2546 January, [facility] [address] [id number] [place] [address]- 2546 January, [facility] [place] [facility] [address] [id number] [place] [address]- 2546 Dec, [facility] [address] [id number] [place] [address]- 2546 Nov, [facility] [address] [id number] [place] [address]- 1637 Oct, [facility] [place] [facility] [address] [id number] [place] [address]- 0611 Oct, [facility] [place] [facility] [address] [id number] [place] [address]- 6129 Sep, [facility] [place] [facility] [address] [id number] [place] 3115 Aug, [facility] [place] [facility] [address] [id number] [place] [address]- 4284 Aug, [facility] [place] [facility] [address] [id number] [place] [address]- 5704 Jul, [facility] [place] [facility] [address] [id number] [place] [address]- 9644 Jul, [facility] [place] [facility] [address] [id number] [place] [address]- 6568 Jun, [facility] [place] [facility] [address] [id number] [place] [address]- 3892 24 May, 2012 [facility] [place] [facility] [address] [id number] [place] [address]- 7961 14 May, 2012 [facility] [place] [facility] [address] [id number] [place] [address]- 3988 May, [facility] [place] [facility] [address] [id number] [place] [address]- 5416 Apr, [facility] [place] [facility] [address] [id number] [address]- 2624 Apr, [facility] [place] [facility] [address] [id number] [place] [address]- 2441 Apr, [facility] [place] [facility] [address] [id number] [place] [address]- 3024 Mar, [facility] [place] [facility] [address] [id number] [place] [address]- 3208 Mar, [facility] [place] [facility] [address] [id number] [place] [address]- 1909 Feb, [facility] [address] [id number] [place] [address]- 7256 Feb, [facility] [place] [facility] [address] [id number] [place] [address]- 9906 January, [facility] [address] [id number] [place] [address]- 0916 January, [facility] [place] [facility] [address] [id number] [place] [address]- 5317 Dec, [facility] [address] [id number] [place] [address]- 1653 Dec, [facility] [place] [facility] [address] [id number] [place] [address]- 0196 Nov, [facility] [address] [id number] [place] [address]- 1146 Nov, [facility] [address] [id number] [place] [address]- 5772 Oct, [facility] [place] [facility] [address] [id number] [place] [address]- 8080 Oct, [facility] [address] [id number] [place] [address]- 3192 Sep, [facility] [place] [facility] [address] [id number] [place] [address]- 0686 Sep, [facility] [place] [facility] [address] [id number] [place] [address] Sep, [facility] [place] [facility] [address] [id number] [place] [address] Aug, [facility] [place] [facility] [address] [id number] [place] [address] Aug, [facility] [place] [facility] [address] [id number] [place] [address] Aug, [facility] [address] [facility] [id number], [place] [address] Aug, [facility] [address] [facility] [id number], [place] [address] Aug, [facility] [address] [facility] [id number], [place] [address] Jul, [facility] [id number], [place] [address] Jul, [facility] [address] [facility] [id number], [place] [address] Jul, [facility] [address] [facility] [id number], [place] [address] Dec, IMMUNIZATIONS No Known Immunizations SOCIAL HISTORY Never Assessed REASON FOR VISIT possible spider bite on the right forarm, PT noticed it yesterday- Lee MALDONADO PLAN OF CARE VITAL SIGNS Height 66 in 2017-03-12 Weight 231.4 lbs 2017-03-12 Temperature 97.9 degrees Fahrenheit 2017-03-12 Heart Rate 84 bpm 2017-03-12 Respiratory Rate 20 2017-03-12 BMI 37.34 kg/m2 2017-03-12 Blood pressure systolic 146 mmHg 2017-03-12 Blood pressure diastolic 78 mmHg 2017-03-12 MEDICATIONS Medication Instructions Dosage Frequency Start Date End Date Duration Status Pen [place] 12/04" 31G X 5 MM as directed 24h January, Active [place] 10-325 MG Orally every 6 hrs 1 tablet as needed 6h 08 Feb, 2017 28 days Active Doxycycline Hyclate 100 mg Orally every 12 hrs 1 capsule 12h Feb, Mar, 10 days Active GlipiZIDE 5 mg Orally 2 times a day 1 tablet 12h Aug, 30 day(s ) Active Cyclobenzaprine HCl 10 mg Orally Three times a day 1 tablet as needed 8h 16 Feb, 2017 Active Pepcid 20 mg Orally 2 times a day 1 tablet at bedtime 12h 15 Apr, 2016 30 day(s) Active Fluoxetine HCl 20 mg Orally Once a day, voucher 1st fill 1 capsule in the morning January, 30 day(s) Active BusPIRone HCl 10 mg Orally Twice a day 1 tablet 12h 28 Dec, 2015 Active Diclofenac Sodium 75 MG Orally 2 times a day 1 tablet as needed 12h Nov Active Depo-Testosterone 100 MG/ML Intramuscular once monthly 1 ml Dec, Active Glucometer 1 as directed 12h Jun, Active HydrOXYzine HCl 25 MG 1 tablet 12h Nov, Active MetFORMIN HCl ER 500 mg Orally 2 times a day 2 tablets 12h Apr, Active RESULTS No Results PROCEDURES No Known procedures INSTRUCTIONS MEDICATIONS ADMINISTERED No Known Medications MEDICAL (GENERAL) HISTORY Type Description Date Medical History Type 2 diabetes Medical History anxiety Medical History chronic hip pain Medical History carpal tunnel bilateral Medical History [place] Palsy Surgical History carpel tunnel-right hand 2011 Surgical History carpel tunnel-left hand 2008 Surgical History carpal tunnel - right hand 11/2015 Hospitalization History ER spider bite
--- OUTSIDE RECORDS SUMMARY | 2018-06-25 06:16 | XMS REPORT ---
Author Author DARRIN FLOOD Organization [facility] Address [address] [place] [address] Care Team Providers Care Poultryman Name Role Phone ALEENA DARRIN Unavailable PROBLEMS Type Condition ICD9-CM Code [id number] Code Onset Dates Condition Status SNOMED Code Problem Chronic osteoarthritis M19.90 Active 89761826 Problem Controlled type 2 diabetes mellitus without complication, without long -term current use of insulin E11.9 Active 679958535 Problem Anxiety F41.9 Active 06500129 Problem Diabetes E11.9 Active 66717437 Problem Diabetes type 2, controlled E11.9 Active 853058685 Problem Depressive disorder, not elsewhere classified F32.9 Active 55253795 Problem Chronic fatigue R53.82 Active 49308425 Problem Drug-induced erectile dysfunction N52.2 Active 335750279 Problem Hypogonadism in male E29.1 Active 83334247 Problem Mood disorder F39 Active 25025866 ALLERGIES No Information SOCIAL HISTORY Never Assessed PLAN OF CARE Activity Details Follow Up next available Reason:anger & depression VITAL SIGNS MEDICATIONS Medication Instructions Dosage Frequency Start Date End Date Duration Status MetFORMIN HCl ER 500 MG Orally 2 times a day 1 tablet with evening meal 12h Apr, 30 day(s) Active Pepcid 20 mg Orally 2 times a day 1 tablet at bedtime 12h Apr, 30 day(s) Active GlipiZIDE 5 mg Orally 2 times a day 1 tablet 12h Aug, 30 day(s ) Active Diclofenac Sodium 75 MG Orally 2 times a day 1 tablet as needed 12h Nov Active [place] 10-325 MG Orally every 6 hrs 1 tablet as needed 6h January, 28 days Active Fluoxetine HCl 20 mg Orally Once a day, voucher 1st fill 1 capsule in the morning January, 30 day(s) Active BusPIRone HCl 10 mg Orally Twice a day 1 tablet 12h Dec, Active Glucometer 1 as directed 12h Jun, Active RESULTS No Results PROCEDURES Procedure Date Ordered Result Body Site Psychotherapy, patient &/family, 45 minutes, established patient February 13, 2017 IMMUNIZATIONS No Known Immunizations MEDICAL (GENERAL) HISTORY Type Description Date Medical History Type 2 diabetes Medical History anxiety Medical History chronic hip pain Medical History carpal tunnel bilateral Medical History Amelia Palsy Surgical History carpel tunnel-right hand 2011 Surgical History carpel tunnel-left hand 2008 Surgical History carpal tunnel - right hand 11/2015 Hospitalization History ER spider bite
--- OUTSIDE RECORDS SUMMARY | 2018-06-25 06:16 | XMS REPORT ---
Author Author KASI BLANCHARD [facility] Address [address] [place] [address] Care Team Providers Care Line Up Worker Name Role Phone KASI BLANCHARD Unavailable PROBLEMS Type Condition ICD9-CM Code [id number] Code Onset Dates Condition Status SNOMED Code Problem Chronic osteoarthritis M19.90 Active 56444177 Problem Controlled type 2 diabetes mellitus without complication, without long -term current use of insulin E11.9 Active 954824646 Problem Anxiety F41.9 Active 54538536 Problem Diabetes E11.9 Active 82870266 Problem Diabetes type 2, controlled E11.9 Active 610098574 Problem Depressive disorder, not elsewhere classified F32.9 Active 47906692 Problem Chronic fatigue R53.82 Active 52415820 Problem Drug-induced erectile dysfunction N52.2 Active 055852889 Problem Hypogonadism in male E29.1 Active 42418310 Problem Mood disorder F39 Active 09336030 ALLERGIES Unknown Allergies SOCIAL HISTORY No smoking Hx information available PLAN OF CARE VITAL SIGNS MEDICATIONS Medication Instructions Dosage Frequency Start Date End Date Duration Status [place] 7.5-325 MG Orally every 6 hrs 1 tablet as needed 6h Oct, 28 days Active RESULTS No Results PROCEDURES No Known procedures IMMUNIZATIONS No Known Immunizations
--- OUTSIDE RECORDS SUMMARY | 2018-06-25 06:16 | XMS REPORT ---
Author Author KASI BLANCHARD Organization [employer] Address Unknown Phone Unavailable Care Team Providers Care Width Stripper Name Role Phone KASI BLANCHARD CP Unavailable Allergies No Known Allergies Problems Problem Type Condition Code Onset Dates Condition Status Problem Unspecified conjunctivitis 372.30 Active Assessment Diabetes mellitus 250.00 Active Problem Unspecified episodic mood disorder 296.90 Active Problem Acute sinusitis, unspecified 461.9 Active Problem Tooth abscess 522.5 Active Problem Influenza with other respiratory manifestations 487.1 Active Problem Health examination of defined subpopulation V70.5 Active Problem Scabies 133.0 Active Problem Other specified viral warts 078.19 Active Medications Medication Code System Code Instructions Start Date End Date Status Dosage Diclofenac Sodium [facility] [address]-20 75 mg November 29, 2014 1 tablet by Oral route 2 times per day PRN Tramadol HCl [facility] [address]-81 50 MG Orally every 6 hrs May 11, 2015 1 tablet as needed Results No Known Results Summary Purpose [employer] Submission
--- OUTSIDE RECORDS SUMMARY | 2018-06-25 06:16 | XMS REPORT ---
Author Author KASI BLANCHARD [facility] Address [address] [place] [address] Care Team Providers Care Crap Shooter Name Role Phone KASI BLANCHARD Unavailable PROBLEMS Type Condition ICD9-CM Code [id number]-AP Code Onset Dates Condition Status SNOMED Code Problem Chronic osteoarthritis M19.90 Active 97552099 Problem Controlled type 2 diabetes mellitus without complication, without long -term current use of insulin E11.9 Active 194499766 Problem Anxiety F41.9 Active 52746256 Problem Diabetes E11.9 Active 69988820 Problem Diabetes type 2, controlled E11.9 Active 346553547 Problem Depressive disorder, not elsewhere classified F32.9 Active 09234275 Problem Chronic fatigue R53.82 Active 19664124 Problem Drug-induced erectile dysfunction N52.2 Active 030606998 Problem Hypogonadism in male E29.1 Active 76028771 Problem Mood disorder F39 Active 13323824 ALLERGIES Substance Reaction Event Type Date Status N.K.D.A. Unknown Non Drug Allergy Sep, Unknown SOCIAL HISTORY No smoking Hx information available PLAN OF CARE VITAL SIGNS Height 66 in 2016-09-29 Weight 236.6 lbs 2016-09-29 Temperature 98.4 degrees Fahrenheit 2016-09-29 Heart Rate 80 bpm 2016-09-29 Respiratory Rate 18 2016-09-29 BMI 38.18 kg/m2 2016-09-29 Blood pressure systolic 166 mmHg 2016-09-29 Blood pressure diastolic 84 mmHg 2016-09-29 MEDICATIONS Medication Instructions Dosage Frequency Start Date End Date Duration Status Glucometer 1 as directed h Jun, Active GlipiZIDE 5 mg Orally 2 times a day 1 tablet 12h Aug, 30 day(s ) Active [place] 7.5-325 MG Orally every 6 hrs 1 tablet as needed 6h Sep, Active BusPIRone HCl 10 mg Orally Twice a day 1 tablet 12h Dec, Active Pepcid 20 mg Orally 2 times a day 1 tablet at bedtime 12h 15 Apr, 2016 30 day(s) Active MetFORMIN HCl ER 500 MG Orally 2 times a day 1 tablet with evening meal 12h Apr, 30 day(s) Active Diclofenac Sodium 75 MG Orally 2 times a day 1 tablet as needed 12h Nov Active HydrOXYzine HCl 25 MG 1 tablet 12h Nov, Active RESULTS Name Result Date Reference Range MICROALBUMIN, URINE (IN HOUSE) 2016-09-29 MICROALBUMIN abnormal Lot # [id number] Exp date 07/2017 Clarity clear Color yellow ALB 80 mg/L CRE 300 mg/dL A:C (IN HOUSE) 30-300 mg/g* Control + Control Lot # Exp date MICROALBUMIN/CREATININE RATIO, URINE 2016-09-29 Creatinine, Urine 231.4 Not Estab. Microalbumin, Urine 26.9 Not Estab. Microalb/Creat Ratio 11.6 0.0-30.0 PROCEDURES Procedure Date Ordered Related Diagnosis Body Site MICROALBUMIN, SEMIQUANT Sep 29, 2016 ASSAY OF URINE CREATININE Sep 29, 2016 Office Visit, Est Pt., Level 3 Sep 29, 2016 MICROALBUMIN, QUANTITATIVE Sep 29, 2016 IMMUNIZATIONS No Known Immunizations
--- OUTSIDE RECORDS SUMMARY | 2018-06-25 06:16 | XMS REPORT ---
Author Author HENRY MEAD Organization [employer] Address Unknown Phone Unavailable Care Team Providers Care Water Filter Cleaner Name Role Phone HENRY MEAD CP Unavailable Allergies No Known Allergies Problems [...] Date End Date Status Dosage Tramadol HCl [facility] [address]-92 50 MG Orally every 6 hrs May 11, 2015 1 tablet as needed Results No Known Results Summary Purpose [employer] Submission
--- OUTSIDE RECORDS SUMMARY | 2018-06-25 06:16 | XMS REPORT ---
Author Author KASI BLANCHARD Organization [facility] Address [address] [place] [address] Care Team Providers Care Rn Occupational Health Name Role Phone KASI BLANCHARD Unavailable PROBLEMS Type Condition ICD9-CM Code [id number] Code Onset Dates Condition Status SNOMED Code Problem Controlled type 2 diabetes mellitus without complication, without long -term current use of insulin E11.9 Active 072278477 Problem Chronic fatigue R53.82 Active 90126924 Problem Drug-induced erectile dysfunction N52.2 Active 552063404 Problem Diabetes E11.9 Active 36452801 Problem Anxiety F41.9 Active 69853188 Problem Chronic osteoarthritis M19.90 Active 75001251 Problem Sialadenitis K11.20 Active 34169400 Problem Uncontrolled type 2 diabetes mellitus without complication, without long-term current use of insulin E11.65 Active 535449085 Problem Hypogonadism in male E29.1 Active 87051409 Problem Mood disorder F39 Active 14125350 Problem Diabetes type 2, controlled E11.9 Active 652662110 Problem Depressive disorder, not elsewhere classified F32.9 Active 38818920 ALLERGIES No Information ENCOUNTERS Encounter Location Date Diagnosis [place] [address], [place] [address] Mar, [place] [id number] [place] [address] 06207- 8669 Feb, Insect bite (nonvenomous) of right upper arm, initial encounter S40.861A ; Local infection of the skin and subcutaneous tissue, unspecified L08.9 and Hypogonadism in male E29.1 [place] [address] [address] [id number] [place] [address] 54418- 3493 January, Sialadenitis K11.20 [place] [id number], [place] [address] 2178 January, Bronchitis J40 [facility] [id number] [place] [address] 23858- 5476 January, Hypogonadism in male E29.1 [facility] [id number] [place] [address] 49711- 6718 January, Hypogonadism in male E29.1 [facility] [id number] [place] [address] 04645- 6038 Dec, Bronchitis J40 [facility] [address] [address]- 3722 Nov, Diabetes E11.9 and Anxiety F41.9 [facility] [address] 85347- 7352 Nov, Bronchitis J40 [facility] [address] 72867- 1872 Oct, Bronchitis J40 [facility] [address] 24611- 8948 Sep, Diabetes E11.9 ; Mood disorder F39 ; Hypogonadism in male E29.1 and Depressive disorder, not elsewhere classified F32.9 [facility] [id number] [place] [address] 30664- 6046 Sep, Bronchitis J40 [facility] [id number] [place] [address] 16729- 1914 Sep, Hypogonadism in male E29.1 [facility] [id number] [place] [address] 00404- 7945 Sep, [facility] [id number] [place] [address] 86976- 0192 Sep, [facility] [id number] [place] [address] 17896- 3717 Aug, Bronchitis J40 [facility] [id number] [place] [address] 15688- 8757 Aug, Uncontrolled type 2 diabetes mellitus without complication, without long-term current use of insulin E11.65 ; Diabetes type 2, controlled E11.9 ; Hypogonadism in male E29.1 ; Encounter for immunization Z23 and Spider bite wound, undetermined intent, initial encounter T63.304A [facility] [id number] [place] [address] 01137010- 0726 Jul, Bronchitis J40 [facility] [address] 47861- 8517 Jun, Hypogonadism in male E29.1 [facility] [address] 23340- 0108 Jun, Hypogonadism in male E29.1 and Bronchitis J40 [facility] [id number] [place] [address] 09075- 4091 May, Bronchitis J40 [facility] [address] 73361- 6840 May, Hypogonadism in male E29.1 [facility] [id number] [place] [address] 15771- 7321 May, Hypogonadism in male E29.1 [facility] [id number] [place] [address] 38398- 9197 Apr, Bronchitis J40 [facility] [id number] [place] [address] 75506- 2095 Apr, Controlled type 2 diabetes mellitus without complication, without long-term current use of insulin E11.9 [facility] [id number] [place] [address] 58049- 3600 Apr, Diabetes type 2, controlled E11.9 ; Hypogonadism in male E29.1 and Mood disorder F39 [facility] [id number] [place] [address] 80297- 4829 Apr, Hypogonadism in male E29.1 [facility] [id number] [place] [address] 50832- 4080 Apr, Bronchitis J40 [facility] [id number] [place] [address] 26270- 7490 Mar, Hypogonadism in male E29.1 [facility] [id number] [place] [address] 42673- 5423 Mar, Bronchitis J40 [facility] [id number] [place] [address] 59011- 9986 Mar, Bronchitis J40 [facility] [address] 70159- 6632 Feb, Spider bite, accidental or unintentional, initial encounter T63.301A [facility] [address] 42487- 5386 Feb, Depressive disorder, not elsewhere classified F32.9 [facility] [id number] [place] [address] 95491- 9403 Feb, Diabetes E11.9 ; Mood disorder F39 and Hypogonadism in male E29.1 [facility] [address] [id number] [place] [address] 70072- 0000 Feb, Bronchitis J40 [facility] [id number] [place] [address] 15880- 8768 Feb, Depressive disorder, not elsewhere classified F32.9 [facility] [id number] [place] [address] 43260- 0364 January, Depressive disorder, not elsewhere classified F32.9 [facility] [id number] [place] [address] 88309- 2417 January, Diabetes E11.9 and Mood disorder F39 [facility] [id number] [place] [address] 35083- 6893 January, Bronchitis J40 [facility] [id number] [place] [address] 04965- 8459 Dec, Bronchitis J40 [facility] [address] 70310- 9533 Dec, Hypogonadism in male E29.1 [facility] [address] [place] [id number] [place] [address] 51769- 1856 Dec, [facility] [address] [address] [id number] [place] [address] 94447- 8164 Dec, Controlled type 2 diabetes mellitus without complication, without long-term current use of insulin E11.9 and Chronic fatigue R53.82 [place] [address] [place] [address] [id number] [place] [address] 47623- 1628 Nov, Bronchitis J40 [place] [address] [address] [id number] [place] [address] 64966- 9792 Oct, Bronchitis J40 ; Controlled type 2 diabetes mellitus without complication, without long-term current use of insulin E11.9 ; Chronic fatigue R53.82 and Drug-induced erectile dysfunction N52.2 [place] [address] [place] [id number] [place] [address] 86094- 8038 Oct, Diabetes E11.9 [place] [address] [place] [id number] [place] [address] 50806- 7759 Sep, Pre-employment examination Z02.1 [place] [address] [place] [id number] [place] [address] 31198- 3122 Sep, Diabetes E11.9 [place] [address] [place] [address] [id number] [place] [address] 27272- 9616 Aug, Controlled type 2 diabetes mellitus without complication, without long-term current use of insulin E11.9 and Chronic osteoarthritis M19.90 [place] [address], [place] [address]- 1150 Jul, [place] [address] [place] [id number] [place] [address] 62236- 0397 Jun, [place] [address] [place] [id number] [place] [address] 10469- 7897 Jun, 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 [facility] [address], [place] [address]- 1269 07 Jun, 2016 Encounter for immunization Z23 and Controlled type 2 diabetes mellitus without complication, without long-term current use of insulin E11.9 [facility] [address] 1296 30 May, 2016 [facility] [address] [id number] [place] [address] 54596- 5927 May, [facility] [address] [id number] [place] [address] 18174- 1818 Apr, Gastritis without bleeding, unspecified chronicity, unspecified gastritis type K29.70 [facility] [address] [place] [address] 54471- 5119 Apr, [facility] [address] [id number] [address]- 5130 Mar, Diabetes type 2, controlled E11.9 [facility] [address], [place] [address]- 0913 Mar, [facility] [address], [place] [address]- 6058 Feb, [facility] [address], [place] [address]- 0388 Feb, [facility] [address], [place] [address]- 8973 January, [facility] [address], [place] [address]- 2389 Dec, Urethritis N34.2 [facility] [address], [place] [address]- 7030 Dec, [facility] [address], [place] [address]- 5765 Nov, Diabetes type 2, controlled E11.9 [facility] [address], [place] [address]- 6486 Nov, [facility] [address], [place] [address]- 8213 Nov, Diabetes type 2, controlled E11.9 [facility] [address] [place] [address] 17994- 9026 Oct, Hand pain M79.643 [facility] [address] [place] [id number] [place] [address] 58950- 4871 Oct, Right hand pain M79.641 [facility] [address] [id number] [place] [address] 28732- 0706 Oct, [facility] [address] [place] [id number] [place] [address] 68681- 3609 Oct, [facility] [address] [place] [id number] [place] [address] 06027- 9221 Oct, Right carpal tunnel syndrome G56.01 [facility] [address] [place] [id number] [place] [address] 72509- 5758 Sep, Diabetes E11.9 [place] [address] [place] [id number] [place] [address] 49620- 4526 Sep, Anxiety F41.9 ; Chronic osteoarthritis M19.90 and Health examination of defined subpopulation V70.5 [place] [address] [place] [id number] [place] [address] 26188- 9923 Sep, Diabetes E11.9 [facility] [address] [place] [id number] [place] [address] 03076- 4168 Aug, Diabetes E11.9 ; Carpal tunnel syndrome, right G56.01 and Carpal tunnel syndrome, left upper limb G56.02 [place] [address] [place] [address] [place] [address] 69520- 4130 Jul, Diabetes mellitus 250.00 [facility] [address] [place] [id number] [place] [address] 96140- 4932 Jun, Diabetes mellitus 250.00 [facility] [address] [id number] [place] [address]- 1503 May, Diabetes mellitus 250.00 [facility] [address] [address] 2546 Apr, Diabetes mellitus 250.00 [facility] [address] [id number] [address] 2545 Mar, [facility] [address] [id number] [address]- 8412 Mar, Tooth abscess 522.5 [facility] [id number] [address]- 6389 Feb, [facility] [address] [place] [address]- 6494 January, [facility] [address] [address]- 9447 January, [facility] [address], [place] [address]- 3254 January, Diabetes mellitus 250.00 [facility] [address] [address]- 7656 January, [facility] [address] [address]- 6928 Dec, [facility] [address] [address]- 4864 Dec, [facility] [id number] [address]- 8332 Nov, [facility] [id number] [address]- 6881 Nov, [facility] [address] 0097 Nov, [facility] [id number] [address]- 6731 Nov, [facility] [place] [facility] [address] [id number] [place] [address]- 5867 Oct, [facility] [place] [facility] [address] [id number] [place] [address]- 8275 Oct, [facility] [place] [facility] [address] [id number] [place] [address]- 2725 Sep, [facility] [place] [facility] [address] [id number] [place] [address]- 3301 Sep, [facility] [place] [facility] [address] [id number] [place] [address]- 0886 Aug, [facility] [place] [facility] [address] [id number] [place] [address]- 9172 Aug, [facility] [place] [facility] [address] [id number] [place] [address]- 0077 Aug, [facility] [place] [facility] [address] [id number] [place] [address]- 6854 Aug, [facility] [place] [facility] [address] [id number] [place] [address]- 0770 Aug, [facility] [place] [facility] [address] [id number] [place] [address]- 3334 Aug, [facility] [place] [facility] [address] [id number] [place] [address]- 4286 Jul, [facility] [place] [facility] [address] [id number] [place] [address]- 6093 Jul, [facility] [place] [facility] [address] [id number] [place] [address]- 9831 Jun, [facility] [place] [facility] [address] [id number] [place] [address]- 1242 Jun, [facility] [place] [facility] [address] [id number] [place] [address]- 0573 May, [facility] [place] [facility] [address] [id number] [place] [address]- 3765 May, [facility] [place] [facility] [address] [id number] [place] [address]- 2192 Apr, [facility] [place] [facility] [address] [id number] [place] [address]- 6594 Apr, [facility] [place] [facility] [address] [id number] [place] [address]- 1747 Apr, [facility] [place] [facility] [address] [id number] [place] [address]- 4507 Apr, [facility] [place] [facility] [address] [id number] [place] [address]- 0919 Apr, [facility] [place] [facility] [address] [id number] [place] [address]- 6435 Apr, [facility] [place] [facility] [address] [id number] [place] [address]- 8956 Mar, [facility] [place] [facility] [address] [id number] [place] [address]- 8371 Mar, [facility] [place] [facility] [address] [id number] [place] [address]- 9872 Feb, [facility] [place] [facility] [address] [id number] [place] [address]- 7082 Feb, [facility] [place] [facility] [address] [id number] [place] [address]- 3932 Feb, [facility] [place] [facility] [address] [id number] [place] [address]- 5372 Feb, [facility] [place] [facility] [address] [id number] [place] [address]- 5356 January, [facility] [place] [facility] [address] [id number] [place] [address]- 5064 January, [facility] [place] [facility] [address] [id number] [place] [address]- 8414 January, [facility] [place] [facility] [address] [id number] [place] [address]- 4213 January, [facility] [address] [id number] [place] [address]- 4051 Dec, [facility] [place] [facility] [address] [id number] [place] [address]- 1888 Dec, [facility] [address] [id number] [place] [address]- 1627 Nov, [facility] [place] [facility] [address] [id number] [place] [address]- 8174 Nov, [facility] [address] [id number] [place] [address]- 9344 Oct, [facility] [place] [facility] [address] [id number] [place] [address]- 5466 Oct, [facility] [address] [id number] [place] [address]- 5353 Sep, [facility] [address] [id number] [place] [address]- 2122 Sep, [facility] [place] [facility] [address] [id number] [place] [address]- 9894 Aug, [facility] [address] [id number] [place] [address]- 8594 Aug, [facility] [place] [facility] [address] [id number] [place] [address]- 4236 Jul, [facility] [place] [facility] [address] [id number] [place] [address]- 7994 Jul, [facility] [place] [facility] [address] [id number] [place] [address]- 3096 Jun, [facility] [place] [facility] [address] [id number] [place] [address]- 2546 Jun, [facility] [place] [facility] [address] [id number] [place] [address]- 9229 May, [facility] [address] [id number] [place] [address]- 1877 May, [facility] [place] [facility] [address] [id number] [place] [address]- 3421 Apr, [facility] [place] [facility] [address] [id number] [place] [address]- 1458 Apr, [facility] [place] [facility] [address] [id number] [place] [address]- 3709 Feb, [facility] [address] [id number] [place] [address]- 4022 Feb, [facility] [place] [facility] [address] [id number] [place] [address]- 7844 January, [facility] [place] [facility] [address] [id number] [place] [address]- 6296 January, [facility] [address] [id number] [place] [address]- 3475 Dec, [facility] [place] [facility] [address] [id number] [place] [address]- 3998 Nov, [facility] [place] [facility] [address] [id number] [place] [address]- 7090 Oct, [facility] [place] [facility] [address] [id number] [place] [address]- 2787 Oct, [facility] [place] [facility] [address] [id number] [place] [address]- 8838 Sep, [facility] [place] [facility] [address] [id number] [place]- 5478 Aug, [facility] [place] [facility] [address] [id number] [place] 3526 Aug, [facility] [place] [facility] [address] [id number] [place] [address]- 0996 Jul, [facility] [place] [facility] [address] [id number] [place] [address]- 5206 Jul, [facility] [place] [facility] [address] [id number] [place] [address]- 6374 Jun, [facility] [place] [facility] [address] [id number] [place] [address]- 0402 24 May, 2012 [facility] [place] [facility] [address] [id number] [place] [address]- 4986 14 May, 2012 [facility] [place] [facility] [address] [id number] [place] [address]- 3624 13 May, 2012 [facility] [place] [facility] [address] [id number] [place] [address] Apr, [facility] [place] [facility] [address] [id number] [place] [address] Apr, [facility] [place] [facility] [address] [id number] [place] [address] Apr, [facility] [place] [facility] [address] [id number] [place] [address] Mar, [facility] [place] [facility] [address] [id number] [place] [address] Mar, [facility] [place] [facility] [address] [facility] [id number] [place] [address] Feb, [facility] [place] [facility] [address] [id number] [place] [address] Feb, [facility] [place] [facility] [address] [id number] [place] [address] January, [facility] [place] [facility] [address] [id number] [place] [address] January, [facility] [place] [facility] [address] [id number] [place] [address] Dec, [facility] [place] [facility] [address] [id number] [place] [address] Dec, [facility] [place] [facility] [address] [id number] [place] [address] Nov, [facility] [address] [id number] [place] [address] Nov, [facility] [place] [facility] [address] [id number] [place] [address] Oct, [facility] [place] [facility] [address] [id number] [place] [address] Oct, [facility] [address] [id number] [place] [address] Sep, [facility] [address] [id number] [place] [address] Sep, [facility] [address] [id number] [place] [address] Sep, [facility] [address] [id number] [place] [address] Aug, [facility] [place] [facility] [address] [id number] [place] [address] Aug, [facility] [address] [id number] [place] [address] Aug, [facility] [place] [facility] [address] [id number] [place] [address] Aug, [facility] [address] [id number] [place] [address] Aug, [facility] [place] [facility] [address] [id number] [place] [address] 30 Jul, 2011 [facility] [place] [facility] [address] [id number] [place] [address] Jul, [facility] [place] [facility] [address] [id number] [place] [address] Jul, [facility] [place] [facility] [address] [id number] [place] [address] Dec, IMMUNIZATIONS No Known Immunizations SOCIAL HISTORY Never Assessed REASON FOR VISIT Corrected Rx PLAN OF CARE VITAL SIGNS MEDICATIONS Medication Instructions Dosage Frequency Start Date End Date Duration Status Trulicity 1.5 MG/0.5ML Subcutaneous once weekly Inject 0.5mL Sep, Active RESULTS No Results PROCEDURES No Known procedures INSTRUCTIONS MEDICATIONS ADMINISTERED No Known Medications MEDICAL (GENERAL) HISTORY Type Description Date Medical History Type 2 diabetes Medical History anxiety Medical History chronic hip pain Medical History carpal tunnel bilateral Medical History [place] Palsy Surgical History carpel tunnel-right hand 2011 Surgical History carpel tunnel-left hand 2008 Surgical History carpal tunnel - right hand 11/2015 Surgical History Torn bicep repair 01/2018 Hospitalization History ER spider bite
--- OUTSIDE RECORDS SUMMARY | 2018-06-25 06:17 | XMS REPORT ---
Author Author KASI BLANCHARD Organization [facility] Address [address] [place] [address] Care Team Providers [employer] Compensation Manager Name Role Phone KASI BLANCHARD Unavailable PROBLEMS Type Condition ICD9-CM Code AMD00-ED Code Onset Dates Condition Status SNOMED Code Problem Anxiety F41.9 Active 95839951 Problem Drug-induced erectile dysfunction N52.2 Active 281032790 Problem Controlled type 2 diabetes mellitus without complication, without long -term current use of insulin E11.9 Active 053270724 Problem Diabetes E11.9 Active 04332855 Problem Chronic osteoarthritis M19.90 Active 83293109 Problem Uncontrolled type 2 diabetes mellitus without complication, without long-term current use of insulin E11.65 Active 958675112 Problem Diabetes type 2, controlled E11.9 Active 738485231 Problem Mood disorder F39 Active 23867924 Problem Chronic fatigue R53.82 Active 70466561 Problem Depressive disorder, not elsewhere classified F32.9 Active 13137658 Problem Hypogonadism in male E29.1 Active 11264846 ALLERGIES No Known Allergies ENCOUNTERS Encounter Location Date Diagnosis [place] [id number] [place] [address] 41289- 6632 12 Dec, 2017 Bronchitis J40 [facility] [id number] [place] [address] 86228- 2294 28 Nov, 2017 Diabetes E11.9 and Anxiety F41.9 [facility] [id number] [place] [address] 74192- 1529 15 Nov, 2017 Bronchitis J40 [facility] [id number] [place] [address] 52463- 6596 14 Oct, 2017 Bronchitis J40 [facility] [id number] [place] [address] 48104- 5522 Sep, Diabetes E11.9 ; Mood disorder F39 ; Hypogonadism in male E29.1 and Depressive disorder, not elsewhere classified F32.9 [facility] [id number] [place] [address] 06381- 5576 Sep, Bronchitis J40 [facility] [id number] [place] [address] 80346- 9963 Sep, Hypogonadism in male E29.1 [facility] [address] 50624- 0866 Sep, [facility] [id number] [place] [address] 64394- 4107 Sep, [facility] [address] 43158- 6140 Aug, Bronchitis J40 [facility] [address] 68442- 5064 Aug, Uncontrolled type 2 diabetes mellitus without complication, without long-term current use of insulin E11.65 ; Diabetes type 2, controlled E11.9 ; Hypogonadism in male E29.1 ; Encounter for immunization Z23 and Spider bite wound, undetermined intent, initial encounter T63.304A [facility] [address] 01658- 1114 Jul, Bronchitis J40 [facility] [id number] [place] [address] 33822- 4300 Jun, Hypogonadism in male E29.1 [facility] [id number] [place] [address] 83655- 4972 Jun, Hypogonadism in male E29.1 and Bronchitis J40 [facility] [id number] [place] [address] 93940- 3193 May, Bronchitis J40 [facility] [id number] [place] [address] 78035- 4095 May, Hypogonadism in male E29.1 [facility] [id number] [place] [address] 66043- 5064 May, Hypogonadism in male E29.1 [facility] [id number] [address] 7975 Apr, Bronchitis J40 [facility] [id number] [place] [address] 57204- 6172 Apr, Controlled type 2 diabetes mellitus without complication, without long-term current use of insulin E11.9 [facility] [id number] [place] [address] 93727- 1849 Apr, Diabetes type 2, controlled E11.9 ; Hypogonadism in male E29.1 and Mood disorder F39 [facility] [id number] [place] [address] 37347- 4091 Apr, Hypogonadism in male E29.1 [facility] [id number] [place] [address] 48112- 2927 Apr, Bronchitis J40 [facility] [id number] [place] [address] 89404- 3473 Mar, Hypogonadism in male E29.1 [facility] [id number] [place] [address] 76927- 1417 Mar, Bronchitis J40 [facility] [id number] [place] [address] 80688- 0044 Mar, Bronchitis J40 [facility] [id number] [place] [address] 59650- 3492 Feb, Spider bite, accidental or unintentional, initial encounter T63.301A [facility] [id number] [place] [address] 64763- 4256 Feb, Depressive disorder, not elsewhere classified F32.9 [facility] [id number] [place] [address] 00152- 0716 Feb, Diabetes E11.9 ; Mood disorder F39 and Hypogonadism in male E29.1 [facility] [id number] [place] [address] 41099- 4674 Feb, Bronchitis J40 [facility] [id number] [place] [address] 79121- 0102 Feb, Depressive disorder, not elsewhere classified F32.9 [facility] [id number] [place] [address] 31125- 0079 January, Depressive disorder, not elsewhere classified F32.9 [facility] [id number] [place] [address] 79150- 7128 January, Diabetes E11.9 and Mood disorder F39 [facility] [address] [id number] [place] [address] 76825- 0972 January, Bronchitis J40 [facility] [id number] [place] [address] 48450- 3472 Dec, Bronchitis J40 [facility] [address] [id number] [place] [address] 97336- 7114 Dec, Hypogonadism in male E29.1 [facility] [id number] [place] [address] 90250- 3754 Dec, [facility] [id number] [place] [address] 56316- 9250 Dec, Controlled type 2 diabetes mellitus without complication, without long-term current use of insulin E11.9 and Chronic fatigue R53.82 [facility] [address] [id number] [place] [address] 22663- 0286 Nov, Bronchitis J40 [facility] [id number] [place] [address] 93517- 4813 Oct, Bronchitis J40 ; Controlled type 2 diabetes mellitus without complication, without long-term current use of insulin E11.9 ; Chronic fatigue R53.82 and Drug-induced erectile dysfunction N52.2 [facility] [id number] [place] [address] 41746- 1921 Oct, Diabetes E11.9 [facility] [id number] [place] [address] 27625- 7139 Sep, Pre-employment examination Z02.1 [facility] [id number] [place] [address] 89524- 0592 Sep, Diabetes E11.9 [facility] [id number] [place] [address] 88745- 8354 Aug, Controlled type 2 diabetes mellitus without complication, without long-term current use of insulin E11.9 and Chronic osteoarthritis M19.90 [facility] [id number] [place] [address] 29016- 4450 Jul, [place] [address] [id number] [place] [address] 85163- 4488 Jun, [place] [address] [id number] [place] [address] 93776- 9173 Jun, 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 [place] [address] [id number] [place] [address] 29879- 3143 Jun, Encounter for immunization Z23 and Controlled type 2 diabetes mellitus without complication, without long-term current use of insulin E11.9 [place] [address] [id number] [place] [address] 32204- 4675 May, [place] [address] [id number] [place] [address] 98508- 1036 May, [facility] [id number] [place] [address] 87766- 9928 Apr, Gastritis without bleeding, unspecified chronicity, unspecified gastritis type K29.70 [facility] [address] [address]- 0662 Apr, [place] [address] [id number] [place] [address] 70385- 5206 Mar, Diabetes type 2, controlled E11.9 [facility] [address] [address]- 1254 Mar, [facility] [address] [address]- 6564 10 Feb, 2016 [facility] [id number] [place] [address] 70568- 7831 Feb, [facility] [id number] [place] [address] 21810- 2156 January, [facility] [id number] [place] [address] 06359- 3429 Dec, Urethritis N34.2 [facility] [id number] [place] [address] 96900- 1217 Dec, [facility] [id number] [place] [address] 91624- 4502 Nov, Diabetes type 2, controlled E11.9 [facility] [id number] [place] [address] 82889- 7613 Nov, [facility] [id number] [place] [address] 39787- 6126 Nov, Diabetes type 2, controlled E11.9 [facility] [id number] [place] [address] 45819- 0859 Oct, Hand pain M79.643 [facility] [address] [place] [address] 06147- 2727 Oct, Right hand pain M79.641 [facility] [id number] [place] [address] 56785- 5536 Oct, [facility] [address] [place] [address] 12554- 9227 Oct, [facility] [address] [place] [address] 09676- 7673 Oct, Right carpal tunnel syndrome G56.01 [facility] [address], [place] [address]- 1892 Sep, Diabetes E11.9 [facility] [id number] [place] [address] 40176- 5925 Sep, Anxiety F41.9 ; Chronic osteoarthritis M19.90 and Health examination of defined subpopulation V70.5 [facility] [id number] [place] [address] 86756- 6546 Sep, Diabetes E11.9 [facility] [id number] [place] [address] 77265- 1533 Aug, Diabetes E11.9 ; Carpal tunnel syndrome, right G56.01 and Carpal tunnel syndrome, left upper limb G56.02 [facility] [id number] [place] [address] 53137- 1404 Jul, Diabetes mellitus 250.00 [facility] [id number] [place] [address] 51359- 9010 Jun, Diabetes mellitus 250.00 [facility] [id number] [place] [address] 57275- 8586 May, Diabetes mellitus 250.00 [facility] [id number] [place] [address] 69063- 7701 Apr, Diabetes mellitus 250.00 [facility] [id number] [place] [address] 66949- 7902 Mar, [facility] [id number] [place] [address] 12242- 4587 Mar, Tooth abscess 522.5 [facility] [id number] [place] [address] 80086- 6792 Feb, [facility] [id number] [place] [address] 922177- 3365 January, [facility] [id number] [place] [address] 138913- 5906 January, [facility] [id number] [address] 7195 January, Diabetes mellitus 250.00 [facility] [place] [facility] [address] [id number] [place] [address]- 3318 January, [facility] [place] [facility] [address] [id number] [place] [address]- 4825 14 Dec, 2014 [facility] [place] [facility] [address] [id number] [place] [address]- 1010 Dec, [facility] [place] [facility] [address] [id number] [place] [address]- 5117 Nov, [facility] [place] [facility] [address] [id number] [place] [address]- 3729 Nov, [facility] [place] [facility] [address] [id number] [place] [address]- 2026 Nov, [facility] [place] [facility] [address] [id number] [place] [address]- 6555 Nov, [facility] [place] [facility] [address] [id number] [place] [address]- 4533 Oct, [facility] [place] [facility] [address] [id number] [place] [address]- 1284 Oct, [facility] [place] [facility] [address] [id number] [place] [address]- 8882 Sep, [facility] [place] [facility] [address] [id number] [place] [address]- 8110 Sep, [facility] [place] [facility] [address] [id number] [place] [address]- 4502 Aug, [facility] [place] [facility] [address] [id number] [place] [address]- 3371 Aug, [facility] [place] [facility] [address] [id number] [place] [address]- 9476 Aug, [facility] [place] [facility] [address] [id number] [place] [address]- 0023 Aug, [facility] [place] [facility] [address] [id number] [place] [address]- 8868 Aug, [facility] [place] [facility] [address] [id number] [place] 4663 Aug, [facility] [place] [facility] [address] [id number] [place] [address]- 8539 Jul, [facility] [place] [facility] [address] [id number] [place] [address]- 5614 Jul, [facility] [place] [facility] [address] [id number] [place] [address]- 9389 Jun, [facility] [place] [facility] [address] [id number] [place] [address]- 5074 Jun, [facility] [place] [facility] [address] [id number] [place] [address]- 7480 May, [facility] [place] [facility] [address] [id number] [place] [address]- 7573 May, [facility] [place] [facility] [address] [id number] [place] [address]- 7284 Apr, [facility] [place] [facility] [address] [id number] [place] [address]- 4259 Apr, [facility] [place] [facility] [address] [id number] [place] [address]- 7207 Apr, [facility] [place] [facility] [address] [id number] [place] [address]- 2880 Apr, [facility] [place] [facility] [address] [id number] [place] [address]- 7218 Apr, [facility] [place] [facility] [address] [id number] [place] [address]- 9985 Apr, [facility] [place] [facility] [address] [id number] [place] [address]- 5889 Mar, [facility] [place] [facility] [address] [id number] [place] [address]- 8403 Mar, [facility] [place] [facility] [address] [id number] [place] [address]- 3244 Feb, [facility] [address] [id number] [place] [address]- 2294 Feb, [facility] [place] [facility] [address] [id number] [place] [address]- 0602 Feb, [facility] [place] [facility] [address] [id number] [place] [address]- 8711 Feb, [facility] [place] [facility] [address] [id number] [place] [address]- 8780 January, [facility] [place] [facility] [address] [id number] [place] [address]- 2363 January, [facility] [place] [facility] [address] [id number] [place] [address]- 4363 January, [facility] [place] [facility] [address] [id number] [place] [address]- 4408 January, [facility] [address] [id number] [place] [address]- 6580 Dec, [facility] [place] [facility] [address] [id number] [place] [address]- 2102 Dec, [facility] [address] [id number] [place] [address]- 5411 Nov, [facility] [place] [facility] [address] [id number] [place] [address]- 0910 Nov, [facility] [place] [facility] [address] [id number] [place] [address]- 3737 Oct, [facility] [place] [facility] [address] [id number] [place] [address]- 9095 Oct, [facility] [place] [facility] [address] [id number] [place] [address]- 3414 Sep, [facility] [place] [facility] [address] [id number] [place] [address]- 8632 Sep, [facility] [address] [id number] [place] [address]- 0052 Aug, [facility] [place] [facility] [address] [id number] [place] [address]- 5049 Aug, [facility] [place] [facility] [address] [id number] [place] [address]- 1941 Jul, [facility] [place] [facility] [address] [id number] [place] [address]- 3614 Jul, [facility] [place] [facility] [address] [id number] [place] [address]- 8719 Jun, [facility] [place] [facility] [address] [id number] [place] [address]- 1615 Jun, [facility] [place] [facility] [address] [id number] [place] [address]- 8594 May, [facility] [place] [facility] [address] [id number] [place] [address]- 0418 May, [facility] [place] [facility] [address] [id number] [place] [address]- 3511 Apr, [facility] [place] [facility] [address] [id number], [place] [address]- 2893 Apr, [facility] [place] [facility] [address] [id number] [place] [address]- 4129 Feb, [facility] [place] [facility] [address] [id number], [place] [address]- 5234 Feb, [facility] [place] [facility] [address] [id number] [place] [address]- 9653 January, [facility] [place] [facility] [address] [id number], [place] [address]- 2598 January, [facility] [place] [facility] [address] [id number] [place] [address]- 7098 Dec, [facility] [place] [facility] [address] [id number] [place] [address]- 6112 Nov, [facility] [place] [facility] [address] [id number] [place] [address]- 8491 Oct, [facility] [place] [facility] [address] [id number] [place] [address]- 8786 Oct, [facility] [place] [facility] [address] [id number] [place] [address]- 9458 Sep, [facility] [place] [facility] [address] [id number] [place] [address]- 1647 Aug, [facility] [place] [facility] [address] [id number] [place] [address]- 0908 Aug, [facility] [place] [facility] [address] [id number] [place] [address]- 2427 Jul, [facility] [place] [facility] [address] [id number] [place] [address]- 6805 Jul, [facility] [place] [facility] [address] [id number] [place] [address]- 8802 Jun, [facility] [place] [facility] [address] [id number] [place] [address]- 7111 24 May, 2012 [facility] [place] [facility] [address] [id number] [place] [address]- 1550 14 May, 2012 [facility] [place] [facility] [address] [id number] [place] [address]- 6049 13 May, 2012 [facility] [place] [facility] [address] [id number] [place] [address]- 7004 28 Apr, 2012 [facility] [place] [facility] [address] [id number] [place] [address]- 4124 Apr, [facility] [place] [facility] [address] [id number] [place] [address]- 7276 Apr, [facility] [place] [facility] [address] [id number] [place] [address]- 7342 Mar, [facility] [place] [facility] [address] [id number] [place] [address]- 8515 Mar, [facility] [address] [id number] [place] [address]- 2365 Feb, [facility] [place] [facility] [address] [id number] [place] [address]- 5300 Feb, [facility] [address] [id number] [place] [address]- 4794 January, [facility] [address] [id number] [place] [address]- 6110 January, [facility] [address] [id number] [place] [address]- 2024 Dec, [facility] [address] [id number] [place] [address]- 6724 Dec, [facility] [address] [id number] [place] [address]- 9713 Nov, [facility] [address] [id number] [place] [address]- 0133 Nov, [facility] [address] [id number] [place] [address]- 5021 Oct, [facility] [address] [id number] [place] [address] Oct, [facility] [address] [id number] [place] [address] Sep, [facility] [place] [facility] [address] [id number] [place] [address] Sep, [facility] [place] [facility] [address] [id number] [place] [address] Sep, [facility] [place] [facility] [address] [id number] [place] [address] Aug, [facility] [place] [facility] [address] [id number], [place] [address] Aug, [facility] [address] [id number], [place] [address] Aug, [facility] [address] [id number], [place] [address] Aug, [facility] [address] [id number], [place] [address] Aug, [facility] [address] [id number], [place] [address] Jul, 2011 [facility] [address] [id number] [address] Jul, [facility] [id number] [address] Jul, [facility] [address] [id number], [place] [address] Dec, IMMUNIZATIONS Vaccine Route Administration Date Status TESTOSTERONE (PT'S OWN) IM Intramuscular Jun 08, 2017 Administered SOCIAL HISTORY Never Assessed REASON FOR VISIT Injection testosterone CBrumbackRN PLAN OF CARE VITAL SIGNS MEDICATIONS Unknown Medications RESULTS No Results PROCEDURES Procedure Date Ordered Result Body Site TESTOSTERONE (PT'S OWN) Jun 08, 2017 THER/PROPH/DIAG INJ, SC/IM Jun 08, 2017 INSTRUCTIONS MEDICATIONS ADMINISTERED No Known Medications MEDICAL (GENERAL) HISTORY Type Description Date Medical History Type 2 diabetes Medical History anxiety Medical History chronic hip pain Medical History carpal tunnel bilateral Medical History Rougon Palsy Surgical History carpel tunnel-right hand 2011 Surgical History carpel tunnel-left hand 2008 Surgical History carpal tunnel - right hand 11/2015 Hospitalization History ER spider bite
--- OUTSIDE RECORDS SUMMARY | 2018-06-25 06:17 | XMS REPORT ---
Author Author KASI BLANCHARD Organization [employer] Address Unknown Phone Unavailable Care Team Providers Care Bearing Inspector Name Role Phone KASI BLANCHARD CP Unavailable Allergies No Known Allergies Problems Problem Type Condition ICD-9 Code Onset Dates Condition Status Problem Unspecified [...] Date End Date Status Dosage Tramadol HCl [facility] [place] [address]-41 50 MG Orally every 6 hrs May 11, 2015 1 tablet as needed Results No Known Results Summary Purpose [employer] Submission
--- OUTSIDE RECORDS SUMMARY | 2018-06-25 06:17 | XMS REPORT ---
Author Author KASI BLANCHARD Organization [facility] Address [address] [place] [address] Care Team Providers Care Motor Man Name Role Phone KASI BLANCHARD Unavailable PROBLEMS Type Condition ICD9-CM Code [id number] Code Onset Dates Condition Status SNOMED Code Problem Controlled type 2 diabetes mellitus without complication, without long -term current use of insulin E11.9 Active 494691245 Problem Chronic fatigue R53.82 Active 14269333 Problem Drug-induced erectile dysfunction N52.2 Active 986364904 Problem Diabetes E11.9 Active 98506910 Problem Anxiety F41.9 Active 45770263 Problem Chronic osteoarthritis M19.90 Active 63937981 Problem Sialadenitis K11.20 Active 42000875 Problem Uncontrolled type 2 diabetes mellitus without complication, without long-term current use of insulin E11.65 Active 948335280 Problem Hypogonadism in male E29.1 Active 13791204 Problem Mood disorder F39 Active 07201558 Problem Diabetes type 2, controlled E11.9 Active 241362266 Problem Depressive disorder, not elsewhere classified F32.9 Active 86835915 ALLERGIES No Known Allergies ENCOUNTERS Encounter Location Date Diagnosis [place] [id number] [place] [address] 53923- 3615 January, Sialadenitis K11.20 [facility] [address] [place] [id number] [place] [address] 65989- 8114 January, Bronchitis J40 [facility] [address] [id number] [place] [address] 07170- 0790 January, Hypogonadism in male E29.1 [facility] [address] [id number] [place] [address] 71620- 0687 January, Hypogonadism in male E29.1 [place] [address] [place] [id number] [place] [address] 77948- 3547 Dec, Bronchitis J40 [facility] [address] [id number] [place] [address] 77543- 7344 28 Nov, 2017 Diabetes E11.9 and Anxiety F41.9 [facility] [id number] [place] [address] 49943- 9353 15 Nov, 2017 Bronchitis J40 [facility] [address] [id number] [place] [address] 50114- 4945 14 Oct, 2017 Bronchitis J40 [facility] [address] 83899- 6122 Sep, Diabetes E11.9 ; Mood disorder F39 ; Hypogonadism in male E29.1 and Depressive disorder, not elsewhere classified F32.9 [facility] [id number] [place] [address] 59865- 1521 Sep, Bronchitis J40 [facility] [address] 19626- 1933 Sep, Hypogonadism in male E29.1 [facility] [address] 28607- 8111 Sep, [facility] [address] 10602- 9886 Sep, [facility] [id number] [place] [address] 29203- 8971 Aug, Bronchitis J40 [facility] [id number] [place] [address] 06513- 2468 Aug, Uncontrolled type 2 diabetes mellitus without complication, without long-term current use of insulin E11.65 ; Diabetes type 2, controlled E11.9 ; Hypogonadism in male E29.1 ; Encounter for immunization Z23 and Spider bite wound, undetermined intent, initial encounter T63.304A [facility] [address] [id number] [place] [address] 46831- 9843 Jul, Bronchitis J40 [facility] [address] 06736- 2546 Jun, Hypogonadism in male E29.1 [facility] [address] [facility] [id number] [address] 2546 Jun, Hypogonadism in male E29.1 and Bronchitis J40 [facility] [address] [facility] [id number] [place] [address] 85077 2546 May, Bronchitis J40 [facility] [address] [facility] [id number] [place] [address] 93402 2546 May, Hypogonadism in male E29.1 [facility] [address] [facility] [id number] [place] [address] 95641- 0606 May, Hypogonadism in male E29.1 [facility] [id number] [place] [address] 13870- 4956 Apr, Bronchitis J40 [facility] [address] [address] [id number] [place] [address] 89694- 8835 Apr, Controlled type 2 diabetes mellitus without complication, without long-term current use of insulin E11.9 [facility] [address] [address] [id number] [place] [address] 76492- 4433 Apr, Diabetes type 2, controlled E11.9 ; Hypogonadism in male E29.1 and Mood disorder F39 [facility] [address] [address]- 7820 Apr, Hypogonadism in male E29.1 [facility] [address] [address] 2546 Apr, Bronchitis J40 [facility] [address] [facility] [id number] [address]- 3766 Mar, Hypogonadism in male E29.1 [facility] [address] [place] [id number] [address] 2571 Mar, Bronchitis J40 [facility] [address] [id number] [place] [address] 64427 2546 Mar, Bronchitis J40 [facility] [address] [place] [address] 31750- 5118 Feb, Spider bite, accidental or unintentional, initial encounter T63.301A [facility] [address] [address] [id number] [place] [address] 38721- 0936 Feb, Depressive disorder, not elsewhere classified F32.9 [facility] [address] [address] [id number] [place] [address] 71518- 8332 Feb, Diabetes E11.9 ; Mood disorder F39 and Hypogonadism in male E29.1 [facility] [address] [address] [id number] [place] [address] 41301- 1226 Feb, Bronchitis J40 [facility] [address] [address] [id number] [place] [address] 60218- 3240 Feb, Depressive disorder, not elsewhere classified F32.9 [facility] [address] [id number] [place] [address] 94283- 6049 January, Depressive disorder, not elsewhere classified F32.9 [facility] [address] [address] [id number] [place] [address] 77858- 0857 January, Diabetes E11.9 and Mood disorder F39 [facility] [address] [place] [address] 88440- 8178 January, Bronchitis J40 [facility] [address] [address] [id number] [place] [address] 92271- 2488 Dec, Bronchitis J40 [facility] [address] [address] [id number] [place] [address] 75157- 0286 Dec, Hypogonadism in male E29.1 [facility] [address] [address] [id number] [place] [address] 64002- 1091 Dec, [facility] [address] [place] [address] 94501- 7709 Dec, Controlled type 2 diabetes mellitus without complication, without long-term current use of insulin E11.9 and Chronic fatigue R53.82 [place] [address] [place] [address] [id number] [place] [address] 64661- 6266 Nov, Bronchitis J40 [facility] [address] [place] [id number] [place] [address] 52840- 2544 16 Oct, 2016 Bronchitis J40 ; Controlled type 2 diabetes mellitus without complication, without long-term current use of insulin E11.9 ; Chronic fatigue R53.82 and Drug-induced erectile dysfunction N52.2 [place] [address] 09009- 4460 06 Oct, 2016 Diabetes E11.9 [place] [address] [place] [id number] [place] [address] 52171- 9114 Sep, Pre-employment examination Z02.1 [place] [address] 42618- 3145 Sep, Diabetes E11.9 [place] [address] [place] [id number] [place] [address] 28548- 2424 Aug, Controlled type 2 diabetes mellitus without complication, without long-term current use of insulin E11.9 and Chronic osteoarthritis M19.90 [place] [address] [place] [id number] [place] [address] 64223- 7596 Jul, [place] [address] [place] [id number] [place] [address] 66492- 0755 Jun, [place] [address] [place] [id number] [place] [address] 86388- 0802 Jun, 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 [place] [address] [place] [id number] [place] [address] 88058- 0914 Jun, Encounter for immunization Z23 and Controlled type 2 diabetes mellitus without complication, without long-term current use of insulin E11.9 [place] [address] [place] [id number] [place] [address] 88360- 1027 May, [place] [address] [place] [id number] [place] [address] 10462- 8440 May, [facility] [address] [address]- 5322 Apr, Gastritis without bleeding, unspecified chronicity, unspecified gastritis type K29.70 [facility] [address] [address]- 7566 Apr, [facility] [address] [place] [address] [id number] [place] [address] 83251- 6974 Mar, Diabetes type 2, controlled E11.9 [facility] [address] [address]- 5269 Mar, [facility] [address] [place] [id number] [place] [address] 76641- 3926 Feb, [facility] [address] [address] [id number] [place] [address] 49041- 4540 Feb, [facility] [address] [address] [id number] [place] [address] 25190- 7964 January, [facility] [address] [place] [address] 10545- 2769 Dec, Urethritis N34.2 [facility] [address] [place] [address] 52107- 8996 Dec, [facility] [address] [address]- 2713 Nov, Diabetes type 2, controlled E11.9 [facility] [address] [address] 2546 Nov, [facility] [address] [place] [address] 89270- 5566 Nov, Diabetes type 2, controlled E11.9 [facility] [address] [address]- 6846 Oct, Hand pain M79.643 [facility] [address] [place] [id number] [place] [address] 53849- 5259 Oct, Right hand pain M79.641 [facility] [address] [address] [id number] [place] [address] 80832- 5119 Oct, [facility] [address] [address] [id number] [place] [address] 56773- 2847 Oct, [facility] [address] [address] [id number] [place] [address] 54711- 9899 Oct, Right carpal tunnel syndrome G56.01 [facility] [address] [place] [address] [id number] [place] [address] 33877- 8993 Sep, Diabetes E11.9 [facility] [address] [place] [id number] [place] [address] 97346- 8097 Sep, Anxiety F41.9 ; Chronic osteoarthritis M19.90 and Health examination of defined subpopulation V70.5 [facility] [address] [place] [id number] [place] [address] 76410- 7090 Sep, Diabetes E11.9 [facility] [address] [place] [id number] [place] [address] 16246- 6071 Aug, Diabetes E11.9 ; Carpal tunnel syndrome, right G56.01 and Carpal tunnel syndrome, left upper limb G56.02 [facility] [address] [place] [id number] [place] [address] 70108- 2842 Jul, Diabetes mellitus 250.00 [facility] [address] [place] [id number] [place] [address] 26895- 6876 Jun, Diabetes mellitus 250.00 [facility] [address] [place] [address] [id number] [place] [address] 11237- 2546 May, Diabetes mellitus 250.00 [facility] [address] [place] [id number] [place] [address] 82912- 6896 Apr, Diabetes mellitus 250.00 [facility] [address] [id number] [place] [address] 64151- 2812 Mar, [facility] [address] [place] [address] [id number] [address]- 3298 Mar, Tooth abscess 522.5 [facility] [address] [id number] [place] [address]- 2479 Feb, [facility] [address] [address]- 4231 January, [facility] [id number] [place] [address], [place] [address]- 6820 January, [facility] [address] [place] [id number] [address]- 5552 January, Diabetes mellitus 250.00 [facility] [address] [place] [id number] [place] [address], [place] [address]- 9380 January, [facility] [address] [address]- 2688 Dec, [facility] [address] [address]- 2270 Dec, [facility] [address] [place] [id number] [address]- 8889 Nov, [facility] [address] [address]- 5718 Nov, [facility] [address] [address]- 1091 Nov, [facility] [address] [address]- 4949 Nov, [facility] [address] [facility] [id number] [place] [address]- 0379 Oct, [facility] [id number] [address]- 0066 Oct, [facility] [address] [place] [address] [id number] [address]- 3101 Sep, [facility] [address] [address]- 6576 Sep, [facility] [place] [facility] [address] [id number] [place] [address]- 5853 Aug, [facility] [place] [facility] [address] [id number] [place] [address]- 2712 Aug, [facility] [place] [facility] [address] [id number] [place] [address]- 8959 Aug, [facility] [place] [facility] [address] [id number] [place] [address]- 8002 Aug, [facility] [place] [facility] [address] [id number] [place] [address]- 3181 Aug, [facility] [place] [facility] [address] [id number] [place] [address]- 5931 Aug, [facility] [place] [facility] [address] [id number] [place] [address]- 8255 Jul, [facility] [place] [facility] [address] [id number] [place] [address]- 9799 Jul, [facility] [place] [facility] [address] [id number] [place] [address]- 2442 Jun, [facility] [place] [facility] [address] [id number] [place] [address]- 5403 Jun, [facility] [place] [facility] [address] [id number] [place] [address]- 0672 May, [facility] [place] [facility] [address] [id number] [place] [address]- 5640 May, [facility] [place] [facility] [address] [id number] [place] [address]- 5574 Apr, [facility] [place] [facility] [address] [id number] [place] [address]- 2148 Apr, [facility] [place] [facility] [address] [id number] [place] [address]- 5389 Apr, [facility] [place] [facility] [address] [id number] [place] [address]- 1781 Apr, [facility] [place] [facility] [address] [id number] [place] [address]- 4859 Apr, [facility] [place] [facility] [address] [id number] [place] [address]- 9214 Apr, [facility] [place] [facility] [address] [id number] [place] [address]- 1393 Mar, [facility] [place] [facility] [address] [id number] [place] [address]- 4506 Mar, [facility] [place] [facility] [address] [id number] [place] [address]- 1589 Feb, [facility] [place] [facility] [address] [id number] [place] [address]- 5461 Feb, [facility] [place] [facility] [address] [id number] [place] [address]- 0108 Feb, [facility] [place] [facility] [address] [id number] [place] [address]- 3229 Feb, [facility] [place] [facility] [address] [id number] [place] [address]- 3785 January, [facility] [place] [facility] [address] [id number] [place] [address]- 3808 January, [facility] [place] [facility] [address] [id number] [place] [address]- 7331 January, [facility] [place] [facility] [address] [id number] [place] [address]- 9900 January, [facility] [place] [facility] [address] [id number] [place] [address]- 0798 Dec, [facility] [place] [facility] [address] [id number] [place] [address]- 3296 Dec, [facility] [place] [facility] [address] [id number] [place] [address]- 1593 Nov, [facility] [place] [facility] [address] [id number] [place] [address]- 1836 Nov, [facility] [place] [facility] [address] [id number] [place] [address]- 5872 Oct, [facility] [place] [facility] [address] [id number] [place] [address]- 0363 Oct, [facility] [place] [facility] [address] [id number] [place] [address]- 7266 Sep, [facility] [place] [facility] [address] [id number] [place] [address]- 0811 Sep, [facility] [place] [facility] [address] [id number] [place] 1548 Aug, [facility] [place] [facility] [address] [id number] [place]- 7495 Aug, [facility] [place] [facility] [address] [id number] [place] [address]- 8900 Jul, [facility] [place] [facility] [address] [id number] [place] [address]- 8742 Jul, [facility] [place] [facility] [address] [id number] [place] [address]- 4202 Jun, [facility] [place] [facility] [address] [id number] [place] [address]- 4645 Jun, [facility] [place] [facility] [address] [id number] [place] [address]- 9542 30 May, 2013 [facility] [place] [facility] [address] [id number] [place] [address]- 5656 May, [facility] [place] [facility] [address] [id number] [place] [address]- 0989 Apr, [facility] [place] [facility] [address] [id number] [place] [address] 2546 Apr, [facility] [place] [facility] [address] [id number] [place] [address]- 1560 Feb, [facility] [address] [id number] [place] [address]- 5020 Feb, [facility] [place] [facility] [address] [id number] [place] [address]- 3216 January, [facility] [address] [id number] [place] [address]- 0050 January, [facility] [place] [facility] [address] [id number] [place] [address]- 0859 Dec, [facility] [address] [id number] [place] [address]- 4254 Nov, [facility] [address] [id number] [place] [address]- 0052 Oct, [facility] [address] [id number] [place] [address]- 4484 Oct, [facility] [address] [id number] [place] [address]- 1932 Sep, [facility] [address] [id number] [place] [address]- 0931 Aug, [facility] [address] [id number] [place] 7977 Aug, [facility] [address] [id number] [place] [address]- 2908 Jul, [facility] [address] [id number] [place] [address]- 9818 Jul, [facility] [place] [facility] [address] [id number] [place] [address]- 1366 Jun, [facility] [place] [facility] [address] [id number] [place] [address] 24 May, 2012 [facility] [place] [facility] [address] [id number] [place] [address] 14 May, 2012 [facility] [place] [facility] [address] [id number] [place] [address] 13 May, 2012 [facility] [place] [facility] [address] [id number] [place] [address] 28 Apr, 2012 [facility] [place] [facility] [address] [id number] [place] [address] Apr, [facility] [place] [facility] [address] [id number] [place] [address] Apr, [facility] [place] [facility] [address] [id number] [place] [address] Mar, [facility] [place] [facility] [address] [id number] [place] [address] Mar, [facility] [place] [facility] [address] [id number] [place] [address] Feb, [facility] [place] [facility] [address] [id number] [place] [address] Feb, [facility] [place] [facility] [address] [id number] [place] [address] January, [facility] [place] [facility] [address] [id number] [place] [address] January, [facility] [place] [facility] [address] [id number] [place] [address] Dec, [facility] [place] [facility] [address] [id number] [place] [address] Dec, [facility] [place] [facility] [address] [id number] [place] [address] Nov, [facility] [place] [facility] [address] [id number] [place] [address] Nov, [facility] [place] [facility] [address] [id number] [place] [address] Oct, [facility] [place] [facility] [id number] [address] Oct, [facility] [id number] [address] Sep, [facility] [id number] [address] Sep, [facility] [id number] [place] [address] Sep, [facility] [id number] [place] [address] Aug, [facility] [id number] [place] [address] Aug, [facility] [id number] [place] [address] Aug, [facility] [id number] [place] [address]- [address] Aug, [facility] [address] [address] Aug, [facility] [id number] [place] [address] Jul, [facility] [address] [address] Jul, [facility] [address] [address] Jul, [facility] [address] [address] Dec, IMMUNIZATIONS Vaccine Route Administration Date Status FLUARIX QUAD (3 AND UP) 2017 IM Intramuscular Aug 21, 2017 Administered SOCIAL HISTORY Never Assessed REASON FOR VISIT Diabetes, flu shot--Carlos Lebron MA PLAN OF CARE Activity Details Follow Up 4 Weeks Reason:dm2 ooc VITAL SIGNS Height 66 in 2017-08-21 Weight 238.1 lbs 2017-08-21 Temperature 98.2 degrees Fahrenheit 2017-08-21 Heart Rate 82 bpm 2017-08-21 Respiratory Rate 20 2017-08-21 BMI 38.43 kg/m2 2017-08-21 Blood pressure systolic 132 mmHg 2017-08-21 Blood pressure diastolic 90 mmHg 2017-08-21 MEDICATIONS Medication Instructions Dosage Frequency Start Date End Date Duration Status Pen [place] 12/04" 31G X 5 MM as directed 24h 29 Jan, 2015 Active MetFORMIN HCl ER 500 mg Orally 2 times a day 2 tablets 12h 15 Apr, 2016 Active BusPIRone HCl 10 mg Orally Twice a day 1 tablet 12h 28 Dec, 2015 Not -Taking Doxycycline Hyclate 100 mg Orally every 12 hrs 1 capsule 12h Aug, Aug, 10 days Active Cyclobenzaprine HCl 10 mg Orally Three times a day 1 tablet as needed 8h 16 Feb, 2017 Not-Taking [place] 10-325 MG Orally every 6 hrs 1 tablet as needed 6h 22 Jul, 2017 28 days Active Depo-Testosterone 200 MG/ML Intramuscular once monthly 0.5 ml Dec, Active Fluoxetine HCl 40 MG Orally Once a day, voucher 1st fill 1 capsule in the morning January, 30 day(s) Active Diclofenac Sodium 75 MG Orally 2 times a day 1 tablet as needed 12h Nov Active Pepcid 20 mg Orally 2 times a day 1 tablet at bedtime 12h Apr, 30 day(s) Active Victoza 18 mg/3ml Subcutaneous Once a day 1.8 mg by Subcutaneous route 1 time per day 24h January, 30 days Active HydrOXYzine HCl 25 MG 1 tablet 12h 11 Nov, 2014 Not-Taking Glucometer 1 as directed 12h Jun, Active Victoza 0.6 mg/0.1 mL (18 mg/3 mL) Subcutaneous Once a day 1.8 mg by Subcutaneous route 1 time per day 24h January, Not-Taking GlipiZIDE 5 MG TAKE ONE TABLET BY MOUTH TWICE DAILY 30 Active RESULTS Name Result Date Reference Range A1C (IN HOUSE) 2017-08-21 A1C IN HOUSE 11.0 4.3 - 5.6 % Previous A1c 10.8 Lot [id number] Exp date 05/09 PROCEDURES Procedure Date Ordered Result Body Site GLYCATED HEMOGLOBIN TEST Aug 21, 2017 SINGLE IMMUNIZATION ADMIN Aug 21, 2017 FLUARIX QUAD (3 AND UP) 2016Aug 21, 2017 INSTRUCTIONS MEDICATIONS ADMINISTERED No Known Medications MEDICAL (GENERAL) HISTORY Type Description Date Medical History Type 2 diabetes Medical History anxiety Medical History chronic hip pain Medical History carpal tunnel bilateral Medical History [place] Palsy Surgical History carpel tunnel-right hand 2011 Surgical History carpel tunnel-left hand 2008 Surgical History carpal tunnel - right hand 11/2015 Surgical History Torn bicep repair 01/2018 Hospitalization History ER spider bite
--- OUTSIDE RECORDS SUMMARY | 2018-06-25 06:18 | XMS REPORT ---
Author Author KASI BLANCHARD Organization [facility] Address [address] [place] [address] Care Team Providers Care Environmental Department Manager Name Role Phone KASI BLANCHARD Unavailable PROBLEMS Type Condition ICD9-CM Code [id number] Code Onset Dates Condition Status SNOMED Code Problem Controlled type 2 diabetes mellitus without complication, without long -term current use of insulin E11.9 Active 970950261 Problem Chronic fatigue R53.82 Active 81187494 Problem Drug-induced erectile dysfunction N52.2 Active 636965594 Problem Diabetes E11.9 Active 03900958 Problem Anxiety F41.9 Active 46170740 Problem Chronic osteoarthritis M19.90 Active 20128893 Problem Sialadenitis K11.20 Active 11301276 Problem Uncontrolled type 2 diabetes mellitus without complication, without long-term current use of insulin E11.65 Active 799188531 Problem Hypogonadism in male E29.1 Active 13325933 Problem Mood disorder F39 Active 94528426 Problem Diabetes type 2, controlled E11.9 Active 537234040 Problem Depressive disorder, not elsewhere classified F32.9 Active 64586021 ALLERGIES No Information ENCOUNTERS Encounter Location Date Diagnosis [place] [id number] [address] Mar, [place] [id number] [place] [address] 96942- 5593 Feb, Insect bite (nonvenomous) of right upper arm, initial encounter S40.861A ; Local infection of the skin and subcutaneous tissue, unspecified L08.9 and Hypogonadism in male E29.1 [place] [address] [place] [id number] [place] [address] 90865- 2776 January, Sialadenitis K11.20 [place] [address] [place] [id number] [address] 1006 January, Bronchitis J40 [facility] [id number] [place] [address] 45301- 5395 January, Hypogonadism in male E29.1 [facility] [id number] [place] [address] 43942- 0101 January, Hypogonadism in male E29.1 [facility] [id number] [place] [address] 02733- 3557 Dec, Bronchitis J40 [facility] [address] [address]01- 0134 Nov, Diabetes E11.[address] [facility] [address] 41879- 6541 Nov, Bronchitis J40 [facility] [address] 27261- 0709 Oct, Bronchitis J40 [facility] [address] 27497- 1907 Sep, Diabetes E11.9 ; Mood disorder F39 ; Hypogonadism in male E29.1 and Depressive disorder, not elsewhere classified F32.9 [facility] [address] [id number] [place] [address] 36496- 3520 Sep, Bronchitis J40 [facility] [address] [id number] [place] [address] 38858- 0845 Sep, Hypogonadism in male E29.1 [facility] [id number] [place] [address] 72237- 1120 Sep, [facility] [id number] [place] [address] 08217- 9065 Sep, [facility] [id number] [place] [address] 69200- 8005 Aug, Bronchitis J40 [facility] [id number] [place] [address] 91835- 8197 Aug, Uncontrolled type 2 diabetes mellitus without complication, without long-term current use of insulin E11.65 ; Diabetes type 2, controlled E11.9 ; Hypogonadism in male E29.1 ; Encounter for immunization Z23 and Spider bite wound, undetermined intent, initial encounter T63.304A [facility] [id number] [place] [address] 47783959- 5765 Jul, Bronchitis J40 [facility] [address] 66237- 7588 Jun, Hypogonadism in male E29.1 [facility] [address] 75160- 5804 Jun, Hypogonadism in male E29.[address] [facility] [address] [id number] [place] [address] 72906- 1485 May, Bronchitis J40 [facility] [address] 82225- 3636 May, Hypogonadism in male E29.1 [facility] [id number] [place] [address] 93480- 6381 May, Hypogonadism in male E29.1 [facility] [id number] [place] [address] 57954- 7430 Apr, Bronchitis J40 [facility] [address] [id number] [place] [address] 17117- 9048 Apr, Controlled type 2 diabetes mellitus without complication, without long-term current use of insulin E11.9 [facility] [address] [id number] [place] [address] 30182- 9663 Apr, Diabetes type 2, controlled E11.9 ; Hypogonadism in male E29.1 and Mood disorder F39 [facility] [id number] [place] [address] 16981- 9580 Apr, Hypogonadism in male E29.1 [facility] [address] [place] [id number] [place] [address] 67986- 2065 Apr, Bronchitis J40 [facility] [address] [id number] [place] [address] 66311- 7275 Mar, Hypogonadism in male E29.1 [facility] [id number] [place] [address] 75371- 3266 Mar, Bronchitis J40 [facility] [address] [id number] [place] [address] 49283- 6101 Mar, Bronchitis J40 [facility] [address] 04781- 4379 Feb, Spider bite, accidental or unintentional, initial encounter T63.301A [facility] [address] 03975- 2715 Feb, Depressive disorder, not elsewhere classified F32.9 [facility] [address] [place] [id number] [place] [address] 13340- 0128 Feb, Diabetes E11.9 ; Mood disorder F39 and Hypogonadism in male E29.1 [facility] [address] [place] [id number] [place] [address] 58087- 8780 Feb, Bronchitis J40 [facility] [address] [place] [id number] [place] [address] 24109- 7835 Feb, Depressive disorder, not elsewhere classified F32.9 [facility] [address] [place] [id number] [place] [address] 88527- 2689 January, Depressive disorder, not elsewhere classified F32.9 [facility] [address] [place] [id number] [place] [address] 78834- 1556 January, Diabetes E11.9 [address] Mood [address]39 [facility] [address] [place] [id number] [place] [address] 66797- 0979 January, Bronchitis J40 [facility] [address] [place] [id number] [place] [address] 15684- 6221 Dec, Bronchitis J40 [facility] [address] 85969- 4544 Dec, Hypogonadism in male E29.1 [facility] [address] [place] [id number] [place] [address] 39788- 6329 Dec, [facility] [address] [place] [id number] [place] [address] 71891- 5649 Dec, Controlled type 2 diabetes mellitus without complication, without long-term current use of insulin E11.9 and Chronic fatigue R53.82 [place] [address] [place] [id number] [place] [address] 72530- 7894 Nov, Bronchitis J40 [place] [address] [place] [address] [id number] [place] [address] 14457- 9279 Oct, Bronchitis J40 ; Controlled type 2 diabetes mellitus without complication, without long-term current use of insulin E11.9 ; Chronic fatigue R53.82 and Drug-induced erectile dysfunction N52.2 [place] [address] [place] [id number] [place] [address] 62419- 3509 Oct, Diabetes E11.9 [place] [address] [place] [id number] [place] [address] 65755- 3732 Sep, Pre-employment examination Z02.1 [place] [address] [place] [id number] [place] [address] 06613- 8343 Sep, Diabetes E11.9 [place] [address] [place] [id number] [place] [address] 01097- 7814 Aug, Controlled type 2 diabetes mellitus without complication, without long-term current use of insulin E11.9 and Chronic osteoarthritis M19.90 [place] [address] [address]- 9509 Jul, [place] [address] [place] [id number] [place] [address] 77055- 3131 Jun, [place] [address] [place] [id number] [place] [address] 27428- 2372 Jun, 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 [address] [address]- 5092 07 Jun, 2016 Encounter for immunization Z23 and Controlled type 2 diabetes mellitus without complication, without long-term current use of insulin E11.9 [facility] [address]- 9703 30 May, 2016 [facility] [address] [place] [id number] [place] [address] 86792- 3627 May, [facility] [address] [place] [id number] [place] [address] 46964- 1951 Apr, Gastritis without bleeding, unspecified chronicity, unspecified gastritis type K29.70 [facility] [id number] [place] [address] 53409- 7441 Apr, [facility] [address] [id number] [address]- 7672 Mar, Diabetes type 2, controlled E11.9 [facility] [address] [address]- 9357 Mar, [facility] [address] [address] 5089 Feb, [facility] [address] [address]- 6911 Feb, [facility] [address] [address]- 3887 January, [facility] [address] [address]- 0653 Dec, Urethritis N34.2 [facility] [address] [address]- 9300 Dec, [facility] [address] [address]- 8214 Nov, Diabetes type 2, controlled E11.9 [facility] [address] [address]- 5347 Nov, [facility] [address] [address]- 1116 Nov, Diabetes type 2, controlled E11.9 [facility] [address] [place] [address] 57062- 8034 Oct, Hand pain M79.643 [facility] [address] [place] [id number] [place] [address] 85754- 1465 Oct, Right hand pain M79.641 [facility] [address] [id number] [place] [address] 42049- 6726 Oct, [facility] [address] [id number] [place] [address] 17520- 2215 Oct, [facility] [address] [place] [id number] [place] [address] 10220- 7635 Oct, Right carpal tunnel syndrome G56.01 [facility] [address] [place] [id number] [place] [address] 07385- 5916 Sep, Diabetes E11.9 [place] [address] [place] [id number] [place] [address] 00970- 4211 Sep, Anxiety F41.9 ; Chronic osteoarthritis M19.90 and Health examination of defined subpopulation V70.5 [place] [address] [place] [id number] [place] [address] 05499- 8945 Sep, Diabetes E11.9 [facility] [address] [place] [id number] [place] [address] 78072- 6909 Aug, Diabetes E11.9 ; Carpal tunnel syndrome, right G56.01 and Carpal tunnel syndrome, left upper limb G56.02 [place] [address] [place] [id number] [place] [address] 53336- 6463 Jul, Diabetes mellitus 250.00 [facility] [address] [place] [id number] [place] [address] 25843- 6869 Jun, Diabetes mellitus 250.00 [facility] [address] [id number] [place] [address]- 4355 May, Diabetes mellitus 250.00 [facility] [address] [place] [address] 2546 Apr, Diabetes mellitus 250.00 [facility] [address] [id number] [place] [address] 2548 Mar, [facility] [address] [place] [id number] [place] [address]- 3252 Mar, Tooth abscess 522.5 [facility] [address] [place] [id number] [place] [address]- 3328 Feb, [facility] [address] [id number] [address]- 1717 January, [facility] [address] [place] [address]- 5681 January, [facility] [address] [address]- 5707 January, Diabetes mellitus 250.00 [facility] [address] [place] [address]- 6013 January, [facility] [address] [place] [address]- 6051 Dec, [facility] [address] [place] [address]- 9685 Dec, [facility] [address] [id number] [address]- 2822 Nov, [facility] [address] [id number] [place] [address]- 5961 Nov, [facility] [address]- 7890 Nov, [facility] [address] [place] [id number] [place] [address]- 5292 Nov, [facility] [place] [facility] [address] [id number] [place] [address]- 4498 Oct, [facility] [place] [facility] [address] [id number] [place] [address]- 4913 Oct, [facility] [place] [facility] [address] [id number] [place] [address]- 1899 Sep, [facility] [place] [facility] [address] [id number] [place] [address]- 8065 Sep, [facility] [place] [facility] [address] [id number] [place] [address]- 5574 Aug, [facility] [place] [facility] [address] [id number] [place] [address]- 7972 Aug, [facility] [place] [facility] [address] [id number] [place] [address]- 6495 Aug, [facility] [place] [facility] [address] [id number] [place] [address]- 4393 Aug, [facility] [place] [facility] [address] [id number] [place] [address]- 5434 Aug, [facility] [place] [facility] [address] [id number] [place] [address]- 6220 Aug, [facility] [place] [facility] [address] [id number] [place] [address]- 0375 Jul, [facility] [place] [facility] [address] [id number] [place] [address]- 3128 Jul, [facility] [place] [facility] [address] [id number] [place] [address]- 7154 Jun, [facility] [place] [facility] [address] [id number] [place] [address]- 6215 Jun, [facility] [place] [facility] [address] [id number] [place] [address]- 9132 May, [facility] [place] [facility] [address] [id number] [place] [address]- 0543 May, [facility] [place] [facility] [address] [id number] [place] [address]- 2570 Apr, [facility] [place] [facility] [address] [id number] [place] [address]- 2652 Apr, [facility] [place] [facility] [address] [id number] [place] [address]- 6960 Apr, [facility] [place] [facility] [address] [id number] [place] [address]- 4088 Apr, [facility] [place] [facility] [address] [id number] [place] [address]- 5058 Apr, [facility] [place] [facility] [address] [id number] [place] [address]- 2362 Apr, [facility] [place] [facility] [address] [id number] [place] [address]- 6818 Mar, [facility] [place] [facility] [address] [id number] [place] [address]- 0035 Mar, [facility] [place] [facility] [address] [id number] [place] [address]- 9411 Feb, [facility] [place] [facility] [address] [id number] [place] [address]- 0513 Feb, [facility] [place] [facility] [address] [id number] [place] [address]- 7148 Feb, [facility] [place] [facility] [address] [id number] [place] [address]- 4889 Feb, [facility] [place] [facility] [address] [id number] [place] [address]- 9394 January, [facility] [place] [facility] [address] [id number] [place] [address]- 1700 January, [facility] [place] [facility] [address] [id number] [place] [address]- 8922 January, [facility] [place] [facility] [address] [id number] [place] [address]- 9267 January, [facility] [address] [id number] [place] [address]- 8613 Dec, [facility] [place] [facility] [address] [id number] [place] [address]- 5881 Dec, [facility] [address] [id number] [place] [address]- 4373 Nov, [facility] [place] [facility] [address] [id number] [place] [address]- 6976 Nov, [facility] [address] [id number] [place] [address]- 2723 Oct, [facility] [place] [facility] [address] [id number] [place] [address]- 9976 Oct, [facility] [address] [id number] [place] [address]- 4384 Sep, [facility] [address] [id number] [place] [address]- 7098 Sep, [facility] [place] [facility] [address] [id number] [place] [address]- 0696 Aug, [facility] [address] [id number] [place] [address]- 7697 Aug, [facility] [place] [facility] [address] [id number] [place] [address]- 5735 Jul, [facility] [place] [facility] [address] [id number] [place] [address]- 6946 Jul, [facility] [place] [facility] [address] [id number] [place] [address]- 5666 Jun, [facility] [place] [facility] [address] [id number] [place] [address]- 2546 Jun, [facility] [place] [facility] [address] [id number] [place] [address]- 3864 May, [facility] [address] [id number] [place] [address]- 8037 May, [facility] [place] [facility] [address] [id number] [place] [address]- 5052 Apr, [facility] [place] [facility] [address] [id number] [place] [address]- 1189 Apr, [facility] [place] [facility] [address] [id number] [place] [address]- 2299 Feb, [facility] [address] [id number] [place] [address]- 5660 Feb, [facility] [place] [facility] [address] [id number] [place] [address]- 5193 January, [facility] [place] [facility] [address] [id number] [place] [address]- 5054 January, [facility] [address] [id number] [place] [address]- 4615 Dec, [facility] [place] [facility] [address] [id number] [place] [address]- 2482 Nov, [facility] [place] [facility] [address] [id number] [place] [address]- 0968 Oct, [facility] [place] [facility] [address] [id number] [place] [address]- 4166 Oct, [facility] [place] [facility] [address] [id number] [place] [address]- 1421 Sep, [facility] [place] [facility] [address] [id number] [place] 7570 Aug, [facility] [place] [facility] [address] [id number] [place] 8643 Aug, [facility] [place] [facility] [address] [id number] [place] [address]- 1778 Jul, [facility] [place] [facility] [address] [id number] [place] [address]- 1452 Jul, [facility] [place] [facility] [address] [id number] [place] [address]- 2078 Jun, [facility] [place] [facility] [address] [id number] [place] [address]- 5797 24 May, 2012 [facility] [place] [facility] [address] [id number] [place] [address]- 0456 14 May, 2012 [facility] [place] [facility] [address] [id number] [place] [address]- 6323 13 May, 2012 [facility] [place] [facility] [address] [id number] [place] [address]- 7197 Apr, [facility] [place] [facility] [address] [id number] [place] [address]- 0244 Apr, [facility] [place] [facility] [address] [id number] [place] [address]- 3456 Apr, [facility] [place] [facility] [address] [id number] [place] [address]- 2725 Mar, [facility] [place] [facility] [address] [id number] [place] [address]- 6634 Mar, [facility] [place] [facility] [address] [facility] [id number] [place] [address]- 2307 Feb, [facility] [place] [facility] [address] [id number] [place] [address]- 8410 Feb, [facility] [place] [facility] [address] [id number] [place] [address]- 7141 January, [facility] [place] [facility] [address] [id number] [place] [address]- 5192 January, [facility] [place] [facility] [address] [id number] [place] [address]- 7517 Dec, [facility] [place] [facility] [address] [id number] [place] [address] Dec, [facility] [place] [facility] [address] [id number] [place] [address] Nov, [facility] [address] [id number] [place] [address] Nov, [facility] [place] [facility] [address] [id number] [place] [address] Oct, [facility] [place] [facility] [address] [id number] [place] [address] Oct, [facility] [address] [id number] [place] [address] Sep, [facility] [address] [id number] [place] [address] Sep, [facility] [address] [id number] [place] [address] Sep, [facility] [address] [id number] [place] [address] Aug, [facility] [place] [facility] [address] [id number] [place] [address] Aug, [facility] [address] [id number] [place] [address] Aug, [facility] [place] [facility] [address] [id number] [place] [address] Aug, [facility] [address] [id number] [place] [address] Aug, [facility] [place] [facility] [address] [id number] [place] [address] 30 Jul, 2011 [facility] [place] [facility] [address] [id number] [place] [address] Jul, [facility] [place] [facility] [address] [id number] [place] [address] Jul, [facility] [place] [facility] [address] [id number] [place] [address] Dec, IMMUNIZATIONS No Known Immunizations SOCIAL HISTORY Never Assessed REASON FOR VISIT Medication refill request PLAN OF CARE VITAL SIGNS MEDICATIONS Medication Instructions Dosage Frequency Start Date End Date Duration Status Trulicity 1.5 MG/0.5ML Subcutaneous once weekly Inject Sep, Active RESULTS No Results PROCEDURES No Known procedures INSTRUCTIONS MEDICATIONS ADMINISTERED No Known Medications MEDICAL (GENERAL) HISTORY Type Description Date Medical History Type 2 diabetes Medical History anxiety Medical History chronic hip pain Medical History carpal tunnel bilateral Medical History [place] Palsy Surgical History carpel tunnel-right hand 2011 Surgical History carpel tunnel-left hand 2008 Surgical History carpal tunnel - right hand 11/2015 Surgical History Torn bicep repair 01/2018 Hospitalization History ER spider bite
--- OUTSIDE RECORDS SUMMARY | 2018-06-25 06:18 | XMS REPORT ---
Author Author KASI BLANCHARD [facility] Address [address] [place] [address] Care Team Providers Care Locker Room Manager Name Role Phone KASI BLANCHARD Unavailable PROBLEMS Type Condition ICD9-CM Code [id number] Code Onset Dates Condition Status SNOMED Code Problem Chronic osteoarthritis M19.90 Active 70300027 Problem Controlled type 2 diabetes mellitus without complication, without long -term current use of insulin E11.9 Active 856457811 Problem Anxiety F41.9 Active 93197732 Problem Diabetes E11.9 Active 81762461 Problem Diabetes type 2, controlled E11.9 Active 222730225 Problem Depressive disorder, not elsewhere classified F32.9 Active 46920597 Problem Chronic fatigue R53.82 Active 86565380 Problem Drug-induced erectile dysfunction N52.2 Active 773992149 Problem Hypogonadism in male E29.1 Active 85522393 Problem Mood disorder F39 Active 55282568 ALLERGIES No Known Allergies SOCIAL HISTORY Never Assessed PLAN OF CARE Activity Details Follow Up 4 Weeks Reason:mood disorder VITAL SIGNS Height 66 in 2017-02-06 Weight 235.8 lbs 2017-02-06 Temperature 98.4 degrees Fahrenheit 2017-02-06 Heart Rate 88 bpm 2017-02-06 Respiratory Rate 20 2017-02-06 BMI 38.05 kg/m2 2017-02-06 Blood pressure systolic 136 mmHg 2017-02-06 Blood pressure diastolic 78 mmHg 2017-02-06 MEDICATIONS Medication Instructions Dosage Frequency Start Date End Date Duration Status Diclofenac Sodium 75 MG Orally 2 times a day 1 tablet as needed 12h Nov Active Glucometer 1 as directed Jun, Active Fluoxetine HCl 20 mg Orally Once a day, voucher 1st fill 1 capsule in the morning January, 30 day(s) Active MetFORMIN HCl ER 500 MG Orally 2 times a day 1 tablet with evening meal 12h Apr, 30 day(s) Active HydrOXYzine HCl 25 MG 1 tablet 12h Nov, Active GlipiZIDE 5 mg Orally 2 times a day 1 tablet 12h 09 Aug, 2016 30 day(s ) Active Pepcid 20 mg Orally 2 times a day 1 tablet at bedtime 12h 15 Apr, 2016 30 day(s) Active BusPIRone HCl 10 mg Orally Twice a day 1 tablet 12h 28 Dec, 2015 Active Powderly 10-325 MG Orally every 6 hrs 1 tablet as needed 6h 11 Jan, 2017 28 days Active Depo-Testosterone 100 MG/ML Intramuscular once monthly 1 ml Dec, Active RESULTS Name Result Date Reference Range A1C (IN HOUSE) 2017-02-06 A1C IN HOUSE 9.6 4.3 - 5.6 % Previous A1c 9.9 Lot [id number] Exp date 09/2018 MICROALBUMIN, URINE (IN HOUSE) 2017-02-06 MICROALBUMIN normal Lot # [id number] Exp date 12/2017 Clarity clear Color yellow ALB 10 CRE 100 A:C (IN HOUSE) <30 Control + Control Lot # Exp date PROCEDURES Procedure Date Ordered Result Body Site GLYCATED HEMOGLOBIN TEST February 06, 2017 MICROALBUMIN, SEMIQUANT February 06, 2017 IMMUNIZATIONS No Known Immunizations MEDICAL (GENERAL) HISTORY Type Description Date Medical History Type 2 diabetes Medical History anxiety Medical History chronic hip pain Medical History carpal tunnel bilateral Medical History [place] Palsy Surgical History carpel tunnel-right hand 2011 Surgical History carpel tunnel-left hand 2008 Surgical History carpal tunnel - right hand 11/2015 Hospitalization History ER spider bite
--- OUTSIDE RECORDS SUMMARY | 2018-06-25 06:18 | XMS REPORT ---
Author Author KASI BLANCHARD Organization [employer] Address Unknown Phone Unavailable Care Team Providers Care [place] Miner Name Role Phone KASI BLANCHARD CP Unavailable Allergies No Known Allergies Problems Problem Type Condition Code Onset Dates Condition Status Problem Chronic osteoarthritis M19.90 Active Problem Diabetes E11.9 Active Problem Anxiety F41.9 Active Medications Medication Code System Code Instructions Start Date End Date Status Dosage Tramadol HCl [facility] [address]-73 50 mg Orally every 6 hrs May 11, 2015 1 tablet as needed Results No Known Results Summary Purpose [employer] Submission
--- OUTSIDE RECORDS SUMMARY | 2018-06-25 06:19 | XMS REPORT ---
Author Author KASI BLANCHARD Organization [facility] Address [address] [place] [address] Care Team Providers Care Photo Manager Name Role Phone KASI BLANCHARD Unavailable PROBLEMS Type Condition ICD9-CM Code CCS27-LQ Code Onset Dates Condition Status SNOMED Code Problem Anxiety F41.9 Active 88461008 Problem Drug-induced erectile dysfunction N52.2 Active 141409806 Problem Controlled type 2 diabetes mellitus without complication, without long -term current use of insulin E11.9 Active 262017011 Problem Diabetes E11.9 Active 60152355 Problem Chronic osteoarthritis M19.90 Active 26224775 Problem Uncontrolled type 2 diabetes mellitus without complication, without long-term current use of insulin E11.65 Active 299151026 Problem Diabetes type 2, controlled E11.9 Active 100507717 Problem Mood disorder F39 Active 72867480 Problem Chronic fatigue R53.82 Active 85521305 Problem Depressive disorder, not elsewhere classified F32.9 Active 61710304 Problem Hypogonadism in male E29.1 Active 95085814 ALLERGIES No Information ENCOUNTERS Encounter Location Date Diagnosis [facility] [id number] [place] [address] 44015- 3426 12 Dec, 2017 Bronchitis J40 [facility] [id number] [place] [address] 51160- 6484 28 Nov, 2017 Diabetes E11.9 and Anxiety F41.9 [facility] [id number] [place] [address] 65369- 4259 15 Nov, 2017 Bronchitis J40 [facility] [id number] [place] [address] 83364- 4942 14 Oct, 2017 Bronchitis J40 [facility] [id number] [place] [address] 74771- 6164 24 Sep, 2017 Diabetes E11.9 ; Mood disorder F39 ; Hypogonadism in male E29.1 and Depressive disorder, not elsewhere classified F32.9 [facility] [id number] [place] [address] 42146- 2620 Sep, Bronchitis J40 [facility] [id number] [place] [address] 21851- 3941 Sep, Hypogonadism in male E29.1 [facility] [address] 57829- 7148 Sep, [facility] [address] 75345- 9729 Sep, [facility] [address] 98884- 7222 Aug, Bronchitis J40 [facility] [address] 17051- 8614 Aug, Uncontrolled type 2 diabetes mellitus without complication, without long-term current use of insulin E11.65 ; Diabetes type 2, controlled E11.9 ; Hypogonadism in male E29.1 ; Encounter for immunization Z23 and Spider bite wound, undetermined intent, initial encounter T63.304A [facility] [address] 70829- 8162 Jul, Bronchitis J40 [facility] [address] 66538- 2778 Jun, Hypogonadism in male E29.1 [facility] [address] 63783- 5860 Jun, Hypogonadism in male E29.1 and Bronchitis J40 [facility] [id number] [place] [address] 09381- 3382 May, Bronchitis J40 [facility] [address] 05967- 0402 May, Hypogonadism in male E29.1 [facility] [address] 08282- 7001 May, Hypogonadism in male E29.1 [facility] [address] [address] 2992 Apr, Bronchitis J40 [facility] [id number] [place] [address] 53861- 9608 Apr, Controlled type 2 diabetes mellitus without complication, without long-term current use of insulin E11.9 [facility] [id number] [place] [address] 00278- 7603 Apr, Diabetes type 2, controlled E11.9 ; Hypogonadism in male E29.1 and Mood disorder F39 [facility] [id number] [place] [address] 53927- 5148 Apr, Hypogonadism in male E29.1 [facility] [id number] [place] [address] 60724- 2491 Apr, Bronchitis J40 [facility] [id number] [place] [address] 24328- 8866 Mar, Hypogonadism in male E29.1 [facility] [id number] [place] [address] 63715- 8627 Mar, Bronchitis J40 [facility] [id number] [place] [address] 70445- 7532 Mar, Bronchitis J40 [facility] [id number] [place] [address] 43030- 9659 Feb, Spider bite, accidental or unintentional, initial encounter T63.301A [facility] [id number] [place] [address] 97282- 0001 Feb, Depressive disorder, not elsewhere classified F32.9 [facility] [id number] [place] [address] 80260- 1035 16 Feb, 2017 Diabetes E11.9 ; Mood disorder F39 and Hypogonadism in male E29.1 [facility] [id number] [place] [address] 35394- 8204 Feb, Bronchitis J40 [facility] [id number] [place] [address] 16951- 7518 Feb, Depressive disorder, not elsewhere classified F32.9 [facility] [id number] [place] [address] 96109- 2928 January, Depressive disorder, not elsewhere classified F32.9 [facility] [id number] [place] [address] 62843- 7397 January, Diabetes E11.9 and Mood disorder F39 [facility] [id number] [place] [address] 36494- 6024 January, Bronchitis J40 [facility] [id number] [place] [address] 82330- 7841 Dec, Bronchitis J40 [facility] [id number] [place] [address] 89819- 0342 Dec, Hypogonadism in male E29.1 [facility] [id number] [place] [address] 92202- 7084 Dec, [facility] [id number] [place] [address] 40683- 0821 Dec, Controlled type 2 diabetes mellitus without complication, without long-term current use of insulin E11.9 and Chronic fatigue R53.82 [facility] [id number] [place] [address] 84273- 7551 Nov, Bronchitis J40 [facility] [id number] [place] [address] 60130- 9313 Oct, Bronchitis J40 ; Controlled type 2 diabetes mellitus without complication, without long-term current use of insulin E11.9 ; Chronic fatigue R53.82 and Drug-induced erectile dysfunction N52.2 [facility] [id number] [place] [address] 67560- 9822 Oct, Diabetes E11.9 [facility] [address] 38065- 7644 Sep, Pre-employment examination Z02.1 [facility] [id number] [place] [address] 02708- 6302 Sep, Diabetes E11.9 [facility] [id number] [place] [address] 60906- 0707 Aug, Controlled type 2 diabetes mellitus without complication, without long-term current use of insulin E11.9 and Chronic osteoarthritis M19.90 [facility] [id number] [place] [address] 60116- 6861 Jul, [facility] [id number] [place] [address] 00648- 2775 Jun, [facility] [id number] [place] [address] 43466- 9543 Jun, 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 [facility] [id number] [place] [address] 75628- 1277 Jun, Encounter for immunization Z23 and Controlled type 2 diabetes mellitus without complication, without long-term current use of insulin E11.9 [facility] [address] [address]- 5107 May, [facility] [address] [address]- 0341 May, [facility] [id number] [address]- 4748 Apr, Gastritis without bleeding, unspecified chronicity, unspecified gastritis type K29.70 [facility] [address] [address]- 8363 Apr, [facility] [id number] [place] [address] 28452- 7931 Mar, Diabetes type 2, controlled E11.9 [facility] [address] [address]- 1762 Mar, [facility] [address] [address]- 8873 Feb, [facility] [id number] [place] [address] 34685- 7411 Feb, [facility] [id number] [place] [address] 01163- 9266 January, [facility] [id number] [place] [address] 59154- 7680 Dec, Urethritis N34.2 [facility] [id number] [place] [address] 22279- 8443 Dec, [facility] [id number] [place] [address] 76401- 8905 Nov, Diabetes type 2, controlled E11.9 [facility] [id number] [place] [address] 03953- 8645 Nov, [facility] [id number] [place] [address] 20608- 0997 Nov, Diabetes type 2, controlled E11.9 [facility] [id number] [place] [address] 27830- 7351 Oct, Hand pain M79.643 [facility] [id number] [place] [address] 60476- 1527 Oct, Right hand pain M79.641 [facility] [id number] [place] [address] 23871- 1380 Oct, [facility] [id number] [place] [address] 84067- 7190 Oct, [facility] [id number] [place] [address] 42665- 4561 Oct, Right carpal tunnel syndrome G56.01 [facility] [address] [address]- 3422 Sep, Diabetes E11.9 [facility] [id number] [place] [address] 99127- 1857 Sep, Anxiety F41.9 ; Chronic osteoarthritis M19.90 and Health examination of defined subpopulation V70.5 [facility] [id number] [place] [address] 76502- 3327 Sep, Diabetes E11.9 [facility] [id number] [place] [address] 85134- 9086 Aug, Diabetes E11.9 ; Carpal tunnel syndrome, right G56.01 and Carpal tunnel syndrome, left upper limb G56.02 [facility] [id number] [place] [address] 57812- 0102 Jul, Diabetes mellitus 250.00 [facility] [id number] [place] [address] 75976- 4721 Jun, Diabetes mellitus 250.00 [facility] [id number] [place] [address] 25706- 0520 May, Diabetes mellitus 250.00 [facility] [id number] [place] [address] 78627- 7671 Apr, Diabetes mellitus 250.00 [facility] [id number] [place] [address] 22727- 2224 Mar, [facility] [id number] [place] [address] 22234- 1424 Mar, Tooth abscess 522.5 [facility] [id number] [place] [address] 18214- 8636 Feb, [facility] [id number] [place] [address] 441453- 7353 January, [facility] [id number] [place] [address] 438935- 5834 January, [facility] [id number]304 January, Diabetes mellitus 250.00 [facility] [place] [facility] [address] [id number] [place] [address]- 1483 January, [facility] [place] [facility] [address] [id number] [place] [address]- 5446 14 Dec, 2014 [facility] [place] [facility] [address] [id number] [place] [address]- 2670 Dec, [facility] [place] [facility] [address] [id number] [place] [address]- 8897 Nov, [facility] [place] [facility] [address] [id number] [place] [address]- 9726 Nov, [facility] [place] [facility] [address] [id number] [place] [address]- 6667 Nov, [facility] [place] [facility] [address] [id number] [place] [address]- 7132 Nov, [facility] [place] [facility] [address] [id number] [place] [address]- 6422 Oct, [facility] [place] [facility] [address] [id number] [place] [address]- 2437 Oct, [facility] [place] [facility] [address] [id number] [place] [address]- 6288 Sep, [facility] [place] [facility] [address] [id number] [place] [address]- 8170 Sep, [facility] [place] [facility] [address] [id number] [place] [address]- 7489 Aug, [facility] [place] [facility] [address] [id number] [place] [address]- 6169 Aug, [facility] [place] [facility] [address] [id number] [place] [address]- 9464 Aug, [facility] [place] [facility] [address] [id number] [place] [address]- 2822 Aug, [facility] [place] [facility] [address] [id number] [place] [address]- 9646 Aug, [facility] [place] [facility] [address] [id number] [place] 7842 Aug, [facility] [place] [facility] [address] [id number] [place] [address]- 6072 Jul, [facility] [place] [facility] [address] [id number] [place] [address]- 0085 Jul, [facility] [place] [facility] [address] [id number] [place] [address]- 4207 Jun, [facility] [place] [facility] [address] [id number] [place] [address]- 8339 Jun, [facility] [place] [facility] [address] [id number] [place] [address]- 0686 May, [facility] [place] [facility] [address] [id number] [place] [address]- 3037 May, [facility] [place] [facility] [address] [id number] [place] [address]- 0602 Apr, [facility] [place] [facility] [address] [id number] [place] [address]- 7321 Apr, [facility] [place] [facility] [address] [id number] [place] [address]- 3892 Apr, [facility] [place] [facility] [address] [id number] [place] [address]- 0873 Apr, [facility] [place] [facility] [address] [id number] [place] [address]- 3338 Apr, [facility] [place] [facility] [address] [id number] [place] [address]- 7576 Apr, [facility] [place] [facility] [address] [id number] [place] [address]- 9613 Mar, [facility] [place] [facility] [address] [id number] [place] [address]- 2315 Mar, [facility] [place] [facility] [address] [id number] [place] [address]- 7393 Feb, [facility] [address] [id number] [place] [address]- 1223 Feb, [facility] [place] [facility] [address] [id number] [place] [address]- 7664 Feb, [facility] [address] [id number] [place] [address]- 5321 Feb, [facility] [place] [facility] [address] [id number] [place] [address]- 5171 January, [facility] [address] [id number] [place] [address]- 9009 January, [facility] [address] [id number] [place] [address]- 4191 January, [facility] [place] [facility] [address] [id number] [place] [address]- 0064 January, [facility] [address] [id number] [place] [address]- 4539 Dec, [facility] [place] [facility] [address] [id number] [place] [address]- 2124 Dec, [facility] [address] [id number] [place] [address]- 5162 Nov, [facility] [place] [facility] [address] [id number] [place] [address]- 4417 Nov, [facility] [place] [facility] [address] [id number] [place] [address]- 1683 Oct, [facility] [place] [facility] [address] [id number] [place] [address]- 7766 Oct, [facility] [place] [facility] [address] [id number] [place] 7795 Sep, [facility] [place] [facility] [address] [id number] [place] 2664 Sep, [facility] [address] [id number] [place] [address]- 8531 Aug, [facility] [place] [facility] [address] [id number] [place] [address]- 1111 Aug, [facility] [place] [facility] [address] [id number] [place] [address]- 3973 Jul, [facility] [place] [facility] [address] [id number] [place] [address]- 0181 Jul, [facility] [place] [facility] [address] [id number] [place] 4514 Jun, [facility] [place] [facility] [address] [id number] [place] [address]- 1236 Jun, [facility] [place] [facility] [address] [id number] [place] [address]- 7596 May, [facility] [place] [facility] [address] [id number] [place] [address]- 6230 May, [facility] [place] [facility] [address] [id number] [place] [address]- 1310 Apr, [facility] [place] [facility] [address] [id number] [place] [address]- 4629 Apr, [facility] [place] [facility] [address] [id number] [place] [address]- 0927 Feb, [facility] [place] [facility] [address] [id number] [place] [address]- 0899 Feb, [facility] [place] [facility] [address] [id number] [place] [address]- 1385 January, [facility] [place] [facility] [address] [id number] [place] [address]- 3170 January, [facility] [place] [facility] [address] [id number] [place] [address]- 8169 Dec, [facility] [place] [facility] [address] [id number] [place] [address]- 2852 Nov, [facility] [address] [id number] [place] [address]- 9243 Oct, [facility] [place] [facility] [address] [id number] [place] [address]- 6976 Oct, [facility] [place] [facility] [address] [id number] [place] [address]- 4217 Sep, [facility] [place] [facility] [address] [id number] [place] [address]- 9302 Aug, [facility] [place] [facility] [address] [id number] [place] [address]- 3387 Aug, [facility] [place] [facility] [address] [id number] [place] [address]- 9627 Jul, [facility] [address] [id number] [place] [address]- 1077 Jul, [facility] [place] [facility] [address] [id number] [place] [address]- 5925 Jun, [facility] [place] [facility] [address] [id number] [place] [address]- 2126 24 May, 2012 [facility] [place] [facility] [address] [id number] [place] [address]- 7658 14 May, 2012 [facility] [place] [facility] [address] [id number] [place] [address]- 6774 May, [facility] [place] [facility] [address] [id number] [place] [address]- 9606 Apr, [facility] [place] [facility] [address] [id number] [place] [address]- 9785 Apr, [facility] [place] [facility] [address] [id number] [place] [address]- 1147 Apr, [facility] [place] [facility] [address] [id number] [place] [address]- 8495 Mar, [facility] [place] [facility] [address] [id number] [place] [address]- 2876 Mar, [facility] [address] [id number] [place] [address]- 4830 Feb, [facility] [place] [facility] [address] [id number] [place] [address]- 8906 Feb, [facility] [place] [facility] [address] [id number] [place] [address]- 0859 January, [facility] [address] [id number] [place] [address]- 8770 January, [facility] [place] [facility] [address] [id number] [place] [address]- 5501 Dec, [facility] [address] [id number] [place] [address]- 0986 Dec, [facility] [address] [id number] [place] [address]- 2960 Nov, [facility] [place] [facility] [address] [id number] [place] [address]- 9376 Nov, [facility] [address] [id number] [place] [address]- 1013 Oct, [facility] [place] [facility] [address] [id number] [place] [address]- 1714 Oct, [facility] [place] [facility] [address] [id number] [place] [address] Sep, [facility] [place] [facility] [address] [id number] [place] [address] Sep, [facility] [place] [facility] [address] [id number] [place] [address] Sep, [facility] [place] [facility] [address] [id number] [place] [address] Aug, [facility] [place] [facility] [address] [id number] [place] [address] Aug, [facility] [id number] [place] [address] Aug, [facility] [address] [id number] [address] Aug, [facility] [address] [id number] [address] Aug, [facility] [address] [id number] [address] Jul, [facility] [address] [id number] [place] [address] Jul, [facility] [id number] [place] [address] Jul, [facility] [address] [id number] [place] [address] Dec, IMMUNIZATIONS No Known Immunizations SOCIAL HISTORY Never Assessed REASON FOR VISIT TESTOSTERONE PLAN OF CARE VITAL SIGNS MEDICATIONS Unknown Medications RESULTS No Results PROCEDURES No Known procedures INSTRUCTIONS MEDICATIONS ADMINISTERED No Known Medications MEDICAL (GENERAL) HISTORY Type Description Date Medical History Type 2 diabetes Medical History anxiety Medical History chronic hip pain Medical History carpal tunnel bilateral Medical History [place] Palsy Surgical History carpel tunnel-right hand 2011 Surgical History carpel tunnel-left hand 2008 Surgical History carpal tunnel - right hand 11/2015 Hospitalization History ER spider bite
--- OUTSIDE RECORDS SUMMARY | 2018-06-25 06:19 | XMS REPORT ---
Author Author KASI BLANCHARD Organization [employer] Address Unknown Phone Unavailable Care Team Providers Care Production Grader Name Role Phone KASI BLANCHARD CP Unavailable Allergies No Known Allergies Problems Problem Type Condition Code Onset Dates Condition Status Problem Chronic osteoarthritis M19.90 Active Problem Diabetes E11.9 Active Problem Anxiety F41.9 Active Medications Medication Code System Code Instructions Start Date End Date Status Dosage Tramadol HCl [facility] [address]-83 50 mg Orally every 6 hrs May 11, 2015 1 tablet as needed Results No Known Results Summary Purpose [employer] Submission
--- OUTSIDE RECORDS SUMMARY | 2018-06-25 06:19 | XMS REPORT ---
Author Author KASI BLANCHARD Organization [facility] [place] Address [address] [place] [address] Care Team Providers Care Stockbroker Name Role Phone KASI BLANCHARD Unavailable PROBLEMS Type Condition ICD9-CM Code DOZ37-BB Code Onset Dates Condition Status SNOMED Code Problem Anxiety F41.9 Active 90241121 Problem Drug-induced erectile dysfunction N52.2 Active 830829886 Problem Controlled type 2 diabetes mellitus without complication, without long -term current use of insulin E11.9 Active 557037760 Problem Diabetes E11.9 Active 83353171 Problem Chronic osteoarthritis M19.90 Active 53310663 Problem Uncontrolled type 2 diabetes mellitus without complication, without long-term current use of insulin E11.65 Active 098881457 Problem Diabetes type 2, controlled E11.9 Active 265898133 Problem Mood disorder F39 Active 31136272 Problem Chronic fatigue R53.82 Active 59693459 Problem Depressive disorder, not elsewhere classified F32.9 Active 36842054 Problem Hypogonadism in male E29.1 Active 31394048 ALLERGIES No Information ENCOUNTERS Encounter Location Date Diagnosis [facility] [place] [id number] [place] [address] 98332- 4488 12 Dec, 2017 Bronchitis J40 [facility] [place] [id number] [place] [address] 59589- 4432 28 Nov, 2017 Diabetes E11.9 and Anxiety F41.9 [facility] [place] [id number] [place] [address] 66155- 9999 15 Nov, 2017 Bronchitis J40 [facility] [place] [id number] [place] [address] 59691- 2557 14 Oct, 2017 Bronchitis J40 [facility] [place] [id number] [place] [address] 94957- 0047 Sep, Diabetes E11.9 ; Mood disorder F39 ; Hypogonadism in male E29.1 and Depressive disorder, not elsewhere classified F32.9 [facility] [place] [id number] [place] [address] 21693- 8609 Sep, Bronchitis J40 [facility] [place] [id number] [place] [address] 01641- 6933 Sep, Hypogonadism in male E29.1 [facility] [place] [address] 39977- 6290 Sep, [facility] [place] [address] 37527- 6536 Sep, [facility] [place] [address] 57959- 8095 Aug, Bronchitis J40 [facility] [place] [address] 97748- 4163 Aug, Uncontrolled type 2 diabetes mellitus without complication, without long-term current use of insulin E11.65 ; Diabetes type 2, controlled E11.9 ; Hypogonadism in male E29.1 ; Encounter for immunization Z23 and Spider bite wound, undetermined intent, initial encounter T63.304A [facility] [place] [address] 76563- 4111 Jul, Bronchitis J40 [facility] [place] [address] 00836- 4280 Jun, Hypogonadism in male E29.1 [facility] [place] [address] 60589- 2273 Jun, Hypogonadism in male E29.1 and Bronchitis J40 [facility] [place] [id number] [place] [address] 99760- 0403 May, Bronchitis J40 [facility] [place] [address] 32258- 3796 May, Hypogonadism in male E29.1 [facility] [place] [address] 29961- 2555 May, Hypogonadism in male E29.1 [facility] [place] [address] [address]- 0922 Apr, Bronchitis J40 [facility] [place] [id number] [place] [address] 77690- 0373 Apr, Controlled type 2 diabetes mellitus without complication, without long-term current use of insulin E11.9 [facility] [place] [id number] [place] [address] 35055- 1588 Apr, Diabetes type 2, controlled E11.9 ; Hypogonadism in male E29.1 and Mood disorder F39 [facility] [place] [id number] [place] [address] 68827- 5530 Apr, Hypogonadism in male E29.1 [facility] [place] [id number] [place] [address] 93867- 0099 Apr, Bronchitis J40 [facility] [place] [id number] [place] [address] 74418- 8691 Mar, Hypogonadism in male E29.1 [facility] [place] [id number] [place] [address] 17700- 7590 Mar, Bronchitis J40 [facility] [place] [id number] [place] [address] 49272- 4901 Mar, Bronchitis J40 [facility] [place] [id number] [place] [address] 43009- 8741 Feb, Spider bite, accidental or unintentional, initial encounter T63.301A [facility] [place] [id number] [place] [address] 99526- 8369 Feb, Depressive disorder, not elsewhere classified F32.9 [facility] [place] [id number] [place] [address] 15821- 2319 16 Feb, 2017 Diabetes E11.9 ; Mood disorder F39 and Hypogonadism in male E29.1 [facility] [place] [id number] [place] [address] 32558- 7499 Feb, Bronchitis J40 [facility] [place] [id number] [place] [address] 37305- 9039 Feb, Depressive disorder, not elsewhere classified F32.9 [facility] [place] [id number] [place] [address] 80311- 0601 January, Depressive disorder, not elsewhere classified F32.9 [facility] [place] [id number] [place] [address] 74757- 1566 January, Diabetes E11.9 and Mood disorder F39 [facility] [place] [id number] [place] [address] 79431- 4638 January, Bronchitis J40 [facility] [place] [id number] [place] [address] 68432- 7538 Dec, Bronchitis J40 [facility] [place] [id number] [place] [address] 69175- 5230 Dec, Hypogonadism in male E29.1 [facility] [place] [id number] [place] [address] 17234- 2374 Dec, [facility] [place] [id number] [place] [address] 70784- 3142 Dec, Controlled type 2 diabetes mellitus without complication, without long-term current use of insulin E11.9 and Chronic fatigue R53.82 [facility] [place] [id number] [place] [address] 08178- 0978 Nov, Bronchitis J40 [facility] [place] [id number] [place] [address] 81298- 2857 Oct, Bronchitis J40 ; Controlled type 2 diabetes mellitus without complication, without long-term current use of insulin E11.9 ; Chronic fatigue R53.82 and Drug-induced erectile dysfunction N52.2 [facility] [place] [id number] [place] [address] 76348- 6502 Oct, Diabetes E11.9 [facility] [place] [address] 84287- 8430 Sep, Pre-employment examination Z02.1 [facility] [place] [id number] [place] [address] 09891- 4689 Sep, Diabetes E11.9 [facility] [place] [id number] [place] [address] 96626- 5582 Aug, Controlled type 2 diabetes mellitus without complication, without long-term current use of insulin E11.9 and Chronic osteoarthritis M19.90 [facility] [place] [id number] [place] [address] 44387- 2396 Jul, [facility] [place] [id number] [place] [address] 21094- 9496 Jun, [place] [id number] [place] [address] 76775- 3329 Jun, 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 [place] [id number] [place] [address] 41081- 5671 Jun, Encounter for immunization Z23 and Controlled type 2 diabetes mellitus without complication, without long-term current use of insulin E11.9 [facility] [place] [address], [place] [address]- 1245 May, [facility] [place] [address], [place] [address]- 3584 May, [facility] [place] [id number] [address]- 4912 Apr, Gastritis without bleeding, unspecified chronicity, unspecified gastritis type K29.70 [facility] [place] [address], [place] [address]- 6726 Apr, [facility] [place] [id number] [place] [address] 68509- 0636 Mar, Diabetes type 2, controlled E11.9 [facility] [place] [address], [place] [address]- 4936 Mar, [facility] [place] [address], [place] [address]- 0295 Feb, [facility] [place] [id number] [place] [address] 49723- 9899 Feb, [facility] [place] [id number] [place] [address] 30804- 0909 January, [facility] [place] [id number] [place] [address] 39301- 8928 Dec, Urethritis N34.2 [facility] [place] [id number] [place] [address] 80220- 9896 Dec, [facility] [place] [id number] [place] [address] 39028- 2607 Nov, Diabetes type 2, controlled E11.9 [facility] [place] [id number] [place] [address] 99474- 3841 Nov, [facility] [place] [id number] [place] [address] 16656- 5129 Nov, Diabetes type 2, controlled E11.9 [facility] [place] [id number] [place] [address] 68667- 8200 Oct, Hand pain M79.643 [facility] [place] [id number] [place] [address] 90007- 4809 Oct, Right hand pain M79.641 [facility] [place] [id number] [place] [address] 47251- 1612 Oct, [facility] [place] [id number] [place] [address] 80866- 6672 Oct, [facility] [place] [id number] [place] [address] 83577- 9081 Oct, Right carpal tunnel syndrome G56.01 [facility] [place] [address], [place] [address]- 0228 Sep, Diabetes E11.9 [facility] [place] [id number] [place] [address] 08840- 4486 Sep, Anxiety F41.9 ; Chronic osteoarthritis M19.90 and Health examination of defined subpopulation V70.5 [facility] [place] [id number] [place] [address] 42987- 0586 Sep, Diabetes E11.9 [facility] [place] [id number] [place] [address] 23753- 7064 Aug, Diabetes E11.9 ; Carpal tunnel syndrome, right G56.01 and Carpal tunnel syndrome, left upper limb G56.02 [facility] [place] [id number] [place] [address] 55858- 4478 Jul, Diabetes mellitus 250.00 [facility] [place] [id number] [place] [address] 33595- 5401 Jun, Diabetes mellitus 250.00 [facility] [place] [id number] [place] [address] 98342- 3401 May, Diabetes mellitus 250.00 [facility] [place] [id number] [place] [address] 31681- 9866 Apr, Diabetes mellitus 250.00 [facility] [place] [id number] [place] [address] 60426- 4888 Mar, [facility] [place] [id number] [place] [address] 88024- 0567 Mar, Tooth abscess 522.5 [facility] [place] [id number] [place] [address] 50108- 1783 Feb, [facility] [place] [id number] [place] [address] 692169- 6932 January, [facility] [place] [id number] [place] [address] 170340- 4805 January, [facility] [place] [id number] 9436 January, Diabetes mellitus 250.00 [facility] [place] [facility] [address] [id number] [place] [address]- 8766 January, [facility] [place] [facility] [address] [id number] [place] [address]- 8880 14 Dec, 2014 [facility] [place] [facility] [address] [id number] [place] [address]- 8825 Dec, [facility] [place] [facility] [address] [id number] [place] [address]- 4669 Nov, [facility] [place] [facility] [address] [id number] [place] [address]- 3374 Nov, [facility] [place] [facility] [address] [id number] [place] [address]- 2074 Nov, [facility] [place] [facility] [address] [id number] [place] [address]- 9641 Nov, [facility] [place] [facility] [address] [id number] [place] [address]- 5405 Oct, [facility] [place] [facility] [address] [id number] [place] [address]- 8496 Oct, [facility] [place] [facility] [address] [id number] [place] [address]- 3418 Sep, [facility] [place] [facility] [address] [id number] [place] [address]- 3953 Sep, [facility] [place] [facility] [address] [id number] [place] [address]- 3767 Aug, [facility] [place] [facility] [address] [id number] [place] [address]- 5464 Aug, [facility] [place] [facility] [address] [id number] [place] [address]- 1399 Aug, [facility] [place] [facility] [address] [id number] [place] [address]- 5530 Aug, [facility] [place] [facility] [address] [id number] [place] [address]- 6036 Aug, [facility] [place] [facility] [address] [id number] [place] 8767 Aug, [facility] [place] [facility] [address] [id number] [place] [address]- 9707 Jul, [facility] [place] [facility] [address] [id number] [place] [address]- 1333 Jul, [facility] [place] [facility] [address] [id number] [place] [address]- 6464 Jun, [facility] [place] [facility] [address] [id number] [place] [address]- 4014 Jun, [facility] [place] [facility] [address] [id number] [place] [address]- 4429 May, [facility] [place] [facility] [address] [id number] [place] [address]- 1669 May, [facility] [place] [facility] [address] [id number] [place] [address]- 5590 Apr, [facility] [place] [facility] [address] [id number] [place] [address]- 9445 Apr, [facility] [place] [facility] [address] [id number] [place] [address]- 8390 Apr, [facility] [place] [facility] [address] [id number] [place] [address]- 3414 Apr, [facility] [place] [facility] [address] [id number] [place] [address]- 4439 Apr, [facility] [place] [facility] [address] [id number] [place] [address]- 3403 Apr, [facility] [place] [facility] [address] [id number] [place] [address]- 8299 Mar, [facility] [place] [facility] [address] [id number] [place] [address]- 5831 Mar, [facility] [place] [facility] [address] [id number] [place] [address]- 6637 Feb, [facility] [address] [id number] [place] [address]- 1902 Feb, [facility] [place] [facility] [address] [id number] [place] [address]- 8549 Feb, [facility] [address] [id number] [place] [address]- 7442 Feb, [facility] [place] [facility] [address] [id number] [place] [address]- 2406 January, [facility] [address] [id number] [place] [address]- 1123 January, [facility] [address] [id number] [place] [address]- 4305 January, [facility] [place] [facility] [address] [id number] [place] [address]- 2383 January, [facility] [address] [id number] [place] [address]- 1102 Dec, [facility] [place] [facility] [address] [id number] [place] [address]- 4144 Dec, [facility] [address] [id number] [place] [address]- 2751 Nov, [facility] [place] [facility] [address] [id number] [place] [address]- 2288 Nov, [facility] [place] [facility] [address] [id number] [place] [address]- 5436 Oct, [facility] [place] [facility] [address] [id number] [place] [address]- 9777 Oct, [facility] [place] [facility] [address] [id number] [place] 0630 Sep, [facility] [place] [facility] [address] [id number] [place] 4192 Sep, [facility] [address] [id number] [place] [address]- 8938 Aug, [facility] [place] [facility] [address] [id number] [place] [address]- 3477 Aug, [facility] [place] [facility] [address] [id number] [place] [address]- 6311 Jul, [facility] [place] [facility] [address] [id number] [place] [address]- 4626 Jul, [facility] [place] [facility] [address] [id number] [place] 9636 Jun, [facility] [place] [facility] [address] [id number] [place] [address]- 5218 Jun, [facility] [place] [facility] [address] [id number] [place] [address]- 8501 May, [facility] [place] [facility] [address] [id number] [place] [address]- 1323 May, [facility] [place] [facility] [address] [id number] [place] [address]- 2525 Apr, [facility] [place] [facility] [address] [id number] [place] [address]- 6071 Apr, [facility] [place] [facility] [address] [id number] [place] [address]- 7859 Feb, [facility] [place] [facility] [address] [id number], [place] [address]- 1051 Feb, [facility] [place] [facility] [address] [id number] [place] [address]- 2457 January, [facility] [place] [facility] [address] [id number] [place] [address]- 0242 January, [facility] [place] [facility] [address] [id number] [place] [address]- 2862 Dec, [facility] [place] [facility] [address] [id number] [place] [address]- 7468 Nov, [facility] [address] [id number] [place] [address]- 0917 Oct, [facility] [place] [facility] [address] [id number] [place] [address]- 3106 Oct, [facility] [place] [facility] [address] [id number] [place] [address]- 6173 Sep, [facility] [place] [facility] [address] [id number] [place] [address]- 7039 Aug, [facility] [place] [facility] [address] [id number] [place] [address]- 3737 Aug, [facility] [place] [facility] [address] [id number] [place] [address]- 5763 Jul, [facility] [address] [id number] [place] [address]- 0695 Jul, [facility] [place] [facility] [address] [id number] [place] [address]- 9153 Jun, [facility] [place] [facility] [address] [id number] [place] [address]- 4826 24 May, 2012 [facility] [place] [facility] [address] [id number] [place] [address] 14 May, 2012 [facility] [place] [facility] [address] [id number] [place] [address] May, [facility] [place] [facility] [address] [id number] [place] [address] Apr, [facility] [place] [facility] [address] [id number] [place] [address] Apr, [facility] [place] [facility] [address] [id number] [place] [address] Apr, [facility] [place] [facility] [address] [id number] [place] [address] Mar, [facility] [place] [facility] [address] [id number] [place] [address] Mar, [facility] [address] [id number] [place] [address] Feb, [facility] [place] [facility] [address] [id number] [place] [address] Feb, [facility] [place] [facility] [address] [id number] [place] [address] January, [facility] [address] [id number] [place] [address] January, [facility] [place] [facility] [address] [id number] [place] [address] Dec, [facility] [address] [id number] [place] [address] Dec, [facility] [address] [id number] [place] [address] Nov, [facility] [place] [facility] [address] [id number] [place] [address] Nov, [facility] [address] [id number] [place] [address] Oct, [facility] [place] [facility] [address] [id number] [place] [address] Oct, [facility] [place] [facility] [address] [id number] [place] [address] Sep, [facility] [place] [facility] [address] [id number] [place] [address] Sep, [facility] [place] [facility] [address] [id number] [place] [address] Sep, [facility] [place] [facility] [address] [id number] [place] [address] Aug, [facility] [place] [facility] [address] [id number], [place] [address] Aug, [facility] [place] [address] [id number], [place] [address] Aug, [facility] [place] [address] [id number], [place] [address] Aug, [facility] [place] [address] [id number], [place] [address] Aug, [facility] [place] [address] [id number], [place] [address] Jul, [facility] [place] [address] [id number], [place] [address] Jul, [facility] [place] [id number], [place] [address] Jul, [facility] [place] [address] [id number], [place] [address] Dec, IMMUNIZATIONS No Known Immunizations SOCIAL HISTORY Never Assessed REASON FOR VISIT victoza script PLAN OF CARE VITAL SIGNS MEDICATIONS Medication Instructions Dosage Frequency Start Date End Date Duration Status Victoza 18 mg/3ml Subcutaneous Once a day 1.8 mg by Subcutaneous route 1 time per day 24h January, 30 days Active RESULTS No Results PROCEDURES No Known procedures INSTRUCTIONS MEDICATIONS ADMINISTERED No Known Medications MEDICAL (GENERAL) HISTORY Type Description Date Medical History Type 2 diabetes Medical History anxiety Medical History chronic hip pain Medical History carpal tunnel bilateral Medical History [place] Palsy Surgical History carpel tunnel-right hand 2011 Surgical History carpel tunnel-left hand 2008 Surgical History carpal tunnel - right hand 11/2015 Hospitalization History [facility] spider bite
--- OUTSIDE RECORDS SUMMARY | 2018-06-25 06:20 | XMS REPORT ---
Author KASI Estrada [facility] eClinicalWorks Address Unknown Phone Unavailable Care Team Providers Care Headhunter Name Role Phone KASI BLANCHARD CP Unavailable Allergies, Adverse Reactions, Alerts Substance Reaction Event Type N.K.D.A. Info Not Available Non Drug Allergy Problems Problem Type Condition ICD-9 Code Onset [...] Date End Date Status Dosage Tramadol HCl [facility] [address]-80 50 MG Orally every 6 hrs May 11, 2015 1 tablet as needed Diclofenac Sodium [facility] [address]-05 75 mg November 29, 2014 1 tablet by Oral route 2 times per day PRN buspirone [facility] 0 10 mg November 29, 2014 take 1 tablet (10 mg) by oral route 2 times per day cyclobenzaprine [facility] [address]-10 10 mg November 29, 2014 1 tablet 2 times per day PRN Victoza [facility] [address]-02 0.6 mg/0.1 mL (18 mg/3 mL) Subcutaneous Once a day January 20, 2012 1.8 mg by Subcutaneous route 1 time per day [place] 12/04" [facility] [address]87 31G X 5 MM Once a day February 16, 2015 as directed Procedures Procedure Coding System Code Date Office Visit, Est Pt., Level 3 CPT-4 01594 May 11, 2015 MICROALBUMIN, SEMIQUANT CPT-4 09361 May 11, 2015 Vital Signs Date/Time: May 11, 2015 Temperature 97.9 F Weight 235.6 lbs Height 66 in BMI 38.02 Index Blood Pressure Diastolic 82 mmHg Blood Pressure Systolic 130 mmHg Cardiac Monitoring Heart Rate 72 bpm Results Name Result Date Reference Range Unit Abnormality Flag MICROALBUMIN, URINE (IN HOUSE) Summary Purpose eClinicalWorks Submission
--- OUTSIDE RECORDS SUMMARY | 2018-06-25 06:20 | XMS REPORT ---
Author Author DARRIN FLOOD [facility] Address [address] [place] [address] Care Team Providers Care Sinker Winder Name Role Phone DARRIN FLOOD Unavailable PROBLEMS Type Condition ICD9-CM Code DUM09-JV Code Onset Dates Condition Status SNOMED Code Problem Anxiety F41.9 Active 80259847 Problem Drug-induced erectile dysfunction N52.2 Active 035352337 Problem Controlled type 2 diabetes mellitus without complication, without long -term current use of insulin E11.9 Active 038383732 Problem Diabetes E11.9 Active 52257116 Problem Chronic osteoarthritis M19.90 Active 81088668 Problem Uncontrolled type 2 diabetes mellitus without complication, without long-term current use of insulin E11.65 Active 333263815 Problem Diabetes type 2, controlled E11.9 Active 221166979 Problem Mood disorder F39 Active 68932694 Problem Chronic fatigue R53.82 Active 96263288 Problem Depressive disorder, not elsewhere classified F32.9 Active 32226144 Problem Hypogonadism in male E29.1 Active 08980936 ALLERGIES No Information ENCOUNTERS Encounter Location Date Diagnosis [place] [id number] [place] [address] 47503- 8508 28 Nov, 2017 [facility] [id number] [place] [address] 89130- 7484 15 Nov, 2017 Bronchitis J40 [facility] [address] [place] [address] 71230- 8996 14 Oct, 2017 Bronchitis J40 [facility] [id number] [place] [address] 25821- 5522 24 Sep, 2017 Diabetes E11.9 ; Mood disorder F39 ; Hypogonadism in male E29.1 and Depressive disorder, not elsewhere classified F32.9 [facility] [id number] [place] [address] 02807- 7285 Sep, Bronchitis J40 [facility] [id number] [place] [address] 56054- 2974 Sep, Hypogonadism in male E29.1 [facility] [id number] [place] [address] 73445- 6790 Sep, [facility] [address] [address]- 4962 Sep, [facility] [address] 66169- 0431 Aug, Bronchitis J40 [facility] [address] 94447- 4040 Aug, Uncontrolled type 2 diabetes mellitus without complication, without long-term current use of insulin E11.65 ; Diabetes type 2, controlled E11.9 ; Hypogonadism in male E29.1 ; Encounter for immunization Z23 and Spider bite wound, undetermined intent, initial encounter T63.304A [facility] [address] [address]38- 1500 Jul, Bronchitis J40 [facility] [address] 37430- 3750 Jun, Hypogonadism in male E29.1 [facility] [id number] [place] [address] 67389- 4326 Jun, Hypogonadism in male E29.1 and Bronchitis J40 [facility] [id number] [place] [address] 05038- 3893 May, Bronchitis J40 [facility] [id number] [place] [address] 59576- 4598 May, Hypogonadism in male E29.1 [facility] [id number] [place] [address] 33868- 1064 May, Hypogonadism in male E29.1 [facility] [address] 64513- 1913 Apr, Bronchitis J40 [facility] [address] [address] 7869 Apr, Controlled type 2 diabetes mellitus without complication, without long-term current use of insulin E11.9 [facility] [address] [address] 0526 Apr, Diabetes type 2, controlled E11.9 ; Hypogonadism in male E29.1 and Mood disorder F39 [facility] [id number] [place] [address] 29891- 5912 Apr, Hypogonadism in male E29.1 [facility] [id number] [place] [address] 25723- 0788 Apr, Bronchitis J40 [facility] [id number] [place] [address] 67124- 1572 Mar, Hypogonadism in male E29.1 [facility] [id number] [place] [address] 09796- 5538 Mar, Bronchitis J40 [facility] [id number] [place] [address] 75961- 8101 Mar, Bronchitis J40 [facility] [id number] [place] [address] 82127- 4573 Feb, Spider bite, accidental or unintentional, initial encounter T63.301A [facility] [id number] [place] [address] 48448- 1357 Feb, Depressive disorder, not elsewhere classified F32.9 [facility] [address] [place] [address] 07180- 7071 Feb, Diabetes E11.9 ; Mood disorder F39 and Hypogonadism in male E29.1 [facility] [id number] [place] [address] 99317- 7807 Feb, Bronchitis J40 [facility] [address] [place] [address] 38296- 1035 Feb, Depressive disorder, not elsewhere classified F32.9 [facility] [id number] [place] [address] 89946- 2325 January, Depressive disorder, not elsewhere classified F32.9 [facility] [id number] [place] [address] 37797- 5760 January, Diabetes E11.9 and Mood disorder F39 [facility] [address] 48270- 3015 January, Bronchitis J40 [facility] [id number] [place] [address] 96495- 1048 Dec, Bronchitis J40 [facility] [address] 17189- 2106 Dec, Hypogonadism in male E29.1 [place] [address] 01788- 4461 Dec, [facility] [id number] [place] [address] 03460- 9381 Dec, Controlled type 2 diabetes mellitus without complication, without long-term current use of insulin E11.9 and Chronic fatigue R53.82 [place] [address] [id number] [place] [address] 63590- 3111 Nov, Bronchitis J40 [facility] [id number] [place] [address] 28050- 2003 Oct, Bronchitis J40 ; Controlled type 2 diabetes mellitus without complication, without long-term current use of insulin E11.9 ; Chronic fatigue R53.82 and Drug-induced erectile dysfunction N52.2 [place] [address] [id number] [place] [address] 79120- 1554 Oct, Diabetes E11.9 [facility] [id number] [place] [address] 28513- 6648 Sep, Pre-employment examination Z02.1 [place] [address] 78950- 8308 Sep, Diabetes E11.9 [facility] [address] [place] [address] 30159- 6441 Aug, Controlled type 2 diabetes mellitus without complication, without long-term current use of insulin E11.9 and Chronic osteoarthritis M19.90 [facility] [id number] [place] [address] 54229- 2540 Jul, [facility] [id number] [place] [address] 30288- 9957 Jun, [facility] [id number] [place] [address] 84795- 7942 Jun, 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 [facility] [id number] [place] [address] 48158- 5421 Jun, Encounter for immunization Z23 and Controlled type 2 diabetes mellitus without complication, without long-term current use of insulin E11.9 [facility] [id number] [place] [address] 50553- 1087 May, [facility] [id number] [place] [address] 49715- 4380 May, [facility] [id number] [place] [address] 59766- 1262 Apr, Gastritis without bleeding, unspecified chronicity, unspecified gastritis type K29.70 [facility] [id number] [place] [address] 46762- 8727 Apr, [facility] [id number] [place] [address] 80391- 5281 Mar, Diabetes type 2, controlled E11.9 [facility] [id number] [place] [address] 94961- 9689 Mar, [facility] [id number] [place] [address] 79082- 3615 Feb, [facility] [id number] [place] [address] 03063- 4787 Feb, [facility] [address] [address]- 7236 January, [facility] [address] [place] [address] 40747- 0571 Dec, Urethritis N34.2 [facility] [address] [place] [address] 89698- 3608 Dec, [facility] [id number] [place] [address] 81322- 2413 Nov, Diabetes type 2, controlled E11.9 [facility] [address] [place] [address] 84206- 1742 Nov, [facility] [address] [place] [address] 65785- 3595 Nov, Diabetes type 2, controlled E11.9 [facility] [address] [place] [address] 34592- 8729 Oct, Hand pain M79.643 [facility] [address] [place] [address] 56508- 4323 Oct, Right hand pain M79.641 [facility] [address] [address]- 9426 Oct, [facility] [address] [place] [address] 50697- 5233 Oct, [facility] [address] [address]- 1680 Oct, Right carpal tunnel syndrome G56.01 [facility] [address] [address]- 2653 Sep, Diabetes E11.9 [facility] [address] [address]- 4871 Sep, Anxiety F41.9 ; Chronic osteoarthritis M19.90 and Health examination of defined subpopulation V70.5 [facility] [address] [address]- 7694 Sep, Diabetes E11.9 [facility] [id number] [place] [address] 499307- 5706 Aug, Diabetes E11.9 ; Carpal tunnel syndrome, right G56.01 and Carpal tunnel syndrome, left upper limb G56.02 [facility] [id number] [place] [address] 77733- 0922 Jul, Diabetes mellitus 250.00 [facility] [id number] [place] [address] 39562- 1999 Jun, Diabetes mellitus 250.00 [facility] [id number] [place] [address] 23782449- 3924 May, Diabetes mellitus 250.00 [facility] [id number] [place] [address] 83756- 1327 Apr, Diabetes mellitus 250.00 [facility] [id number] [place] [address] 72808- 7460 Mar, [facility] [id number] [place] [address] 18441- 7137 Mar, Tooth abscess 522.5 [facility] [address] [address]- 3886 Feb, [facility] [id number] [place] [address] 54019305- 2099 January, [facility] [address] [address] 3046 January, [facility] [id number] [place] [address] 001688- 4176 January, Diabetes mellitus 250.00 [facility] [address] [address] 2540 January, [facility] [id number] [place] [address], [place] [address]- 2056 14 Dec, 2014 [facility] [place] [facility] [address] [id number] [place] [address]- 2956 13 Dec, 2014 [facility] [place] [facility] [address] [id number] [place] 7080 30 Nov, 2014 [facility] [place] [facility] [address] [id number] [place] [address]- 6186 Nov, [facility] [place] [facility] [address] [id number] [place] [address]- 2006 Nov, [facility] [place] [facility] [address] [id number] [place] [address]- 8386 Nov, [facility] [place] [facility] [address] [id number] [place] [address]- 9077 Oct, [facility] [place] [facility] [address] [id number] [place] [address]- 7598 Oct, [facility] [place] [facility] [address] [id number] [place] [address]- 8738 Sep, [facility] [place] [facility] [address] [id number] [place] [address]- 1009 Sep, [facility] [place] [facility] [address] [facility] [id number] [place] [address]- 5108 Aug, [facility] [place] [facility] [address] [id number] [place] [address]- 9029 Aug, [facility] [place] [facility] [address] [id number] [place] [address]- 9938 Aug, [facility] [place] [facility] [address] [id number] [place] 3189 Aug, [facility] [place] [facility] [address] [id number] [place] [address]- 0648 Aug, [facility] [place] [facility] [address] [id number] [place] [address]- 6110 Aug, [facility] [place] [facility] [address] [id number] [place] [address]- 3869 Jul, [facility] [place] [facility] [address] [id number] [place] [address]- 0487 Jul, [facility] [place] [facility] [address] [id number] [place] [address]- 3421 Jun, [facility] [place] [facility] [address] [id number] [place] [address]- 2181 Jun, [facility] [place] [facility] [address] [id number] [place] [address]- 8597 May, [facility] [place] [facility] [address] [id number] [place] [address]- 8121 May, [facility] [place] [facility] [address] [id number] [place] [address]- 9480 Apr, [facility] [place] [facility] [address] [id number] [place] [address]- 8903 Apr, [facility] [place] [facility] [address] [id number] [place] [address]- 9129 Apr, [facility] [place] [facility] [address] [id number] [place] [address]- 9044 Apr, [facility] [place] [facility] [address] [id number] [place] [address]- 3302 Apr, [facility] [place] [facility] [address] [id number] [place] [address]- 7143 Apr, [facility] [place] [facility] [address] [id number] [place] [address]- 7369 Mar, [facility] [place] [facility] [address] [id number] [place] [address]- 9507 Mar, [facility] [place] [facility] [address] [id number] [place] [address]- 8424 Feb, [facility] [place] [facility] [address] [id number] [place] [address]- 6669 Feb, [facility] [place] [facility] [address] [id number] [place] [address]- 9817 Feb, [facility] [place] [facility] [address] [id number] [place] 0301 Feb, [facility] [place] [facility] [address] [id number] [place] [address]- 8571 January, [facility] [place] [facility] [address] [id number] [place] [address]- 1076 January, [facility] [place] [facility] [address] [id number] [place] [address]- 1932 January, [facility] [place] [facility] [address] [id number] [place] [address]- 4602 January, [facility] [place] [facility] [address] [id number] [place] [address]- 2831 Dec, [facility] [place] [facility] [address] [id number] [place] [address]- 0143 Dec, [facility] [place] [facility] [address] [id number] [place] [address]- 9912 Nov, [facility] [place] [facility] [address] [id number] [place] [address]- 0270 Nov, [facility] [place] [facility] [address] [id number] [place] [address]- 1005 Oct, [facility] [place] [facility] [address] [id number] [place] [address]- 3703 Oct, [facility] [place] [facility] [address] [id number] [place] [address]- 7980 Sep, [facility] [place] [facility] [address] [id number] [place] [address]- 7519 Sep, [facility] [place] [facility] [address] [id number] [place] [address]- 2043 Aug, [facility] [place] [facility] [address] [id number] [place] [address]- 7086 Aug, [facility] [address] [id number] [place] [address]- 7046 Jul, [facility] [place] [facility] [address] [id number] [place] [address]- 2546 Jul, [facility] [address] [id number] [place] [address] 2546 Jun, [facility] [place] [facility] [address] [id number] [place] [address] 2546 Jun, [facility] [place] [facility] [address] [id number] [place] [address]- 2546 May, [facility] [place] [facility] [address] [id number] [place] [address]- 2546 May, [facility] [place] [facility] [address] [id number] [place] [address]- 8916 Apr, [facility] [address] [id number] [place] [address]- 0539 Apr, [facility] [place] [facility] [address] [id number] [place] [address]- 3246 Feb, [facility] [address] [id number] [place] [address] 2546 Feb, [facility] [place] [facility] [address] [id number] [place] [address]- 2546 January, [facility] [place] [facility] [address] [id number] [place] [address]- 2546 January, [facility] [place] [facility] [address] [id number] [place] [address]- 2546 Dec, [facility] [place] [facility] [address] [id number] [place] [address]- 2546 Nov, [facility] [place] [facility] [address] [id number] [place] [address]- 0348 Oct, [facility] [place] [facility] [address] [id number] [place] [address]- 2905 Oct, [facility] [place] [facility] [address] [id number] [place] [address]- 6734 Sep, [facility] [place] [facility] [address] [id number] [place] [address]- 5541 Aug, [facility] [place] [facility] [address] [id number] [place] [address]- 8351 Aug, [facility] [place] [facility] [address] [id number] [place] [address]- 1858 Jul, [facility] [place] [facility] [address] [id number] [place] [address]- 8298 Jul, [facility] [place] [facility] [address] [id number] [place] [address]- 2296 Jun, [facility] [place] [facility] [address] [id number] [place] [address]- 2853 May, [facility] [place] [facility] [address] [id number] [place] [address]- 4361 May, [facility] [place] [facility] [address] [id number] [place] [address]- 8845 May, [facility] [place] [facility] [address] [id number] [place] [address]- 6253 Apr, [facility] [place] [facility] [address] [id number] [address]- 9156 Apr, [facility] [place] [facility] [address] [id number] [place] [address]- 1045 Apr, [facility] [place] [facility] [address] [id number] [place] [address]- 3284 Mar, [facility] [place] [facility] [address] [id number] [place] [address]- 9733 Mar, [facility] [place] [facility] [address] [id number] [place] [address]- 7771 Feb, [facility] [address] [id number] [place] [address]- 8056 Feb, [facility] [address] [id number] [place] [address]- 9536 January, [facility] [address] [id number] [place] [address]- 7546 January, [facility] [address] [id number] [place] [address]- 8047 Dec, [facility] [address] [id number] [place] [address]- 2304 Dec, [facility] [address] [id number] [place] [address]- 0906 Nov, [facility] [address] [id number] [place] [address] Nov, [facility] [address] [id number] [place] [address] Oct, [facility] [address] [id number] [place] [address] Oct, [facility] [address] [id number] [place] [address] Sep, [facility] [address] [id number] [place] [address] Sep, [facility] [address] [id number] [place] [address] Sep, [facility] [address] [id number] [place] [address] Aug, [facility] [place] [facility] [address] [id number] [place] [address] Aug, [facility] [address] [id number] [place] [address] Aug, [facility] [address] [facility] [id number] [address] Aug, [facility] [address] [id number] [address] Aug, [facility] [address] [id number], [place] [address] Jul, [facility] [id number] [address] Jul, [facility] [address] [id number], [place] [address] Jul, [facility] [address] [id number], [place] [address] Dec, IMMUNIZATIONS No Known Immunizations SOCIAL HISTORY Never Assessed REASON FOR VISIT Depression. PLAN OF CARE Activity Details Follow Up Next available Reason:depression VITAL SIGNS MEDICATIONS Unknown Medications RESULTS No Results PROCEDURES Procedure Date Ordered Result Body Site Psychotherapy, patient &/family, 45 minutes, established patient March 09, 2017 INSTRUCTIONS MEDICATIONS ADMINISTERED No Known Medications MEDICAL (GENERAL) HISTORY Type Description Date Medical History Type 2 diabetes Medical History anxiety Medical History chronic hip pain Medical History carpal tunnel bilateral Medical History Marcellus Palsy Surgical History carpel tunnel-right hand 2011 Surgical History carpel tunnel-left hand 2008 Surgical History carpal tunnel - right hand 11/2015 Hospitalization History ER spider bite
--- OUTSIDE RECORDS SUMMARY | 2018-06-25 06:21 | XMS REPORT ---
Author Author KASI BLANCHARD Organization [facility] Address [address] [place] [address] Care Team Providers Care Fisher Gill Net Name Role Phone KASI BLANCHARD Unavailable PROBLEMS Type Condition ICD9-CM Code PAR99-YC Code Onset Dates Condition Status SNOMED Code Problem Controlled type 2 diabetes mellitus without complication, without long -term current use of insulin E11.9 Active 358005759 Problem Chronic fatigue R53.82 Active 89518892 Problem Drug-induced erectile dysfunction N52.2 Active 473307099 Problem Diabetes E11.9 Active 54611175 Problem Anxiety F41.9 Active 43414760 Problem Chronic osteoarthritis M19.90 Active 40528010 Problem Sialadenitis K11.20 Active 35719581 Problem Uncontrolled type 2 diabetes mellitus without complication, without long-term current use of insulin E11.65 Active 486077400 Problem Hypogonadism in male E29.1 Active 89020066 Problem Mood disorder F39 Active 84410449 Problem Diabetes type 2, controlled E11.9 Active 196316467 Problem Depressive disorder, not elsewhere classified F32.9 Active 98741223 ALLERGIES No Information ENCOUNTERS Encounter Location Date Diagnosis [place] [address], [place] [address] Mar, [place] [address], [place] [address] Feb, [place] [id number] [place] [address] 27658- 9413 Feb, Insect bite (nonvenomous) of right upper arm, initial encounter S40.861A ; Local infection of the skin and subcutaneous tissue, unspecified L08.9 and Hypogonadism in male E29.1 [place] [address], [place] [address] January, Sialadenitis K11.20 [place] [address] [place] [id number] [place] [address] 76610- 2017 January, Bronchitis J40 [facility] [address] [address]- [address] January, Hypogonadism in male E29.1 [facility] [id number] [place] [address] 47364- 9921 January, Hypogonadism in male E29.1 [facility] [address] [address]- 1559 Dec, Bronchitis J40 [facility] [id number] [place] [address] 85276- 2800 Nov, Diabetes E11.9 and Anxiety F41.9 [facility] [id number] [place] [address] 36054- 5152 Nov, Bronchitis J40 [facility] [id number] [place] [address] 35289- 8624 Oct, Bronchitis J40 [facility] [id number] [place] [address] 53973- 5291 Sep, Diabetes E11.9 ; Mood disorder F39 ; Hypogonadism in male E29.1 and Depressive disorder, not elsewhere classified F32.9 [facility] [id number] [place] [address] 91172- 3249 Sep, Bronchitis J40 [facility] [id number] [place] [address] 35063- 3278 Sep, Hypogonadism in male E29.1 [facility] [id number] [place] [address] 44382- 3146 Sep, [facility] [id number] [place] [address] 48992- 1744 Sep, [facility] [id number] [place] [address] 08260- 3718 Aug, Bronchitis J40 [facility] [id number] [place] [address] 22545- 4580 Aug, Uncontrolled type 2 diabetes mellitus without complication, without long-term current use of insulin E11.65 ; Diabetes type 2, controlled E11.9 ; Hypogonadism in male E29.1 ; Encounter for immunization Z23 and Spider bite wound, undetermined intent, initial encounter T63.304A [facility] [address] [address]- 1269 Jul, Bronchitis J40 [facility] [address] 30869- 4628 Jun, Hypogonadism in male E29.1 [facility] [address] 08132- 8323 Jun, Hypogonadism in male E29.1 and Bronchitis J40 [facility] [id number] [place] [address] 53074- 9216 May, Bronchitis J40 [facility] [address] 15934- 0580 May, Hypogonadism in male E29.1 [facility] [address] 23416- 4769 May, Hypogonadism in male E29.1 [facility] [id number] [place] [address] 09937- 2597 Apr, Bronchitis J40 [facility] [id number] [place] [address] 77670- 0913 Apr, Controlled type 2 diabetes mellitus without complication, without long-term current use of insulin E11.9 [facility] [id number] [place] [address] 17384- 8814 Apr, Diabetes type 2, controlled E11.9 ; Hypogonadism in male E29.1 and Mood disorder F39 [facility] [id number] [place] [address] 10519- 9544 Apr, Hypogonadism in male E29.1 [facility] [id number] [place] [address] 13808- 5315 Apr, Bronchitis J40 [facility] [address] 20854- 0775 Mar, Hypogonadism in male E29.1 [facility] [id number] [place] [address] 78062- 8162 Mar, Bronchitis J40 [facility] [id number] [place] [address] 30944- 0514 Mar, Bronchitis J40 [facility] [address] 36450- 1556 Feb, Spider bite, accidental or unintentional, initial encounter T63.301A [facility] [id number] [place] [address] 08947- 2730 Feb, Depressive disorder, not elsewhere classified F32.9 [facility] [id number] [place] [address] 87399- 6151 Feb, Diabetes E11.9 ; Mood disorder F39 and Hypogonadism in male E29.1 [facility] [id number] [place] [address] 95737- 4585 Feb, Bronchitis J40 [facility] [id number] [place] [address] 41434- 6409 Feb, Depressive disorder, not elsewhere classified F32.9 [facility] [id number] [place] [address] 44424- 9542 January, Depressive disorder, not elsewhere classified F32.9 [facility] [id number] [place] [address] 44104- 5582 January, Diabetes E11.9 and Mood disorder F39 [facility] [id number] [place] [address] 60613- 5880 January, Bronchitis J40 [facility] [address] 78510- 8817 Dec, Bronchitis J40 [facility] [address], [place] [address]- 0426 Dec, Hypogonadism in male E29.1 [facility] [id number] [place] [address] 15602- 1907 Dec, [facility] [id number] [place] [address] 12407- 0771 Dec, Controlled type 2 diabetes mellitus without complication, without long-term current use of insulin E11.9 and Chronic fatigue R53.82 [facility] [id number] [place] [address] 51134- 6740 Nov, Bronchitis J40 [facility] [id number] [place] [address] 31692- 9621 Oct, Bronchitis J40 ; Controlled type 2 diabetes mellitus without complication, without long-term current use of insulin E11.9 ; Chronic fatigue R53.82 and Drug-induced erectile dysfunction N52.2 [facility] [id number] [place] [address] 48772- 3343 Oct, Diabetes E11.9 [facility] [id number] [place] [address] 59906- 5058 Sep, Pre-employment examination Z02.1 [facility] [id number] [place] [address] 25803- 9959 Sep, Diabetes E11.9 [facility] [id number] [place] [address] 71175- 6414 Aug, Controlled type 2 diabetes mellitus without complication, without long-term current use of insulin E11.9 and Chronic osteoarthritis M19.90 [facility] [id number] [place] [address] 50845- 0523 Jul, [facility] [id number] [place] [address] 94089- 8486 Jun, [facility] [id number] [place] [address] 81914- 1063 10 Jun, 2016 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 [facility] [id number] [place] [address] 60878- 1789 07 Jun, 2016 Encounter for immunization Z23 and Controlled type 2 diabetes mellitus without complication, without long-term current use of insulin E11.9 [facility] [id number] [place] [address] 50203- 7545 30 May, 2016 [facility] [address] [id number] [place] [address] 25163- 0978 May, [facility] [address] [id number] [place] [address] 13344- 6707 Apr, Gastritis without bleeding, unspecified chronicity, unspecified gastritis type K29.70 [facility] [address] [place] [id number] [place] [address] 84442- 2513 Apr, [facility] [address] [place] [id number] [place] [address] 31128- 6347 Mar, Diabetes type 2, controlled E11.9 [facility] [id number] [place] [address] 76751- 6600 Mar, [facility] [id number] [place] [address] 60613- 4508 Feb, [facility] [id number] [place] [address] 98809- 8369 Feb, [facility] [id number] [place] [address] 44705- 4766 January, [facility] [id number] [place] [address] 90557- 5960 Dec, Urethritis N34.2 [facility] [address] [id number] [place] [address] 59725- 2952 Dec, [facility] [address] [place] [address] 69774- 2409 Nov, Diabetes type 2, controlled E11.9 [facility] [address], [place] [address]- 9449 Nov, [facility] [id number] [place] [address] 22733- 3648 Nov, Diabetes type 2, controlled E11.9 [facility] [id number] [place] [address] 97414- 2129 Oct, Hand pain M79.643 [facility] [id number] [place] [address] 83845- 4095 Oct, Right hand pain M79.641 [facility] [address] [id number] [place] [address] 41232- 0039 Oct, [facility] [address] [place] [id number] [place] [address] 36882- 2436 Oct, [facility] [address] [place] [id number] [place] [address] 95576- 0380 Oct, Right carpal tunnel syndrome G56.01 [facility] [address] [place] [address] 70082- 1258 Sep, Diabetes E11.9 [facility] [address] [place] [address] 78177- 5486 Sep, Anxiety F41.9 ; Chronic osteoarthritis M19.90 and Health examination of defined subpopulation V70.5 [facility] [address] [place] [address] 12125- 9970 Sep, Diabetes E11.9 [facility] [address], [place] [address]- 5994 Aug, Diabetes E11.9 ; Carpal tunnel syndrome, right G56.01 and Carpal tunnel syndrome, left upper limb G56.02 [facility] [address], [place] [address]- 9341 Jul, Diabetes mellitus 250.00 [facility] [address] [address]- 7352 Jun, Diabetes mellitus 250.00 [facility] [id number] [place] [address] 61680- 4686 May, Diabetes mellitus 250.00 [facility] [address] [address]- 6516 Apr, Diabetes mellitus 250.00 [facility] [id number] [place] [address] 95446- 3272 Mar, [facility] [id number] [place] [address] 22531- 8981 Mar, Tooth abscess 522.5 [facility] [id number] [place] [address] 28869- 0706 Feb, [facility] [id number] [place] [address] 32994- 1546 January, [facility] [id number] [place] [address] 43063- 9223 January, [facility] [address] [place] [address] 26873- 8220 January, Diabetes mellitus 250.00 [facility] [address], [place] [address]- 3456 January, [facility] [address], [place] [address]- 7767 Dec, [facility] [address], [place] [address]- 7729 Dec, [facility] [address], [place] [address]- 8375 Nov, [facility] [address], [place] [address]- 4596 Nov, [facility] [address], [place] [address]- 4956 Nov, [facility] [place] [facility] [address] [id number] [place] [address]- 7403 Nov, [facility] [place] [facility] [address] [id number] [place] [address]- 8112 Oct, [facility] [place] [facility] [address] [id number] [place] [address]- 2013 Oct, [facility] [place] [facility] [address] [id number] [place] [address]- 2494 Sep, [facility] [place] [facility] [address] [id number] [place] [address]- 0247 Sep, [facility] [place] [facility] [address] [id number] [place] [address]- 5041 Aug, [facility] [place] [facility] [address] [id number] [place] [address]- 3191 Aug, [facility] [place] [facility] [address] [id number] [place] [address]- 6238 Aug, [facility] [place] [facility] [address] [id number] [place] [address]- 6072 Aug, [facility] [place] [facility] [address] [id number] [place] [address]- 7901 Aug, [facility] [place] [facility] [address] [id number] [place] [address]- 1104 Aug, [facility] [place] [facility] [address] [id number] [place] [address]- 2100 Jul, [facility] [place] [facility] [address] [id number] [place] [address]- 3353 Jul, [facility] [place] [facility] [address] [id number] [place] [address]- 7810 Jun, [facility] [place] [facility] [address] [id number] [place] [address]- 2341 Jun, [facility] [place] [facility] [address] [id number] [place] [address]- 3964 May, [facility] [place] [facility] [address] [id number] [place] [address]- 1598 May, [facility] [place] [facility] [address] [id number] [place] [address]- 6683 Apr, [facility] [place] [facility] [address] [id number] [place] [address]- 0879 Apr, [facility] [place] [facility] [address] [id number] [place] [address]- 8311 Apr, [facility] [place] [facility] [address] [id number] [place] [address]- 5926 Apr, [facility] [place] [facility] [address] [id number] [place] [address]- 9679 Apr, [facility] [place] [facility] [address] [id number] [place] [address]- 5521 Apr, [facility] [place] [facility] [address] [id number] [place] [address]- 4549 Mar, [facility] [place] [facility] [address] [id number] [place] [address]- 0913 Mar, [facility] [place] [facility] [address] [id number] [place] [address]- 3953 Feb, [facility] [place] [facility] [address] [id number] [place] [address]- 5064 Feb, [facility] [place] [facility] [address] [id number] [place] [address]- 5711 Feb, [facility] [place] [facility] [address] [id number] [place] [address]- 0816 Feb, [facility] [place] [facility] [address] [id number] [place] [address]- 0189 January, [facility] [place] [facility] [address] [id number] [place] [address]- 5150 January, [facility] [place] [facility] [address] [id number] [place] [address]- 5067 January, [facility] [address] [id number] [place] [address]- 9009 January, [facility] [place] [facility] [address] [id number] [place] [address]- 6175 Dec, [facility] [address] [id number] [place] [address]- 7236 Dec, [facility] [place] [facility] [address] [id number] [place] [address]- 7125 Nov, [facility] [address] [id number] [place] [address]- 8755 Nov, [facility] [address] [id number] [place] [address]- 5023 Oct, [facility] [address] [id number] [place] [address]- 7532 Oct, [facility] [address] [id number] [place] [address]- 7251 Sep, [facility] [address] [id number] [place] [address]- 0303 Sep, [facility] [address] [id number] [place] [address]- 2883 Aug, [facility] [place] [facility] [address] [id number] [place] [address]- 2454 Aug, [facility] [place] [facility] [address] [id number] [place] [address]- 5613 Jul, [facility] [place] [facility] [address] [id number] [place] [address]- 7124 Jul, [facility] [place] [facility] [address] [id number] [place] [address]- 9256 Jun, [facility] [place] [facility] [address] [id number] [place] [address]- 8882 Jun, [facility] [address] [id number] [place] [address]- 7230 May, [facility] [place] [facility] [address] [id number] [place] [address]- 1228 May, [facility] [address] [id number] [place] 2077 Apr, [facility] [place] [facility] [address] [id number] [place] [address]- 3394 Apr, [facility] [address] [id number] [place] [address]- 3632 Feb, [facility] [place] [facility] [address] [id number] [place] [address]- 7721 Feb, [facility] [address] [id number] [place] [address]- 9959 January, [facility] [address] [id number] [place] [address]- 8913 January, [facility] [address] [id number] [place] [address]- 0118 Dec, [facility] [address] [id number] [place] [address]- 3056 Nov, [facility] [place] [facility] [address] [id number] [place] [address]- 1851 Oct, [facility] [place] [facility] [address] [id number], [place] [address]- 8243 Oct, [facility] [place] [facility] [address] [id number] [place] [address]- 9750 Sep, [facility] [place] [facility] [address] [id number] [place] [address]- 4973 Aug, [facility] [place] [facility] [address] [id number] [place] [address]- 6839 Aug, [facility] [place] [facility] [address] [id number] [place] [address]- 6087 Jul, [facility] [place] [facility] [address] [id number] [place] [address]- 2682 Jul, [facility] [place] [facility] [address] [id number] [place] [address]- 1326 Jun, [facility] [place] [facility] [address] [id number] [place] [address]- 5335 24 May, 2012 [facility] [place] [facility] [address] [id number] [place] [address]- 4801 14 May, 2012 [facility] [place] [facility] [address] [id number] [place] [address]- 2233 May, [facility] [place] [facility] [address] [id number] [place] [address]- 9374 Apr, [facility] [place] [facility] [address] [id number] [place] [address]- 6287 Apr, [facility] [place] [facility] [address] [id number] [place] [address]- 3542 Apr, [facility] [place] [facility] [address] [id number] [place] [address]- 9208 Mar, [facility] [place] [facility] [address] [id number] [place] [address] 2546 Mar, [facility] [place] [facility] [address] [id number] [place] [address]- 8544 Feb, [facility] [place] [facility] [address] [id number] [place] [address] 2544 Feb, [facility] [place] [facility] [address] [id number] [place] [address]- 7722 January, [facility] [place] [facility] [address] [id number] [place] [address] 2546 January, [facility] [place] [facility] [address] [id number] [place] [address]- 4313 Dec, [facility] [place] [facility] [address] [id number] [place] [address]- 6170 Dec, [facility] [address] [id number] [place] [address]- 5376 Nov, [facility] [place] [facility] [address] [id number] [place] [address] 2546 Nov, [facility] [place] [facility] [address] [id number] [place] [address] Oct, [facility] [address] [id number] [place] [address] Oct, [facility] [address] [id number] [place] [address] Sep, [facility] [address] [id number] [place] [address] Sep, [facility] [address] [id number] [place] [address] Sep, [facility] [address] [id number] [place] [address] Aug, [facility] [address] [id number] [place] [address] Aug, [facility] [place] [facility] [address] [id number] [place] [address] Aug, [facility] [place] [facility] [address] [id number] [place] [address] Aug, [facility] [place] [facility] [address] [id number] [place] [address] Aug, [facility] [place] [facility] [address] [id number] [place] [address] Jul, 2011 [facility] [place] [facility] [address] [id number] [place] [address] 16 Jul, 2011 [facility] [place] [facility] [address] [id number] [place] [address] Jul, [facility] [address] [facility] [id number] [place] [address] Dec, IMMUNIZATIONS No Known Immunizations SOCIAL HISTORY Never Assessed REASON FOR VISIT Controlled Med Refill 09/10/17 PLAN OF CARE VITAL SIGNS MEDICATIONS Medication Instructions Dosage Frequency Start Date End Date Duration Status [place] 10-325 MG Orally every 6 hrs 1 tablet as needed 6h Aug, 28 days Active RESULTS No Results PROCEDURES No Known procedures INSTRUCTIONS MEDICATIONS ADMINISTERED No Known Medications MEDICAL (GENERAL) HISTORY Type Description Date Medical History Type 2 diabetes Medical History anxiety Medical History chronic hip pain Medical History carpal tunnel bilateral Medical History [place] Palsy Surgical History carpel tunnel-right hand 2011 Surgical History carpel tunnel-left hand 2008 Surgical History carpal tunnel - right hand 11/2015 Surgical History Torn bicep repair 01/2018 Hospitalization History ER spider bite
--- OUTSIDE RECORDS SUMMARY | 2018-06-25 06:21 | XMS REPORT ---
Author Author KASI BLANCHARD Organization [facility] Address [address] [place] [address] Care Team Providers Care Coremaker Name Role Phone KASI BLANCHARD Unavailable PROBLEMS Type Condition ICD9-CM Code PKP73-CF Code Onset Dates Condition Status SNOMED Code Problem Anxiety F41.9 Active 03081043 Problem Drug-induced erectile dysfunction N52.2 Active 740110706 Problem Controlled type 2 diabetes mellitus without complication, without long -term current use of insulin E11.9 Active 000073384 Problem Diabetes E11.9 Active 74776144 Problem Chronic osteoarthritis M19.90 Active 78603125 Problem Uncontrolled type 2 diabetes mellitus without complication, without long-term current use of insulin E11.65 Active 969668327 Problem Diabetes type 2, controlled E11.9 Active 246030686 Problem Mood disorder F39 Active 83680730 Problem Chronic fatigue R53.82 Active 74570964 Problem Depressive disorder, not elsewhere classified F32.9 Active 84672680 Problem Hypogonadism in male E29.1 Active 74783385 ALLERGIES No Information ENCOUNTERS Encounter Location Date Diagnosis [facility] [id number] [place] [address] 64804- 9455 28 Nov, 2017 Diabetes E11.9 and Anxiety F41.9 [facility] [id number] [place] [address] 77349- 3790 15 Nov, 2017 Bronchitis J40 [facility] [id number] [place] [address] 24206- 5259 14 Oct, 2017 Bronchitis J40 [facility] [id number] [place] [address] 66071- 6011 24 Sep, 2017 Diabetes E11.9 ; Mood disorder F39 ; Hypogonadism in male E29.1 and Depressive disorder, not elsewhere classified F32.9 [facility] [id number] [place] [address] 44603- 5752 Sep, Bronchitis J40 [facility] [id number] [place] [address] 50608- 8019 Sep, Hypogonadism in male E29.1 [facility] [id number] [place] [address] 69854- 6002 Sep, [facility] [address] 78753- 2391 Sep, [facility] [id number] [place] [address] 67182- 3790 Aug, Bronchitis J40 [facility] [address] 60801- 8813 Aug, Uncontrolled type 2 diabetes mellitus without complication, without long-term current use of insulin E11.65 ; Diabetes type 2, controlled E11.9 ; Hypogonadism in male E29.1 ; Encounter for immunization Z23 and Spider bite wound, undetermined intent, initial encounter T63.304A [facility] [id number] [place] [address] 45363- 0447 Jul, Bronchitis J40 [facility] [address] 68737- 3652 Jun, Hypogonadism in male E29.1 [facility] [id number] [place] [address] 37766- 4744 Jun, Hypogonadism in male E29.1 and Bronchitis J40 [facility] [id number] [place] [address] 92240- 0908 May, Bronchitis J40 [facility] [id number] [place] [address] 15638- 8905 May, Hypogonadism in male E29.1 [facility] [id number] [place] [address] 39336- 3436 May, Hypogonadism in male E29.1 [facility] [id number] [place] [address] 15452- 2284 Apr, Bronchitis J40 [facility] [id number] [place] [address] 57944- 8446 Apr, Controlled type 2 diabetes mellitus without complication, without long-term current use of insulin E11.9 [facility] [id number] [place] [address] 05742- 6860 Apr, Diabetes type 2, controlled E11.9 ; Hypogonadism in male E29.1 and Mood disorder F39 [facility] [id number] [place] [address] 86378- 7433 Apr, Hypogonadism in male E29.1 [facility] [id number] [place] [address] 78963- 2964 Apr, Bronchitis J40 [facility] [id number] [place] [address] 43339- 2836 Mar, Hypogonadism in male E29.1 [facility] [id number] [place] [address] 44064- 9133 Mar, Bronchitis J40 [facility] [id number] [place] [address] 78384- 0554 Mar, Bronchitis J40 [facility] [id number] [place] [address] 22513- 2524 Feb, Spider bite, accidental or unintentional, initial encounter T63.301A [facility] [id number] [place] [address] 21881- 5067 Feb, Depressive disorder, not elsewhere classified F32.9 [facility] [id number] [place] [address] 59172- 1517 16 Feb, 2017 Diabetes E11.9 ; Mood disorder F39 and Hypogonadism in male E29.1 [facility] [id number] [place] [address] 71654- 6267 Feb, Bronchitis J40 [facility] [id number] [place] [address] 83475- 4222 Feb, Depressive disorder, not elsewhere classified F32.9 [facility] [id number] [place] [address] 54379- 0539 January, Depressive disorder, not elsewhere classified F32.9 [facility] [id number] [place] [address] 14162- 9202 January, Diabetes E11.9 and Mood disorder F39 [facility] [address] 55050- 1292 January, Bronchitis J40 [facility] [address] 28955- 4970 Dec, Bronchitis J40 [facility] [id number] [place] [address] 94990- 9782 Dec, Hypogonadism in male E29.1 [place] [address] 38251- 6737 Dec, [facility] [id number] [place] [address] 89805- 3864 Dec, Controlled type 2 diabetes mellitus without complication, without long-term current use of insulin E11.9 and Chronic fatigue R53.82 [place] [facility] [id number] [place] [address] 54699- 3253 Nov, Bronchitis J40 [facility] [id number] [place] [address] 68569- 1837 Oct, Bronchitis J40 ; Controlled type 2 diabetes mellitus without complication, without long-term current use of insulin E11.9 ; Chronic fatigue R53.82 and Drug-induced erectile dysfunction N52.2 [place] [facility] [id number] [place] [address] 84809- 6717 Oct, Diabetes E11.9 [place] [facility] [id number] [place] [address] 80653- 6920 Sep, Pre-employment examination Z02.1 [place] [address] [place] [address]- 5733 Sep, Diabetes E11.9 [facility] [id number] [place] [address] 35442- 7259 Aug, Controlled type 2 diabetes mellitus without complication, without long-term current use of insulin E11.9 and Chronic osteoarthritis M19.90 [facility] [id number] [place] [address] 98989- 3894 Jul, [facility] [id number] [place] [address] 33850- 0285 Jun, [facility] [id number] [place] [address] 65957- 1456 Jun, 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 [facility] [id number] [place] [address] 13817- 9240 Jun, Encounter for immunization Z23 and Controlled type 2 diabetes mellitus without complication, without long-term current use of insulin E11.9 [facility] [id number] [place] [address] 23561- 5399 May, [facility] [id number] [place] [address] 10810- 5955 May, [facility] [id number] [place] [address] 72852- 5706 Apr, Gastritis without bleeding, unspecified chronicity, unspecified gastritis type K29.70 [facility] [id number] [place] [address] 72907- 8934 Apr, [facility] [id number] [place] [address] 87000- 1157 Mar, Diabetes type 2, controlled E11.9 [facility] [id number] [place] [address] 32868- 9878 Mar, [facility] [id number] [place] [address] 97391- 5849 Feb, [facility] [id number] [address]- 6888 10 Feb, 2016 [facility] [id number] [place] [address] 97187- 2226 January, [facility] [address] [address]- 9551 Dec, Urethritis N34.2 [facility] [id number] [place] [address] 11636 2546 Dec, [facility] [id number] [place] [address] 63987 2541 Nov, Diabetes type 2, controlled E11.9 [facility] [id number] [place] [address] 10702- 6466 Nov, [facility] [id number] [place] [address] 66538- 5673 Nov, Diabetes type 2, controlled E11.9 [facility] [address] [place] [address] 00662- 1846 Oct, Hand pain M79.643 [facility] [address] [place] [address] 03859 2546 Oct, Right hand pain M79.641 [facility] [address] [address] 2546 Oct, [facility] [address] [address]- 2544 Oct, [facility] [address] [address]- 9621 Oct, Right carpal tunnel syndrome G56.01 [facility] [address] [address]- 6062 Sep, Diabetes E11.9 [facility] [address] [address] 2546 Sep, Anxiety F41.9 ; Chronic osteoarthritis M19.90 and Health examination of defined subpopulation V70.5 [facility] [address] [address]- 7830 Sep, Diabetes E11.9 [facility] [id number] [place] [address] 564380- 1482 Aug, Diabetes E11.9 ; Carpal tunnel syndrome, right G56.01 and Carpal tunnel syndrome, left upper limb G56.02 [facility] [id number] [place] [address] 25609- 0485 Jul, Diabetes mellitus 250.00 [facility] [id number] [place] [address] 712638- 1615 Jun, Diabetes mellitus 250.00 [facility] [id number] [place] [address] 24272- 0497 May, Diabetes mellitus 250.00 [facility] [id number] [place] [address] 25193- 7252 Apr, Diabetes mellitus 250.00 [facility] [address] [address]- 4772 Mar, [facility] [id number] [place] [address] 672999- 0310 Mar, Tooth abscess 522.5 [facility] [id number] [address]- 5311 Feb, [facility] [id number] [place] [address] [id number]- 1300 January, [facility] [address] [address]- 8579 January, [facility] [id number] [place] [address] 655177- 3032 January, Diabetes mellitus 250.00 [facility] [id number] 7086 January, [facility] [address] [facility] [id number] [place] [address]- 8574 14 Dec, 2014 [facility] [place] [facility] [address] [id number] [place] [address]- 5726 13 Dec, 2014 [facility] [place] [facility] [address] [id number] [place] [address]- 4416 30 Nov, 2014 [facility] [place] [facility] [address] [id number] [place] [address]- 7016 Nov, [facility] [place] [facility] [address] [id number] [place] [address]- 7465 Nov, [facility] [place] [facility] [address] [id number] [place] [address]- 6789 Nov, [facility] [place] [facility] [address] [id number] [place] [address]- 0734 Oct, [facility] [place] [facility] [address] [id number] [place] [address]- 8170 Oct, [facility] [place] [facility] [address] [id number] [place] [address]- 4710 Sep, [facility] [place] [facility] [address] [id number] [place] [address]- 6986 Sep, [facility] [place] [facility] [address] [id number] [place] [address]- 3713 Aug, [facility] [place] [facility] [address] [id number] [place] [address]- 6395 Aug, [facility] [place] [facility] [address] [id number] [place] 1770 Aug, [facility] [place] [facility] [address] [id number] [place] [address]- 4056 Aug, [facility] [place] [facility] [address] [id number] [place] [address]- 9866 Aug, [facility] [place] [facility] [address] [id number] [place] [address]- 8442 Aug, [facility] [place] [facility] [address] [id number] [place] [address]- 3183 Jul, [facility] [place] [facility] [address] [id number] [place] [address]- 6200 Jul, [facility] [place] [facility] [address] [id number] [place] [address]- 1322 Jun, [facility] [place] [facility] [address] [id number] [place] [address]- 6475 Jun, [facility] [place] [facility] [address] [id number] [place] [address]- 3087 May, [facility] [place] [facility] [address] [id number] [place] [address]- 1715 May, [facility] [place] [facility] [address] [id number] [place] [address]- 5230 Apr, [facility] [place] [facility] [address] [id number] [place] [address]- 1168 Apr, [facility] [place] [facility] [address] [id number] [place] [address]- 6026 Apr, [facility] [place] [facility] [address] [id number] [place] [address]- 2232 Apr, [facility] [place] [facility] [address] [id number] [place] [address]- 9170 Apr, [facility] [place] [facility] [address] [id number] [address]- 7357 Apr, [facility] [place] [facility] [address] [id number] [place] [address]- 8926 Mar, [facility] [place] [facility] [address] [id number] [place] [address]- 0767 Mar, [facility] [place] [facility] [address] [id number] [place] [address]- 1635 Feb, [facility] [place] [facility] [address] [id number] [place] [address]- 1853 Feb, [facility] [place] [facility] [address] [id number] [place] [address]- 8161 Feb, [facility] [place] [facility] [address] [id number] [place] [address]- 0617 Feb, [facility] [place] [facility] [address] [id number] [place] [address]- 2562 January, [facility] [place] [facility] [address] [id number] [place] [address]- 0596 January, [facility] [place] [facility] [address] [id number] [place] [address]- 1928 January, [facility] [place] [facility] [address] [id number] [place] [address]- 6558 January, [facility] [place] [facility] [address] [id number] [place] [address]- 6368 Dec, [facility] [place] [facility] [address] [id number] [place] [address]- 5227 Dec, [facility] [place] [facility] [address] [id number] [place] [address]- 1586 Nov, [facility] [place] [facility] [address] [id number] [place] [address]- 5249 Nov, [facility] [place] [facility] [address] [id number] [place] [address]- 5777 Oct, [facility] [place] [facility] [address] [id number] [place] [address]- 4153 Oct, [facility] [place] [facility] [address] [id number] [place] [address]- 1402 Sep, [facility] [place] [facility] [address] [id number] [place] [address]- 3656 Sep, [facility] [place] [facility] [address] [id number] [place] [address]- 6228 Aug, [facility] [place] [facility] [address] [id number] [place] [address]- 2023 Aug, [facility] [place] [facility] [address] [id number] [place] [address] 2542 Jul, [facility] [place] [facility] [address] [id number] [place] [address] 2546 Jul, [facility] [place] [facility] [address] [id number] [place] [address] 2546 Jun, [facility] [address] [id number] [place] [address]- 5057 Jun, [facility] [place] [facility] [address] [id number] [place] [address]- 5936 May, [facility] [place] [facility] [address] [id number] [place] [address]- 2549 May, [facility] [place] [facility] [address] [id number] [place] [address]- 5125 Apr, [facility] [place] [facility] [address] [id number] [place] [address]- 2162 Apr, [facility] [place] [facility] [address] [id number] [place] [address]- 7750 Feb, [facility] [place] [facility] [address] [id number] [place] [address]- 2546 Feb, [facility] [place] [facility] [address] [id number], [place] [address]- 2546 January, [facility] [place] [facility] [address] [id number] [place] [address]- 2544 January, [facility] [place] [facility] [address] [id number] [place] [address]- 2546 Dec, [facility] [place] [facility] [address] [id number], [place] [address]- 2546 Nov, [facility] [place] [facility] [address] [id number], [place] [address]- 9253 Oct, [facility] [place] [facility] [address] [id number] [place] [address]- 9939 Oct, [facility] [place] [facility] [address] [id number] [place] [address]- 0481 Sep, [facility] [place] [facility] [address] [facility] [id number] [place] 6673 Aug, [facility] [place] [facility] [address] [id number] [place] [address]- 9942 Aug, [facility] [place] [facility] [address] [id number] [place] [address]- 7258 Jul, [facility] [place] [facility] [address] [id number] [place] [address]- 7354 Jul, [facility] [id number] [place] [address]- 4291 Jun, [facility] [place] [facility] [address] [id number] [place] [address]- 5230 24 May, 2012 [facility] [place] [facility] [address] [id number] [place] [address]- 6453 14 May, 2012 [facility] [place] [facility] [address] [facility] [id number] [place] [address]- 1078 May, [facility] [place] [facility] [address] [id number] [place] [address]- 6345 Apr, [facility] [place] [facility] [address] [id number], [place] [address]- 0049 Apr, [facility] [place] [facility] [address] [id number] [place] [address]- 7017 Apr, [facility] [place] [facility] [address] [facility] [id number] [place] 4154 Mar, [facility] [place] [facility] [address] [facility] [id number] [place] [address]- 5922 Mar, [facility] [place] [facility] [address] [id number] [place] [address]- 0383 Feb, [facility] [place] [facility] [address] [id number] [place] [address]- 8867 Feb, [facility] [place] [facility] [address] [id number] [place] [address]- 7826 January, [facility] [place] [facility] [address] [id number] [place] [address]- 2433 January, [facility] [place] [facility] [address] [id number] [place] [address]- 7690 Dec, [facility] [place] [facility] [address] [id number] [place] [address]- 0513 Dec, [facility] [place] [facility] [address] [id number] [place] [address] Nov, [facility] [place] [facility] [address] [id number] [place] [address] Nov, [facility] [place] [facility] [address] [id number] [place] [address] Oct, [facility] [place] [facility] [address] [id number] [place] [address] Oct, [facility] [place] [facility] [address] [id number] [place] [address] Sep, [facility] [place] [facility] [address] [id number] [place] [address] Sep, [facility] [place] [facility] [address] [id number] [place] [address] Sep, [facility] [place] [facility] [address] [id number] [place] [address] Aug, [facility] [place] [facility] [address] [id number] [place] [address] Aug, [facility] [place] [facility] [address] [id number] [place] [address] Aug, [facility] [address] [facility] [id number] [place] [address] Aug, [facility] [address] [id number] [address] Aug, [facility] [address] [facility] [id number], [place] [address] Jul, [facility] [address] [id number], [place] [address] Jul, [facility] [address] [facility] [id number], [place] [address] Jul, [facility] [address] [facility] [id number], [place] [address] Dec, IMMUNIZATIONS No Known Immunizations SOCIAL HISTORY Never Assessed REASON FOR VISIT Controlled Med Refill 04/23/17 PLAN OF CARE VITAL SIGNS MEDICATIONS Medication Instructions Dosage Frequency Start Date End Date Duration Status Filer 10-325 MG Orally every 6 hrs 1 tablet as needed 6h Apr, 28 days Active RESULTS No Results PROCEDURES No Known procedures INSTRUCTIONS MEDICATIONS ADMINISTERED No Known Medications MEDICAL (GENERAL) HISTORY Type Description Date Medical History Type 2 diabetes Medical History anxiety Medical History chronic hip pain Medical History carpal tunnel bilateral Medical History [place] Palsy Surgical History carpel tunnel-right hand 2011 Surgical History carpel tunnel-left hand 2008 Surgical History carpal tunnel - right hand 11/2015 Hospitalization History ER spider bite
--- OUTSIDE RECORDS SUMMARY | 2018-06-25 06:21 | XMS REPORT ---
Author KASI Estrada Organization [employer] Address Unknown Phone Unavailable Care Team Providers Care Refinery Technician Name Role Phone KASI BLANCHARD CP Unavailable [...] Date End Date Status Dosage Tramadol HCl [facility] [address]-77 50 mg Orally every 6 hrs May 11, 2015 1 tablet as needed Results No Known Results Summary Purpose [employer] Submission
--- OUTSIDE RECORDS SUMMARY | 2018-06-25 06:22 | XMS REPORT ---
Author Author JASMEET KAY [facility] [employer] Address Unknown Phone Unavailable Care Team Providers Care Advertisement Compositor Name Role Phone JASMEET KAY Unavailable Allergies No Known Allergies Problems Problem Type Condition Code Onset Dates Condition Status Problem Chronic osteoarthritis M19.90 Active Problem Diabetes E11.9 Active Problem Anxiety F41.9 Active Assessment Right carpal tunnel syndrome G56.01 Active Medications No Known Medications Procedures Procedure Coding System Code Date Office Visit, Est Pt., Level 3 CPT-4 99998 Oct 25, 2015 Vital Signs Date/Time: Oct 25, 2015 Blood Pressure Diastolic 82 mmHg Blood Pressure Systolic 117 mmHg Height 66 in Results No Known Results Summary Purpose [employer] Submission
--- OUTSIDE RECORDS SUMMARY | 2018-06-25 06:22 | XMS REPORT ---
Author Author KASI BLANCHARD [facility] Address [address] [place] [address] Care Team Providers Care Boat Driver Name Role Phone KASI BLANCHARD Unavailable PROBLEMS Type Condition ICD9-CM Code [id number] Code Onset Dates Condition Status SNOMED Code Problem Chronic osteoarthritis M19.90 Active 54226583 Problem Controlled type 2 diabetes mellitus without complication, without long -term current use of insulin E11.9 Active 900412296 Problem Anxiety F41.9 Active 04408750 Problem Diabetes E11.9 Active 24514914 Problem Diabetes type 2, controlled E11.9 Active 359948474 Problem Depressive disorder, not elsewhere classified F32.9 Active 66329356 Problem Chronic fatigue R53.82 Active 11678401 Problem Drug-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 Unknown Non Drug Allergy Sep, Unknown SOCIAL HISTORY No smoking Hx information available PLAN OF CARE VITAL SIGNS Height 66 in 2016-10-10 Weight 236.7 lbs 2016-10-10 Temperature 98.0 degrees Fahrenheit 2016-10-10 Heart Rate 84 bpm 2016-10-10 Respiratory Rate 20 2016-10-10 BMI 38.20 kg/m2 2016-10-10 Blood pressure systolic 142 mmHg 2016-10-10 Blood pressure diastolic 80 mmHg 2016-10-10 MEDICATIONS Medication Instructions Dosage Frequency Start Date End Date Duration Status GlipiZIDE 5 mg Orally 2 times a day 1 tablet 12h Aug, 30 day(s ) Active Glucometer 1 as directed 12h Jun, Active [place] 7.5-325 MG Orally every 6 hrs 1 tablet as needed 6h Sep, Active HydrOXYzine HCl 25 MG 1 tablet 12h Nov, Active Diclofenac Sodium 75 MG Orally 2 times a day 1 tablet as needed 12h Nov Active Cyclobenzaprine HCl 10 mg Orally 2 times a day 1 tablet 12h 28 Dec, 2015 Jun, 30 day(s) Active BusPIRone HCl 10 mg Orally Twice a day 1 tablet 12h Dec, Active Pepcid 20 mg Orally 2 times a day 1 tablet at bedtime 12h Apr, 30 day(s) Active MetFORMIN HCl ER 500 MG Orally 2 times a day 1 tablet with evening meal 12h Apr, 30 day(s) Active RESULTS Name Result Date Reference Range UA LONG DIP (IN HOUSE) 2016-10-10 Lot # [id number] Exp date 05/2017 Clarity clear Color yellow Odor none GLU negative PHILIPPE negative KET negative SG >=1.030 BLO negative pH 5.5 Protein 1+ URO 1.0 NIT negative LEDY negative Lot # Exp PROCEDURES Procedure Date Ordered Related Diagnosis Body Site AUDIOMETRY-SCREEN Oct 10, 2016 VISUAL ACUITY SCREEN Oct 10, 2016 Office Visit, Est Pt., Level 3 Oct 10, 2016 URINALYSIS, AUTO, W/O SCOPE Oct 10, 2016 IMMUNIZATIONS No Known Immunizations
--- OUTSIDE RECORDS SUMMARY | 2018-06-25 06:23 | XMS REPORT ---
Author Author KASI BLANCHARD Organization [facility] Address [address] [place] [address] Care Team Providers Care Haul Truck Driver Name Role Phone KASI BLANCHARD Unavailable PROBLEMS Type Condition ICD9-CM Code QSX10-ZQ Code Onset Dates Condition Status SNOMED Code Problem Controlled type 2 diabetes mellitus without complication, without long -term current use of insulin E11.9 Active 808866984 Problem Chronic fatigue R53.82 Active 71813819 Problem Drug-induced erectile dysfunction N52.2 Active 857615182 Problem Diabetes E11.9 Active 59465654 Problem Anxiety F41.9 Active 22898455 Problem Chronic osteoarthritis M19.90 Active 38565383 Problem Sialadenitis K11.20 Active 55005815 Problem Uncontrolled type 2 diabetes mellitus without complication, without long-term current use of insulin E11.65 Active 403473920 Problem Hypogonadism in male E29.1 Active 31624137 Problem Mood disorder F39 Active 73616717 Problem Diabetes type 2, controlled E11.9 Active 588434363 Problem Depressive disorder, not elsewhere classified F32.9 Active 88879063 ALLERGIES No Information ENCOUNTERS Encounter Location Date Diagnosis [place] [address], [place] [address] Mar, [place] [id number] [place] [address] 30178- 3161 Feb, Insect bite (nonvenomous) of right upper arm, initial encounter S40.861A ; Local infection of the skin and subcutaneous tissue, unspecified L08.9 and Hypogonadism in male E29.1 [place] [address] [place] [address] [id number] [place] [address] 21887- 4896 January, Sialadenitis K11.20 [place] [id number] [address] January, Bronchitis J40 [facility] [id number] [place] [address] 31230- 1647 January, Hypogonadism in male E29.1 [facility] [id number] [place] [address] 31208- 9641 January, Hypogonadism in male E29.1 [facility] [id number] [place] [address] 06802- 4077 Dec, Bronchitis J40 [facility] [address] 0[address]- 8041 Nov, Diabetes E11.9 and Anxiety F41.9 [facility] [address] [address]- 9974 Nov, Bronchitis J40 [facility] [address] 08811- 7893 Oct, Bronchitis J40 [facility] [address] 49954- 5694 Sep, Diabetes E11.9 ; Mood disorder F39 ; Hypogonadism in male E29.1 and Depressive disorder, not elsewhere classified F32.9 [facility] [id number] [place] [address] 50867- 3873 Sep, Bronchitis J40 [facility] [id number] [place] [address] 31393- 1596 Sep, Hypogonadism in male E29.1 [facility] [id number] [place] [address] 88506- 5111 Sep, [facility] [id number] [place] [address] 40385- 4311 Sep, [facility] [id number] [place] [address] 79293- 2710 Aug, Bronchitis J40 [facility] [id number] [place] [address] 43527- 6241 Aug, Uncontrolled type 2 diabetes mellitus without complication, without long-term current use of insulin E11.65 ; Diabetes type 2, controlled E11.9 ; Hypogonadism in male E29.1 ; Encounter for immunization Z23 and Spider bite wound, undetermined intent, initial encounter T63.304A [facility] [id number] [place] [address] 87505393- 8969 Jul, Bronchitis J40 [facility] [address] 19031- 5476 Jun, Hypogonadism in male E29.1 [facility] [address] 50313- 3627 Jun, Hypogonadism in male E29.1 and Bronchitis J40 [facility] [id number] [place] [address] 90557- 4877 May, Bronchitis J40 [facility] [address] 19354- 9655 May, Hypogonadism in male E29.1 [facility] [id number] [place] [address] 36917- 1748 May, Hypogonadism in male E29.1 [facility] [id number] [place] [address] 37544- 6296 Apr, Bronchitis J40 [facility] [id number] [place] [address] 97649- 4452 Apr, Controlled type 2 diabetes mellitus without complication, without long-term current use of insulin E11.9 [facility] [id number] [place] [address] 06369- 9625 Apr, Diabetes type 2, controlled E11.9 ; Hypogonadism in male E29.1 and Mood disorder F39 [facility] [id number] [place] [address] 01263- 3480 Apr, Hypogonadism in male E29.1 [facility] [address] [id number] [place] [address] 10012- 5096 Apr, Bronchitis J40 [facility] [id number] [place] [address] 31928- 6330 Mar, Hypogonadism in male E29.1 [facility] [id number] [place] [address] 27727- 4560 Mar, Bronchitis J40 [facility] [address] [id number] [place] [address] 86285- 9481 Mar, Bronchitis J40 [facility] [address] 34545- 2414 Feb, Spider bite, accidental or unintentional, initial encounter T63.301A [facility] [address] 07637- 9483 Feb, Depressive disorder, not elsewhere classified F32.9 [facility] [address] [id number] [place] [address] 64244- 0898 Feb, Diabetes E11.9 ; Mood disorder F39 and Hypogonadism in male E29.1 [facility] [address] [id number] [place] [address] 98417- 0736 Feb, Bronchitis J40 [facility] [id number] [place] [address] 77947- 7631 Feb, Depressive disorder, not elsewhere classified F32.9 [facility] [id number] [place] [address] 62311- 8034 January, Depressive disorder, not elsewhere classified F32.9 [facility] [address] [id number] [place] [address] 80179- 6475 January, Diabetes E11.9 and Mood disorder F39 [facility] [address] [id number] [place] [address] 00221- 6230 January, Bronchitis J40 [facility] [id number] [place] [address] 53178- 3763 Dec, Bronchitis J40 [facility] [address] 16117- 2338 Dec, Hypogonadism in male E29.1 [facility] [address] [place] [id number] [place] [address] 08195- 6770 Dec, [facility] [address] [place] [address] [id number] [place] [address] 41433- 5063 Dec, Controlled type 2 diabetes mellitus without complication, without long-term current use of insulin E11.9 and Chronic fatigue R53.82 [place] [address] [place] [address] [id number] [place] [address] 65107- 1733 Nov, Bronchitis J40 [place] [address] [place] [id number] [place] [address] 47684- 5616 Oct, Bronchitis J40 ; Controlled type 2 diabetes mellitus without complication, without long-term current use of insulin E11.9 ; Chronic fatigue R53.82 and Drug-induced erectile dysfunction N52.2 [place] [address] [place] [address] [id number] [place] [address] 92876- 0995 Oct, Diabetes E11.9 [place] [address] [place] [address] [id number] [place] [address] 99090- 6415 Sep, Pre-employment examination Z02.1 [place] [address] [place] [address] [id number] [place] [address] 56560- 1831 Sep, Diabetes E11.9 [place] [address] [place] [address] [id number] [place] [address] 10881- 3799 Aug, Controlled type 2 diabetes mellitus without complication, without long-term current use of insulin E11.9 and Chronic osteoarthritis M19.90 [place] [address], [place] [address]- 3084 Jul, [place] [address] [place] [id number] [place] [address] 27872- 5158 Jun, [place] [address] [place] [address] [id number] [place] [address] 04120- 9433 Jun, 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 [facility] [address], [place] [address]- 8726 07 Jun, 2016 Encounter for immunization Z23 and Controlled type 2 diabetes mellitus without complication, without long-term current use of insulin E11.9 [facility] [address] 7819 30 May, 2016 [facility] [address] [id number] [place] [address] 89594- 1939 May, [facility] [address] [id number] [place] [address] 95216- 6610 Apr, Gastritis without bleeding, unspecified chronicity, unspecified gastritis type K29.70 [facility] [address] [place] [address] 53008- 4050 Apr, [facility] [address] [id number] [address]- 8076 Mar, Diabetes type 2, controlled E11.9 [facility] [address], [place] [address]- 5478 Mar, [facility] [address] [address]- 0426 Feb, [facility] [address], [place] [address]- 0618 Feb, [facility] [address] [address]- 7267 January, [facility] [address], [place] [address]- 4365 Dec, Urethritis N34.2 [facility] [address], [place] [address]- 4598 Dec, [facility] [address] [address]- 9278 Nov, Diabetes type 2, controlled E11.9 [facility] [address], [place] [address]- 0395 Nov, [facility] [address], [place] [address]- 4299 Nov, Diabetes type 2, controlled E11.9 [facility] [address] [place] [address] 84409- 1368 Oct, Hand pain M79.643 [facility] [address] [place] [address] [id number] [place] [address] 16705- 6338 Oct, Right hand pain M79.641 [facility] [address] [id number] [place] [address] 06547- 3099 Oct, [facility] [address] [place] [address] [id number] [place] [address] 96104- 5286 Oct, [facility] [address] [place] [id number] [place] [address] 56838- 1695 Oct, Right carpal tunnel syndrome G56.01 [facility] [address] [place] [id number] [place] [address] 43264- 2763 Sep, Diabetes E11.9 [place] [address] [place] [id number] [place] [address] 81136- 8426 Sep, Anxiety F41.9 ; Chronic osteoarthritis M19.90 and Health examination of defined subpopulation V70.5 [place] [address] [place] [id number] [place] [address] 66113- 1572 Sep, Diabetes E11.9 [facility] [address] [place] [id number] [place] [address] 72002- 4931 Aug, Diabetes E11.9 ; Carpal tunnel syndrome, right G56.01 and Carpal tunnel syndrome, left upper limb G56.02 [place] [address] [place] [id number] [place] [address] 17664- 3594 Jul, Diabetes mellitus 250.00 [facility] [address] [place] [id number] [place] [address] 12471- 0390 Jun, Diabetes mellitus 250.00 [facility] [address] [id number] [place] [address]- 2700 May, Diabetes mellitus 250.00 [facility] [id number] [place] [address] 2546 Apr, Diabetes mellitus 250.00 [facility] [address] [place] [id number] [place] [address] 2542 Mar, [facility] [address] [place] [id number] [place] [address]- 0554 Mar, Tooth abscess 522.5 [facility] [address] [place] [address] [id number] [place] [address]- 2155 Feb, [facility] [id number] [address]- 6926 January, [facility] [address] [place] [address]- 0810 January, [facility] [address], [place] [address]- 0016 January, Diabetes mellitus 250.00 [facility] [address] [place] [address]- 0141 January, [facility] [id number] [address]- 1125 Dec, [facility] [address] [place] [address]- 7256 Dec, [facility] [id number] [address]- 7017 Nov, [facility] [address] [place] [id number] [place] [address]- 1947 Nov, [facility] [address] [place]- 0703 Nov, [facility] [address] [place] [address] [id number] [place] [address]- 6398 Nov, [facility] [place] [facility] [address] [id number] [place] [address]- 3653 Oct, [facility] [place] [facility] [address] [id number] [place] [address]- 4910 Oct, [facility] [place] [facility] [address] [id number] [place] [address]- 4176 Sep, [facility] [place] [facility] [address] [id number] [place] [address]- 3424 Sep, [facility] [place] [facility] [address] [id number] [place] [address]- 8790 Aug, [facility] [place] [facility] [address] [id number] [place] [address]- 6788 Aug, [facility] [place] [facility] [address] [id number] [place] [address]- 6345 Aug, [facility] [place] [facility] [address] [id number] [place] [address]- 5731 Aug, [facility] [place] [facility] [address] [id number] [place] [address]- 8359 Aug, [facility] [place] [facility] [address] [id number] [place] [address]- 9588 Aug, [facility] [place] [facility] [address] [id number] [place] [address]- 2901 Jul, [facility] [place] [facility] [address] [id number] [place] [address]- 8432 Jul, [facility] [place] [facility] [address] [id number] [place] [address]- 7038 Jun, [facility] [place] [facility] [address] [id number] [place] [address]- 4744 Jun, [facility] [place] [facility] [address] [id number] [place] [address]- 1908 May, [facility] [place] [facility] [address] [id number] [place] [address]- 4279 May, [facility] [place] [facility] [address] [id number] [place] [address]- 0635 Apr, [facility] [place] [facility] [address] [id number] [place] [address]- 1486 Apr, [facility] [place] [facility] [address] [id number] [place] [address]- 7239 Apr, [facility] [place] [facility] [address] [id number] [place] [address]- 0945 Apr, [facility] [place] [facility] [address] [id number] [place] [address]- 3293 Apr, [facility] [place] [facility] [address] [id number] [place] [address]- 2722 Apr, [facility] [place] [facility] [address] [id number] [place] [address]- 4458 Mar, [facility] [place] [facility] [address] [id number] [place] [address]- 0956 Mar, [facility] [place] [facility] [address] [id number] [place] [address]- 6915 Feb, [facility] [place] [facility] [address] [id number] [place] [address]- 2828 Feb, [facility] [place] [facility] [address] [id number] [place] [address]- 9682 Feb, [facility] [place] [facility] [address] [id number] [place] [address]- 0619 Feb, [facility] [place] [facility] [address] [id number] [place] [address]- 5764 January, [facility] [place] [facility] [address] [id number] [place] [address]- 1621 January, [facility] [place] [facility] [address] [id number] [place] [address]- 7845 January, [facility] [place] [facility] [address] [id number] [place] [address]- 4088 January, [facility] [address] [id number] [place] [address]- 8146 Dec, [facility] [place] [facility] [address] [id number] [place] [address]- 3391 Dec, [facility] [address] [id number] [place] [address]- 3905 Nov, [facility] [place] [facility] [address] [id number] [place] [address]- 4436 Nov, [facility] [address] [id number] [place] [address]- 9598 Oct, [facility] [place] [facility] [address] [id number] [place] [address]- 9736 Oct, [facility] [address] [id number] [place] [address]- 0907 Sep, [facility] [address] [id number] [place] [address]- 8192 Sep, [facility] [place] [facility] [address] [id number] [place] [address]- 1516 Aug, [facility] [address] [id number] [place] [address]- 5726 Aug, [facility] [place] [facility] [address] [id number] [place] [address]- 0524 Jul, [facility] [place] [facility] [address] [id number] [place] [address]- 8639 Jul, [facility] [place] [facility] [address] [id number] [place] [address]- 6186 Jun, [facility] [place] [facility] [address] [id number] [place] [address]- 2546 Jun, [facility] [place] [facility] [address] [id number] [place] [address]- 7645 May, [facility] [address] [id number] [place] [address]- 0857 May, [facility] [place] [facility] [address] [id number] [place] [address]- 8549 Apr, [facility] [place] [facility] [address] [id number] [place] [address]- 1083 Apr, [facility] [place] [facility] [address] [id number] [place] [address]- 9937 Feb, [facility] [address] [id number] [place] [address]- 2115 Feb, [facility] [place] [facility] [address] [id number] [place] [address]- 7494 January, [facility] [place] [facility] [address] [id number] [place] [address]- 0253 January, [facility] [address] [id number] [place] [address]- 0613 Dec, [facility] [place] [facility] [address] [id number] [place] [address]- 0074 Nov, [facility] [place] [facility] [address] [id number] [place] [address]- 7514 Oct, [facility] [place] [facility] [address] [id number] [place] [address]- 0558 Oct, [facility] [place] [facility] [address] [id number] [place] [address]- 1691 Sep, [facility] [place] [facility] [address] [id number] [place] 3400 Aug, [facility] [place] [facility] [address] [id number] [place] 8876 Aug, [facility] [place] [facility] [address] [id number] [place] [address]- 0485 Jul, [facility] [place] [facility] [address] [id number] [place] [address]- 9496 Jul, [facility] [place] [facility] [address] [id number] [place] [address]- 2338 Jun, [facility] [place] [facility] [address] [id number] [place] [address]- 2611 24 May, 2012 [facility] [place] [facility] [address] [id number] [place] [address]- 2686 14 May, 2012 [facility] [place] [facility] [address] [id number] [place] [address]- 2759 13 May, 2012 [facility] [place] [facility] [address] [id number] [place] [address]- 5660 Apr, [facility] [place] [facility] [address] [id number] [place] [address]- 9161 Apr, [facility] [place] [facility] [address] [id number] [place] [address]- 9161 Apr, [facility] [place] [facility] [address] [id number] [place] [address]- 2240 Mar, [facility] [place] [facility] [address] [id number] [place] [address]- 2640 Mar, [facility] [place] [facility] [address] [facility] [id number] [place] [address]- 2355 Feb, [facility] [place] [facility] [address] [id number] [place] [address]- 2902 Feb, [facility] [place] [facility] [address] [id number] [place] [address]- 7831 January, [facility] [place] [facility] [address] [id number] [place] [address]- 2387 January, [facility] [place] [facility] [address] [id number] [place] [address]- 4506 Dec, [facility] [place] [facility] [address] [id number] [place] [address] Dec, [facility] [place] [facility] [address] [id number] [place] [address] Nov, [facility] [address] [id number] [place] [address] Nov, [facility] [place] [facility] [address] [id number] [place] [address] Oct, [facility] [place] [facility] [address] [id number] [place] [address] Oct, [facility] [address] [id number] [place] [address] Sep, [facility] [address] [id number] [place] [address] Sep, [facility] [address] [id number] [place] [address] Sep, [facility] [address] [id number] [place] [address] Aug, [facility] [place] [facility] [address] [id number] [place] [address] Aug, [facility] [address] [id number] [place] [address] Aug, [facility] [place] [facility] [address] [id number] [place] [address] Aug, [facility] [address] [id number] [place] [address] Aug, [facility] [place] [facility] [address] [id number] [place] [address] 30 Jul, 2011 [facility] [place] [facility] [address] [id number] [place] [address] Jul, [facility] [place] [facility] [address] [id number] [place] [address] Jul, [facility] [place] [facility] [address] [id number] [place] [address] Dec, IMMUNIZATIONS Vaccine Route Administration Date Status TESTOSTERONE (PT'S OWN) IM Intramuscular Sep 30, 2017 Administered SOCIAL HISTORY Never Assessed REASON FOR VISIT Injection PLAN OF CARE Activity Details Follow Up 4 Weeks Reason: VITAL SIGNS MEDICATIONS Unknown Medications RESULTS No Results PROCEDURES Procedure Date Ordered Result Body Site TESTOSTERONE (PT'S OWN) Sep 30, 2017 THER/PROPH/DIAG INJ, SC/IM Sep 30, 2017 INSTRUCTIONS MEDICATIONS ADMINISTERED No Known Medications MEDICAL (GENERAL) HISTORY Type Description Date Medical History Type 2 diabetes Medical History anxiety Medical History chronic hip pain Medical History carpal tunnel bilateral Medical History Wrights Palsy Surgical History carpel tunnel-right hand 2011 Surgical History carpel tunnel-left hand 2008 Surgical History carpal tunnel - right hand 11/2015 Surgical History Torn bicep repair 01/2018 Hospitalization History ER spider bite
--- OUTSIDE RECORDS SUMMARY | 2018-06-25 06:25 | XMS REPORT ---
Author KASI Estrada Organization [employer] Address Unknown Phone Unavailable Care Team Providers Care Cell Phone Repair Technician Name Role Phone KASI BLANCHARD CP Unavailable Allergies, Adverse Reactions, Alerts Substance Reaction Event Type N.K.D.A. Info Not Available Non Drug Allergy Problems Problem Type Condition Code Onset Dates Condition Status Problem Chronic osteoarthritis M19.90 Active Problem Diabetes E11.9 Active Problem Anxiety F41.9 Active Assessment Urethritis N34.2 Active Medications Medication Code System Code Instructions Start Date End Date Status Dosage Diclofenac Sodium [facility] [address]-43 75 MG Orally 2 times a day November 29, 2014 1 tablet as needed Tramadol HCl [facility] [address]-20 50 mg Orally every 6 hrs May 11, 2015 1 tablet as needed HydrOXYzine HCl [facility] [address]-47 25 MG 2 times a day November 29, 2014 1 tablet Cyclobenzaprine HCl [facility] [address]-66 10 mg Orally 2 times a day January 17, 2016 Jul 15, 2016 1 tablet Victoza [facility] [address]-54 0.6 mg/0.1 mL (18 mg/3 mL) Subcutaneous Once a day January 20, 2012 1.8 mg by Subcutaneous route 1 time per day Pen [place] 3/16" [facility] [address] 31G X 5 MM Once a day February 16, 2015 as directed Diflucan [facility] [address]-11 150 MG Orally Once a week January 17, 2016January 1 tablet BusPIRone HCl [facility] [address]-67 10 mg Orally Twice a day January 17, 2016 1 tablet Procedures Procedure Coding System Code Date Office Visit, Est Pt., Level 3 CPT-4 76353 January 17, 2016 Vital Signs Date/Time: January 17, 2016 Temperature 97.9 F Weight 234.0 lbs Height 66 in BMI 37.76 Index Blood Pressure Diastolic 96 mmHg Blood Pressure Systolic 150 mmHg Cardiac Monitoring Heart Rate 90 bpm Results No Known Results Summary Purpose [employer] Submission
--- OUTSIDE RECORDS SUMMARY | 2018-06-25 06:25 | XMS REPORT ---
Author Author DARRIN FLOOD Organization [facility] Address [address] [place] [address] Care Team Providers Care Survey Cad Technician Name Role Phone DARRIN FLOOD Unavailable PROBLEMS Type Condition ICD9-CM Code [id number] Code Onset Dates Condition Status SNOMED Code Problem Chronic osteoarthritis M19.90 Active 34983899 Problem Controlled type 2 diabetes mellitus without complication, without long -term current use of insulin E11.9 Active 147368519 Problem Anxiety F41.9 Active 98713650 Problem Diabetes E11.9 Active 11471891 Problem Diabetes type 2, controlled E11.9 Active 440058009 Problem Depressive disorder, not elsewhere classified F32.9 Active 54119509 Problem Chronic fatigue R53.82 Active 70898189 Problem Drug-induced erectile dysfunction N52.2 Active 072138873 Problem Hypogonadism in male E29.1 Active 78334428 Problem Mood disorder F39 Active 70179942 ALLERGIES No Information SOCIAL HISTORY Never Assessed PLAN OF CARE Activity Details Follow Up Next available Reason:depression VITAL SIGNS MEDICATIONS Unknown Medications RESULTS No Results PROCEDURES Procedure Date Ordered Result Body Site Psychotherapy, patient &/family, 45 minutes, established patient February 23, 2017 IMMUNIZATIONS No Known Immunizations MEDICAL (GENERAL) HISTORY Type Description Date Medical History Type 2 diabetes Medical History anxiety Medical History chronic hip pain Medical History carpal tunnel bilateral Medical History [place] Palsy Surgical History carpel tunnel-right hand 2011 Surgical History carpel tunnel-left hand 2008 Surgical History carpal tunnel - right hand 11/2015 Hospitalization History [facility] spider bite
--- OUTSIDE RECORDS SUMMARY | 2018-06-25 06:25 | XMS REPORT ---
Author Author KASI BLANCHARD Organization [employer] Address Unknown Phone Unavailable Care Team Providers Care Chief Physical Therapist Name Role Phone KASI BLANCHARD CP Unavailable Allergies No Known Allergies Problems Problem Type Condition Code Onset Dates Condition Status Problem Chronic osteoarthritis M19.90 Active Problem Diabetes E11.9 Active Problem Anxiety F41.9 Active Assessment Gastritis without bleeding, unspecified chronicity, unspecified gastritis type K29.70 Active Medications Medication Code System Code Instructions Start Date End Date Status Dosage Pepcid [facility] [address]-75 20 mg Orally 2 times a day May 05, 2016 1 tablet at bedtime MetFORMIN HCl [facility] [address]-61 500 MG Orally 2 times a day May 05, 2016 1 tablet with evening meal Procedures Procedure Coding System Code Date Office Visit, Est Pt., Level 3 CPT-4 63074 May 05, 2016 Vital Signs Date/Time: May 05, 2016 Cardiac Monitoring Heart Rate 80 bpm Weight 232 lbs Height 66 in BMI 37.44 Index Blood Pressure Diastolic 90 mmHg Blood Pressure Systolic 130 mmHg Results No Known Results Summary Purpose [employer] Submission
--- OUTSIDE RECORDS SUMMARY | 2018-06-25 06:25 | XMS REPORT ---
Author Author KASI BLANCHARD Organization [employer] Address Unknown Phone Unavailable Care Team Providers Care Global Regulatory Affairs Manager Name Role Phone KASI BLANCHARD CP Unavailable Allergies No Known Allergies Problems Problem Type Condition Code Onset Dates Condition Status Problem Chronic osteoarthritis M19.90 Active Problem Diabetes E11.9 Active Problem Anxiety F41.9 Active Medications Medication Code System Code Instructions Start Date End Date Status Dosage Tramadol HCl [facility] [address]-58 50 mg Orally every 6 hrs May 11, 2015 1 tablet as needed Results No Known Results Summary Purpose [employer] Submission
--- OUTSIDE RECORDS SUMMARY | 2018-06-25 06:26 | XMS REPORT ---
Author Author KASI BLANCHARD [facility] Address [address] [place] [address] Care Team Providers Care Oncology Nurse Navigator Name Role Phone KASI BLANCHARD Unavailable PROBLEMS Type Condition ICD9-CM Code [id number] Code Onset Dates Condition Status SNOMED Code Problem Chronic osteoarthritis M19.90 Active 89734862 Problem Controlled type 2 diabetes mellitus without complication, without long -term current use of insulin E11.9 Active 758906908 Problem Anxiety F41.9 Active 87519752 Problem Diabetes E11.9 Active 34183613 Problem Diabetes type 2, controlled E11.9 Active 715944463 Problem Depressive disorder, not elsewhere classified F32.9 Active 38116945 Problem Chronic fatigue R53.82 Active 27569179 Problem Drug-induced erectile dysfunction N52.2 Active 608828702 Problem Hypogonadism in male E29.1 Active 05241289 Problem Mood disorder F39 Active 07817426 ALLERGIES No Information SOCIAL HISTORY Never Assessed PLAN OF CARE VITAL SIGNS MEDICATIONS Medication Instructions Dosage Frequency Start Date End Date Duration Status [place] 10-325 MG Orally every 6 hrs 1 tablet as needed 6h Nov, 28 days Active RESULTS No Results PROCEDURES No Known procedures IMMUNIZATIONS No Known Immunizations MEDICAL (GENERAL) HISTORY Type Description Date Medical History Type 2 diabetes Medical History anxiety Medical History chronic hip pain Medical History carpal tunnel bilateral Medical History [place] Palsy Surgical History carpel tunnel-right hand 2011 Surgical History carpel tunnel-left hand 2008 Surgical History carpal tunnel - right hand 11/2015 Hospitalization History [facility] spider bite
--- OUTSIDE RECORDS SUMMARY | 2018-06-25 06:26 | XMS REPORT ---
Author Author KASI BLANCHARD Organization [facility] Address [address] [place] [address] Care Team Providers Care Nurse Orthopaedic Name Role Phone KASI BLANCHARD Unavailable PROBLEMS Type Condition ICD9-CM Code QDL40-FO Code Onset Dates Condition Status SNOMED Code Problem Anxiety F41.9 Active 48158344 Problem Drug-induced erectile dysfunction N52.2 Active 153261088 Problem Controlled type 2 diabetes mellitus without complication, without long -term current use of insulin E11.9 Active 157721861 Problem Diabetes E11.9 Active 02026940 Problem Chronic osteoarthritis M19.90 Active 05335961 Problem Type 2 diabetes mellitus with complication, without long-term current use of insulin E11.8 Active 64486082 Problem Sialadenitis K11.20 Active 76699933 Problem Mood disorder F39 Active 91541408 Problem Chronic fatigue R53.82 Active 45635052 Problem Depressive disorder, not elsewhere classified F32.9 Active 69263239 Problem Hypogonadism in male E29.1 Active 88448816 ALLERGIES No Information ENCOUNTERS Encounter Location Date Diagnosis [place] [id number] [place] [address] 70672- 8777 Mar, Hypogonadism in male E29.1 [place] [id number] [place] [address] 84389- 8803 Mar, Hypogonadism in male E29.1 [place] [id number] [place] [address] 74906- 8247 Mar, Diabetes E11.9 and Anxiety F41.9 [place] [id number] [place] [address] 99454- 7374 Mar, Type 2 diabetes mellitus with complication, without long- term current use of insulin E11.8 [place] [address] [place] [address] 13872- 5197 Feb, Insect bite (nonvenomous) of right upper arm, initial encounter S40.861A [place] [address] 08203- 5672 Feb, Insect bite (nonvenomous) of right upper arm, initial encounter S40.861A ; Local infection of the skin and subcutaneous tissue, unspecified L08.9 and Hypogonadism in male E29.1 [place] [address] 75564- 9158 January, Sialadenitis K11.20 [place] [address] 73307- 0195 January, Bronchitis J40 [place] [address] 80682- 2900 January, Hypogonadism in male E29.1 [place] [address] 79819- 9530 January, Hypogonadism in male E29.1 [place] [address] [place] [id number] [place] [address] 38693- 4339 Dec, Bronchitis J40 [place] [address] [place] [id number] [place] [address] 02171- 7778 Nov, Diabetes E11.9 and Anxiety F41.9 [place] [address] [place] [id number] [place] [address] 94882- 3181 Nov, Bronchitis J40 [facility] [address] [place] [id number] [place] [address] 12895- 6824 Oct, Bronchitis J40 [facility] [address] [place] [id number] [place] [address] 02337- 3971 Sep, Diabetes E11.9 ; Mood disorder F39 ; Hypogonadism in male E29.1 and Depressive disorder, not elsewhere classified F32.9 [facility] [address] [place] [id number] [place] [address] 68818- 7905 Sep, Bronchitis J40 [facility] [address] [place] [id number] [place] [address] 35419- 1798 Sep, Hypogonadism in male E29.1 [facility] [address] [place] [id number] [place] [address] 38533- 4178 Sep, [facility] [address] [place] [id number] [place] [address] 04103- 4141 Sep, [facility] [address] 53312- 1803 Aug, Bronchitis J40 [facility] [address] 31233- 4686 Aug, Uncontrolled type 2 diabetes mellitus without complication, without long-term current use of insulin E11.65 ; Diabetes type 2, controlled E11.9 ; Hypogonadism in male E29.1 ; Encounter for immunization Z23 and Spider bite wound, undetermined intent, initial encounter T63.304A [facility] [address] 56447- 3487 Jul, Bronchitis J40 [facility] [address] 97487- 0571 Jun, Hypogonadism in male E29.1 [facility] [address] [place] [id number] [place] [address] 18354- 0708 Jun, Hypogonadism in male E29.1 and Bronchitis J40 [facility] [address] [place] [id number] [place] [address] 44738- 7284 May, Bronchitis J40 [facility] [address] [place] [id number] [place] [address] 17012- 3664 May, Hypogonadism in male E29.1 [facility] [address] 72274- 4923 May, Hypogonadism in male E29.1 [facility] [address] [place] [id number] [place] [address] 24904- 0783 Apr, Bronchitis J40 [place] [id number] [address]- 9076 Apr, Controlled type 2 diabetes mellitus without complication, without long-term current use of insulin E11.9 [facility] [address] [place] [address] 60443- 4525 Apr, Diabetes type 2, controlled E11.9 ; Hypogonadism in male E29.1 and Mood disorder F39 [facility] [address] [place] [id number] [place] [address] 92847- 3543 Apr, Hypogonadism in male E29.1 [facility] [address] [place] [id number] [place] [address] 59913- 3640 Apr, Bronchitis J40 [facility] [address] [place] [id number] [place] [address] 91997- 4880 Mar, Hypogonadism in male E29.1 [facility] [address] [place] [id number] [place] [address] 73397- 9554 Mar, Bronchitis J40 [facility] [address] [place] [id number] [place] [address] 83595- 8462 Mar, Bronchitis J40 [facility] [address] [place] [id number] [place] [address] 73794- 8351 Feb, Spider bite, accidental or unintentional, initial encounter T63.301A [facility] [address] [place] [address] 84322- 6018 Feb, Depressive disorder, not elsewhere classified F32.9 [facility] [address] [place] [address] 64642- 5768 Feb, Diabetes E11.9 ; Mood disorder F39 and Hypogonadism in male E29.1 [facility] [address] [place] [id number] [place] [address] 68696- 9261 Feb, Bronchitis J40 [facility] [address] [place] [address] 24813- 7633 Feb, Depressive disorder, not elsewhere classified F32.9 [facility] [address] [place] [id number] [place] [address] 83261- 6603 January, Depressive disorder, not elsewhere classified F32.9 [facility] [address] [place] [id number] [place] [address] 52677- 3659 January, Diabetes E11.9 and Mood disorder F39 [facility] [address] [place] [id number] [place] [address] 03495- 0581 January, Bronchitis J40 [facility] [address] [place] [id number] [place] [address] 81618- 6935 Dec, Bronchitis J40 [facility] [address] 44172- 8016 Dec, Hypogonadism in male E29.1 [place] [address] [place] [id number] [place] [address] 00673- 8701 Dec, [place] [address] [place] [id number] [place] [address] 91344- 3898 Dec, Controlled type 2 diabetes mellitus without complication, without long-term current use of insulin E11.9 and Chronic fatigue R53.82 [place] [address] [place] [id number] [place] [address] 30459- 2594 Nov, Bronchitis J40 [facility] [address] [place] [id number] [place] [address] 30201- 2890 Oct, Bronchitis J40 ; Controlled type 2 diabetes mellitus without complication, without long-term current use of insulin E11.9 ; Chronic fatigue R53.82 and Drug-induced erectile dysfunction N52.2 [place] [address] [place] [id number] [place] [address] 78958- 2337 Oct, Diabetes E11.9 [place] [address] [place] [id number] [place] [address] 42562- 4839 Sep, Pre-employment examination Z02.1 [place] [address] [place] [id number] [place] [address] 72665- 0065 Sep, Diabetes E11.9 [facility] [address] [place] [address] 99253- 7663 Aug, Controlled type 2 diabetes mellitus without complication, without long-term current use of insulin E11.9 and Chronic osteoarthritis M19.90 [facility] [address] [place] [id number] [place] [address] 42886- 4596 Jul, [facility] [address] [place] [id number] [place] [address] 95235- 9638 Jun, [facility] [address] [place] [id number] [place] [address] 91283- 0802 Jun, 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 [place] [address] [place] [id number] [place] [address] 28800- 8869 Jun, Encounter for immunization Z23 and Controlled type 2 diabetes mellitus without complication, without long-term current use of insulin E11.9 [place] [address] [place] [id number] [place] [address] 41703- 5867 May, [facility] [address] [place] [id number] [place] [address] 91147- 8447 May, [place] [address] [place] [id number] [place] [address] 89460- 9102 Apr, Gastritis without bleeding, unspecified chronicity, unspecified gastritis type K29.70 [place] [address] [place] [id number] [place] [address] 47714- 0768 Apr, [place] [address] [place] [id number] [place] [address] 38451- 6215 Mar, Diabetes type 2, controlled E11.9 [facility] [address] [place] [id number] [place] [address] 799417- 4641 Mar, [facility] [address] [place] [id number] [place] [address] 06846- 2495 Feb, [place] [address] [place] [id number] [place] [address] 61600- 6836 Feb, [facility] [address] [place] [id number] [place] [address] 33245- 3154 January, [facility] [address] [place] [id number] [place] [address] 44858- 5628 Dec, Urethritis N34.2 [facility] [address] [place] [id number] [place] [address] 83627- 4892 Dec, [facility] [address] [place] [id number] [place] [address] 73558- 5020 Nov, Diabetes type 2, controlled E11.9 [facility] [address] [place] [id number] [place] [address] 56825- 5048 Nov, [facility] [address] [place] [id number] [place] [address] 48522- 6135 Nov, Diabetes type 2, controlled E11.9 [facility] [address] [place] [id number] [place] [address] 18151- 3545 Oct, Hand pain M79.643 [facility] [address] [place] [id number] [place] [address] 07497- 6106 Oct, Right hand pain M79.641 [facility] [address] [place] [id number] [place] [address] 93622- 6448 Oct, [facility] [address] [place] [id number] [place] [address] 17090- 5737 Oct, [facility] [address] [place] [id number] [place] [address] 72581- 0996 Oct, Right carpal tunnel syndrome G56.01 [facility] [address] [place] [id number] [place] [address] 76984- 2724 Sep, Diabetes E11.9 [facility] [address] [place] [id number] [place] [address] 95122- 2404 Sep, Anxiety F41.9 ; Chronic osteoarthritis M19.90 and Health examination of defined subpopulation V70.5 [facility] [address] [place] [id number] [place] [address] 79978- 5347 Sep, Diabetes E11.9 [facility] [address] [place] [id number] [place] [address] 710964- 1170 Aug, Diabetes E11.9 ; Carpal tunnel syndrome, right G56.01 and Carpal tunnel syndrome, left upper limb G56.02 [facility] [address] [place] [id number] [place] [address] 596105- 8709 Jul, Diabetes mellitus 250.00 [facility] [address] [place] [id number] [place] [address] 58212- 7539 Jun, Diabetes mellitus 250.00 [facility] [address] [place] [id number] [place] [address] 707672- 3875 May, Diabetes mellitus 250.00 [facility] [address] [place] [id number] [place] [address] 57123- 4860 Apr, Diabetes mellitus 250.00 [facility] [address] [place] [id number] [place] [address] 55861- 9947 Mar, [facility] [address] [place] [id number] [place] [address] [id number]- 1219 Mar, Tooth abscess 522.5 [facility] [address] [place] [id number] [place] [address] 90381- 7804 Feb, [facility] [address] [place] [id number] [place] [address] [id number]- 6787 January, [facility] [address] [place] [id number] [place] [address] [id number]- 1609 January, [facility] [address] [place] [id number] [place] [address] 224730- 8919 January, Diabetes mellitus 250.00 [facility] [address] [place] [id number] [place] [address] 174450- 7948 January, [facility] [address] [place] [id number] [place] [address] 08880- 7377 14 Dec, 2014 [facility] [place] [facility] [address] [id number] [place] [address]- 6414 Dec, [facility] [place] [facility] [address] [id number] [place] [address]- 0626 Nov, [facility] [place] [facility] [address] [id number] [place] [address]- 8306 Nov, [facility] [place] [facility] [address] [id number] [place] [address]- 3764 Nov, [facility] [place] [facility] [address] [id number] [place] [address]- 9199 Nov, [facility] [place] [facility] [address] [id number] [place] [address]- 0387 Oct, [facility] [place] [facility] [address] [id number] [place] [address]- 6743 Oct, [facility] [place] [facility] [address] [id number] [place] [address]- 9306 Sep, [facility] [place] [facility] [address] [id number] [place] [address]- 6698 Sep, [facility] [place] [facility] [address] [id number] [place] [address]- 2162 Aug, [facility] [place] [facility] [address] [id number] [place] [address]- 8589 Aug, [facility] [place] [facility] [address] [id number] [place] [address]- 4414 Aug, [facility] [place] [facility] [address] [id number] [place] [address]- 6394 Aug, [facility] [place] [facility] [address] [id number] [place] [address]- 3110 Aug, [facility] [place] [facility] [address] [id number] [place] [address]- 0883 Aug, [facility] [place] [facility] [address] [id number] [place] [address]- 6328 Jul, [facility] [place] [facility] [address] [id number] [place] [address]- 8433 Jul, [facility] [place] [facility] [address] [id number] [place] [address]- 7578 Jun, [facility] [place] [facility] [address] [id number] [place] [address]- 4355 Jun, [facility] [place] [facility] [address] [id number] [place] [address]- 5997 May, [facility] [place] [facility] [address] [id number] [place] [address]- 5824 May, [facility] [place] [facility] [address] [id number] [place] [address]- 3938 Apr, [facility] [place] [facility] [address] [id number] [place] [address]- 8315 Apr, [facility] [place] [facility] [address] [id number] [place] [address]- 5538 Apr, [facility] [place] [facility] [address] [id number] [place] [address]- 1074 Apr, [facility] [place] [facility] [address] [id number] [place] [address]- 2834 Apr, [facility] [place] [facility] [address] [id number] [place] [address]- 4583 Apr, [facility] [place] [facility] [address] [id number] [place] [address]- 6821 Mar, [facility] [place] [facility] [address] [id number] [place] [address]- 8958 Mar, [facility] [place] [facility] [address] [id number] [place] [address]- 1011 Feb, [facility] [place] [facility] [address] [id number] [place] [address]- 7206 Feb, [facility] [place] [facility] [address] [id number] [place] [address]- 5006 Feb, [facility] [place] [facility] [address] [id number] [place] [address]- 1927 Feb, [facility] [place] [facility] [address] [id number] [place] [address]- 2112 January, [facility] [place] [facility] [address] [id number] [place] [address]- 2025 January, [facility] [place] [facility] [address] [id number] [place] [address]- 4219 January, [facility] [place] [facility] [address] [id number] [place] [address]- 1074 January, [facility] [place] [facility] [address] [id number] [place] [address]- 1948 Dec, [facility] [place] [facility] [address] [id number] [place] [address]- 2902 Dec, [facility] [place] [facility] [address] [id number] [place] [address]- 0554 Nov, [facility] [place] [facility] [address] [id number] [place] [address]- 6924 Nov, [facility] [place] [facility] [address] [id number] [place] [address]- 9678 Oct, [facility] [place] [facility] [address] [id number] [place] [address]- 4025 Oct, [facility] [place] [facility] [address] [id number] [place] [address]- 0848 Sep, [facility] [place] [facility] [address] [id number] [place] [address]- 6494 Sep, [facility] [place] [facility] [address] [id number] [place] [address]- 2505 Aug, [facility] [place] [facility] [address] [id number] [place] [address]- 2012 Aug, [facility] [address] [id number] [place] [address]- 3972 Jul, [facility] [place] [facility] [address] [id number] [place] [address] 2546 Jul, [facility] [address] [id number] [place] [address] 2546 Jun, [facility] [place] [facility] [address] [id number] [place] [address]- 5090 Jun, [facility] [address] [id number] [place] [address]- 2797 May, [facility] [place] [facility] [address] [id number] [place] [address]- 2546 May, [facility] [address] [id number] [place] [address]- 5676 Apr, [facility] [place] [facility] [address] [id number] [place] [address]- 0401 Apr, [facility] [place] [facility] [address] [id number] [place] [address]- 3967 Feb, [facility] [place] [facility] [address] [facility] [id number] [place] [address]- 3344 Feb, [facility] [place] [facility] [address] [id number] [place] [address] 2546 January, [facility] [place] [facility] [address] [id number] [place] [address]- 2546 January, [facility] [place] [facility] [address] [id number] [place] [address]- 7136 Dec, [facility] [place] [facility] [address] [id number] [place] [address]- 2546 Nov, [facility] [place] [facility] [address] [id number], [place] [address]- 0316 Oct, [facility] [place] [facility] [address] [id number] [place] [address]- 0241 Oct, [facility] [place] [facility] [address] [id number] [place] [address]- 0366 Sep, [facility] [place] [facility] [address] [id number] [place] 1380 Aug, [facility] [place] [facility] [address] [id number] [place] [address]- 2080 Aug, [facility] [place] [facility] [address] [id number] [place] [address]- 5086 Jul, [facility] [place] [facility] [address] [id number] [place] [address]- 1436 Jul, [facility] [place] [facility] [address] [id number] [place] 2103 Jun, [facility] [place] [facility] [address] [id number] [place] [address]- 9428 May, [facility] [place] [facility] [address] [id number] [place] [address]- 6218 May, [facility] [place] [facility] [address] [id number] [place] [address] May, [facility] [place] [facility] [address] [id number] [place] [address] Apr, [facility] [place] [facility] [address] [id number] [place] [address] Apr, [facility] [place] [facility] [address] [id number] [place] [address] Apr, [facility] [place] [facility] [address] [id number] [place] [address] Mar, [facility] [place] [facility] [address] [id number] [place] [address] Mar, [facility] [place] [facility] [address] [id number], [place] [address] Feb, [facility] [address] [id number] [place] [address] Feb, [facility] [place] [facility] [address] [id number] [place] [address] January, [facility] [address] [facility] [id number] [place] [address] January, [facility] [place] [facility] [address] [id number] [place] [address] Dec, [facility] [address] [id number] [place] [address] Dec, [facility] [address] [id number] [place] [address] Nov, [facility] [id number] [place] [address] Nov, [facility] [place] [facility] [address] [facility] [id number] [place] [address] Oct, [facility] [id number] [place] [address] Oct, [facility] [address] [facility] [id number] [place] [address] Sep, [facility] [address] [facility] [id number] [place] [address] Sep, [facility] [place] [facility] [address] [facility] [id number] [place] [address] Sep, [facility] [place] [facility] [address] [id number] [place] [address] Aug, [facility] [place] [facility] [address] [facility] [id number] [place] [address] Aug, [facility] [place] [facility] [address] [id number] [place] [address] Aug, [facility] [place] [facility] [address] [facility] [id number], [place] [address] Aug, [facility] [address] [facility] [id number], [place] [address] Aug, [facility] [address] [id number], [place] [address] Jul, [facility] [address] [facility] [id number], [place] [address] Jul, [facility] [address] [id number] [address] Jul, [facility] [address] [facility] [id number][place] [address] Dec, IMMUNIZATIONS No Known Immunizations SOCIAL HISTORY Never Assessed REASON FOR VISIT Controlled Med Refill PLAN OF CARE VITAL SIGNS MEDICATIONS Medication Instructions Dosage Frequency Start Date End Date Duration Status Reasnor 10-325 MG Orally every 6 hrs 1 tablet as needed 6h Dec, 28 days Active RESULTS No Results PROCEDURES No Known procedures INSTRUCTIONS MEDICATIONS ADMINISTERED No Known Medications MEDICAL (GENERAL) HISTORY Type Description Date Medical History Type 2 diabetes Medical History anxiety Medical History chronic hip pain Medical History carpal tunnel bilateral Medical History [place] Palsy Surgical History carpel tunnel-right hand 2011 Surgical History carpel tunnel-left hand 2008 Surgical History carpal tunnel - right hand 11/2015 Surgical History Torn bicep repair 01/2018 Hospitalization History ER spider bite
--- OUTSIDE RECORDS SUMMARY | 2018-06-25 06:26 | XMS REPORT ---
Author KASI Estrada [facility] eClinical[employer] Address Unknown Phone Unavailable Care Team Providers Care [place] Operator Name Role Phone KASI BLANCHARD CP Unavailable Allergies, Adverse Reactions, Alerts Substance Reaction Event Type N.K.D.A. Info Not Available Non Drug Allergy Problems Problem Type Condition Code Onset Dates Condition Status Assessment Diabetes E11.9 Active Problem Health examination of defined subpopulation V70.5 Active Problem Unspecified conjunctivitis 372.30 Active Assessment Carpal tunnel syndrome, left upper limb G56.02 Active Assessment Carpal tunnel syndrome, right G56.01 Active Problem Tooth abscess 522.5 Active Problem Unspecified episodic mood disorder 296.90 Active Problem Diabetes E11.9 Active Problem Other specified viral warts 078.19 Active Problem Influenza with other respiratory manifestations 487.1 Active Problem Acute sinusitis, unspecified 461.9 Active Problem Scabies 133.0 Active Medications Medication Code System Code Instructions Start Date End Date Status Dosage Pen Leonard 12/04" [facility] [address] 31G X 5 MM Once a day February 16, 2015 as directed buspirone ND 0 10 mg November 29, 2014 take 1 tablet (10 mg) by oral route 2 times per day HydrOXYzine HCl [facility] [address]-00 25 MG 2 times a day November 29, 2014 1 tablet Victoza [facility] [address]-78 0.6 mg/0.1 mL (18 mg/3 mL) Subcutaneous Once a day January 20, 2012 1.8 mg by Subcutaneous route 1 time per day cyclobenzaprine [facility] [address]-63 10 mg November 29, 2014 1 tablet 2 times per day PRN Diclofenac Sodium [facility] [address]-47 75 MG 2 times a day November 29, 2014 1 tablet by Oral route 2 times per day PRN Tramadol HCl [facility] [address]-93 50 MG Orally every 6 hrs May 11, 2015 1 tablet as needed Procedures Procedure Coding System Code Date Office Visit, Est Pt., Level 3 CPT-4 84065 Sep 05, 2015 GLYCATED HEMOGLOBIN TEST CPT-4 67515 Sep 05, 2015 Vital Signs Date/Time: Sep 05, 2015 Temperature 97.7 F Weight 232.7 lbs Height 66 in BMI 37.55 Index Blood Pressure Diastolic 98 mmHg Blood Pressure Systolic 138 mmHg Cardiac Monitoring Heart Rate 80 bpm Results Name Result Date Reference Range Unit Abnormality Flag A1C (IN HOUSE) ----A1C IN HOUSE 8.0% 20150905 4.30 - 5.6 % ----Previous A1c 7.2% 20150905 ----Lot # [id number] ----Exp date [id number] Summary Purpose eClinicalWorks Submission
--- OUTSIDE RECORDS SUMMARY | 2018-06-25 06:26 | XMS REPORT ---
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 Active 251480431 Problem Controlled type 2 diabetes mellitus without complication, without long -term current use of insulin E11.9 Active 480377750 Problem Diabetes E11.9 Active 41813885 Problem Chronic osteoarthritis M19.90 Active 27192085 Problem Uncontrolled type 2 diabetes mellitus without complication, without long-term current use of insulin E11.65 Active 811377777 Problem Diabetes type 2, controlled E11.9 Active 052885412 Problem Mood disorder F39 Active 28309900 Problem Chronic fatigue R53.82 Active 62063198 Problem Depressive disorder, not elsewhere classified F32.9 Active 16385179 Problem Hypogonadism in male E29.1 Active 48598466 ALLERGIES No Information ENCOUNTERS Encounter Location Date Diagnosis [facility] [id number] [place] [address] 16777- 6123 Nov, [facility] [id number] [place] [address] 86166- 0236 15 Nov, 2017 Bronchitis J40 [facility] [id number] [place] [address] 77713- 7201 14 Oct, 2017 Bronchitis J40 [facility] [address] 8[address]22- 4101 Sep, Diabetes E11.9 ; Mood disorder F39 ; Hypogonadism in male E29.1 and Depressive disorder, not elsewhere classified F32.9 [facility] [id number] [place] [address] 60381- 4725 Sep, Bronchitis J40 [facility] [id number] [place] [address] 22789- 7537 Sep, Hypogonadism in male E29.1 [facility] [id number] [place] [address] 72841- 9275 Sep, [facility] [id number] [place] [address] 03529- 7381 Sep, [facility] [id number] [place] [address] 74529- 2997 Aug, Bronchitis J40 [facility] [address] 58438- 7753 Aug, Uncontrolled type 2 diabetes mellitus without complication, without long-term current use of insulin E11.65 ; Diabetes type 2, controlled E11.9 ; Hypogonadism in male E29.1 ; Encounter for immunization Z23 and Spider bite wound, undetermined intent, initial encounter T63.304A [facility] [id number] [place] [address] 98863- 7897 Jul, Bronchitis J40 [facility] [id number] [place] [address] 81069- 0496 Jun, Hypogonadism in male E29.1 [facility] [id number] [place] [address] 02318- 2394 Jun, Hypogonadism in male E29.1 and Bronchitis J40 [facility] [id number] [place] [address] 32698- 1993 May, Bronchitis J40 [facility] [id number] [place] [address] 90151- 4078 May, Hypogonadism in male E29.1 [facility] [id number] [place] [address] 59364- 5861 May, Hypogonadism in male E29.1 [facility] [id number] [place] [address] 78229- 0432 Apr, Bronchitis J40 [facility] [address], [place] [address] 6925 Apr, Controlled type 2 diabetes mellitus without complication, without long-term current use of insulin E11.9 [facility] [address] [address] 1780 Apr, Diabetes type 2, controlled E11.9 ; Hypogonadism in male E29.1 and Mood disorder F39 [facility] [id number] [place] [address] 25767- 0548 Apr, Hypogonadism in male E29.1 [facility] [id number] [place] [address] 76544- 8572 Apr, Bronchitis J40 [facility] [id number] [place] [address] 96859- 9633 Mar, Hypogonadism in male E29.1 [facility] [id number] [place] [address] 58622- 4433 Mar, Bronchitis J40 [facility] [id number] [place] [address] 96257- 3658 Mar, Bronchitis J40 [facility] [id number] [place] [address] 54410- 5367 Feb, Spider bite, accidental or unintentional, initial encounter T63.301A [facility] [id number] [place] [address] 59377- 3201 Feb, Depressive disorder, not elsewhere classified F32.9 [facility] [address] [place] [address] 85524- 9560 Feb, Diabetes E11.9 ; Mood disorder F39 and Hypogonadism in male E29.1 [facility] [id number] [place] [address] 03720- 8680 Feb, Bronchitis J40 [facility] [id number] [place] [address] 78450- 9043 Feb, Depressive disorder, not elsewhere classified F32.9 [facility] [address] [place] [address] 10481- 7232 January, Depressive disorder, not elsewhere classified F32.9 [facility] [id number] [place] [address] 68255- 1113 January, Diabetes E11.9 and Mood disorder F39 [facility] [id number] [place] [address] 86055- 9419 January, Bronchitis J40 [facility] [id number] [place] [address] 36046- 3136 Dec, Bronchitis J40 [place] [address] 67102- 7445 Dec, Hypogonadism in male E29.1 [place] [id number] [place] [address] 02797- 6759 Dec, [facility] [id number] [place] [address] 67894- 3333 Dec, Controlled type 2 diabetes mellitus without complication, without long-term current use of insulin E11.9 and Chronic fatigue R53.82 [place] [id number] [place] [address] 69687- 0806 Nov, Bronchitis J40 [facility] [id number] [place] [address] 04914- 0989 Oct, Bronchitis J40 ; Controlled type 2 diabetes mellitus without complication, without long-term current use of insulin E11.9 ; Chronic fatigue R53.82 and Drug-induced erectile dysfunction N52.2 [place] [id number] [place] [address] 60900- 1293 Oct, Diabetes E11.9 [facility] [id number] [place] [address] 66700- 8831 Sep, Pre-employment examination Z02.1 [place] [facility] [id number] [place] [address] 85298- 0266 Sep, Diabetes E11.9 [facility] [id number] [place] [address] 31147- 0288 Aug, Controlled type 2 diabetes mellitus without complication, without long-term current use of insulin E11.9 and Chronic osteoarthritis M19.90 [facility] [id number] [place] [address] 65019- 1801 Jul, [facility] [address] 10734- 3738 Jun, [facility] [id number] [place] [address] 82002- 6091 Jun, 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 [place] [id number] [place] [address] 32299- 2184 Jun, Encounter for immunization Z23 and Controlled type 2 diabetes mellitus without complication, without long-term current use of insulin E11.9 [place] [id number] [place] [address] 44911- 8035 May, [facility] [id number] [place] [address] 75158- 5905 May, [place] [id number] [place] [address] 55713- 5659 Apr, Gastritis without bleeding, unspecified chronicity, unspecified gastritis type K29.70 [place] [id number] [place] [address] 42979- 5071 Apr, [facility] [id number] [place] [address] 54084- 0813 Mar, Diabetes type 2, controlled E11.9 [facility] [id number] [place] [address] 40954- 0011 Mar, [facility] [id number] [place] [address] 33940- 8503 Feb, [facility] [id number] [place] [address] 48283- 1367 Feb, [facility] [address], [place] [address]- 1060 January, [facility] [address] [place] [address] 93007- 7628 Dec, Urethritis N34.2 [facility] [id number] [place] [address] 64604- 7151 Dec, [facility] [id number] [place] [address] 62407- 1014 Nov, Diabetes type 2, controlled E11.9 [facility] [id number] [place] [address] 90548- 5346 Nov, [facility] [id number] [place] [address] 65956- 5325 Nov, Diabetes type 2, controlled E11.9 [facility] [id number] [place] [address] 71994- 4446 Oct, Hand pain M79.643 [facility] [id number] [place] [address] 95698- 8588 23 Oct, 2015 Right hand pain M79.641 [facility] [address], [place] [address]- 7085 Oct, [facility] [id number] [place] [address] 28319- 0648 Oct, [facility] [address] [place] [address] 51946- 6840 04 Oct, 2015 Right carpal tunnel syndrome G56.01 [facility] [id number] [place] [address] 44212- 1043 Sep, Diabetes E11.9 [facility] [address], [place] [address]- 7122 Sep, Anxiety F41.9 ; Chronic osteoarthritis M19.90 and Health examination of defined subpopulation V70.5 [facility] [address] [place] [address]- 1914 Sep, Diabetes E11.9 [facility] [id number] [place] [address] 56194- 5966 Aug, Diabetes E11.9 ; Carpal tunnel syndrome, right G56.01 and Carpal tunnel syndrome, left upper limb G56.02 [facility] [id number] [place] [address] 93558- 7288 Jul, Diabetes mellitus 250.00 [facility] [id number] [place] [address] 170060- 6922 Jun, Diabetes mellitus 250.00 [facility] [id number] [place] [address] 20285- 7559 May, Diabetes mellitus 250.00 [facility] [id number] [place] [address] 75599- 4323 Apr, Diabetes mellitus 250.00 [facility] [id number] [place] [address] 89462- 2178 Mar, [facility] [id number] [place] [address] 19759- 8223 Mar, Tooth abscess 522.5 [facility] [id number] [place] [address] 33011- 9835 Feb, [facility] [id number] [place] [address] 44503- 4869 January, [facility] [address] [address]- 4264 January, [facility] [id number] [place] [address] [id number]- 1392 January, Diabetes mellitus 250.00 [facility] [address] 4778 January, [facility] [id number] [place] [address] 96412- 0839 14 Dec, 2014 [facility] [place] [facility] [address] [id number] [place] [address]- 9346 13 Dec, 2014 [facility] [place] [facility] [address] [id number] [place] [address]- 9276 30 Nov, 2014 [facility] [place] [facility] [address] [id number] [place] [address]- 6516 Nov, [facility] [place] [facility] [address] [id number] [place] [address]- 5771 Nov, [facility] [place] [facility] [address] [id number] [place] [address]- 1616 Nov, [facility] [place] [facility] [address] [facility] [id number] [place] [address]- 3881 Oct, [facility] [place] [facility] [address] [facility] [id number] [place] [address]- 2844 Oct, [facility] [place] [facility] [address] [facility] [id number] [place] [address]- 6587 Sep, [facility] [place] [facility] [address] [id number] [place] [address]- 6802 Sep, [facility] [place] [facility] [address] [facility] [id number] [place] [address]- 0878 Aug, [facility] [place] [facility] [address] [id number] [place] [address]- 2953 Aug, [facility] [place] [facility] [address] [id number] [place] [address]- 8777 Aug, [facility] [place] [facility] [address] [id number] [place] 6148 Aug, [facility] [place] [facility] [address] [facility] [id number] [place] [address]- 7198 Aug, [facility] [place] [facility] [address] [facility] [id number] [place] [address]- 0929 Aug, [facility] [place] [facility] [address] [id number] [place] [address]- 7600 Jul, [facility] [place] [facility] [address] [id number] [place] [address]- 6581 Jul, [facility] [place] [facility] [address] [id number] [place] [address]- 1861 Jun, [facility] [place] [facility] [address] [id number] [place] [address]- 4040 Jun, [facility] [place] [facility] [address] [id number] [place] [address]- 0967 May, [facility] [place] [facility] [address] [id number] [place] [address]- 6955 May, [facility] [place] [facility] [address] [id number] [place] [address]- 5856 Apr, [facility] [place] [facility] [address] [id number] [place] [address]- 4185 Apr, [facility] [place] [facility] [address] [id number] [place] [address]- 4943 Apr, [facility] [place] [facility] [address] [id number] [place] [address]- 1669 Apr, [facility] [place] [facility] [address] [id number] [place] [address]- 3793 Apr, [facility] [place] [facility] [address] [id number] [place] [address]- 5418 Apr, [facility] [place] [facility] [address] [id number] [place] [address]- 5727 Mar, [facility] [place] [facility] [address] [id number] [place] [address]- 2294 Mar, [facility] [place] [facility] [address] [id number] [place] [address]- 2595 Feb, [facility] [place] [facility] [address] [id number] [place] [address]- 0006 Feb, [facility] [place] [facility] [address] [id number] [place] [address]- 3940 Feb, [facility] [place] [facility] [address] [id number] [place] [address]- 3174 Feb, [facility] [place] [facility] [address] [id number] [place] [address]- 5274 January, [facility] [place] [facility] [address] [id number] [place] [address]- 1991 January, [facility] [place] [facility] [address] [id number] [place] [address]- 3728 January, [facility] [place] [facility] [address] [id number] [place] [address]- 7206 January, [facility] [place] [facility] [address] [id number] [place] [address]- 7303 Dec, [facility] [place] [facility] [address] [id number] [place] [address]- 4750 Dec, [facility] [place] [facility] [address] [id number] [place] [address]- 1366 Nov, [facility] [place] [facility] [address] [id number] [place] [address]- 5222 Nov, [facility] [place] [facility] [address] [id number] [place] [address]- 8464 Oct, [facility] [place] [facility] [address] [id number] [place] [address]- 0922 Oct, [facility] [place] [facility] [address] [id number] [place] [address]- 9761 Sep, [facility] [place] [facility] [address] [id number] [place] [address]- 0565 Sep, [facility] [place] [facility] [address] [id number] [place] [address]- 4731 Aug, [facility] [place] [facility] [address] [id number] [place] [address] 2546 Aug, [facility] [address] [id number] [place] [address]- 3366 Jul, [facility] [address] [id number] [place] [address]- 2546 Jul, [facility] [address] [id number] [place] [address] 2546 Jun, [facility] [address] [id number] [place] [address]- 2543 Jun, [facility] [address] [id number] [place] [address]- 2546 May, [facility] [address] [id number] [place] [address]- 2546 May, [facility] [address] [id number] [place] [address]- 2986 Apr, [facility] [address] [id number] [place] [address]- 8906 Apr, [facility] [address] [id number] [place] [address]- 4425 Feb, [facility] [address] [id number] [place] [address] 2546 Feb, [facility] [address] [id number] [place] [address]- 2546 January, [facility] [address] [id number] [place] [address]- 2546 January, [facility] [place] [facility] [address] [id number] [place] [address]- 2546 Dec, [facility] [place] [facility] [address] [id number] [place] [address]- 2546 Nov, [facility] [address] [id number] [place] 6806 Oct, [facility] [place] [facility] [address] [id number] [place] [address]- 8513 Oct, [facility] [place] [facility] [address] [id number] [place] [address]- 5782 Sep, [facility] [place] [facility] [address] [id number] [place] [address]- 0453 Aug, [facility] [place] [facility] [address] [id number] [place] [address]- 8769 Aug, [facility] [place] [facility] [address] [id number] [place] [address]- 6059 Jul, [facility] [place] [facility] [address] [id number] [place] [address]- 6585 Jul, [facility] [place] [facility] [address] [id number] [place] [address]- 2875 Jun, [facility] [place] [facility] [address] [id number] [place] [address]- 5976 24 May, 2012 [facility] [place] [facility] [address] [id number] [place] [address]- 3078 14 May, 2012 [facility] [place] [facility] [address] [id number] [place] [address]- 8584 May, [facility] [place] [facility] [address] [id number] [place] [address]- 5366 Apr, [facility] [place] [facility] [address] [id number], [place] [address]- 1235 Apr, [facility] [place] [facility] [address] [id number] [place] [address]- 1365 Apr, [facility] [place] [facility] [address] [id number] [place] [address]- 4357 Mar, [facility] [place] [facility] [address] [id number] [place] [address]- 0242 Mar, [facility] [place] [facility] [address] [id number] [place] [address]- 0897 Feb, [facility] [place] [facility] [address] [id number] [place] [address]- 6305 Feb, [facility] [place] [facility] [address] [id number] [place] [address]- 5471 January, [facility] [place] [facility] [address] [id number] [place] [address]- 4986 January, [facility] [place] [facility] [address] [id number] [place] [address]- 6168 Dec, [facility] [place] [facility] [address] [id number] [place] [address]- 4009 Dec, [facility] [place] [facility] [address] [id number] [place] [address]- 9916 Nov, [facility] [place] [facility] [address] [id number] [place] [address]- 0924 Nov, [facility] [place] [facility] [address] [id number] [place] [address]- 7877 Oct, [facility] [place] [facility] [address] [id number] [place] [address]- 2119 Oct, [facility] [place] [facility] [address] [id number] [place] [address]- 9979 Sep, [facility] [place] [facility] [address] [id number] [place] [address]- 0401 Sep, [facility] [place] [facility] [address] [id number] [place] [address] Sep, [facility] [place] [facility] [address] [id number] [place] [address] Aug, [facility] [place] [facility] [address] [id number] [place] [address] Aug, [facility] [place] [facility] [address] [id number] [place] [address] Aug, [facility] [address] [facility] [id number], [place] [address] Aug, [facility] [address] [id number] [address] Aug, [facility] [address] [id number], [place] [address] Jul, [facility] [id number], [place] [address] Jul, [facility] [address] [id number], [place] [address] Jul, [facility] [address] [id number], [place] [address] Dec, IMMUNIZATIONS No Known Immunizations SOCIAL HISTORY Never Assessed REASON FOR VISIT Controlled Med Refill PLAN OF CARE VITAL SIGNS MEDICATIONS Medication Instructions Dosage Frequency Start Date End Date Duration Status Coulters 10-325 MG Orally every 6 hrs 1 tablet as needed 6h Feb, 28 days Active RESULTS No Results PROCEDURES No Known procedures INSTRUCTIONS MEDICATIONS ADMINISTERED No Known Medications MEDICAL (GENERAL) HISTORY Type Description Date Medical History Type 2 diabetes Medical History anxiety Medical History chronic hip pain Medical History carpal tunnel bilateral Medical History Braggs Palsy Surgical History carpel tunnel-right hand 2011 Surgical History carpel tunnel-left hand 2008 Surgical History carpal tunnel - right hand 11/2015 Hospitalization History [facility] spider bite
--- OUTSIDE RECORDS SUMMARY | 2018-06-25 06:27 | XMS REPORT ---
Author KASI Estrada [facility] [place] eClinicalWorks Address Unknown Phone Unavailable Care Team Providers Care Music Copyist Name Role Phone KASI BLANCHARD CP Unavailable Allergies, Adverse Reactions, Alerts Substance Reaction Event Type N.K.D.A. 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 Medications Medication Code System Code Instructions Start Date End Date Status Dosage Tramadol HCl [facility] [address]-76 50 mg Orally every 6 hrs May 11, 2015 1 tablet as needed Victoza [facility] [address]-03 0.6 mg/0.1 mL (18 mg/3 mL) Subcutaneous Once a day January 20, 2012 1.8 mg by Subcutaneous route 1 time per day Glucometer [facility] 0 1 2 times a day Jun 27, 2016 as directed Diclofenac Sodium [facility] [address]-18 75 MG Orally 2 times a day November 29, 2014 1 tablet as needed Pepcid [facility] [address]-12 20 mg Orally 2 times a day May 05, 2016 1 tablet at bedtime Cyclobenzaprine HCl [facility] [address]-98 10 mg Orally 2 times a day January 17, 2016 Jul 15, 2016 1 tablet [address]one HCl [facility] [address]-71 10 mg Orally Twice a day January 17, [address] [facility] 0 400 mg orally 5 times a day one tab PredniSONE [facility] [address]-27 20 MG Orally Once a day 1 tablet Pen [place] 12/04" [facility] [address] 31G X 5 MM Once a day February 16, 2015 as directed MetFORMIN HCl ER [facility] [address]-93 500 MG Orally 2 times a day May 05, 2016 1 tablet with evening meal HydrOXYzine HCl [facility] [address]-81 25 MG 2 times a day November 29, 2014 1 tablet Procedures Procedure Coding System Code Date Office Visit, Est Pt., Level 3 CPT-4 86374 Jun 30, 2016 Vital Signs Date/Time: Jun 30, 2016 Cardiac Monitoring Heart Rate 78 bpm Weight 229 lbs Height 66 in BMI 36.96 Index Blood Pressure Diastolic 88 mmHg Blood Pressure Systolic 140 mmHg Results No Known Results Summary Purpose eClinicalWorks Submission
--- OUTSIDE RECORDS SUMMARY | 2018-06-25 06:27 | XMS REPORT ---
Author KASI Estrada [facility] eClinicalWorks Address Unknown Phone Unavailable Care Team Providers Care Safety Compliance Specialist Name Role Phone KASI BLANCHARD CP Unavailable Allergies, Adverse Reactions, Alerts Substance Reaction Event Type N.K.D.A. Info Not Available Non Drug Allergy Problems Problem Type Condition Code Onset Dates Condition Status Problem Anxiety F41.9 Active Problem Chronic osteoarthritis M19.90 Active Problem Controlled type 2 diabetes mellitus without complication, without long -term current use of insulin E11.9 Active Assessment Controlled type 2 diabetes mellitus without complication, without long-term current use of insulin E11.9 Active Problem Diabetes E11.9 Active Assessment Encounter for immunization Z23 Active Medications Medication Code System Code Instructions Start Date End Date Status Dosage BusPIRone HCl [facility] [address]-29 10 mg Orally Twice a day January 17, 2016 1 tablet Victoza [facility] [address]-35 0.6 mg/0.1 mL (18 mg/3 mL) Subcutaneous Once a day January 20, 2012 1.8 mg by Subcutaneous route 1 time per day Tramadol HCl [facility] [address]-13 50 mg Orally every 6 hrs May 11, 2015 1 tablet as needed HydrOXYzine HCl [facility] [address]-53 25 MG 2 times a day November 29, 2014 1 tablet Cyclobenzaprine HCl [facility] [address]-39 10 mg Orally 2 times a day January 17, 2016 Jul 15, 2016 1 tablet Diclofenac Sodium [facility] [address]-95 75 MG Orally 2 times a day November 29, 2014 1 tablet as needed Pepcid [facility] [address]-81 20 mg Orally 2 times a day May 05, 2016 1 tablet at bedtime MetFORMIN HCl ER [facility] [address]-42 500 MG Orally 2 times a day May 05, 2016 1 tablet with evening meal Glucometer [facility] 0 1 2 times a day Jun 27, 2016 as directed Pen [place] 3/16" [facility] [address] 31G X 5 MM Once a day February 16, 2015 as directed Procedures Procedure Coding System Code Date FLUARIX QUAD P-FREE 3 AND UP .50 2015 CPT-4 97767 Jun 27, 2016 SINGLE IMMUNIZATION ADMIN CPT-4 89581 Jun 27, 2016 Office Visit, Est Pt., Level 3 CPT-4 26607 Jun 27, 2016 Vital Signs Date/Time: Jun 27, 2016 Cardiac Monitoring Heart Rate 80 bpm Weight 237.6 lbs Height 66 in BMI 38.35 Index Blood Pressure Diastolic 94 mmHg Blood Pressure Systolic 150 mmHg Results No Known Results Immunizations Vaccine Administration Date FLUZONE QUAD 3 AND UP 0.50 2015Jun 27, 2016 Summary Purpose eClinicalWorks Submission
--- OUTSIDE RECORDS SUMMARY | 2018-06-25 06:27 | XMS REPORT ---
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 Role Phone KASI BLANCHARD Unavailable PROBLEMS Type Condition ICD9-CM Code SBN17-EK Code Onset Dates Condition Status SNOMED Code Problem Anxiety F41.9 Active 08711369 Problem Drug-induced erectile dysfunction N52.2 Active 983485955 Problem Controlled type 2 diabetes mellitus without complication, without long -term current use of insulin E11.9 Active 121136738 Problem Diabetes E11.9 Active 11536094 Problem Chronic osteoarthritis M19.90 Active 10851393 Problem Uncontrolled type 2 diabetes mellitus without complication, without long-term current use of insulin E11.65 Active 798623313 Problem Diabetes type 2, controlled E11.9 Active 918743923 Problem Mood disorder F39 Active 63629027 Problem Chronic fatigue R53.82 Active 59944632 Problem Depressive disorder, not elsewhere classified F32.9 Active 67570655 Problem Hypogonadism in male E29.1 Active 45888205 ALLERGIES No Information ENCOUNTERS Encounter Location Date Diagnosis [facility] [id number] [place] [address] 28759- 4715 12 Dec, 2017 Bronchitis J40 [facility] [id number] [place] [address] 77590- 5342 28 Nov, 2017 Diabetes E11.9 and Anxiety F41.9 [facility] [id number] [place] [address] 39172- 9762 15 Nov, 2017 Bronchitis J40 [facility] [id number] [place] [address] 21786- 3517 14 Oct, 2017 Bronchitis J40 [facility] [id number] [place] [address] 41084- 2931 Sep, Diabetes E11.9 ; Mood disorder F39 ; Hypogonadism in male E29.1 and Depressive disorder, not elsewhere classified F32.9 [facility] [id number] [place] [address] 33261- 0884 Sep, Bronchitis J40 [facility] [id number] [place] [address] 00692- 0578 Sep, Hypogonadism in male E29.1 [facility] [address] 52925- 3401 Sep, [facility] [address] 16785- 2152 Sep, [facility] [address] 21665- 5502 Aug, Bronchitis J40 [facility] [address] 66612- 2592 Aug, Uncontrolled type 2 diabetes mellitus without complication, without long-term current use of insulin E11.65 ; Diabetes type 2, controlled E11.9 ; Hypogonadism in male E29.1 ; Encounter for immunization Z23 and Spider bite wound, undetermined intent, initial encounter T63.304A [facility] [address] 69108- 4394 Jul, Bronchitis J40 [facility] [address] 64341- 0899 Jun, Hypogonadism in male E29.1 [facility] [address] 68360- 4669 Jun, Hypogonadism in male E29.1 and Bronchitis J40 [facility] [id number] [place] [address] 14132- 8109 May, Bronchitis J40 [facility] [address] 90638- 5328 May, Hypogonadism in male E29.1 [facility] [address] 27765- 4099 May, Hypogonadism in male E29.1 [facility] [address] [address]- 9465 Apr, Bronchitis J40 [facility] [id number] [place] [address] 65123- 3185 Apr, Controlled type 2 diabetes mellitus without complication, without long-term current use of insulin E11.9 [facility] [id number] [place] [address] 02293- 0581 Apr, Diabetes type 2, controlled E11.9 ; Hypogonadism in male E29.1 and Mood disorder F39 [facility] [id number] [place] [address] 83414- 1209 Apr, Hypogonadism in male E29.1 [facility] [id number] [place] [address] 00393- 4848 Apr, Bronchitis J40 [facility] [id number] [place] [address] 85170- 4384 Mar, Hypogonadism in male E29.1 [facility] [id number] [place] [address] 45217- 7548 Mar, Bronchitis J40 [facility] [id number] [place] [address] 51755- 5849 Mar, Bronchitis J40 [facility] [id number] [place] [address] 13869- 1769 Feb, Spider bite, accidental or unintentional, initial encounter T63.301A [facility] [id number] [place] [address] 23919- 0795 Feb, Depressive disorder, not elsewhere classified F32.9 [facility] [id number] [place] [address] 99727- 1888 16 Feb, 2017 Diabetes E11.9 ; Mood disorder F39 and Hypogonadism in male E29.1 [facility] [id number] [place] [address] 90985- 1491 Feb, Bronchitis J40 [facility] [id number] [place] [address] 71997- 2970 Feb, Depressive disorder, not elsewhere classified F32.9 [facility] [id number] [place] [address] 36706- 6274 January, Depressive disorder, not elsewhere classified F32.9 [facility] [id number] [place] [address] 95153- 3776 January, Diabetes E11.9 and Mood disorder F39 [facility] [id number] [place] [address] 03211- 7397 January, Bronchitis J40 [facility] [id number] [place] [address] 95377- 8525 Dec, Bronchitis J40 [facility] [id number] [place] [address] 81458- 9892 Dec, Hypogonadism in male E29.1 [facility] [id number] [place] [address] 69633- 6623 Dec, [facility] [id number] [place] [address] 50330- 4390 Dec, Controlled type 2 diabetes mellitus without complication, without long-term current use of insulin E11.9 and Chronic fatigue R53.82 [facility] [id number] [place] [address] 82003- 5293 Nov, Bronchitis J40 [facility] [id number] [place] [address] 72787- 0362 Oct, Bronchitis J40 ; Controlled type 2 diabetes mellitus without complication, without long-term current use of insulin E11.9 ; Chronic fatigue R53.82 and Drug-induced erectile dysfunction N52.2 [facility] [id number] [place] [address] 49389- 4422 Oct, Diabetes E11.9 [facility] [address] 54142- 2458 Sep, Pre-employment examination Z02.1 [facility] [id number] [place] [address] 80787- 2551 Sep, Diabetes E11.9 [facility] [id number] [place] [address] 71782- 0701 Aug, Controlled type 2 diabetes mellitus without complication, without long-term current use of insulin E11.9 and Chronic osteoarthritis M19.90 [facility] [id number] [place] [address] 77516- 3683 Jul, [facility] [id number] [place] [address] 63506- 9276 Jun, [facility] [id number] [place] [address] 29874- 2644 Jun, 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 [facility] [id number] [place] [address] 86541- 5690 Jun, Encounter for immunization Z23 and Controlled type 2 diabetes mellitus without complication, without long-term current use of insulin E11.9 [facility] [address] [address]- 5374 May, [facility] [address] [address]- 8499 May, [facility] [id number] [address]- 7711 Apr, Gastritis without bleeding, unspecified chronicity, unspecified gastritis type K29.70 [facility] [address] [address]- 4991 Apr, [facility] [id number] [place] [address] 45129- 9049 Mar, Diabetes type 2, controlled E11.9 [facility] [address] [address]- 8532 Mar, [facility] [address] [address]- 4175 Feb, [facility] [id number] [place] [address] 83323- 0835 Feb, [facility] [id number] [place] [address] 89590- 2995 January, [facility] [id number] [place] [address] 25501- 9366 Dec, Urethritis N34.2 [facility] [id number] [place] [address] 61802- 9377 Dec, [facility] [id number] [place] [address] 14539- 3572 Nov, Diabetes type 2, controlled E11.9 [facility] [id number] [place] [address] 15807- 4431 Nov, [facility] [id number] [place] [address] 12945- 3386 Nov, Diabetes type 2, controlled E11.9 [facility] [id number] [place] [address] 37156- 2891 Oct, Hand pain M79.643 [facility] [address] [place] [address] 35784- 6806 Oct, Right hand pain M79.641 [facility] [address] [place] [address] 38574- 8473 Oct, [facility] [address] [place] [address] 69051- 1939 Oct, [facility] [id number] [place] [address] 52257- 1624 Oct, Right carpal tunnel syndrome G56.01 [facility] [address] [address]- 9248 Sep, Diabetes E11.9 [facility] [id number] [place] [address] 36023- 1601 Sep, Anxiety F41.9 ; Chronic osteoarthritis M19.90 and Health examination of defined subpopulation V70.5 [facility] [id number] [place] [address] 19174- 1801 Sep, Diabetes E11.9 [facility] [id number] [place] [address] 40882- 3359 Aug, Diabetes E11.9 ; Carpal tunnel syndrome, right G56.01 and Carpal tunnel syndrome, left upper limb G56.02 [facility] [id number] [place] [address] 58900- 8587 Jul, Diabetes mellitus 250.00 [facility] [id number] [place] [address] 01571- 8709 Jun, Diabetes mellitus 250.00 [facility] [id number] [place] [address] 48666- 9982 May, Diabetes mellitus 250.00 [facility] [id number] [place] [address] 67490- 1657 Apr, Diabetes mellitus 250.00 [facility] [id number] [place] [address] 66897- 6606 Mar, [facility] [id number] [place] [address] 07206- 8451 Mar, Tooth abscess 522.5 [facility] [id number] [place] [address] 09890- 8635 Feb, [facility] [id number] [place] [address] 782085- 9082 January, [facility] [id number] [place] [address] 993917- 5942 January, [facility] [id number] 6694 January, Diabetes mellitus 250.00 [facility] [place] [facility] [address] [id number] [place] [address]- 5052 January, [facility] [place] [facility] [address] [id number] [place] [address]- 1030 14 Dec, 2014 [facility] [place] [facility] [address] [id number] [place] [address]- 4409 Dec, [facility] [place] [facility] [address] [id number] [place] [address]- 5321 Nov, [facility] [place] [facility] [address] [id number] [place] [address]- 6197 Nov, [facility] [place] [facility] [address] [id number] [place] [address]- 3771 Nov, [facility] [place] [facility] [address] [id number] [place] [address]- 6399 Nov, [facility] [place] [facility] [address] [id number] [place] [address]- 4175 Oct, [facility] [place] [facility] [address] [id number] [place] [address]- 2465 Oct, [facility] [place] [facility] [address] [id number] [place] [address]- 9634 Sep, [facility] [place] [facility] [address] [id number] [place] [address]- 4109 Sep, [facility] [place] [facility] [address] [id number] [place] [address]- 8810 Aug, [facility] [place] [facility] [address] [id number] [place] [address]- 8863 Aug, [facility] [place] [facility] [address] [id number] [place] [address]- 8394 Aug, [facility] [place] [facility] [address] [id number] [place] [address]- 2793 Aug, [facility] [place] [facility] [address] [id number] [place] [address]- 1186 Aug, [facility] [place] [facility] [address] [id number] [place] 6885 Aug, [facility] [place] [facility] [address] [id number] [place] [address]- 5482 Jul, [facility] [place] [facility] [address] [id number] [place] [address]- 8455 Jul, [facility] [place] [facility] [address] [id number] [place] [address]- 9365 Jun, [facility] [place] [facility] [address] [id number] [place] [address]- 6671 Jun, [facility] [place] [facility] [address] [id number] [place] [address]- 4774 May, [facility] [place] [facility] [address] [id number] [place] [address]- 2705 May, [facility] [place] [facility] [address] [id number] [place] [address]- 8825 Apr, [facility] [place] [facility] [address] [id number] [place] [address]- 3678 Apr, [facility] [place] [facility] [address] [id number] [place] [address]- 9850 Apr, [facility] [place] [facility] [address] [id number] [place] [address]- 5508 Apr, [facility] [place] [facility] [address] [id number] [place] [address]- 7789 Apr, [facility] [place] [facility] [address] [id number] [place] [address]- 8455 Apr, [facility] [place] [facility] [address] [id number] [place] [address]- 4020 Mar, [facility] [place] [facility] [address] [id number] [place] [address]- 2557 Mar, [facility] [place] [facility] [address] [id number] [place] [address]- 3277 Feb, [facility] [address] [id number] [place] [address]- 5064 Feb, [facility] [place] [facility] [address] [id number] [place] [address]- 5693 Feb, [facility] [address] [id number] [place] [address]- 6222 Feb, [facility] [place] [facility] [address] [id number] [place] [address]- 1251 January, [facility] [address] [id number] [place] [address]- 6925 January, [facility] [address] [id number] [place] [address]- 8798 January, [facility] [place] [facility] [address] [id number] [place] [address]- 2818 January, [facility] [address] [id number] [place] [address]- 2208 Dec, [facility] [place] [facility] [address] [id number] [place] [address]- 6206 Dec, [facility] [address] [id number] [place] [address]- 4281 Nov, [facility] [place] [facility] [address] [id number] [place] [address]- 6988 Nov, [facility] [place] [facility] [address] [id number] [place] [address]- 5818 Oct, [facility] [place] [facility] [address] [id number] [place] [address]- 7352 Oct, [facility] [place] [facility] [address] [id number] [place] 4399 Sep, [facility] [place] [facility] [address] [id number] [place] 8234 Sep, [facility] [address] [id number] [place] [address]- 0175 Aug, [facility] [place] [facility] [address] [id number] [place] [address]- 6163 Aug, [facility] [place] [facility] [address] [id number] [place] [address]- 9545 Jul, [facility] [place] [facility] [address] [id number] [place] [address]- 0647 Jul, [facility] [place] [facility] [address] [id number] [place] 8209 Jun, [facility] [place] [facility] [address] [id number] [place] [address]- 6144 Jun, [facility] [place] [facility] [address] [id number] [place] [address]- 3914 May, [facility] [place] [facility] [address] [id number] [place] [address]- 4759 May, [facility] [place] [facility] [address] [id number] [place] [address]- 9030 Apr, [facility] [place] [facility] [address] [id number] [place] [address]- 3810 Apr, [facility] [place] [facility] [address] [id number] [place] [address]- 8741 Feb, [facility] [place] [facility] [address] [id number] [address]- 5570 Feb, [facility] [place] [facility] [address] [id number] [place] [address]- 4043 January, [facility] [place] [facility] [address] [id number] [place] [address]- 0441 January, [facility] [place] [facility] [address] [id number] [place] [address]- 8783 Dec, [facility] [place] [facility] [address] [id number] [place] [address]- 5203 Nov, [facility] [address] [id number] [place] [address]- 7956 Oct, [facility] [place] [facility] [address] [id number] [place] [address]- 3896 Oct, [facility] [place] [facility] [address] [id number] [place] [address]- 6973 Sep, [facility] [place] [facility] [address] [id number] [place] [address]- 7294 Aug, [facility] [place] [facility] [address] [id number] [place] [address]- 1012 Aug, [facility] [place] [facility] [address] [id number] [place] [address]- 7830 Jul, [facility] [address] [id number] [place] [address]- 3326 Jul, [facility] [place] [facility] [address] [id number] [place] [address]- 1320 Jun, [facility] [place] [facility] [address] [id number] [place] [address]- 9674 24 May, 2012 [facility] [place] [facility] [address] [id number] [place] [address]- 3513 14 May, 2012 [facility] [place] [facility] [address] [id number] [place] [address]- 7082 May, [facility] [place] [facility] [address] [id number] [place] [address]- 9039 Apr, [facility] [place] [facility] [address] [id number] [place] [address]- 7138 Apr, [facility] [place] [facility] [address] [id number] [place] [address]- 4182 Apr, [facility] [place] [facility] [address] [id number] [place] [address]- 0489 Mar, [facility] [place] [facility] [address] [id number] [place] [address]- 4093 Mar, [facility] [address] [id number] [place] [address]- 6382 Feb, [facility] [place] [facility] [address] [id number] [place] [address]- 9826 Feb, [facility] [place] [facility] [address] [id number] [place] [address]- 6171 January, [facility] [address] [id number] [place] [address]- 6472 January, [facility] [place] [facility] [address] [id number] [place] [address]- 6808 Dec, [facility] [address] [id number] [place] [address]- 3780 Dec, [facility] [address] [id number] [place] [address]- 5477 Nov, [facility] [place] [facility] [address] [id number] [place] [address]- 4939 Nov, [facility] [address] [id number] [place] [address]- 2984 Oct, [facility] [place] [facility] [address] [id number] [place] [address]- 1965 Oct, [facility] [place] [facility] [address] [id number] [place] [address]- 4534 Sep, [facility] [place] [facility] [address] [id number] [place] [address]- 3667 Sep, [facility] [place] [facility] [address] [id number] [place] [address]- 2016 Sep, [facility] [place] [facility] [address] [id number] [place] [address]- 3734 Aug, [facility] [place] [facility] [address] [id number] [address]- 4860 Aug, [facility] [id number] 8119 Aug, [facility] [address] [facility] [id number] [address]- 1976 Aug, [facility] [id number] [address]- 9237 Aug, [facility] [id number] [address]- [address] Jul, [facility] [id number] [address] Jul, [facility] [id number] [place] [address] Jul, [facility] [id number] [address] Dec, IMMUNIZATIONS No Known Immunizations SOCIAL HISTORY Never Assessed REASON FOR VISIT Controlled Med Refill-testosterone PLAN OF CARE VITAL SIGNS MEDICATIONS Medication [...] Medical History carpal tunnel bilateral Medical History [place] Palsy Surgical History carpel tunnel-right hand 2011 Surgical History carpel tunnel-left hand 2008 Surgical History carpal tunnel - right hand 11/2015 Hospitalization History ER spider bite
--- OUTSIDE RECORDS SUMMARY | 2018-06-25 06:28 | XMS REPORT | Continuity of Care Document ---
Author Author [facility] Address Unknown Phone Unavailable Allergies Active Description Code Type Severity Reaction Onset Reported/Identified Relationship to Patient Clinical Status Yes No Known Drug Allergies [id number] Drug Allergy Unknown N/A 04/03/2011 Medications There is no data. Problems Date Dx Coded Attending Type Code Diagnosis Diagnosed By 11/13/2009 296.32 MO DEPRESSIVE RECURRENT MODERATE 11/13/2009 300.02 AN GEN ANXIETY 11/13/2009 296.32 MO DEPRESSIVE RECURRENT MODERATE 11/13/2009 300.02 AN GEN ANXIETY 11/13/2009 KASI BLANCHARD APRN 296.32 MO DEPRESSIVE RECURRENT MODERATE 11/13/2009 KASI BLANCHARD APRN 300.02 AN GEN ANXIETY 11/13/2009 296.32 MO DEPRESSIVE RECURRENT MODERATE 11/13/2009 300.02 AN GEN ANXIETY 11/13/2009 296.32 MO DEPRESSIVE RECURRENT MODERATE 11/13/2009 300.02 AN GEN ANXIETY 11/13/2009 KASI BLANCHARD APRN 296.32 MO DEPRESSIVE RECURRENT MODERATE 11/13/2009 KASI BLANCHARD APRN 300.02 AN GEN ANXIETY 11/13/2009 296.32 MO DEPRESSIVE RECURRENT MODERATE 11/13/2009 300.02 AN GEN ANXIETY 11/13/2009 KASI BLANCHARD APRN 296.32 MO DEPRESSIVE RECURRENT MODERATE 11/13/2009 KASI BLANCHARD APRN 300.02 AN GEN ANXIETY 11/13/2009 FRANKY JESUS APRN 296.32 MO DEPRESSIVE RECURRENT MODERATE 11/13/2009 FRANKY JESUS APRN 300.02 AN GEN ANXIETY 11/13/2009 KASI BLANCHARD APRN 296.32 MO DEPRESSIVE RECURRENT MODERATE 11/13/2009 KASI BLANCHARD APRN 300.02 AN GEN ANXIETY 11/13/2009 KASI BLANCHARD APRN 296.32 MO DEPRESSIVE RECURRENT MODERATE 11/13/2009 KASI BLANCHARD APRN 300.02 AN GEN ANXIETY 11/13/2009 LENNY FIELD APRN 296.32 MO DEPRESSIVE RECURRENT MODERATE 11/13/2009 LENNY FIELD APRN 300.02 AN GEN ANXIETY 11/13/2009 KASI BLANCHARD APRN 296.32 MO DEPRESSIVE RECURRENT MODERATE 11/13/2009 KASI BLANCHARD APRN 300.02 AN GEN ANXIETY 11/13/2009 KASI BLANCHARD APRN 296.32 MO DEPRESSIVE RECURRENT MODERATE 11/13/2009 KASI BLANCHARD APRN 300.02 AN GEN ANXIETY 11/13/2009 KASI BLANCHARD APRN 296.32 MO DEPRESSIVE RECURRENT MODERATE 11/13/2009 KASI BLANCHARD APRN 300.02 AN GEN ANXIETY 12/20/2009 300.00 AN ANXIETY UNSPEC 12/20/2009 300.00 AN ANXIETY UNSPEC 12/20/2009 KASI BLANCHARD APRN 300.00 AN ANXIETY UNSPEC 12/20/2009 300.00 AN ANXIETY UNSPEC 12/20/2009 300.00 AN ANXIETY UNSPEC 12/20/2009 KASI BLANCHARD APRN 300.00 AN ANXIETY UNSPEC 12/20/2009 300.00 AN ANXIETY UNSPEC 12/20/2009 KASI BLANCHARD APRN 300.00 AN ANXIETY UNSPEC 12/20/2009 FRANKY JESUS APRN 300.00 AN ANXIETY UNSPEC 12/20/2009 KASI BLANCHARD APRN 300.00 AN ANXIETY UNSPEC 12/20/2009 KASI BLANCHARD APRN 300.00 AN ANXIETY UNSPEC 12/20/2009 LENNY FIELD APRN R 300.00 AN ANXIETY UNSPEC 12/20/2009 KASI BLANCHARD APRN 300.00 AN ANXIETY UNSPEC 12/20/2009 KASI BLANCHARD APRN 300.00 AN ANXIETY UNSPEC 12/20/2009 KASI BLANCHARD APRN 300.00 AN ANXIETY UNSPEC 01/03/2011 401.1 HYPERTENSION, BENIGN ESSENTIAL 01/03/2011 401.1 HYPERTENSION, BENIGN ESSENTIAL 01/03/2011 KASI BLANCHARD APRN 401.1 HYPERTENSION, BENIGN ESSENTIAL 01/03/2011 401.1 HYPERTENSION, BENIGN ESSENTIAL 01/03/2011 401.1 HYPERTENSION, BENIGN ESSENTIAL 01/03/2011 KASI BLANCHARD APRN 401.1 HYPERTENSION, BENIGN ESSENTIAL 01/03/2011 401.1 HYPERTENSION, BENIGN ESSENTIAL 01/03/2011 KASI BLANCHARD APRN 401.1 HYPERTENSION, BENIGN ESSENTIAL 01/03/2011 FRANKY JESUS APRN R 401.1 HYPERTENSION, BENIGN ESSENTIAL 01/03/2011 KASI BLANCHARD APRN 401.1 HYPERTENSION, BENIGN ESSENTIAL 01/03/2011 SANTO VOLUNTEER SERVICES ASSISTANT, KASI T 401.1 HYPERTENSION, BENIGN ESSENTIAL 01/03/2011 DONAVON FIELD APRNIA R 401.1 HYPERTENSION, BENIGN ESSENTIAL 01/03/2011 KASI BLANCHARD APRN T 401.1 HYPERTENSION, BENIGN ESSENTIAL 01/03/2011 KASI BLANCHARD APRN T 401.1 HYPERTENSION, BENIGN ESSENTIAL 01/03/2011 KASI BLANCHARD APRN T 401.1 HYPERTENSION, BENIGN ESSENTIAL 01/27/2011 250.00 DIABETES MELLITUS 01/27/2011 250.00 DIABETES MELLITUS 01/27/2011 KASI BLANCHARD APRN T 250.00 DIABETES MELLITUS 01/27/2011 250.00 DIABETES MELLITUS 01/27/2011 250.00 DIABETES MELLITUS 01/27/2011 KASI BLANCHARD APRN T 250.00 DIABETES MELLITUS 01/27/2011 250.00 DIABETES MELLITUS 01/27/2011 KASI BLANCHARD APRN T 250.00 DIABETES MELLITUS 01/27/2011 SEFERINO JESUS APRNINA R 250.00 DIABETES MELLITUS 01/27/2011 KASI BLANCHARD APRN T 250.00 DIABETES MELLITUS 01/27/2011 KASI BLANCHARD APRN T 250.00 DIABETES MELLITUS 01/27/2011 DONAVON FIELD APRNIA R 250.00 DIABETES MELLITUS 01/27/2011 KASI BLANCHARD APRN T 250.00 DIABETES MELLITUS 01/27/2011 KASI BLANCHARD APRN T 250.00 DIABETES MELLITUS 01/27/2011 SANTO WADE KASI T 250.00 DIABETES MELLITUS 03/19/2011 719.45 PAIN IN JOINT INVOLVING PELVIC REGION AND THIGH 03/19/2011 719.45 PAIN IN JOINT INVOLVING PELVIC REGION AND THIGH 03/19/2011 KASI BLANCHARD APRN 719.45 PAIN IN JOINT INVOLVING PELVIC REGION AND THIGH 03/19/2011 719.45 PAIN IN JOINT INVOLVING PELVIC REGION AND THIGH 03/19/2011 719.45 PAIN IN JOINT INVOLVING PELVIC REGION AND THIGH 03/19/2011 KASI BLANCHARD APRN 719.45 PAIN IN JOINT INVOLVING PELVIC REGION AND THIGH 03/19/2011 719.45 PAIN IN JOINT INVOLVING PELVIC REGION AND THIGH 03/19/2011 KASI BLANCHARD APRN 719.45 PAIN IN JOINT INVOLVING PELVIC REGION AND THIGH 03/19/2011 EDIN WADE FRANKY R 719.45 PAIN IN JOINT INVOLVING PELVIC REGION AND THIGH 03/19/2011 KASI BLANCHARD APRN T 719.45 PAIN IN JOINT INVOLVING PELVIC REGION AND THIGH 03/19/2011 KASI BLANCHARD APRN 719.45 PAIN IN JOINT INVOLVING PELVIC REGION AND THIGH 03/19/2011 LENNY FIELD APRN 719.45 PAIN IN JOINT INVOLVING PELVIC REGION AND THIGH 03/19/2011 KASI BLANCHARD APRN 719.45 PAIN IN JOINT INVOLVING PELVIC REGION AND THIGH 03/19/2011 KASI BLANCHARD APRN 719.45 PAIN IN JOINT INVOLVING PELVIC REGION AND THIGH 03/19/2011 KASI BLANCHARD APRN 719.45 PAIN IN JOINT INVOLVING PELVIC REGION AND THIGH 2011 354.0 CARPAL TUNNEL SYNDROME 2011 354.0 CARPAL TUNNEL SYNDROME 2011 KASI BLANCHARD APRN 354.0 CARPAL TUNNEL SYNDROME 2011 354.0 CARPAL TUNNEL SYNDROME 2011 354.0 CARPAL TUNNEL SYNDROME 2011 KASI BLANCHARD APRN 354.0 CARPAL TUNNEL SYNDROME 2011 354.0 CARPAL TUNNEL SYNDROME 2011 KASI BLANCHARD APRN 354.0 CARPAL TUNNEL SYNDROME 2011 FRANKY JESUS APRN R 354.0 CARPAL TUNNEL SYNDROME 2011 KASI BLANCHARD APRN 354.0 CARPAL TUNNEL SYNDROME 2011 KASI BLANCHARD APRN 354.0 CARPAL TUNNEL SYNDROME 2011 LENNY FIELD APRN 354.0 CARPAL TUNNEL SYNDROME 2011 KASI BLANCHARD APRN 354.0 CARPAL TUNNEL SYNDROME 2011 KASI BLANCHARD APRN 354.0 CARPAL TUNNEL SYNDROME 2011 KASI BLANCHARD APRN 354.0 CARPAL TUNNEL SYNDROME 10/17/2011 V70.5 PREEMPLOYMENT/ PRESCHOOL EXAM 10/17/2011 V70.5 PREEMPLOYMENT/ PRESCHOOL EXAM 10/17/2011 KASI BLANCHARD APRN V70.5 PREEMPLOYMENT/PRESCHOOL EXAM 10/17/2011 V70.5 PREEMPLOYMENT/ PRESCHOOL EXAM 10/17/2011 V70.5 PREEMPLOYMENT/ PRESCHOOL EXAM 10/17/2011 KASI BLANCHARD APRN V70.5 PREEMPLOYMENT/PRESCHOOL EXAM 10/17/2011 V70.5 PREEMPLOYMENT/ PRESCHOOL EXAM 10/17/2011 SANTO VOLUNTEER SERVICES ASSISTANT, KASI T V70.5 PREEMPLOYMENT/PRESCHOOL EXAM 10/17/2011 FRANKY JESUS APRN R V70.5 PREEMPLOYMENT/PRESCHOOL EXAM 10/17/2011 KASI BLANCHARD APRN T V70.5 PREEMPLOYMENT/PRESCHOOL EXAM 10/17/2011 KASI BLANCHARD APRN T V70.5 PREEMPLOYMENT/PRESCHOOL EXAM 10/17/2011 LENNY FIELD APRN R V70.5 PREEMPLOYMENT/PRESCHOOL EXAM 10/17/2011 SANTO WADE KASI T V70.5 PREEMPLOYMENT/PRESCHOOL EXAM 10/17/2011 SANTO WADE KASI T V70.5 PREEMPLOYMENT/PRESCHOOL EXAM 10/17/2011 KASI BLANCHARD APRN T V70.5 PREEMPLOYMENT/PRESCHOOL EXAM 04/30/2012 296.90 MOOD DISORDER 04/30/2012 296.90 MOOD DISORDER 04/30/2012 KASI BLANCHARD APRN T 296.90 MOOD DISORDER 04/30/2012 296.90 MOOD DISORDER 04/30/2012 296.90 MOOD DISORDER 04/30/2012 KASI BLANCHARD APRN T 296.90 MOOD DISORDER 04/30/2012 296.90 MOOD DISORDER 04/30/2012 SANTO WADE KASI T 296.90 MOOD DISORDER 04/30/2012 FRANKY JESUS APRN R 296.90 MOOD DISORDER 04/30/2012 SANTO WADE KASI T 296.90 MOOD DISORDER 04/30/2012 SANTO WADE KASI T 296.90 MOOD DISORDER 04/30/2012 LENNY FIELD APRN R 296.90 MOOD DISORDER 04/30/2012 KASI BLANCHARD APRN T 296.90 MOOD DISORDER 04/30/2012 SANTO WADE KASI T 296.90 MOOD DISORDER 04/30/2012 KASI BLANCHARD APRN T 296.90 MOOD DISORDER 08/27/2012 Ot 354.0 CARPAL TUNNEL SYNDROME 10/01/2012 461.9 SINUSITIS ACUTE 10/01/2012 KASI BLANCHARD APRN 461.9 SINUSITIS ACUTE 10/01/2012 461.9 SINUSITIS ACUTE 10/01/2012 461.9 SINUSITIS ACUTE 10/01/2012 KASI BLANCHARD APRN 461.9 SINUSITIS ACUTE 10/01/2012 KASI BLANCHARD APRN 461.9 SINUSITIS ACUTE 10/01/2012 EDIN VOLUNTEER SERVICES ASSISTANT, FRANKY R 461.9 SINUSITIS ACUTE 10/01/2012 SANTO VOLUNTEER SERVICES ASSISTANT, KASI T 461.9 SINUSITIS ACUTE 10/01/2012 SANTO VOLUNTEER SERVICES ASSISTANT, KASI T 461.9 SINUSITIS ACUTE 10/01/2012 EMIR VOLUNTEER SERVICES ASSISTANT, LENNY R 461.9 SINUSITIS ACUTE 10/01/2012 SANTO VOLUNTEER SERVICES ASSISTANT, KASI T 461.9 SINUSITIS ACUTE 10/01/2012 SANTO LOREDON, KASI T 461.9 SINUSITIS ACUTE 10/01/2012 SANTO VOLUNTEER SERVICES ASSISTANT, KASI T 461.9 SINUSITIS ACUTE 10/12/2013 EDIN VOLUNTEER SERVICES ASSISTANT, FRANKY R 487.1 INFLUENZA 10/12/2013 SANTO VOLUNTEER SERVICES ASSISTANT, KASI T 487.1 INFLUENZA 10/12/2013 SANTO VOLUNTEER SERVICES ASSISTANT, KASI T 487.1 INFLUENZA 10/12/2013 EMIR VOLUNTEER SERVICES ASSISTANT, LENNY R 487.1 INFLUENZA 10/12/2013 SANTO VOLUNTEER SERVICES ASSISTANT, KASI T 487.1 INFLUENZA 10/12/2013 SANTO LOREDONKASI 487.1 INFLUENZA 10/12/2013 SANTO VOLUNTEER SERVICES ASSISTANTKASI T 487.1 INFLUENZA 01/30/2014 SANTO LOREDONKASI T 078.19 WARTS, COMMON 01/30/2014 EMIR LOREDON, LENNY R 078.19 WARTS, COMMON 01/30/2014 SANTO LOREDONKASI T 078.19 WARTS, COMMON 01/30/2014 SANTO VOLUNTEER SERVICES ASSISTANT, KASI T 078.19 WARTS, COMMON 01/30/2014 SANTO LOREDONKASI T 078.19 WARTS, COMMON 02/14/2014 DONAVON FIELD APRNIA R 372.30 CONJUNCTIVITIS UNSPECIFIED 02/14/2014 KASI BLANCHARD APRN T 372.30 CONJUNCTIVITIS UNSPECIFIED 02/14/2014 KASI BLANCHARD APRN T 372.30 CONJUNCTIVITIS UNSPECIFIED 02/14/2014 SANTO LOREDONKASI T 372.30 CONJUNCTIVITIS UNSPECIFIED 11/29/2014 KASI BLANCHARD APRN 133.0 SCABIES 03/23/2016 REEMA SILVERIO, MARTHA Helms Ot L03.116 CELLULITIS OF LEFT LOWER LIMB 06/29/2016 ORTIZ SILVERIO, EILEEN Vela Ot E11.9 TYPE 2 DIABETES MELLITUS WITHOUT COMPLIC 06/29/2016 ORTIZ SILVERIO, EILEEN Vela Ot 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 06/29/2016 ORTIZ SILVERIO, EILEEN Vela Ot R29.810 FACIAL WEAKNESS 06/29/2016 ORTIZ SILVERIO, EILEEN Vela Ot Z79.84 JAIL (CURRENT) USE OF ORAL HYPOGLYC 06/29/2016 ORTIZ SILVERIO, EILEEN Vela Ot Z79.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 THERAPY 06/11/2018 TAYLOR SILVERIO, FREEDOM Nelson Ot R59.0 LOCALIZED ENLARGED LYMPH NODES Procedures Code Description [place] [address] A1C (IN-HOUSE) 10/01/2012 63231 A1C (IN-HOUSE) 01/11/2013 65135 MICRO ALBUMIN-IN HOUSE 01/11/2013 33539 PSYCH DIAGNOSTIC EVALUATION 02/08/2013 90771 A1C (IN-HOUSE) 08/03/2013 75161 INFLUENZA A & B (IN-HOUSE) 10/12/2013 47891 A1C (IN-HOUSE) 01/09/2014 19033 MICRO ALBUMIN-IN HOUSE 01/09/2014 96331 WART DESTRUCT 1-14 (CRYO) 01/30/2014 74890 A1C (IN-HOUSE) 05/10/2014 28148 ROUTINE VENIPUNCTURE 12/18/2014 89479 MICRO ALBUMIN-IN HOUSE 12/18/2014 77551 CMP 12/18/2014 07506 LIPID PANEL 12/18/2014 97317 A1C (RML) 12/18/2014 17175 CBC 12/18/2014 Results Test Result Range Microalb/Creat Ratio, Rand Ur - 09/29/16 17:51 Creatinine, Urine 231.4 mg/dL Not Estab. Microalbumin, Urine 26.9 ug/mL Not Estab. Microalb/Creat Ratio 11.6 mg/g creat 0.0-30.0 CBC With Differential/Platelet - 12/30/16 11:37 WBC 7.2 x10E3/uL 3.4-10.8 RBC 5.76 x10E6/uL 4.14-5.80 Hemoglobin 15.6 g/dL 12.6-17.7 Hematocrit 46.2 % 37.5-51.0 MCV 80 fL 79-97 MCH 27.1 pg 26.6-33.0 MCHC 33.8 g/dL 31.5-35.7 RDW 13.1 % 12.3-15.4 Platelets 211 x10E3/uL 150-379 Neutrophils 53 % Lymphs 38 % Monocytes 6 % Eos 2 % Basos 0 % Neutrophils (Absolute) 3.8 x10E3/uL 1.4-7.0 Lymphs (Absolute) 2.7 x10E3/uL 0.7-3.1 Monocytes(Absolute) 0.4 x10E3/uL 0.1-0.9 Eos (Absolute) 0.2 x10E3/uL 0.0-0.4 Baso (Absolute) 0.0 x10E3/uL 0.0-0.2 Immature Granulocytes 1 % Immature Grans (Abs) 0.1 x10E3/uL 0.0-0.1 Comp. Metabolic Panel (14) - 12/30/16 11:37 Glucose, Serum 358 mg/dL 65-99 BUN 12 mg/dL 6-20 Creatinine, Serum 0.87 mg/dL 0.76-1.27 eGFR If NonAfricn Am 109 mL/min/1.73 >59 eGFR If Africn Am 126 mL/min/1.73 >59 BUN/Creatinine Ratio 14 9-20 Sodium, Serum 136 mmol/L 134-144 Potassium, Serum 4.3 mmol/L 3.5-5.2 Chloride, Serum 96 mmol/L 96-106 Carbon Dioxide, Total 21 mmol/L 18-29 Calcium, Serum 9.5 mg/dL 8.7-10.2 Protein, Total, Serum 7.5 g/dL 6.0-8.5 Albumin, Serum 5.0 g/dL 3.5-5.5 Globulin, Total 2.5 g/dL 1.5-4.5 A/G Ratio 2.0 1.2-2.2 Bilirubin, Total 0.4 mg/dL 0.0-1.2 Alkaline Phosphatase, S 97 IU/L 39-117 AST (SGOT) 43 IU/L 0-40 ALT (SGPT) 69 IU/L 0-44 Lipid Panel - 12/30/16 11:37 Cholesterol, Total 162 mg/dL 100-199 Triglycerides 310 mg/dL 0-149 HDL Cholesterol 25 mg/dL >39 VLDL Cholesterol Kevin 62 mg/dL 5-40 LDL Cholesterol Calc 75 mg/dL 0-99 Testosterone, Serum - 12/30/16 11:37 Testosterone, Serum 150 ng/dL [phone] Comment: Comment TSH - 12/30/16 11:37 TSH 2.030 uIU/mL 0.450-4.500 Testosterone, Serum - 05/18/17 17:13 Testosterone, Serum 248 ng/dL 264-916 LIPID PANEL - 03/30/18 08:09 CHOLESTEROL, TOTAL 178 mg/dL <200 HDL CHOLESTEROL 29 mg/dL >40 TRIGLYCERIDES 180 mg/dL <150 LDL-CHOLESTEROL 119 mg/dL (calc) NRG CHOL/HDLC RATIO 6.1 (calc) <5.0 NON HDL CHOLESTEROL 149 mg/dL (calc) <130 TESTOSTERONE, TOTAL - 06/14/18 16:43 TESTOSTERONE, TOTAL, MALES (ADULT), IA 273 ng/dL 250-827 Encounters ACCT No. Visit Date/Time Discharge Status Pt. Type Provider Facility Loc./Unit Complaint [id number] 12/18/2014 16:04:00 12/18/2014 23:59:59 CLS Outpatient KASI BLANCHARD APRN [id number] 08/21/2014 15:20:00 08/21/2014 23:59:59 CLS Outpatient KASI BLANCHARD APRN [id number] 05/10/2014 18:24:00 05/10/2014 23:59:59 CLS Outpatient KASI BLANCHARD APRN [id number] 02/14/2014 13:03:00 02/14/2014 23:59:59 CLS Outpatient LENNY FIELD APRN [id number] 01/30/2014 16:45:00 01/30/2014 23:59:59 CLS Outpatient KASI BLANCHARD APRN [id number] 01/09/2014 14:13:00 01/09/2014 23:59:59 CLS Outpatient KASI BLANCHARD APRN [id number] 10/12/2013 14:21:00 10/12/2013 23:59:59 CLS Outpatient FRANKY JESUS APRN [id number] 08/03/2013 16:15:00 08/03/2013 23:59:59 CLS Outpatient KASI BLANCHARD APRN [id number] 03/12/2013 12:25:00 03/12/2013 23:59:59 CLS Outpatient KASI BLANCHARD APRN [id number] 11/16/2012 15:02:00 11/16/2012 23:59:59 CLS Outpatient KASI BLANCHARD APRN [id number] 10/01/2012 16:47:00 10/01/2012 23:59:59 CLS Outpatient [id number] 06/03/2012 12:58:00 06/03/2012 23:59:59 CLS Outpatient [id number] 06/03/2012 12:58:00 06/03/2012 23:59:59 CLS Outpatient [id number] 02/07/2013 08:57:00 Document Registration [id number] 01/11/2013 16:31:00 Document Registration [id number] 09/30/2016 13:06:00 Document Registration [id number] 12/31/2016 08:47:00 Document Registration [id number] 06/08/2018 14:40:00 06/08/2018 23:59:59 CLS Outpatient KASI BLANCHARD APRN [facility] [id number] 06/14/2018 16:40:00 Document Registration [id number] 03/30/2018 08:20:00 Document Registration [id number] 05/19/2017 08:36:00 Document Registration [id number] 06/10/2018 07:14:00 06/10/2018 23:59:59 CLS Outpatient TAYLOR SILVERIO, FREEDOM Nelson [facility] RAD SALIVARY GLAND SURVEY [id number] 06/29/2016 09:38:00 06/29/2016 10:45:00 DIS Emergency ORTIZ SILVERIO, EILEEN Vela [facility] ER R SIDE FACE DROOP/ NUMBESS [id number] 03/23/2016 11:26:00 03/23/2016 13:15:00 DIS Emergency MARTHA BENAVIDEZ MD [facility] ER L LOWER LEG ABCESS [id number] 08/27/2012 06:15:00 Document Registration
[2018-06-25 06:47] LABS: BASOPHILS % (AUTO) 0 % (0-10); EOSINOPHILS # (AUTO) 0.2 10^3/uL (0.0-0.3); EOSINOPHILS % (AUTO) 3 % (0-10); HEMATOCRIT 42 % (40-54); HEMOGLOBIN 14.4 G/DL (13.3-17.7); LYMPHOCYTES # (AUTO) 2.1 X 10^3 (1.0-4.0); LYMPHOCYTES % (AUTO) 33 % (12-44); MEAN CORPUSCULAR HEMOGLOBIN 27 PG (25-34); MEAN CORPUSCULAR HGB CONC 34 G/DL (32-36); MEAN CORPUSCULAR VOLUME 79 FL (80-99); MEAN PLATELET VOLUME 9.6 FL (7.4-10.4); MONOCYTES # (AUTO) 0.4 X 10^3 (0.0-1.0); MONOCYTES % (AUTO) 6 % (0-12); NEUTROPHILS # (AUTO) 3.5 X 10^3 (1.8-7.8); NEUTROPHILS % (AUTO) 57 % (42-75); PLATELET COUNT 238 10^3/uL (130-400); RED BLOOD COUNT 5.36 10^6/uL (4.35-5.85); RED CELL DISTRIBUTION WIDTH 13.3 % (10.0-14.5); WHITE BLOOD COUNT 6.2 10^3/uL (4.3-11.0)
[2018-06-25] MEDS ORDERED: proPOfol 200 MG/20 ML (DIPRIVAN) VIAL IV ONE (06:47)
[2018-06-25] MEDS ORDERED: ONDANSETRON 4 MG/2 ML (SDV) Z0FRAN ONE (06:47)
[2018-06-25] MEDS ORDERED: ROCURONIUM 10 MG/ML 5 ML SYRINGE IV ONE (06:47)
[2018-06-25] MEDS ORDERED: LACTATED RINGERS 1,000 ML IV ONE (06:47)
[2018-06-25] MEDS ORDERED: LIDOCAINE PF 2% 2 ML (XYLOCAINE) VIAL ONE ×2 (06:47→06:49)
[2018-06-25] MEDS ORDERED: MIDAZOLAM 2 MG/2 ML (VERSED) VIAL ONE (06:48)
[2018-06-25] MEDS ORDERED: fentaNYL INJECTION 100 MCG/2 ML AMP ONE (06:48)
[2018-06-25] MEDS ORDERED: SEVOFLURANE (ULTANE) 15 ML INHAL SOLN ONE ×2 (06:49→08:17)
--- NOTE | 2018-06-25 06:57 | Progress Note-Pre Operative ---
Pre-Operative Progress Note H&P Reviewed The H&P was reviewed, patient examined and no changes noted. Date Seen by Provider: Jun 25, 2018 Time Seen by Provider: 07:00 Date H&P Reviewed: Jun 25, 2018 Time H&P Reviewed: 07:00 Pre-Operative Diagnosis: Left Submandibular Duct STone FREEDOM VAZQUEZ MD Jun 25, 2018 6:57 am
[2018-06-25 07:03] LABS: BUN/CREATININE RATIO 13; CARBON DIOXIDE 23 MMOL/L (21-32); CHLORIDE 105 MMOL/L (98-107); CREATININE SERUM 0.85 MG/DL (0.60-1.30); GFR ESTIMATED > 60; GLUCOSE 195 MG/DL (70-105); POTASSIUM 4.1 MMOL/L (3.6-5.0); SODIUM 138 MMOL/L (135-145)
[2018-06-25] MEDS ORDERED: LIDOCAINE/EPI 1%-1:200,000 (XYLOCAINE) 10 ML VIAL ONE (07:03)
[2018-06-25] MEDS: LACTATED RINGERS 1,000 ML IV PRN ×3 (07:06→08:33)
[2018-06-25 07:16] VITALS: BP 128/91
[2018-06-25] MEDS ORDERED: GLYCOPYRROLATE 0.2 MG/ML (ROBINUL) 2 ML VIAL ONE (07:48)
[2018-06-25] MEDS ORDERED: NS IV 1000 ML 1,000 ML IV SCH (08:02)
--- NOTE | 2018-06-25 08:02 | Progress Note-Post Operative ---
Post-Operative Progess Note Surgeon (s)/Note Keeper (s) Surgeon FREEDOM VAZQUEZ MD Note Keeper n/a Pre-Operative Diagnosis Left Submandibular Duct STone Post-Operative Diagnosis same Post-Op Procedure Note Date of Procedure: Jun 25, 2018 Name of Procedure Performed: Excision of Left Submandibular Duct stone Description & Findings Description and Findings: n/a Anesthesia Type get Estimated Blood Loss minimal Packing none. Specimen(s) collected/removed left submandubular duct stone to patients family FREEDOM VAZQUEZ MD Jun 25, 2018 8:02 am
[2018-06-25] MEDS ORDERED: ONDANSETRON 4 MG/2 ML (SDV) Z0FRAN IVP PRN (08:15)
[2018-06-25] MEDS ORDERED: HYDROcodone/APAP 5 MG/325 MG (LORTAB) TAB PO PRN (08:15)
[2018-06-25] MEDS ORDERED: APAP 325 MG/10.15 ML LIQ (TYLENOL) UDC PO PRN (08:15)
[2018-06-25] MEDS ORDERED: morphine INJ 10 MG/ML 1ML (SYR OR VIAL) IVP ONE (08:15)
[2018-06-25] MEDS ORDERED: CEFU250T80 PO (08:16)
[2018-06-25 09:00] VITALS: BP 128/91
[2018-06-25] MEDS ORDERED: HYDR-3812 PO (09:08)
[2018-06-25 09:30] VITALS: BP 128/91
[2018-06-25 10:00] VITALS: BP 133/90
[2018-06-25 10:25] VITALS: BP 133/90
== END 2018-06-25 10:25 | disposition home or self-care (01) ==
LOC: SDC 06:01
PROVIDERS: ATTEND Otolaryngology Otolaryngology/Facial Plastic Surgery
DX: K11.5 Sialolithiasis (principal); E11.9 Type 2 diabetes mellitus without complications; E66.9 Obesity, unspecified; Z68.34 Body mass index [BMI] 34.0-34.9, adult; Z79.84 Long term (current) use of oral hypoglycemic drugs
CPT/HCPCS: 36415; 80048; 82962; 85025; 87081; 93005

== ENCOUNTER 2022-11-01 02:37 | Emergency (ER) | payer BC ==
[~2022-11-01] VITALS: Ht 172.8 cm; Wt 103.0 kg
[~2022-11-01 02:37] MED LIST changes: +ACHD5005 PO; +ACHYD1T PO; -ACYC400T PO; +ACYC400T21 PO; +CEFU250T80 PO; -HYDR-3820 PO; -TRAM50TA2; +TRM50T
[2022-11-01] MEDS ORDERED: SEMA2PEN (02:45)
[2022-11-01] MEDS ORDERED: NABU-95 (02:45)
[2022-11-01] MEDS ORDERED: HYDR-3820 (02:45)
[2022-11-01] MEDS ORDERED: LISI10TA25 (02:45)
--- NOTE | 2022-11-01 02:56 | ED Cardiac General ---
History of Present Illness General Chief Complaint: Cardiac/General Problems Stated Complaint: ELEVATED BP/CHEST PAIN Source: patient History of Present Illness Date Seen by Provider: Nov 01, 2022 Time Seen by Provider: 02:42 Initial Comments PT ARRIVES VIA POV C/O ELEVATED BLOOD PRESSURE AND CHEST DISCOMFORT Allergies and Home Medications Allergies Coded Allergies: No Known Drug Allergies (Unverified , 04/03/11) Patient Home Medication List Cefuroxime Axetil (Cefuroxime) 250 Mg Tablet, 250 MG PO BID Prescribed by: DAYANA AUGUSTINE on 06/25/18 0816 Diclofenac Sodium (Diclofenac Sodium) 75 Mg Tablet.dr, 75 MG PO BID PRN for MUSCLE SPASMS, (Reported) Entered as Reported by: CHLOÉ CISSE on 06/29/16 0948 Dulaglutide (Trulicity) 1.5 Mg/0.5 Ml Pen.injctr, 1.5 MG SQ WEEK, (Reported) Entered as Reported by: JAMIE ANG on 06/22/18 152 Famotidine (Famotidine) 20 Mg Tablet, 20 MG PO BID, (Reported) Entered as Reported by: CHLOÉ CISSE on 06/29/16 0948 Fluoxetine HCl (Fluoxetine HCl) 40 Mg Capsule, 40 MG PO DAILY, (Reported) Entered as Reported by: JAMIE ANG on 06/22/18 152 Glipizide (Glipizide) 5 Mg Tablet, 5 MG PO BID, (Reported) Entered as Reported by: JAMIE ANG on 06/22/18 1522 Hydrocodone Bit/Acetaminophen (HYDROcodone/APAP 10/325 TABLET) 1 Each Tablet, 1 EACH PO Q6H PRN for PAIN-MODERATE, (Reported) Entered as Reported by: JAMIE ANG on 06/22/18 1522 Hydrocodone Bit/Acetaminophen (Lortab 5 Mg Tablet) 1 Each Tablet, 1 EACH PO Q4 PRN for PAIN-MODERATE Prescribed by: DAYANA AUGUSTINE on 06/25/18 0908 Hydrocodone/Acetaminophen (Hydrocodone-Acetamin 10-325 mg) 10 Mg-325 Mg Tablet, (Reported) Entered as Reported by: BEULAH SANTOS on 11/01/22 0245 Last Action: New Order Lisinopril (Lisinopril) 10 Mg Tablet, (Reported) Entered as Reported by: BEULAH SANTOS on 11/01/22244 Last Action: New Order Nabumetone (Nabumetone) 750 Mg Tablet, (Reported) Entered as Reported by: BEULAH SANTOS on 11/01/22244 Last Action: New Order Semaglutide (Ozempic) 2 Mg/0.75 Ml (8 Mg/3 Ml) Pen.injctr, (Reported) Entered as Reported by: BEULAH SANTOS on 11/01/22244 Last Action: New Order Testosterone Cypionate (Testosterone Cypionate) 200 Mg/1 Ml Vial, 100 MG IM MONTHLY, (Reported) Entered as Reported by: JAMIE ANG on 06/22/18 1522 Past Intzgcm-Ogmqsd-Dxmfvh Hx Seasonal Allergies Seasonal Allergies: No Past Medical History Surgeries: Yes (LEFT SUBMANDIBULAR GLAND DUCT STONE REMOVAL 06/2018;R PRIETO MONAHAN 2011) Orthopedic Neurological: Yes (GALLEGOS'S PALSY 2015) Reproductive Disorders: No Arthritis Diabetes, Non-Insulin dep Family Medical History Diabetes Physical Exam Vital Signs Vital Signs - First Documented 11/01/22 02:40 Temp 36.6 Pulse 76 Resp 18 B/P (MAP) 191/119 (143) Pulse Ox 98 O2 Delivery Room Air Capillary Refill : Height, Weight, BMI Height: 5'9.00" Weight: 232lbs. 0.0oz. 105.623255de; 34.3 BMI Method:Estimated Progress/Results/Core Measures Results/Orders Lab Results Laboratory Tests Test 11/01/22 02:46 Range/Units White Blood Count 9.3 4.3-11.0 10^3/uL Red Blood Count 5.76 H 4.30-5.52 10^6/uL Hemoglobin 15.7 13.3-17.7 g/dL Hematocrit 46 40-54 % Mean Corpuscular Volume 81 80-99 fL Mean Corpuscular Hemoglobin 27 25-34 pg Mean Corpuscular Hemoglobin Concent 34 32-36 g/dL Red Cell Distribution Width 12.4 10.0-14.5 % Platelet Count 249 130-400 10^3/uL Mean Platelet Volume 9.8 9.0-12.2 fL Immature Granulocyte % (Auto) 1 % Neutrophils (%) (Auto) 51 42-75 % Lymphocytes (%) (Auto) 39 12-44 % Monocytes (%) (Auto) 6 0-12 % Eosinophils (%) (Auto) 3 0-10 % Basophils (%) (Auto) 0 0-10 % Neutrophils # (Auto) 4.7 1.8-7.8 10^3/uL Lymphocytes # (Auto) 3.7 1.0-4.0 10^3/uL Monocytes # (Auto) 0.5 0.0-1.0 10^3/uL Eosinophils # (Auto) 0.3 0.0-0.3 10^3/uL Basophils # (Auto) 0.0 0.0-0.1 10^3/uL Immature Granulocyte # (Auto) 0.1 0.0-0.1 10^3/uL Prothrombin Time 13.2 12.2-14.7 SEC INR Comment 1.0 0.8-1.4 Activated Partial Thromboplast Time 29 24-35 SEC D-Dimer < 0.27 0.00-0.49 UG/ML Sodium Level 139 135-145 MMOL/L Potassium Level 3.9 3.6-5.0 MMOL/L Chloride Level 99 98-107 MMOL/L Carbon Dioxide Level 25 21-32 MMOL/L Anion Gap 15 H 5-14 MMOL/L Blood Urea Nitrogen 9 7-18 MG/DL Creatinine 0.99 0.60-1.30 MG/DL Estimat Glomerular Filtration Rate 96 BUN/Creatinine Ratio 9 Glucose Level 215 H 70-105 MG/DL Calcium Level 9.1 8.5-10.1 MG/DL Corrected Calcium 8.5-10.1 MG/DL Magnesium Level 2.0 1.6-2.4 MG/DL Total Bilirubin 0.5 0.1-1.0 MG/DL Aspartate Amino Transf (AST/SGOT) 25 5-34 U/L Alanine Aminotransferase (ALT/SGPT) 34 0-55 U/L Alkaline Phosphatase 92 40-136 U/L Total Creatine Kinase 348 H 30-200 U/L Creatine Kinase MB 2.1 <6.6 NG/ML Myoglobin 85.4 10.0-92.0 NG/ML Troponin I < 0.028 <0.028 NG/ML B-Type Natriuretic Peptide 32.0 <100.0 PG/ML Total Protein 7.9 6.4-8.2 GM/DL Albumin 4.6 H 3.2-4.5 GM/DL Amylase Level 62 25-125 U/L Lipase 76 8-78 U/L Influenza Type A (RT-PCR) Not Detected Not Detecte Influenza Type B (RT-PCR) Not Detected Not Detecte SARS-CoV-2 RNA (RT-PCR) Not Detected Not Detecte My Orders Orders - RUTH REESE DO Cbc With Automated Diff (11/01/22 02:41) Magnesium (11/01/22 02:41) Chest 1 View, Ap/Pa Only (11/01/22 02:41) Ekg Tracing (11/01/22 02:41) Comprehensive Metabolic Panel (11/01/22 02:41) Myoglobin Serum (11/01/22 02:41) Protime With Inr (11/01/22 02:41) Partial Thromboplastin Time (11/01/22 02:41) O2 (11/01/22 02:41) Monitor-Rhythm Ecg Trace Only (11/01/22 02:41) Ed Iv/Invasive Line Start (11/01/22 02:41) Creatine Kinase (11/01/22 02:41) Creatine Kinase Mb (11/01/22 02:41) Lipase (11/01/22 02:41) Amylase (11/01/22 02:41) Bnp Menard (11/01/22 02:41) Aspirin Chewable Tablet (Baby Aspirin Ch (11/01/22 03:00) Nitroglycerin Ointment (Nitrobid Ointme (11/01/22 03:00) Covid 19 Inhouse Test (11/01/22 02:50) Influenza A And B By Pcr (11/01/22 02:50) Isolation Central Supply Req (11/01/22 02:50) Fibrin Degradation Products (11/01/22 02:41) Troponin I Menard (11/01/22 02:41) Medications Given in ED Vital Signs/I&O 11/01/22 11/01/22 02:40 03:55 Temp 36.6 36.0 Pulse 76 87 Resp 18 16 B/P (MAP) 191/119 (143) 135/89 Pulse Ox 98 98 O2 Delivery Room Air Room Air Progress Progress Note : Progress Note PPE WORN GIVEN: -ASPIRIN -1" NITROPASTE ALL SYMPTOMS COMPLETELY RESOLVED AND BP DOWN TO 137/87 AT DISMISSAL, PULSE STABLE IN THE 80'S, O2 SATS 96-98% ON ROOM AIR. Initial ECG Impression Date: Nov 01, 2022 Initial ECG Impression Time: 02:45 Initial ECG Rate: 81 Initial ECG Rhythm: Normal Sinus Initial ECG Impression: Normal Initial ECG Comparisson: No Previous ECG Available Departure Impression Primary Impression: HTN (hypertension) Additional Impressions: NIDDM Upper respiratory infection Chest pain Disposition: 01 HOME, SELF-CARE Condition: Improved Departure-Patient Inst. Decision time for Depature: 03:48 Referrals: [facility] [place]/Family) Primary Care Physician DO MONTERROSO MD FACP FACC CCDS Patient Instructions: DASH Diet, High Blood Pressure (DC), Upper Respiratory Infection ED, Chest Pain (DC) Add. Discharge Instructions: INCREASE YOUR LISINOPRIL 10 MG DOSE TO 20 MG DAILY CONTINUE YOUR OTHER MEDICATIONS PRESCRIBED DO NOT TAKE ANY OVER THE COUNTER COLD/COUGH/ALLERGY MEDICATIONS, UNLESS YOU HAVE DISCUSSED WITH YOUR DR OR PHARMACIST. LOW SODIUM DIET FOLLOW UP WITH DR. MONTERROSO, COMPENSATION AND BENEFITS ADVISOR NEXT WEEK FOR FURTHER CARE--CALL ON THURSDAY TO SCHEDULE APPOINTMENT. RETURN TO ER IF YOUR SYMPTOMS RETURN. All discharge instructions reviewed with patient and/or family. Voiced understanding. RUTH REESE DO Nov 01, 2022 02:56
[2022-11-01 03:00] LABS: BASOPHILS % (AUTO) 0 % (0-10); EOSINOPHILS # (AUTO) 0.3 10^3/uL (0.0-0.3); EOSINOPHILS % (AUTO) 3 % (0-10); HEMATOCRIT 46 % (40-54); HEMOGLOBIN 15.7 g/dL (13.3-17.7); LYMPHOCYTES # (AUTO) 3.7 10^3/uL (1.0-4.0); LYMPHOCYTES % (AUTO) 39 % (12-44); MEAN CORPUSCULAR HEMOGLOBIN 27 pg (25-34); MEAN CORPUSCULAR HGB CONC 34 g/dL (32-36); MEAN CORPUSCULAR VOLUME 81 fL (80-99); MEAN PLATELET VOLUME 9.8 fL (9.0-12.2); MONOCYTES # (AUTO) 0.5 10^3/uL (0.0-1.0); MONOCYTES % (AUTO) 6 % (0-12); NEUTROPHILS # (AUTO) 4.7 10^3/uL (1.8-7.8); NEUTROPHILS % (AUTO) 51 % (42-75); PLATELET COUNT 249 10^3/uL (130-400); WHITE BLOOD COUNT 9.3 10^3/uL (4.3-11.0)
[2022-11-01] MEDS ORDERED: NITROGLYCERIN 2% OINT 1 GM UNIT DOSE PACKET TOP ONE (03:00)
[2022-11-01] MEDS ORDERED: ASPIRIN 81 MG CHEW (CHILDREN'S ASA) PO ONE (03:00)
[2022-11-01 03:14] LABS: ALBUMIN 4.6 GM/DL (3.2-4.5); CHLORIDE 99 MMOL/L (98-107); POTASSIUM 3.9 MMOL/L (3.6-5.0); SODIUM 139 MMOL/L (135-145)
[2022-11-01 03:15] LABS: AMYLASE 62 U/L (25-125); CALCIUM 9.1 MG/DL (8.5-10.1)
[2022-11-01 03:16] LABS: GLUCOSE 215 MG/DL (70-105)
[2022-11-01 03:17] LABS: TOTAL PROTEIN 7.9 GM/DL (6.4-8.2)
[2022-11-01 03:18] LABS: BILIRUBIN,TOTAL 0.5 MG/DL (0.1-1.0); CARBON DIOXIDE 25 MMOL/L (21-32)
[2022-11-01 03:20] LABS: ALKALINE PHOSPHATASE 92 U/L (40-136); CREATININE SERUM 0.99 MG/DL (0.60-1.30); GFR ESTIMATED 96
[2022-11-01 03:21] LABS: BUN/CREATININE RATIO 9
[2022-11-01 03:23] LABS: ALANINE AMINOTRANSFERASE 34 U/L (0-55); CREATINE KINASE MB 2.1 NG/ML (<6.6)
[2022-11-01 03:24] LABS: CREATINE KINASE 348 U/L (30-200); LIPASE 76 U/L (8-78)
[2022-11-01 03:25] LABS: FIBRIN DEGRADATION PRODUCTS < 0.27 UG/ML (0.00-0.49); PARTIAL THROMBOPLASTIN TIME 29 SEC (24-35); PROTHROMBIN TIME PATIENT 13.2 SEC (12.2-14.7)
[2022-11-01 03:55] VITALS: BP 135/89
--- NOTE | 2022-11-01 07:21 | Diagnostic Imaging Report ---
INDICATION: Chest pain. TECHNIQUE: Single view chest 3:23 AM. CORRELATION STUDY: None FINDINGS: There is limited depth of inspiration. Given this, heart size, mediastinal configuration and pulmonary vascularity are within normal limits. The lungs are clear with no consolidating infiltrate. There is no significant effusion or pneumothorax. IMPRESSION: 1. Negative appearing single view chest. Dictated by: Dictated on workstation # [id number]
== END 2022-11-01 03:58 | disposition home or self-care (01) ==
LOC: EDUNIT# 02:37 → ER 02:40
DX: R07.89 Other chest pain (principal); J06.9 Acute upper respiratory infection, unspecified; I10 Essential (primary) hypertension; E11.9 Type 2 diabetes mellitus without complications; Z20.822 Contact with and (suspected) exposure to COVID-19; Z28.310 Unvaccinated for COVID-19
CPT/HCPCS: 36415; 71045; 80053; 82150; 82550; 82553; 83690; 83735; 83874; 83880; 84484; 85025; 85379; 85610; 85730; 87636; 93005; 93041

== ENCOUNTER → 2022-11-12 | Outpatient (CLI) | payer BC ==
[~2022-11-12] MED LIST changes: +CATHETER FLUSH 10 ML SYR IVP PRN; +HYDR-3820; +LISI10TA25; +NABU-95; +SEMA2PEN
[2022-11-12 09:25] VITALS: BP 120/74
--- NOTE | 2022-11-12 15:04 | Cardiology Stress Test Report ---
Stress Test Report Date of Procedure/Referring: Date of Procedure: Nov 12, 2022 [facility] Admitting Physician Admitting Physician: Attending Physician: Bonifacio Herbert MD Indications: CP Baseline Heart Rate: 71 Baseline Blood Pressure: Blood Pressure Systolic: 120 Blood Pressure Diastolic: 74 Vital Signs Date Time Temp Pulse Resp B/P (MAP) Pulse Ox O2 Delivery O2 Flow Rate FiO2 11/12/22 09:25 71 120/74 (89) Baseline Vital Signs Vital Signs Date Time Temp Pulse Resp B/P (MAP) Pulse Ox O2 Delivery O2 Flow Rate FiO2 11/12/22 09:25 71 120/74 (89) Baseline EKG: Baseline EKG: NSR Summary: After explaining the procedure and details to the patient, he signed the consent and was brought to the stress nuclear laboratory. Patient exercised on standard Cm protocol, EKG, heart rate and blood pressure were monitored continuously, resting and stress doses of radio tracer were injected, imaging was acquired and reviewed in the short axis, horizontal long axis and vertical long axis views Patient was able to exercise for a total of 9 minutes on Cm protocol, METs 10.3 Maximum heart rate 146 Maximum blood pressure 217/84 Stress EKG, Minimal nondiagnostic changes Recovery EKG, Return to baseline TID: 1.04 SSS: 4 SDS: 2 EF: 50 Conclusion: Good exercise tolerance for 9 minutes on standard Cm protocol, 10.3 METS achieving 83% of maximal expected heart rate Appropriate heart rate response to exercise with hypertensive response to exercise peak blood pressure 217/84 return to baseline during recovery Nondiagnostic EKG changes with exercise return to baseline during recovery Diaphragmatic attenuation with mild decrease uptake at the basal to mid inferolateral wall with mild reversibility, no significant ischemia or infarction noted on SPECT images Normal left ventricular size, ejection fraction 50% Copy Copies To 1: [facility]BONIFACIO LEON MD Nov 12, 2022 15:04
== END ==
LOC: CARD 08:05
PROVIDERS: ATTEND Internal Medicine Cardiovascular Disease
DX: R07.9 Chest pain, unspecified (principal)
CPT/HCPCS: 78452; 93017; A9502

== ENCOUNTER → 2022-11-24 | Outpatient (CLI) | payer BC ==
[~2022-11-24] MED LIST changes: -CATHETER FLUSH 10 ML SYR IVP PRN
== END ==
LOC: CARD 09:00
PROVIDERS: ATTEND Internal Medicine Cardiovascular Disease
DX: I51.7 Cardiomegaly (principal)
CPT/HCPCS: 93306